=== PATIENT | male | born 1935 | race Caucasian/White ===

== ENCOUNTER 2020-01-23 12:32 | Outpatient (CLI) | payer MEDICARE, OTHER, SELFPAY ==
--- NOTE | 2020-01-23 12:45 | US_ITS ---
WS: [id number] RIGHT UPPER QUADRANT ULTRASOUND HISTORY: RUQ ABDOMINAL PAIN COMPARISON: None available. Liver: 16.8 cm in length. Slightly enlarged liver. No mass or bile duct dilatation. Gallbladder: Normally distended gallbladder with no stones or wall thickening. Level echoes within th e gallbladder to be related to body habitus and reverberation. CBD: 0.4 cm Pancreas: Not visualized. Right kidney: 9.8 cm in length. Normal echogenicity with no mass or hydronephrosis. Aorta and IVC: Unremarkable. No ascites. US/US abdomen limited 18311 IMPRESSION: 1. No cholelithiasis. 2. Mild hepatomegaly.
== END 2020-01-23 12:33 | disposition home or self-care (01) ==
LOC: RAD 12:37
PROVIDERS: Visit Provider Nurse Practitioner Family
DX: R10.11 Right upper quadrant pain (principal); R16.0 Hepatomegaly, not elsewhere classified
CPT/HCPCS: 76705

== ENCOUNTER → 2020-12-22 10:44 | Outpatient (BNVA) | payer MEDICARE, OTHER, SELFPAY | PROVIDERS: PCP Internal Medicine; Visit Provider Internal Medicine Pulmonary Disease | DX: J45.909 Unspecified asthma, uncomplicated (principal); Z20.822 Contact with and (suspected) exposure to COVID-19 | CPT/HCPCS: 87635 ==

== ENCOUNTER 2020-12-25 10:38 | Outpatient (CLI) | payer MEDICARE, OTHER, SELFPAY ==
--- NOTE | 2020-12-25 13:08 | PFTS_ITS ---
Date of Study:12/25/20 Date of Dictation: 01/01/2021 MECHANICS: Postbronchodilator forced vital capacity (FVC) is reduced. Postbronchodilator forced expiratory volume in one second (FEV1) is moderately reduced 78%. FEV1/FVC is reduced No significant response to bronchodilator . FLOW VOLUME LOOP: Sloping of expiratory limb suggestive of airway obstruction . LUNG VOLUMES: Not measured DIFFUSING CAPACITY FOR CARBON MONOXIDE: Moderately reduced 15% . INTERPRETATION: The spirometry consistent with moderate obstruction. There is moderate gas transfer defect. Lung volumes are not measured. Correlate clinically. MTDD
== END 2020-12-25 10:39 | disposition home or self-care (01) ==
LOC: RT 10:39
PROVIDERS: PCP Internal Medicine; Visit Provider Internal Medicine Pulmonary Disease
DX: J45.909 Unspecified asthma, uncomplicated (principal)
CPT/HCPCS: 94060; 94618; 94729

== ENCOUNTER → 2021-09-04 13:28 | Outpatient (BNVA) | payer MEDICARE, OTHER, SELFPAY | PROVIDERS: PCP Internal Medicine; Visit Provider Nurse Practitioner Family | DX: M17.12 Unilateral primary osteoarthritis, left knee (principal); M85.88 Other specified disorders of bone density and structure, other site; M25.562 Pain in left knee | CPT/HCPCS: 73562 ==

== ENCOUNTER → 2021-11-04 11:24 | Outpatient (BNVA) | payer MEDICARE, OTHER, SELFPAY | PROVIDERS: PCP Internal Medicine; Visit Provider Internal Medicine Pulmonary Disease | DX: J45.30 Mild persistent asthma, uncomplicated (principal); G47.33 Obstructive sleep apnea (adult) (pediatric); R06.00 Dyspnea, unspecified; R06.02 Shortness of breath | CPT/HCPCS: 82785; 86003 ==

== ENCOUNTER 2022-04-17 21:36 | Emergency (ER) | payer MEDICARE, OTHER, SELFPAY ==
[2022-04-17] VITALS (8 sets, daily range): BP systolic 61–171; BP diastolic 38–85; PULSE 52–81; RESP 16–25; TEMP 37.1; O2SAT 94–97
--- NOTE | 2022-04-17 22:05 | W.ED.EPISTAX ---
HPI - Epistaxis General: Chief complaint: Epistaxis Stated complaint: Nose bleed for 2 hrs Time Seen by Provider: 04/17/22 21:50 History of Present Illness: 87-year-old male patient comes in today with bleeding from the right nostril. Patient reports the bleeding started about 3 hours ago and he was unable to get it to stop at home. Patient is taking Xarelto. Patient appears nontoxic. Patient appears in no pain. Review of Systems General: Reports: 10 or more systems reviewed and unremarkable except in HPI and below ENMT: Reports: epistaxis; Denies: throat pain Card: Denies: chest pain Resp: Denies: dyspnea PFSH ED PFSH: Medical History Asthma HTN (hypertension) JENNIFER (obstructive sleep apnea) Family History Mother CHF (congestive heart failure) Father CHF (congestive heart failure) Social History Smoking and tobacco status: never smoked Second hand smoke exposure: No Smoking risk assessment/counseling performed?: No Alcohol intake: never Counseling given: No Counseling given: No Lives independently: Yes Household members: spouse Marital status: Current occupational status: retired Previous occupational history: [employer] History of recent travel: No Current gender identity: Male Physical Exam Const: COMMON NORMALS: alert HENMT: HEAD & SCALP: normal to inspection NOSE: Epistaxis present on the right anterior source MOUTH: Normal oral and palatal mucosa present THROAT: posterior oropharynx normal Neck/C-Spine: COMMON NORMALS: full ROM Resp: COMMON NORMALS: normal respiratory effort and clear to auscultation bilaterally AUSCULTATION: clear to auscultation bilaterally Cardio: COMMON NORMALS: regular rate and regular rhythm RATE: regular rate RHYTHM: regular rhythm GI: COMMON NORMALS: Soft to palpation PALPATION: Yes Soft to palpation Back/Pelvis: COMMON NORMALS: thoracic and lumbar spine normal to inspection Extremity: COMMON NORMALS: no pedal edema Neuro: SENSORIUM/ORIENTATION: Yes alert Skin: COMMON NORMALS: turgor normal GENERAL SKIN EXAM: turgor normal Procedures Epistaxis Control Nostril: right Direct Inspection: anterior source identified Clots Removed by: blowing nose Cautery Used: none Device Inserted: hemostatic balloon Patient Tolerated Procedure: well Complications: pain and syncope Course Vital Signs: Vital signs: Vital Signs Temperature 98.7 F 04/17/22 21:41 Pulse Rate 73 04/17/22 23:56 Respiratory Rate 24 H 04/17/22 23:09 Blood Pressure 141/85 04/17/22 23:56 Pulse Oximetry 96 04/17/22 23:09 Oxygen Delivery Me thod 04/17/22 23:09 MDM - Epistaxis Medical Decision Making 87-year-old male patient comes in today with bleeding from his right nostril. On exam patient had significant bleeding from the right nostril. Patient expelled clot by blowing his nose. Vital signs were normal except for some mild elevation of blood pressure of 170 systolic. Differential diagnosis includes anticoagulation, anemia, rhinosinusitis, epistaxis, uncontrolled hypertension. A large clot was removed and then a rapid Rhino anterior-posterior balloon was placed with 8 mL of air in the anterior balloon and 6 mL of air in the posterior balloon. Bleeding was controlled. Patient did have an episode of syncope due to pain. Patient recovered with minimal intervention after placement into Trendelenburg. Lab came back showing a hemoglobin of 12.8, sodium of 129, and chloride of 93, INR of 2.3. Patient was given a 500 mL bag of saline which recovered him after his syncope episode. Orthostatic blood pressures after episode were normal. And patient had resolution of symptoms without any signs of chest pain or other discomfort. Patient was able to ambulate without any difficulty. Reviewed exam with patient and family with recommendations for follow-up with ENT in 72 hours for removal balloon and further treatment. Patient reported understanding of care plan along with family members. Lab Data : 04/17/22 22:07 04/17/22 22:07 Laboratory Results WBC 12.5 10^3/uL (4.0-10.0) H 04/17/22 22:07 RBC 4.53 10^6/uL (4.1-5.3) 04/17/22 22:07 Hgb 12.8 g/dL (11.7-16.6) 04/17/22 22:07 Hct 39.8 % (42.0-52.0) L 04/17/22 22:07 MCV 87.9 fl (80-94) 04/17/22 22:07 MCH 28.3 pg (28.0-34.0) 04/17/22 22:07 MCHC 32.2 g/dL (30.0-36.0) 04/17/22 22:07 RDW 13.7 % (12.1-15.1) 04/17/22 22:07 Plt Count 344 10^3/cmm (130-400) 04/17/22 22:07 MPV 9.2 fL (7.4-10.4) 04/17/22 22:07 Neut % (Auto) 80.0 % 04/17/22 22:07 Lymph % (Auto) 7.1 % 04/17/22 22:07 [place] % (Auto) 9.4 % 04/17/22 22: Eos % (Auto) 1.9 % 04/17/22 22:07 Baso % (Auto) 0.8 % 04/17/22 22:07 Neut # (Auto) 10.01 10^3/uL (1.8-7.7) H 04/17/22 22:07 Lymph # (Auto) 0.9 10^3/uL (0.8-4.8) 04/17/22 22:07 [place] # (Auto) 1.2 10^3/uL (0.2-0.9) H 04/17/22 22:07 Eos # (Auto) 0.2 10^3/uL (0.0-0.8) 04/17/22 22:07 Baso # (Auto) 0.1 10^3/uL (0.0-0.1) 04/17/22 22: Nucleated RBC % (auto) 0 % 04/17/22 22: Nucleated RBCs # 0.0 /100WBC 04/17/22 22:07 PT 25.80 SECONDS (12.1-14.9) H 04/17/22 22:07 INR 2.32 (0.8-1.2) H 04/17/22 22:07 Sodium 129 mmol/L (136-145) L 04/17/22 22:07 Potassium 4.2 mmol/L (3.5-5.1) 04/17/22 22:07 Chloride 93 mmol/L (98-107) L 04/17/22 22:07 Carbon Dioxide 27 mmol/L (22-29) 04/17/22 22:07 Anion Gap 13.2 (5-19) 04/17/22 22:07 BUN 10 mg/dL (8-23) 04/17/22 22:07 Creatinine 0.8 mg/dL (0.7-1.2) 04/17/22 22:07 GFR Calculation Not Reportable 04/17/22 22:07 Glucose 210 mg/dL (65-115) H 04/17/22 22:07 Calculated Osmolality 273 mOsm/kg (285-295) L 04/17/22 22:07 Calcium 9.0 mg/dL (8.5-10.5) 04/17/22 22:07 Total Bilirubin 0.4 mg/dL (0.15-1.2) 04/17/22 22:07 AST 17 U/L (0-40) 04/17/22 22:07 ALT 15 U/L (0-41) 04/17/22 22:07 Alkaline Phosphatase 130 U/L (40-130) 04/17/22 22:07 Total Protein 6.7 g/dL (6.6-8.7) 04/17/22 22:07 Albumin 3.8 g/dL (3.5-5.2) 04/17/22 22:07 Globulin 2.9 g/dL (1.3-4.6) 04/17/22 22:07 Discharge Plan Discharge Patient Disposition: Home Clinical Impression: Acute anterior epistaxis Condition: Stable Prescriptions: New amoxicillin-pot clavulanate 875-125 mg tablet 1 tab PO BID Qty: 14 0RF No Action metformin 500 mg tablet 500 mg PO DAILY tamsulosin 0.4 mg capsule 0.4 mg PO DAILY diltiazem HCl 120 mg capsule,extended release 24 hr 120 mg PO DAILY Xarelto 20 mg tablet 20 mg PO DAILY Rx Instructions: must administer with evening meal atorvastatin 20 mg tablet 10 mg PO DAILY omeprazole 20 mg tablet,delayed release (DR/EC) 20 mg PO BID losartan 100 mg tablet 100 mg PO DAILY metoprolol succinate 100 mg tablet extended release 24 hr 100 mg PO DAILY latanoprost 0.005 % drops 1 drp ophthalmic (eye) DAILY fluticasone propionate [Flonase Allergy Relief] 50 mcg/actuation spray,suspension 2 spray intranasal DAILY Rx Instructions: administer into each nostril polyethylene glycol 3350 [Miralax] 17 gram/dose powder 17 g PO DAILY diphenhydramine HCl [NightTime Sleep Aid (diphen)] 25 mg capsule 25 mg PO .qhs chlorthalidone 25 mg tablet 25 mg PO DAILY ascorbic acid (vitamin C) 1,000 mg tablet 500 mg PO DAILY garlic 1,000 mg capsule 1,000 mg PO DAILY krill oil 500 mg capsule 500 mg PO DAILY multivitamin [One-A-Day Essential] Tablet 1 tab PO DAILY albuterol sulfate 90 mcg/actuation HFA aerosol inhaler 2 puff inhalation Q6H PRN (Reason: shortness of breath or wheezing) Qty: 8.5 3RF aloe vera 25 mg capsule PO montelukast [Singulair] 10 mg tablet 10 mg PO DAILY Qty: 30 5RF budesonide-formoterol [Symbicort] 80-4.5 mcg/actuation HFA aerosol inhaler 2 puff inhalation BID Qty: 10.2 3RF Discharge Orders: Discharge ED (Routine); Ordered 04/17/22 Ordered By: Hakeem Roberts Referrals: Melodie Gilmore MD [Primary Care Provider] - Discharge Diet: Usual diet Discharge Activity: Increase activity as tolerated Patient Instructions: Nosebleed (ED) Activity Restrictions/Additional Instructions: Use acetaminophen as needed for pain. The balloons he to stay intact for up to 72 hours. Follow-up with primary care or early childhood teacher assistant for removal of the balloon. Take oral antibiotic 1 tablet twice a day for the next 7 days. Return to ER for worsening bleeding, lightheadedness and dizziness, fever greater than 100.4, or new concerns. Coding Level of Care Code ED Digital Print Operator for Arlette Fwd Exam Comprehensive
[2022-04-17 22:12] LABS: Basophils # 0.1 10^3/uL (0.0-0.1); Basophils % 0.8 %; Eosinophils # 0.2 10^3/uL (0.0-0.8); Eosinophils % 1.9 %; Hematocrit 39.8 % (42.0-52.0); Hemoglobin 12.8 g/dL (11.7-16.6); Lymphocytes # 0.9 10^3/uL (0.8-4.8); Lymphocytes % 7.1 %; Mean Corpuscular HGB Conc 32.2 g/dL (30.0-36.0); Mean Corpuscular Hemoglobin 28.3 pg (28.0-34.0); Mean Corpuscular Volume 87.9 fl (80-94); Mean Platelet Volume 9.2 fL (7.4-10.4); Monocytes # 1.2 10^3/uL (0.2-0.9); Monocytes % 9.4 %; Neutrophils # 10.01 10^3/uL (1.8-7.7); Nucleated Red Blood Cells % 0 %; Platelet Count 344 10^3/cmm (130-400); Red Blood Count 4.53 10^6/uL (4.1-5.3); Red Cell Distribution Width 13.7 % (12.1-15.1); White Blood Count 12.5 10^3/uL (4.0-10.0)
[2022-04-17 22:23] LABS: INR 2.32 (0.8-1.2)
[2022-04-17 22:33] LABS: Alanine Aminotransferase 15 U/L (0-41); Albumin Level 3.8 g/dL (3.5-5.2); Alkaline Phosphatase 130 U/L (40-130); Anion Gap 13.2 (5-19); Aspartate Amino Transferase 17 U/L (0-40); Blood Urea Nitrogen 10 mg/dL (8-23); Carbon Dioxide 27 mmol/L (22-29); Chloride 93 mmol/L (98-107); Globulin 2.9 g/dL (1.3-4.6); Glucose 210 mg/dL (65-115); Osmolality Calculated 273 mOsm/kg (285-295); Potassium 4.2 mmol/L (3.5-5.1); Sodium 129 mmol/L (136-145); Total Bilirubin 0.4 mg/dL (0.15-1.2); Total Protein 6.7 g/dL (6.6-8.7)
[2022-04-17] MEDS: amoxicillin-clav 875-125 mg Tablet 1 TAB PO (23:16)
[2022-04-17] MEDS: sodium chloride 0.9% 500 ML 999 ML IV (23:16)
--- NOTE | 2022-04-18 00:20 | PC.NURSE ---
@ 2260- pt stated he was feeling a little dizzy and his chest hurt. Pt became pale and diaphoretic. BP dropped. Normal sinus on monitor, sats 95% bp 61/39. provider notified. pt placed in trendel and 500 ns bolus given. Provider released 1 cc of air from balloon. bp 109/75.
--- NOTE | 2022-04-19 08:12 | PC.SOCIAL ---
Addendum entered by Mary Sosa 05/26/22 14:09: Patient had a follow up appointment scheduled with ENT - patient did attend appointment Original Note: ENT Referral Consults received for ENT follow-up. Referral sent at this time. Clinic to contact patient with appt date/time.
== END 2022-04-18 00:16 | disposition home or self-care (01) ==
PROVIDERS: Emergency Provider Nurse Practitioner Family; PCP Internal Medicine
DX: R04.0 Epistaxis (principal)
CPT/HCPCS: 30901; 80053; 85025; 85610; 99284; J7040

== ENCOUNTER → 2022-04-21 12:33 | Outpatient (BNVA) | payer MEDICARE, OTHER, SELFPAY | PROVIDERS: PCP Internal Medicine; Visit Provider Otolaryngology | DX: R04.0 Epistaxis (principal) | CPT/HCPCS: 99203 ==

== ENCOUNTER → 2022-08-03 09:35 | Outpatient (BNVA) | payer MEDICARE, OTHER, SELFPAY | PROVIDERS: PCP Internal Medicine; Visit Provider Otolaryngology | DX: H91.93 Unspecified hearing loss, bilateral (principal) | CPT/HCPCS: 99213 ==

== ENCOUNTER → 2022-08-31 08:35 | Outpatient (BNVA) | payer MEDICARE, OTHER, SELFPAY | PROVIDERS: PCP Internal Medicine; Visit Provider Otolaryngology | DX: H90.3 Sensorineural hearing loss, bilateral (principal) | CPT/HCPCS: 99213; 99214 ==

== ENCOUNTER 2022-12-27 07:45 | Outpatient (CLI) | payer MEDICARE, OTHER, SELFPAY ==
--- NOTE | 2022-12-27 07:50 | CT_ITS ---
WS: [id number] CT HEAD NONCONTRAST HISTORY: DIZZINESS ON STANDING, CEREBROVASCULAR DISEASE TECHNIQUE: Contiguous axial imaging performed through the brain in 2.5 mm imaging. Bone and soft tiss ue windows. Sagittal and coronal reformats reviewed. All CT scans at [facility] use at least one of these dose optimization techniques: automated exposure control; mA and/or kV adjustment per pa tient size (includes targeted exams where dose is matched to clinical indication); or iterative recon struction. DLP: 1135.88 mGy.cm COMPARISON: 05/02/2019 No acute intracranial hemorrhage, midline shift or mass effect. Mild atrophy with mild to moderate small vessel ischemic changes. Mild progression since 2019. No lar ge infarct. Ventricles: Normal size with no hydrocephalus. No inferior displacement of cerebellar tonsils. Paranasal sinuses: As visualized are clear. Mastoid air cells: Well pneumatized. Calvarium and scalp: Skull is intact with no soft tissue edema or swelling. There is marked ductal ectasia of the distal vertebral and basilar arteries. There is also mild dilat ation of the middle cerebral arteries with moderate calcification. CT/CT head wo con* [id number] IMPRESSION: 1. Mild progression of atrophy and small vessel ischemic changes since 2019. 2. No acute hemorrhage. 3. Dolichoectasia vertebral and basilar arteries.
== END 2022-12-27 07:46 | disposition home or self-care (01) ==
PROVIDERS: PCP Internal Medicine; Visit Provider Nurse Practitioner Family
DX: I67.9 Cerebrovascular disease, unspecified (principal); R42 Dizziness and giddiness
CPT/HCPCS: 70450

== ENCOUNTER 2023-03-03 12:48 | Outpatient (CLI) | payer MEDICARE, OTHER, SELFPAY ==
--- NOTE | 2023-03-03 13:04 | XR_ITS ---
WS: [id number] Chest 2 views, 03/03/2023 Clinical Data: FEVER Comparison: Two-view chest, 02/13/2019 Findings: No nodules, masses or effusions are seen. The heart is normal. The pulmonary vascularity is not increased. No pneumonia or pneumothorax is seen. The aortic arch and descending thoracic aorta s how calcification and tortuosity. The diaphragms are flattened. There are surgical clips to the right of the T4 vertebral body unchanged. Impression: Atherosclerosis and hyperinflation.
== END 2023-03-03 12:49 | disposition home or self-care (01) ==
PROVIDERS: PCP Internal Medicine; Visit Provider Nurse Practitioner Family
DX: R50.9 Fever, unspecified (principal); I70.0 Atherosclerosis of aorta; R91.8 Other nonspecific abnormal finding of lung field
CPT/HCPCS: 71046

== ENCOUNTER 2023-05-11 09:12 | Outpatient (CLI) | payer MEDICARE, OTHER, SELFPAY ==
--- NOTE | 2023-05-11 09:16 | MR_ITS ---
WS: [id number] MRI LUMBAR SPINE NONCONTRAST TECHNIQUE: Sagittal T1, T2 and STIR imaging. Axial T1 and T2 imaging. CLINICAL INFORMATION: DEGENERATIVE DISC DX,LUMBOSACRAL SPINE W/RADICULOPATHY COMPARISON: None. FINDINGS: Mild lumbar curve. No acute compression. No high-grade central canal stenosis. Slight anterolisthesis L4 on L5. Disc space narrowing worse at L2-3. L1-L2: Minimal annular bulging. Mild facet arthropathy. Spinal canal and foramen are patent. L2-L3: Disc space narrowing with osteophytic ridging. RIGHT subarticular protrusion impinges the mirtha ersing RIGHT L3 nerve root in the subarticular recess. Mild RIGHT and no significant LEFT foraminal n arrowing. Mild facet arthropathy. L3-L4: Mild annular bulging. Slight effacement of the ventral thecal sac. Slight impingement traversi ng L4 nerve roots bilaterally. Mild facet arthropathy. RIGHT foraminal protrusion slightly impinges t he exiting RIGHT L3 nerve root with moderate RIGHT foraminal narrowing. Mild LEFT foraminal narrowing . L4-L5: Disc osteophyte complex with mild central canal stenosis. Impingement traversing L5 nerve root s bilaterally. Mild LEFT and no significant RIGHT foraminal narrowing. Advanced facet arthropathy. L5-S1: Mild disc bulging with slight effacement of the ventral thecal sac. Slight impingemeng lana ing S1 nerve roots bilaterally. Advanced facet arthropathy. Mild LEFT greater than RIGHT foraminal na rrowing. Visualized pelvic bony structures: Normal. Paravertebral soft tissues: Normal. IMPRESSION: 1. Mild lumbar curve. No acute compression. 2. Shallow central protrusion with impingement of traversing L5 nerve roots bilaterally LEFT greater than RIGHT with mild central canal stenosis. 3. Shallow RIGHT subarticular protrusion L2-3 impinges the RIGHT L3 nerve root in the subarticular r ecess. Mild RIGHT L2-3 foraminal narrowing. 4. Annular bulging L3-4 with narrowing of the subarticular recess bilaterally and mild to moderate R IGHT foraminal narrowing. 5. Annular bulging L5-S1 with slight impingement of traversing RIGHT greater than LEFT S1 nerve root s. Mild LEFT greater than RIGHT foraminal narrowing. 6. Advanced facet arthropathy L4-L5 and L5-S1.
== END 2023-05-11 09:13 | disposition home or self-care (01) ==
LOC: RAD 09:12
PROVIDERS: PCP Internal Medicine; Visit Provider Internal Medicine
DX: M51.17 Intervertebral disc disorders with radiculopathy, lumbosacral region (principal); M51.37 Other intervertebral disc degeneration, lumbosacral region; M48.07 Spinal stenosis, lumbosacral region; M47.27 Other spondylosis with radiculopathy, lumbosacral region
CPT/HCPCS: 72148

== ENCOUNTER 2023-09-24 01:46 | Inpatient (IN) | payer MEDICARE, OTHER, SELFPAY ==
[2023-09-24] VITALS (20 sets, daily range): BP systolic 106–176; BP diastolic 62–86; PULSE 86–122; RESP 16–30; TEMP 36.7–37; O2SAT 91–95; BMI 34.7
--- NOTE | 2023-09-24 02:12 | ED_ITS ---
HPI - Weakness 2 General: Chief complaint: Weakness Stated complaint: generalized weakness Time Seen by Provider: 09/24/23 01:59 History of Present Illness: 88-year-old male presents to the emergen cy department via EMS personnel from [facility]. Patient is a resident at [facility] and per EMS patient was given the wrong medication at his long-term care facility yesterday morning and slept throughout most of the day and was continually somnolent but awoke at approximately 1800 with abnormal weakness, increased shortness of breath and fatigue as well as a cough and feeling like he was having fatigue and malaise and fever. Per EMS the patient normally ambulates without difficulty but is unable to stand and bear his own weight today. EMS personnel state that the patient is requiring supplemental oxygen to maintain his oxygen saturation levels above 90%. He is currently on 3 L nasal cannula but normally does not wear any oxygen. EMS personnel state that upon their initial arrival patient's oxygen saturation was in the mid to low 80%. The patient does have increased work of breathing and audible expiratory wheezes. Review of Systems 2 General: Reports: 10 or more systems reviewed and unremarkable except in HPI and below Const: Reports: fatigue and malaise Resp: Reports: dyspnea, non-productive cough and wheezing PFSH ED 2 PFSH: Medical History (Updated 09/30/23 @ 11:58 by Dora Quezada MD) Asthma Stroke GERD (gastroesophageal reflux disease) Cataract Hyperlipemia Glaucoma Afib HTN (hypertension) JENNIFER (obstructive sleep apnea) Asthma Surgical History History of thyroid surgery H/O hernia repair Hx of cataract surgery H/O cardiac radiofrequency ablation History of carpal tunnel surgery Family History Mother CHF (congestive heart failure) Father CHF (congestive heart failure) Social History Smoking and tobacco/nicotine status: never used tobacco/nicotine Second hand smoke exposure: No Alcohol intake: never Substance/Drug Use: never Lives independently: Yes Household members: spouse Marital status: Current occupational status: retired Previous occupational history: [employer] Do you think of yourself as: Straight/Heterosexual Current gender identity: Male Physical Exam 2 Narrative: EXAM NARRATIVE: Constitutional: Ill-appearing, mild respiratory distress, Alert and oriented-to person, place, time and situation. Head, eyes, ears, nose, mouth, throat: Normocephalic, atraumatic. Pupils-equal, round, reactive to light. No scleral icterus. Normal-appearing external ears. Normal appearing nasal turbinates, no drainage. No obvious oral lesions, posterior oropharynx without erythema or exudates. Neck: Supple, trachea is midline, no lymphadenopathy, no jugular venous distension, thyromegaly, or carotid bruits. Carotid upstrokes are brisk bilaterally. Lungs: Coarse bilaterally, decreased bilaterally in the bases, expiratory wheezes present.. Symmetrical rise and fall of chest, obvious increased work of breathing noted. Cardiac: Sinus tachycardia., positive S1, S2. No murmurs, rubs or gallops that I can appreciate Abdomen: Soft, non-tender to palpation, normal active bowel sounds to all quadrants. No palpable masses, no organomegaly and abdominal bruits. Extremities: 2+ pulses in the upper extremities that are equal bilaterally, 2+ pulses in the lower extremities that are equal bilaterally. Non-edematous. Moves all extremities well, sensation to all extremities are noted. Skin: Warm, dry, intact. Course 2 Vital Signs: Vital signs: Vital Signs Temperature 98.4 F 09/27/23 12:30 Pulse Rate 69 09/27/23 07:46 Respiratory Rate 18 09/27/23 07:46 Blood Pressure 133/86 09/27/23 12:30 Pulse Oximetry 93 09/27/23 11:40 Oxygen Delivery Me thod Room Air 09/27/23 07:46 Oxygen Flow Rate 1 09/26/23 08:41 MDM - Weakness Medical Decision Making Physical exam completed and documented, I will obtain a CBC, CMP, blood cultures, procalcitonin and lactic acid, chest x-ray and a urinalysis. Differential diagnosis includes community-acquired pneumonia, sepsis, viral illness, acute exacerbation of chronic pulmonary disease. Given the patient's radiographic and laboratory findings as well as need for supplemental oxygen I have contacted the hospitalist requested admission for the patient for additional evaluation treatment and care. Patient did receive breathing treatments and antibiotics while here in the emergency department and was admitted to the hospital medicine service. Medical Records I reviewed the patient's medical records. Lab Data I reviewed the patient's lab results. 09/27/23 05:15 09/27/23 05:15 Radiology Impressions Chest X-Ray 09/24/23 02:59 IMPRESSION: No evidence of acute pulmonary process. Head CT 09/24/23 03:05 IMPRESSION: Advanced small vessel disease. No evidence of acute intracranial process. Chest CT 09/24/23 10:03 IMPRESSION: 1. Small consolidations in the lower lobes and right middle lobe which cause partial lobar atelectasis. 2. Extensive coronary artery calcifications. 3. Calcified lymph nodes suggestive of prior granulomatous disease. 4. Gallstones. Laboratory Results WBC 20.13 10^3/uL (3.29-11.43) H 09/24/23 02:00 RBC 4.72 10^6/uL (3.85-5.65) 09/24/23 02:00 Hgb 12.80 g/dL (11.27-16.99) 09/24/23 02:00 Hct 41.0 % (37-53) 09/24/23 02:00 MCV 86.9 fl (82-101) 09/24/23 02:00 MCH 27.1 pg (27-33) 09/24/23 02:00 MCHC 31.2 g/dL (30-55) 09/24/23 02:00 RDW 14.4 % (12.1-15.1) 09/24/23 02:00 Plt Count 289 10^3/cmm (157-399) 09/24/23 02:00 MPV 10.2 fL (7.4-10.4) 09/24/23 02:00 Neut % (Auto) 90.4 % 09/24/23 02:00 Lymph % (Auto) 1.4 % 09/24/23 02:00 [place] % (Auto) 7.5 % 09/24/23 02:00 Eos % (Auto) 0.0 % 09/24/23 02:00 Baso % (Auto) 0.3 % 09/24/23 02:00 Neut # (Auto) 18.18 10^3/uL (1.8-7.7) H 09/24/23 02:00 Lymph # (Auto) 0.3 10^3/uL (0.8-4.8) L 09/24/23 02:00 [place] # (Auto) 1.5 10^3/uL (0.2-0.9) H 09/24/23 02:00 Eos # (Auto) 0.0 10^3/uL (0.0-0.8) 09/24/23 02:00 Baso # (Auto) 0.1 10^3/uL (0.0-0.1) 09/24/23 02:00 Nucleated RBC % (auto) 0 % 09/24/23 02:00 Nucleated RBCs # 0.0 /100WBC 09/24/23 02:00 PT 21.20 SECONDS (12.1-14.9) H 09/24/23 02:00 INR 1.77 (0.8-1.2) H 09/24/23 02:00 D-Dimer 0.36 ug/mLFEU (0-0.59) 09/24/23 02:00 Specimen Type Arterial 09/24/23 03:10 Sample Site Radial, left 09/24/23 03:10 ABG pH 7.38 (7.35-7.45) 09/24/23 03:10 ABG pCO2 46.6 mmHg (35-45) H 09/24/23 03:10 ABG pO2 63.9 mmHg (80.0-100.0) L 09/24/23 03:10 ABG HCO3 27.7 mmol/L (22-26) H 09/24/23 03:10 ABG Base Excess 2.0 mmol/L (-2.0-2.0) 09/24/23 03:10 Lucio Test Pos 09/24/23 03:10 Hematocrit 39.2 % (42-52) L 09/24/23 03:10 O2 Delivery Device Nc 09/24/23 03:10 O2 Liters/Min 3.0 % 09/24/23 03:10 Restaurant Hourly Manager ID [email or web address] 09/24/23 03:10 Sodium 131 mmol/L (136-145) L 09/24/23 02:00 Potassium 4.4 mmol/L (3.5-5.1) 09/24/23 02:00 Chloride 94 mmol/L (98-107) L 09/24/23 02:00 Carbon Dioxide 24 mmol/L (22-29) 09/24/23 02:00 Anion Gap 17.4 (5-19) 09/24/23 02:00 BUN 14 mg/dL (8-23) 09/24/23 02:00 Creatinine 0.8 mg/dL (0.7-1.2) 09/24/23 02:00 GFR Calculation Not Reportable 09/24/23 02:00 Glucose 211 mg/dL (65-115) H 09/24/23 02:00 Calculated Osmolality 279 mOsm/kg (285-295) L 09/24/23 02:00 Lactic Acid 2.4 mmol/L (0.5-2.2) H 09/24/23 02:00 Lactic Acid (Sepsis) 1.5 mmol/L (0.5-2.2) 09/24/23 04:59 Calcium 9.1 mg/dL (8.5-10.5) 09/24/23 02:00 Total Bilirubin 0.6 mg/dL (0.15-1.2) 09/24/23 02:00 AST 15 U/L (0-40) 09/24/23 02:00 ALT 13 U/L (0-41) 09/24/23 02:00 Alkaline Phosphatase 92 U/L (40-130) 09/24/23 02:00 Troponin T Baseline 34 ng/L (0-15) H 09/24/23 02:00 Troponin T 120 Minute 40.21 ng/L (0-15) H 09/24/23 04:00 Delta Troponin T 6.21 ABS# (0-10) 09/24/23 04:00 NT-Pro-B Natriuret Pep 109 pg/mL (0-450) 09/24/23 02:00 Total Protein 6.4 g/dL (6.6-8.7) L 09/24/23 02:00 Albumin 3.8 g/dL (3.5-5.2) 09/24/23 02:00 Globulin 2.6 g/dL (1.3-4.6) 09/24/23 02:00 Procalcitonin 0.10 ng/mL (0-0.5) 09/24/23 02:00 Urine Color Dark yellow (Yellow) 09/24/23 04:12 Urine Appearance Sl hazy (CLEAR) A 09/24/23 04:12 Urine pH 5 (5-7) 09/24/23 04:12 Ur Specific [place] 1.020 (1.005-1.030) 09/24/23 04:12 Urine Protein Trace (Negative) 09/24/23 04:12 Urine Glucose (UA) Trace (Normal) H 09/24/23 04:12 Urine Ketones 1+ (Negative) H 09/24/23 04:12 Urine Blood Neg (Negative) 09/24/23 04:12 Urine Nitrate Negative (Negative) 09/24/23 04:12 Urine Bilirubin Neg (Negative) 09/24/23 04:12 Urine Urobilinogen 1 mg/dL (Negative) H 09/24/23 04:12 Ur Leukocyte Esterase Trace (Negative) H 09/24/23 04:12 Urine RBC 0-4 /hpf (0-2) H 09/24/23 04:12 Urine WBC 0-4 /hpf (0-5) H 09/24/23 04:12 Ur Squamous Epith Cells 0-4 /hpf (0-5) H 09/24/23 04:12 Amorphous Sediment Trace /hpf 09/24/23 04:12 Urine Bacteria 1+ /hpf (NONE) H 09/24/23 04:12 Hyaline Casts 5-10 /lpf H 09/24/23 04:12 Urine Mucus 1+ /hpf 09/24/23 04:12 SARS-CoV-2 Ag (Rapid) negative (Negative) 09/24/23 03:05 XR interpretation done by ED provider, pending radiology final review Discharge Plan Discharge Patient Disposition: Admitted As Inpatient Admit Provider: Emily Thomas Clinical Impression: Sepsis Pneumonia Qualifiers: Pneumonia type: due to unspecified organism Laterality: right Lung location: l ower lobe of lung Qualified Code(s): J18.9 - Pneumonia, unspecified organism Condition: Stable Discharge Diet: As Directed Discharge Activity: Increase activity as tolerated and As per PT/OT instructions Coding Level of Care Code ED Card Grader for Arlette Whipple
--- NOTE | 2023-09-24 02:59 | XRR_ITS ---
PROCEDURE INFORMATION: Exam: XR Chest Exam date and time: 09/24/2023 3:02 AM Age: 88 years old Clinical indication: Dyspnea and wheezing; Prior surgery; Surgery date: 6+ months; Surgery type: Cardiac node ablation; Patient HX: Dyspnea with audible wheezing TECHNIQUE: Imaging protocol: Radiologic exam of the chest. Views: 1 view. COMPARISON: CR XR chest 2V* [id number] 03/03/2023 1:06 PM FINDINGS: Lungs: There is mild bibasilar scarring. Otherwise the lungs are clear. Pleural spaces: There is trace effusion in minor fissure of the right lung. No pneumothorax. Heart/Mediastinum: The heart size is not well assessed. Bones/joints: Unremarkable. XR/XR chest 1V portable [id number] IMPRESSION: No evidence of acute pulmonary process.
--- NOTE | 2023-09-24 03:00 | ECG_ITS ---
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 Measurements Intervals [place] Rate: 110 P: 98 KS: 169 QRS: -3 QRSD: 90 T: 23 QT: 311 QTc: 421 Interpretive Statements SINUS TACHYCARDIA ABNORMAL RHYTHM ECG Compared to ECG 05/02/2019 17:36:03 Sinus bradycardia no longer present Electronically Signed On 09-24-2023 9:18:58 CDT by Jefferson Gusman M.D. [id number]
--- NOTE | 2023-09-24 03:05 | CTR_ITS ---
PROCEDURE INFORMATION: Exam: CT Head Without Contrast Exam date and time: 09/24/2023 3:29 AM Age: 88 years old Clinical indication: Patient HX: Severe general weakness. ; Additional info: Excessive weakness TECHNIQUE: Imaging protocol: Computed tomography of the head without contrast. Radiation optimization: All CT scans at this facility use at least one of these dose optimization techniques: automated exposure control; mA and/or kV adjustment per patient size (includes targeted exams where dose is matched to clinical indication); or iterative reconstruction. COMPARISON: CT head wo con* [id number] 12/27/2022 8:12 AM RADIATION DOSE METRICS: Total DLP (mGy-cm): 1092.21 FINDINGS: Brain: There is advanced small vessel disease. There is no evidence of acute parenchymal hemorrhage, extra-axial collection, or acute infarction. There is no mass effect, midline shift, or downward herniation. Cerebral ventricles: No ventriculomegaly. Paranasal sinuses: Visualized sinuses are unremarkable. No fluid levels. Mastoid air cells: Visualized mastoid air cells are well aerated. Bones/joints: Unremarkable. No acute fracture. Soft tissues: Unremarkable. CT/CT head wo con* [id number] IMPRESSION: Advanced small vessel disease. No evidence of acute intracranial process.
[2023-09-24 03:07] LABS: Basophils # 0.1 10^3/uL (0.0-0.1); Basophils % 0.3 %; Lymphocytes # 0.3 10^3/uL (0.8-4.8); Lymphocytes % 1.4 %; Mean Corpuscular HGB Conc 31.2 g/dL (30-55); Mean Corpuscular Hemoglobin 27.1 pg (27-33); Mean Corpuscular Volume 86.9 fl (82-101); Mean Platelet Volume 10.2 fL (7.4-10.4); Monocytes # 1.5 10^3/uL (0.2-0.9); Monocytes % 7.5 %; Neutrophils # 18.18 10^3/uL (1.8-7.7); Neutrophils % 90.4 %; Nucleated Red Blood Cells % 0 %; Platelet Count 289 10^3/cmm (157-399); Red Blood Count 4.72 10^6/uL (3.85-5.65); Red Cell Distribution Width 14.4 % (12.1-15.1); White Blood Count 20.13 10^3/uL (3.29-11.43)
[2023-09-24 03:11] LABS: INR 1.77 (0.8-1.2)
[2023-09-24 03:17] LABS: Lactic Sepsis W/Reflex 2.4 mmol/L (0.5-2.2)
[2023-09-24 03:20] LABS: Troponin(5th) Baseline 34 ng/L (0-15)
[2023-09-24 03:20] LABS: ABG PCO2 46.6 mmHg (35-45); ABG PH Result 7.38 (7.35-7.45); Arterial Blood Gas Hematocrit 39.2 % (42-52); Blood Gas Allen Test Pos; Blood Gas Sample Site Radial, left; Blood Gas Sample Type Arterial; HCO3 ABG 27.7 mmol/L (22-26); Oxygen Device NC; PO2 ABG 63.9 mmHg (80.0-100.0)
[2023-09-24 03:27] LABS: NT Pro B Type Natriuretic Pept 109 pg/mL (0-450)
[2023-09-24 03:35] LABS: SARS Covid-2 Antigen negative (Negative)
[2023-09-24] MEDS: methylPREDNISolone sod succ 125 mg/2 mL INJ 60 MG IVP (03:37)
[2023-09-24 03:38] LABS: Alanine Aminotransferase 13 U/L (0-41); Albumin Level 3.8 g/dL (3.5-5.2); Alkaline Phosphatase 92 U/L (40-130); Anion Gap 17.4 (5-19); Aspartate Amino Transferase 15 U/L (0-40); Blood Urea Nitrogen 14 mg/dL (8-23); Calcium 9.1 mg/dL (8.5-10.5); Carbon Dioxide 24 mmol/L (22-29); Chloride 94 mmol/L (98-107); Creatinine Clr Calc Pharmacy 80.7032; Globulin 2.6 g/dL (1.3-4.6); Glucose 211 mg/dL (65-115); Osmolality Calculated 279 mOsm/kg (285-295); Potassium 4.4 mmol/L (3.5-5.1); Sodium 131 mmol/L (136-145); Total Bilirubin 0.6 mg/dL (0.15-1.2); Total Protein 6.4 g/dL (6.6-8.7)
[2023-09-24] MEDS: ipratropium-albuterol 3 mL Neb 9 ML INHALATION (03:38)
[2023-09-24 04:36] LABS: Add Urine Microscopic? YES; Bacteria Urine 1+ /hpf; Bilirubin Urine Neg (Negative); Blood Urine Neg (Negative); Glucose Urine UA Trace (Normal); Ketones Urine 1+ (Negative); Leukocyte Esterase Urine Trace (Negative); Mucus Urine 1+ /hpf; Nitrate Urine Negative (Negative); Protein Urine Trace (Negative); RBC Urine 0-4 /hpf (0-2); Squamous Epithelial Cell Urine 0-4 /hpf (0-5); Urine Appearance SL Hazy (CLEAR); Urine Color Dark Yellow (Yellow); Urobilinogen Urine 1 mg/dL (Negative); WBC Urine 0-4 /hpf (0-5); pH Urine 5 (5-7)
[2023-09-24 04:37] LABS: Amorphous Sediment Urine TRACE /hpf
[2023-09-24 04:46] LABS: Troponin 5 2HR 40.21 ng/L (0-15); Troponin 5 2HR Delta 6.21 ABS# (0-10)
[2023-09-24 04:51] LABS: Reflex Lactate Order REFLEX LACTIC ORDERD
--- NOTE | 2023-09-24 05:00 | ECG_ITS ---
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 Measurements Intervals [place] Rate: 99 P: -83 NE: 123 QRS: 12 QRSD: 97 T: 54 QT: 338 QTc: 435 Interpretive Statements Sinus RHYTHM LOW QRS VOLTAGE IN PRECORDIAL LEADS [QRS DEFLECTION < 1.0 mV IN CHEST LEADS] ABNORMAL RHYTHM ECG Compared to ECG 09/24/2023 03:11:17 Low QRS voltage now present Sinus tachycardia no longer present Electronically Signed On 09-24-2023 9:20:55 CDT by Jefferson Gusman M.D. [id number]
[2023-09-24 05:23] LABS: Lactic Acid level (Lactate) 1.5 mmol/L (0.5-2.2)
[2023-09-24] MEDS: cefTRIAXone 2,000 MG in sodium chloride 0.9% (plus) 50 ML 100 MG IV (05:52)
[2023-09-24] MEDS: sodium chloride 0.9% 1,000 ML 999 ML IV (05:52)
[2023-09-24 05:57] LABS: D Dimer 0.36 ug/mLFEU (0-0.59)
--- NOTE | 2023-09-24 07:16 | PM.HP ---
Providers/Chief Complaint Admitting Physician: Emily Thomas MD Primary Care Provider: Melodie Gilmore MD Chief Complaint: generalized weakness History of Present Illness Haris Sol is a 88 year old male with past medical history of hypertension, obstructive sleep apnea, pulmonary embolism on Xarelto, [facility] resident, chronic falls who presents to the ER from [facility] today because of difficulty in breathing. As per the patient and the records from the [facility] he got 1 tablet of [place] by mistake day before yesterday after which he slept for 24 hours and remained drowsy. Overnight he had 1 episode of vomiting and had subjective feeling of chills. Today morning when he woke up he had difficulty in breathing and was requiring oxygen so he presented to the ER. After the patient he did have episode of choking while taking his meds around 2 weeks ago. Complains of occasional choking and cough with meals on and off. Complains of difficulty in breathing on exertion which has been getting worse over last 1 month. Currently is able to walk around by his walker but gets short of breath hence asked to decrease his ambulation. Does not need oxygen at baseline. Today seen with daughter at bedside. He is complaining of constipation which has been ongoing for last 2 to 3 weeks with last bowel movement around 3 days ago. Is any abdominal pain. Difficulty breathing gets worse with conversation and slightly on laying down. Review of Systems General: Reports: 10 or more systems reviewed and unremarkable except in HPI and below Const: Denies: fever(s), chills or body aches Eyes: Denies: change in vision, blurry vision or photophobia ENMT: Reports: hoarseness; Denies: throat pain, enlarged tonsils, odynophagia or nasal congestion Card: Denies: chest pain, palpitations, irregular heart rhythm, edema, swelling of feet/ankles, lightheadedness, pre-syncope, dyspnea on exertion or orthopnea Resp: Denies: dyspnea, productive cough, non-productive cough, wheezing, stridor, pain on inspiration, change in phlegm color, hemoptysis or chest congestion GI: Denies: abdominal pain, nausea, vomiting, hematemesis, coffee ground emesis, dysphagia, heartburn, diarrhea, constipation, GI cramping, change in stool character, hematochezia or melena : Denies: flank pain, dysuria, urinary frequency, urinary urgency, urinary hesitancy or hematuria Musc: Denies: neck pain, back pain, extremity pain, joint swelling, joint warmth or deformity Neuro: Denies: headache(s), numbness in extremities, weakness in extremities, sensory changes, difficulty walking, frequent falls, dizziness, vertigo, behavioral changes, Slurred speech present or seizure-like activity Psych: Denies: anxiety, depression, suicidal ideation or homicidal ideation Endo: Denies: polyuria, polydipsia, tired all the time, cold intolerance or hot flashes Ortiz/Lymph: Denies: easy bruising or easy bleeding Medications/Allergies Home Medications Medication Instructions Recorded Confirmed Last Taken Type albuterol sulfate 90 mcg/actuation 2 puff inhalation Q6H PRN 12/11/20 09/24/23 Unknown Rx aerosol inhaler shortness of breath or wheezing #8.5 grams ascorbic acid (vitamin C) 1,000 mg 500 mg PO DAILY 12/11/20 09/24/23 Unknown History tablet diltiazem HCl 120 mg capsule,24 120 mg PO DAILY 12/11/20 09/24/23 Unknown History hr,extended release fluticasone propionate 50 2 spray intranasal DAILY 12/11/20 09/24/23 Unknown History mcg/actuation nasal spray,suspension (Flonase Allergy Relief) garlic 1,000 mg capsule 1,000 mg PO DAILY 12/11/20 09/24/23 Unknown History latanoprost 0.005 % eye drops 1 drp ophthalmic (eye) DAILY 12/11/20 09/24/23 Unknown History losartan 100 mg tablet 100 mg PO DAILY 12/11/20 09/24/23 Unknown History metoprolol succinate 100 mg 100 mg PO DAILY 12/11/20 09/24/23 Unknown History tablet,extended release 24 hr multivitamin (One-A-Day Essential 1 tab PO DAILY 12/11/20 09/24/23 Unknown History tablet) omeprazole 20 mg tablet,delayed 20 mg PO BID 12/11/20 09/24/23 Unknown History release polyethylene glycol 3350 17 17 g PO DAILY 12/11/20 09/24/23 Unknown History gram/dose oral powder (Miralax) rivaroxaban 20 mg tablet (Xarelto) 20 mg PO DAILY 12/11/20 09/24/23 Unknown History tamsulosin 0.4 mg capsule 0.4 mg PO DAILY 12/11/20 09/24/23 Unknown History metformin 500 mg tablet 500 mg PO DAILY 01/08/21 09/24/23 Unknown History montelukast 10 mg tablet 10 mg PO DAILY #30 tabs 06/30/23 09/24/23 Unknown Rx (Singulair) budesonide-formoterol HFA 80 2 puff inhalation BID #10.2 grams 08/31/23 09/24/23 Unknown Rx mcg-4.5 mcg/actuation aerosol inhaler (Symbicort) acetaminophen 500 mg tablet 500 - 1,000 mg PO Q6H PRN Pain 09/24/23 09/24/23 Unknown History atorvastatin 10 mg tablet 10 mg PO DAILY 09/24/23 09/24/23 Unknown History benzonatate 100 mg capsule 100 mg PO Q8H PRN Cough 09/24/23 09/24/23 Unknown History brimonidine 0.2 % eye drops 1 drp ophthalmic (eye) BID 09/24/23 09/24/23 Unknown History calcium carb 333 mg-mag ox 133 3 tab PO DAILY 09/24/23 09/24/23 Unknown History mg-D3 1.67 mcg-zinc gluc 5 mg tablet cyanocobalamin (vitamin B-12) 1,000 mcg PO DAILY 09/24/23 09/24/23 Unknown History 1,000 mcg tablet (Vitamin B-12) doxylamine succinate 25 mg tablet 25 mg PO BEDTIME 09/24/23 09/24/23 Unknown History (Unisom (doxylamine)) furosemide 20 mg tablet 20 mg PO DAILY 09/24/23 09/24/23 Unknown History meclizine 25 mg tablet 25 mg PO BID 09/24/23 09/24/23 Unknown History psyllium husk 3 gram/5.4 gram oral 1 tbsp PO DAILY 09/24/23 09/24/23 Unknown History powder (Reguloid (psyllium husk)) sod chloride-sod See Rx Instructions .Route .COMPLEX 09/24/23 09/24/23 Unknown History bicarb-hyaluronate sod-aloe 0.9 % nasal gel (Nasogel) venlafaxine 75 mg capsule,extended 75 mg PO DAILY 09/24/23 09/24/23 Unknown History release 24 hr Allergies Allergy/AdvReac Type Severity Reaction Status Date / Time No Known Allergies Allergy Verified 08/31/22 08:43 PFSH Acute PFSH: Medical History (Updated 09/24/23 @ 14:17 by Emily Thomas MD) Asthma Stroke GERD (gastroesophageal reflux disease) Cataract Hyperlipemia Glaucoma Afib HTN (hypertension) JENNIFER (obstructive sleep apnea) Asthma Surgical History History of thyroid surgery H/O hernia repair Hx of cataract surgery H/O cardiac radiofrequency ablation History of carpal tunnel surgery Family History Mother CHF (congestive heart failure) Father CHF (congestive heart failure) Social History Smoking and tobacco/nicotine status: never used tobacco/nicotine Second hand smoke exposure: No Alcohol intake: never Substance/Drug Use: never Lives independently: Yes Household members: spouse Marital status: Current occupational status: retired Previous occupational history: [employer] Do you think of yourself as: Straight/Heterosexual Current gender identity: Male Vitals/I&O/Wt Last Vital Signs Temp 98.1 F 09/24/23 01:48 Pulse 97 09/24/23 06:09 Resp 20 H 09/24/23 06:09 BP 138/73 09/24/23 06:09 Pulse Ox 91 09/24/23 06:09 O2 Del Method Nasal Cannula 09/24/23 03:38 O2 Flow Rate 3 09/24/23 03:38 09/23/23 09/24/23 09/24/23 22:59 06:59 14:59 Intake Total 1050 / 1050 Balance 1050 / 1050 Weight last 48 hrs Weight 109.769 kg Physical Exam Narrative: General: No acute distress, AO x 3 HEENT: PERRLA, pupils bilaterally equal and reactive, pallors not present Chest: Bilateral bronchial breath sounds all over lung valera with diffuse rhonchi present more so in right lower zone CVS: S1-S2 regular, soft ejection systolic murmur present at aortic region, no tachycardia, no gallops, no rubs Abdomen: Soft, nontender, no organomegaly, bowel sounds present Neuro: No focal deficits, no facial deformity, AO x3, Urinary Catheter Management: Jiang: Cath Placed During This Visit: yes Reason for Continuing Indwelling Catheter: Other Urinary Catheter Date of Insertion: 09/24/23 Urinary Catheter Time of Insertion: 04:32 Data 09/24/23 02:00 09/24/23 02:00 Micro: Microbiology 09/24/23 03:50 Blood Culture - Preliminary Blood SPECIMEN COLLECTED 09/24/23 03:45 Blood Culture - Preliminary Blood SPECIMEN COLLECTED A&P Assessment and plan (1) Hypoxia: Most likely in setting of aspiration pneumonia. Patient does give history of aspiration last few months with episode of being drowsy day before yesterday because of narcotic given to him by mistake. Had episode of vomiting last night prior to difficulty in breathing. D-dimer negative. Check sputum culture, urine Legionella, bacterial antigen, respiratory viral panel, blood culture, MRSA swab. Continue with empiric Zosyn for now. Ox supplementation keeping saturation over 90%. DuoNeb every 6 hour, Pulmicort twice daily. Incentive spirometry. Out of bed to chair. (2) Pneumonia: Concerns for aspiration pneumonia. Speech therapy. Modified barium swallow when available. Qualifiers: Laterality: right Lung location: lower lobe of lung Pneumonia type: due to unspecified organism Qualified Code(s): J18.9 - Pneumonia, unspecified organism (3) CHF (congestive heart failure): Not a known history. Check echocardiogram. Cannot rule out diastolic heart failure. Fluid restriction for now. Strict input output charting, daily weights. Received Lasix today morning. Will redose Lasix as per fluid status every day. (4) HTN (hypertension): Goal blood pressure less than 140/90 mmHg. On multiple antihypertensives at home. Continue with home dose of chlorthalidone, metoprolol succinate. If needed will add amlodipine 10 mg oral daily. (5) Afib: Post ablation. Continue home dose of metoprolol and Xarelto. (6) JENNIFER (obstructive sleep apnea): Continue with home CPAP. Plan Constipation: Aggressive bowel regimen. Continue to monitor. If needed patient would prefer suppository. CODE STATUS: Discussed in detail with the patient. Daughter will be the DPOA. She is bedside. She is agreeable. Does not want any kind of chest compressions or heroic measures. DNR/DNI. Xarelto will be sufficient for DVT prophylaxis Protonix OPD prophylaxis. Cardiac diet. Changes per speech evaluation. Restart other home medications once medical reconciliation completed. Attestations Medical Necessity Statement*: Admission for more than 2 midnights for management of hypoxia in setting of aspiration pneumonia, congestive heart failure Diagnoses Hypoxia R09.02 Pneumonia J18.9 Laterality: right Lung location: lower lobe of lung Pneumonia type: due to unspecified organism CHF (congestive heart failure) I50.9 HTN (hypertension) I10 Afib I48.91 JENNIFER (obstructive sleep apnea) G47.33
--- NOTE | 2023-09-24 07:18 | PC.PHAR ---
PT IS FROM [facility]-HAND WRITTEN MED LIST IS FROM 09/23/23 MED ERROR AND RECEIVED OTHER RESIDENTS' MEDICATIONS. PTS' CORRECT MED LIST IS VERIFIED BY HIS NURSE. 09/24/23
[2023-09-24] MEDS: azithromycin 250 mg Tablet 500 MG PO (08:07)
[2023-09-24] MEDS: FUROsemide 10 mg/mL SDV 2mL 20 MG IVP (08:07)
[2023-09-24] MEDS: atorvastatin 40 mg Tablet 20 MG PO (08:07)
[2023-09-24] MEDS: pantoprazole DR 40 mg Tablet PO (08:07)
[2023-09-24] MEDS: piperacillin-tazobactam 3.375 GM in sodium chloride 0.9% (plus) 50 ML IV ×2 (08:08→17:55)
[2023-09-24] MEDS: chlorthalidone 25 mg Tablet PO (08:08)
[2023-09-24] MEDS: tamsulosin 0.4 mg Capsule 0.400000000000000022 MG PO (08:08)
[2023-09-24] MEDS: metoprolol succinate ER (24 HR) 100 mg Tablet PO (08:08)
[2023-09-24] MEDS: rivaroxaban 10 mg Tablet 20 MG PO (08:12)
[2023-09-24 08:40] LABS: Troponin 5 6HR 31.18 ng/L (0-15)
--- NOTE | 2023-09-24 09:00 | ECG_ITS ---
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 Measurements Intervals [place] Rate: 99 P: 256 ME: 126 QRS: -24 QRSD: 105 T: 56 QT: 346 QTc: 445 Interpretive Statements Sinus RHYTHM WITH OCCASIONAL SUPRAVENTRICULAR PREMATURE COMPLEXES BORDERLINE LEFT AXIS DEVIATION [QRS AXIS < -20] LOW QRS VOLTAGE IN PRECORDIAL LEADS [QRS DEFLECTION < 1.0 mV IN CHEST LEADS] PATTERN CONSISTENT WITH PULMONARY DISEASE Compared to ECG 09/24/2023 05:02:51 No significant changes Electronically Signed On 09-24-2023 9:21:14 CDT by Jefferson Gusman M.D. [id number]
[2023-09-24 09:12] LABS: Troponin 5 6HR Delta -2.82 ng/L (0-12)
--- NOTE | 2023-09-24 10:03 | USCV_ITS ---
Haris Sol Age: 88 Gender: M : 1935 Exam Date: 09/24/2023 11:37 Ordering Phys: Nikolai Jama MD Technologist: Mac Tate Exam Location: [facility] [place] Indication: chf BP: 154 / 73 HR: 94 Rhythm: Sinus Technical Quality: Poor MEASUREMENTS (Male / Female) Normal Values 2D ECHO LVOT Diameter 2.1 cm LV Ejection Fraction MOD 2C 61.9 % LV Ejection Fraction 2C AL 63.0 % LA Diameter 3.2 cm RA Systolic Volume 4C AL 75.0 ml RA Systolic Volume 4C MOD 71.5 ml LA Sys Volume AL 60.4 cm cubed LA Sys Volume Index AL 25.5 cm cubed/m squared Aorta at Sinotubular Diameter 2.5 cm IVC Diameter 1.8 cm M-MODE LA Ao Ratio MM 1.1 AV Cusp Separation MM 1.6 cm DOPPLER AV Peak Velocity 271.0 cm/s LVOT Peak Velocity 139.0 cm/s AV Area Cont Eq vti 1.8 cm squared AV Area Cont Eq pk 1.8 cm squared MV Peak Velocity 117.0 cm/s MV Area PHT 8.9 cm squared Mitral E to A Ratio 0.7 TR Peak Velocity 163.0 cm/s TR Peak Gradient 10.6 mmHg TR Mean Velocity 123.0 cm/s TR Mean Gradient 6.7 mmHg TR Velocity Time Integral 28.4 cm PV Peak Velocity 115.0 cm/s RV Ejection Time 0.2 s FINDINGS Left Ventricle Study is poor in quality. The views are limited. The apical view is the only reasonable view. The ventricle appears normal in size. The overall left ventricular function is probably normal. Ejection fraction is in normal range. Wall motion disturbances cannot specifically be determined due to the inability to see all segments. Grade 1 diastolic dysfunction. Right Ventricle Normal right ventricular size and systolic function. Right Atrium The right atrium is normal in size. Left Atrium The left atrium is normal in size. Mitral Valve Structurally normal mitral valve. Mitral valve not well visualized. There is no obvious mitral regurgitation. Aortic Valve Aortic valve not well visualized. Tricuspid Valve Tricuspid valve not well visualized. Pulmonic Valve Pulmonic valve not well visualized. Pericardium Normal pericardium without effusion. Aorta Normal ascending aorta dimension. IVC The inferior vena cava appears normal. CONCLUSIONS Study is poor in quality. The views are limited. The apical view is the only reasonable view. The ventricle appears normal in size. The overall left ventricular function is probably normal. Ejection fraction is in normal range. Wall motion disturbances cannot specifically be determined due to the inability to see all segments. Grade 1 diastolic dysfunction. Previous study was done in 2015. There is no appreciable change other than the diastolic dysfunction. Dr. Jeffreson Gusman MD (Electronically Signed) Final Date: 24 September 2023 15:13 S
--- NOTE | 2023-09-24 10:03 | CTR_ITS ---
PROCEDURE INFORMATION: Exam: CT Chest Without Contrast; Diagnostic Exam date and time: 09/24/2023 11:14 AM Age: 88 years old Clinical indication: Shortness of breath; Additional info: Copd/pna TECHNIQUE: Imaging protocol: Diagnostic computed tomography of the chest without contrast. Radiation optimization: All CT scans at this facility use at least one of these dose optimization techniques: automated exposure control; mA and/or kV adjustment per patient size (includes targeted exams where dose is matched to clinical indication); or iterative reconstruction. COMPARISON: CR (CHEST, ) 09/24/2023 3:02 AM RADIATION DOSE METRICS: Total DLP (mGy-cm): 634.05 FINDINGS: Lungs: Small consolidations are identified in the lower lobes and right middle lobe which cause partial lobar atelectasis. Pleural spaces: Unremarkable. No pneumothorax. No pleural effusion. Heart: Unremarkable. No cardiomegaly. No pericardial effusion. Coronary arteries: Extensive coronary artery calcifications are identified. Lymph nodes: Numerous calcified mediastinal and hilar lymph nodes are identified suggesting prior granulomatous disease. There is no mediastinal, hilar, or axillary lymphadenopathy. Vasculature: Unremarkable. No aortic aneurysm. Gallbladder and bile ducts: Gallstones are noted. Bones/joints: Unremarkable. No acute fracture. Soft tissues: Unremarkable. CT/CT chest wo con [id number] IMPRESSION: 1. Small consolidations in the lower lobes and right middle lobe which cause partial lobar atelectasis. 2. Extensive coronary artery calcifications. 3. Calcified lymph nodes suggestive of prior granulomatous disease. 4. Gallstones.
[2023-09-24 10:49] LABS: Procalcitonin 0.78 ng/mL (0-0.5); Thyroid Stimulating Hormone 0.47 uIU/mL (0.27-4.20); Vitamin B12 496 pg/mL (232-1245)
[2023-09-24 11:00] LABS: Iron 13 ug/dL (59-158); Percent Saturation 4.7 % (20-50); Total Iron Binding Capacity 273 mcg/dl; Unsaturated Iron Binding 260 ug/dL (112-347)
[2023-09-24] MEDS: sennosides-docusate Tablet 1 TAB PO ×2 (11:03→17:56)
[2023-09-24] MEDS: magnesium hydroxide 30 mL UDC PO (11:03)
[2023-09-24 11:48] LABS: Glucose Point of Care 363 mg/dL (70-110)
[2023-09-24] MEDS: ipratropium-albuterol 3 mL Neb INHALATION ×2 (13:12→19:57)
[2023-09-24 15:09] LABS: Adenovirus Not Detected (NOT DETECT); Chlamydia Pneumoniae Not Detected (NOT DETECT); Coronavirus 229E,HKU1,NL63,OC4 Not Detected (NOT DETECT); Human Metapneumovirus Not Detected (NOT DETECT); Human Rhinovirus/Enterovirus Not Detected (NOT DETECT); Influenza A Not Detected (NOT DETECT); Influenza A H1 Not Detected (NOT DETECT); Influenza A H1-2009 Not Detected (NOT DETECT); Influenza A H3 Not Detected (NOT DETECT); Influenza B Not Detected (NOT DETECT); Mycoplasma Pneumoniae Not Detected (NOT DETECT); Parainfluenza Virus Type 1 Not Detected (NOT DETECT); Parainfluenza Virus Type 2 Not Detected (NOT DETECT); Parainfluenza Virus Type 3 Not Detected (NOT DETECT); Parainfluenza Virus Type 4 Not Detected (NOT DETECT); Respiratory Syncytial Virus A Not Detected (NOT DETECT); Respiratory Syncytial Virus B Not Detected (NOT DETECT); SARS-COV-2 Not Detected (NOT DETECT)
[2023-09-24 16:45] LABS: Glucose Point of Care 252 mg/dL (70-110)
[2023-09-24] MEDS: budesonide 0.5 mg/2 mL Neb INHALATION (19:57)
[2023-09-25] VITALS (16 sets, daily range): BP systolic 124–170; BP diastolic 72–93; PULSE 78–99; RESP 16–25; TEMP 36.6–36.9; O2SAT 91–96
[2023-09-25] MEDS: ipratropium-albuterol 3 mL Neb INHALATION ×4 (02:13→20:34)
[2023-09-25] MEDS: piperacillin-tazobactam 3.375 GM in sodium chloride 0.9% (plus) 50 ML IV ×3 (02:49→23:56)
[2023-09-25 05:05] LABS: Basophils # 0.1 10^3/uL (0.0-0.1); Basophils % 0.4 %; Eosinophils % 0.2 %; Hematocrit 37.8 % (37-53); Lymphocytes % 5.7 %; Mean Corpuscular Hemoglobin 27.1 pg (27-33); Mean Corpuscular Volume 87.7 fl (82-101); Monocytes # 1.7 10^3/uL (0.2-0.9); Monocytes % 9.2 %; Neutrophils # 15.01 10^3/uL (1.8-7.7); Neutrophils % 83.9 %; Nucleated Red Blood Cells % 0 %; Platelet Count 267 10^3/cmm (157-399); Red Blood Count 4.31 10^6/uL (3.85-5.65); Red Cell Distribution Width 14.6 % (12.1-15.1); White Blood Count 17.89 10^3/uL (3.29-11.43)
[2023-09-25 05:19] LABS: Estmated Average Glucose 171; Hemoglobin A1C 7.6 % (4.0-6.0)
[2023-09-25 05:21] LABS: Chol HDL Ratio 2.17 mg/dL (1.0-5.00); Cholesterol 100 mg/dL (0-200); HDL Cholesterol 46 mg/dL (60-100); LDL Cholesterol Calculated 45 mg/dL (50-129); Triglycerides 43 mg/dL (0-150); VLDL Cholestrol Calculation 9 mg/dL (0-30)
[2023-09-25 05:22] LABS: Alanine Aminotransferase 11 U/L (0-41); Albumin Level 3.3 g/dL (3.5-5.2); Alkaline Phosphatase 72 U/L (40-130); Anion Gap 10.1 (5-19); Aspartate Amino Transferase 12 U/L (0-40); Blood Urea Nitrogen 15 mg/dL (8-23); Calcium 8.6 mg/dL (8.5-10.5); Carbon Dioxide 31 mmol/L (22-29); Chloride 100 mmol/L (98-107); Creatinine Clr Calc Pharmacy 80.7032; Globulin 2.8 g/dL (1.3-4.6); Glucose 195 mg/dL (65-115); Osmolality Calculated 290 mOsm/kg (285-295); Potassium 4.1 mmol/L (3.5-5.1); Sodium 137 mmol/L (136-145); Total Bilirubin 0.5 mg/dL (0.15-1.2); Total Protein 6.1 g/dL (6.6-8.7)
[2023-09-25 05:59] LABS: Folate Level 14.3 ng/mL (4.5-32.2)
[2023-09-25] MEDS: budesonide 0.5 mg/2 mL Neb INHALATION ×2 (07:32→20:34)
[2023-09-25] MEDS: azithromycin 250 mg Tablet 500 MG PO (09:00)
[2023-09-25] MEDS: atorvastatin 40 mg Tablet 20 MG PO (09:00)
[2023-09-25] MEDS: tamsulosin 0.4 mg Capsule 0.400000000000000022 MG PO (09:00)
[2023-09-25] MEDS: rivaroxaban 10 mg Tablet 20 MG PO (09:00)
[2023-09-25] MEDS: sennosides-docusate Tablet 1 TAB PO ×2 (09:00→18:43)
[2023-09-25] MEDS: pantoprazole DR 40 mg Tablet PO (09:01)
[2023-09-25] MEDS: metoprolol succinate ER (24 HR) 100 mg Tablet PO (09:01)
[2023-09-25] MEDS: chlorthalidone 25 mg Tablet PO (09:01)
[2023-09-25] MEDS: FUROsemide 10 mg/mL SDV 4mL 40 MG IVP (09:01)
[2023-09-25] MEDS: BRIMONIDINE 0.2% 1 EACH EYE-BOTH (10:36)
[2023-09-25] MEDS: amlodipine 5 mg Tablet PO (10:42)
--- NOTE | 2023-09-25 11:12 | P.PN_ITS ---
Subjective 2 Subjective: No document events overnight. Morning seen sitting up in chair with family at bedside. States he is feeling better. Breathing is slightly better. No further chest pain. Denies any nausea vomiting, headache. Down to 2 L ox supplementation. Blood pressure slightly better. Vitals/I&O/Wt Last Vital Signs Temp 98.4 F 09/25/23 08:00 Pulse 97 09/25/23 08:00 Resp 16 09/25/23 08:00 BP 170/91 09/25/23 08:00 Pulse Ox 93 09/25/23 08:00 O2 Del Method Nasal Cannula 09/25/23 08:00 O2 Flow Rate 2 09/25/23 07:33 09/24/23 09/25/23 09/25/23 22:59 06:59 14:59 Intake Total 590 / 880 400 / 1280 290 / 290 Output Total 1225 / 3025 Balance -635 / -2145 400 / -1745 290 / 290 Weight last 48 hrs Weight 110.994 kg Weight 109.769 kg Weight 109.769 kg Physical Exam 2 Narrative: General: No acute distress, AO x 3 HEENT: PERRLA, pupils bilaterally equal and reactive, pallors not present Chest: Bilateral bronchial breath sounds all over lung valera with diffuse rhonchi present more so in right lower zone CVS: S1-S2 regular, soft ejection systolic murmur present at aortic region, no tachycardia, no gallops, no rubs Abdomen: Soft, nontender, no organomegaly, bowel sounds present Neuro: No focal deficits, no facial deformity, AO x3, Urinary Catheter Management: Jiang: Cath Placed During This Visit: yes Reason for Continuing Indwelling Catheter: Accurate Measurement of Urinary Output in Critically Ill Patients Urinary Catheter Date of Insertion: 09/24/23 Urinary Catheter Time of Insertion: 04:32 Data 09/25/23 03:43 09/25/23 03:43 Micro: Microbiology 09/24/23 10:02 Bacterial Antigens - Final Urine Kidney 09/24/23 03:50 Blood Culture - Preliminary Blood NEGATIVE TO DATE 09/24/23 03:45 Blood Culture - Preliminary Blood NEGATIVE TO DATE A&P Assessment and plan (1) Hypoxia: Most likely in setting of aspiration pneumonia. Patient does give history of aspiration last few months with episode of being drowsy day before yesterday because of narcotic given to him by mistake. Had episode of vomiting last night prior to difficulty in breathing. D-dimer negative. Check sputum culture, urine Legionella, bacterial antigen, respiratory viral panel, blood culture, MRSA swab. Continue with empiric Zosyn for now. Ox supplementation keeping saturation over 90%. DuoNeb every 6 hour, Pulmicort twice daily. Incentive spirometry. Out of bed to chair. (2) Pneumonia: Concerns for aspiration pneumonia. Speech therapy. Modified barium swallow when available. Qualifiers: Laterality: right Lung location: lower lobe of lung Pneumonia type: d ue to unspecified organism Qualified Code(s): J18.9 - Pneumonia, unspecified organism (3) CHF (congestive heart failure): Not a known history. Check echocardiogram. Cannot rule out diastolic heart failure. Fluid restriction for now. Strict input output charting, daily weights. Received Lasix today morning. Will redose Lasix as per fluid status every day. (4) HTN (hypertension): Goal blood pressure less than 140/90 mmHg. On multiple antihypertensives at home. Continue with home dose of chlorthalidone, metoprolol succinate. If needed will add amlodipine 10 mg oral daily. (5) Afib: Post ablation. Continue home dose of metoprolol and Xarelto. (6) JENNIFER (obstructive sleep apnea): Continue with home CPAP. Plan Constipation: Aggressive bowel regimen. Continue to monitor. If needed patient would prefer suppository. CODE STATUS: Discussed in detail with the patient. Daughter will be the DPOA. She is bedside. She is agreeable. Does not want any kind of chest compressions or heroic measures. DNR/DNI. Xarelto will be sufficient for DVT prophylaxis Protonix OPD prophylaxis. Cardiac diet. Changes per speech evaluation. Plan for the day: 09/24: CT chest concerning for aspiration pneumonia. D-dimer negative. PE ruled out. White count trending down. Urine Legionella, bacteria antigen negative. Sputum culture pending. Continue with IV Zosyn. MRSA swab pending. Echocardiogram appreciated for a poor study but concerning for diastolic dysfunction. IV Lasix 40 mg one-time. Goal blood pressure less than 140/90 mmHg. Continue with home antihypertensives. Add amlodipine 5 mg oral daily. Aggressive pulmonary toilet with I-S. Oxygen supplementation keeping saturation over 90%. Concern for aspiration pneumonia. Change diet as per speech therapy. Modified barium swallow in a.m. when possible. Attestations 2 Medical Necessity Statement*: Requires further hospitalization for management of hypoxia in setting of aspiration pneumonia, diastolic heart failure while diet is advanced as per speech evaluation. Diagnoses Hypoxia R09.02 Pneumonia J18.9 Laterality: right Lung location: lower lobe of lung Pneumonia type: due to unspecified organism CHF (congestive heart failure) I50.9 HTN (hypertension) I10 Afib I48.91 JENNIFER (obstructive sleep apnea) G47.33
[2023-09-25 11:51] LABS: Glucose Point of Care 273 mg/dL (70-110)
[2023-09-25 17:26] LABS: Glucose Point of Care 289 mg/dL (70-110)
[2023-09-25] MEDS: LATANOPROST 1 EACH EYE-BOTH (18:44)
[2023-09-25 19:52] LABS: Glucose Point of Care 328 mg/dL (70-110)
[2023-09-26] VITALS (15 sets, daily range): BP systolic 138–172; BP diastolic 80–91; PULSE 68–79; RESP 16–25; TEMP 36.4–36.7; O2SAT 90–96
[2023-09-26] MEDS: ipratropium-albuterol 3 mL Neb INHALATION ×4 (01:47→21:11)
[2023-09-26 04:31] LABS: Basophils # 0.1 10^3/uL (0.0-0.1); Basophils % 0.6 %; Eosinophils # 0.3 10^3/uL (0.0-0.8); Eosinophils % 1.9 %; Hematocrit 39.7 % (37-53); Lymphocytes # 1.2 10^3/uL (0.8-4.8); Lymphocytes % 8.9 %; Mean Corpuscular HGB Conc 30.7 g/dL (30-55); Mean Corpuscular Hemoglobin 26.8 pg (27-33); Mean Corpuscular Volume 87.1 fl (82-101); Mean Platelet Volume 10.1 fL (7.4-10.4); Monocytes # 1.3 10^3/uL (0.2-0.9); Monocytes % 9.5 %; Neutrophils # 10.97 10^3/uL (1.8-7.7); Neutrophils % 78.6 %; Nucleated Red Blood Cells % 0 %; Platelet Count 285 10^3/cmm (157-399); Red Blood Count 4.56 10^6/uL (3.85-5.65); Red Cell Distribution Width 14.6 % (12.1-15.1); White Blood Count 13.96 10^3/uL (3.29-11.43)
[2023-09-26 04:49] LABS: Alanine Aminotransferase 10 U/L (0-41); Albumin Level 3.4 g/dL (3.5-5.2); Alkaline Phosphatase 82 U/L (40-130); Anion Gap 15.2 (5-19); Aspartate Amino Transferase 14 U/L (0-40); Blood Urea Nitrogen 16 mg/dL (8-23); Calcium 8.8 mg/dL (8.5-10.5); Carbon Dioxide 29 mmol/L (22-29); Chloride 92 mmol/L (98-107); Creatinine Clr Calc Pharmacy 72.1369; Globulin 2.5 g/dL (1.3-4.6); Glucose 234 mg/dL (65-115); Osmolality Calculated 283 mOsm/kg (285-295); Potassium 4.2 mmol/L (3.5-5.1); Sodium 132 mmol/L (136-145); Total Bilirubin 0.7 mg/dL (0.15-1.2); Total Protein 5.9 g/dL (6.6-8.7)
[2023-09-26 06:37] LABS: Glucose Point of Care 248 mg/dL (70-110)
[2023-09-26] MEDS: budesonide 0.5 mg/2 mL Neb INHALATION ×2 (07:53→21:11)
[2023-09-26] MEDS: sennosides-docusate Tablet 1 TAB PO ×2 (08:44→18:21)
[2023-09-26] MEDS: metoprolol succinate ER (24 HR) 100 mg Tablet PO (08:44)
[2023-09-26] MEDS: amlodipine 5 mg Tablet PO (08:44)
[2023-09-26] MEDS: rivaroxaban 10 mg Tablet 20 MG PO (08:44)
[2023-09-26] MEDS: tamsulosin 0.4 mg Capsule 0.400000000000000022 MG PO (08:44)
[2023-09-26] MEDS: piperacillin-tazobactam 3.375 GM in sodium chloride 0.9% (plus) 50 ML IV ×3 (08:45→23:27)
[2023-09-26] MEDS: azithromycin 250 mg Tablet 500 MG PO (08:45)
[2023-09-26] MEDS: atorvastatin 40 mg Tablet 20 MG PO (08:45)
[2023-09-26] MEDS: pantoprazole DR 40 mg Tablet PO (08:47)
[2023-09-26] MEDS: chlorthalidone 25 mg Tablet PO (08:47)
[2023-09-26] MEDS: BRIMONIDINE 0.2% 1 EACH EYE-BOTH ×2 (09:47→18:21)
--- NOTE | 2023-09-26 09:48 | PC.CHAP ---
Pastoral Care Encounter/Spiritual Assessment Type of Contact [] Declined wire machine cutter visit [] Patient/Family/Request visit [] Outpatient visit [] Follow-up visit [] Physician referral [] Code/Alert [x] Routine visit [] Staff referral [] Actively dying [] Patient sleeping [] Family support [] [] Out of room [] Palliative care [] [x] Receiving care in room [] Pre-surgical visit [] Trauma [] Long length of stay [] ICU visit [] Other: Relational/Emotional Strength [] Patient feels connected with others/family/visitors/staff [] Distress [] Loneliness/isolation [] Abandonment Spirituality of Patient [] Person of Trisha [] Attends Denominational of their Trisha [] Believes in Prayer [] Reads Bible or Hindu materials [] There are Spiritual issues to be addressed Junior Assistant Manager Interventions [x] Prayer [] Active listening [] Non-anxious presence [] Spiritual/emotional support [] Crisis/trauma care [] Spiritual counseling [] Bereavement support [] Provided bereavement packet [x] Provided Bible/devotional materials [] Provided toy/stuffed animal, coloring book to patient or family member [] Provided Communion [] Anointing/[place] [] Salvation [] Completed spiritual assessment [] Other: Impact on Illness or Injury [] Angry [] Fearful [] Anxious [] Often cries [] Exhaustion [] Unable to work [] Unable to attend sikhism [] Unable to walk/stand [] Unable to read [] Unable to drive [] Unable to eat/drink [] Unable to sleep [] Unable to be with family [] Patient intubated [] Other: Summary Time spent with patient
--- NOTE | 2023-09-26 14:30 | FL_ITS ---
WS: [id number] MODIFIED BARIUM SWALLOW TECHNIQUE: Modified barium swallow with speech therapy using multiple consistencies. FLUOROSCOPY TIME: 2min [id number] # of spot films: 0 CLINICAL INFORMATION: Oropharyngeal dysphagia COMPARISON: None. FINDINGS: Multiple consistencies utilized. Early spillage with some pooling in the vallecula. Delayed oropharyn geal phase and bolus formation. Penetration visualized with thin liquids. No brian aspiration. No dif ficulties with the barium tablet. IMPRESSION: 1. Early spillage with some pooling in the vallecula 2. Delayed oropharyngeal phase and bolus formation. 3. Penetration visualized with thin liquids. 4. No brian aspiration Please see the speech therapy consultation for additional details and recommendations
--- NOTE | 2023-09-26 15:12 | PC.SOCIAL ---
Pg 2 IMM Explained to pt Pg 2 IMM. No questions voiced. Provided pt a copy. Initialed, dated, & timed a copy & placed in chart.
[2023-09-26 17:59] LABS: Glucose Point of Care 235 mg/dL (70-110)
[2023-09-26] MEDS: insulin lispro 100 unit/1 mL SUBCUT (18:22)
[2023-09-26] MEDS: LATANOPROST 1 EACH EYE-BOTH (19:30)
[2023-09-26 20:55] LABS: Glucose Point of Care 278 mg/dL (70-110)
--- NOTE | 2023-09-26 22:50 | P.PN_ITS ---
Subjective 2 Subjective: Just completed modified barium swallow. States did not have any issues during the procedure. Denies chest pain or pressure. Breathing feels decent. Vitals/I&O/Wt Last Vital Signs Temp 98.0 F 09/26/23 20:00 Pulse 70 09/26/23 22:00 Resp 16 09/26/23 21:13 BP 138/91 09/26/23 20:00 Pulse Ox 92 09/26/23 21:13 O2 Del Method Room Air 09/26/23 21:13 O2 Flow Rate 1 09/26/23 08:41 09/26/23 09/26/23 09/26/23 06:59 14:59 22:59 Intake Total 50 / 630 646 / 646 410 / 1056 Output Total 1100 / 4325 500 / 500 Balance -1050 / -3695 646 / 646 -90 / 556 Weight last 48 hrs Weight 109.769 kg Weight 110.994 kg Physical Exam 2 Narrative: Accompanied by his daughter. Sitting up in chair. Const: COMMON NORMALS: patient oriented x3 and alert GENERAL APPEARANCE: c ooperative ORIENTATION/CONSCIOUSNESS: Yes awake HENMT: COMMON NORMALS: oropharynx normal Neck/C-Spine: COMMON NORMALS: no JVD Resp: COMMON NORMALS: normal respiratory effort and clear to auscultation bilaterally AUSCULTATION: clear to auscultation bilaterally Cardio: COMMON NORMALS: no JVD, regular rhythm, S1 normal heart sound present, S2 normal heart sound present and No murmurs present (Cardio) RHYTHM: regular rhythm HEART SOUNDS: S1 normal heart sound present and S2 normal heart sound present GI: COMMON NORMALS: Normal to inspection, nondistended, normoactive bowel sounds present, Soft to palpation and non-tender PALPATION: Yes Soft to palpation Extremity: COMMON NORMALS: no joint enlargement and no pedal edema Neuro: COMMON NORMALS: patient oriented x3 and moves all extremities S ENSORIUM/ORIENTATION: Yes alert Skin: COMMON NORMALS: no rashes or lesions noted GENERAL SKIN EXAM: no rashes or lesions noted Urinary Catheter Management: Jiang: Cath Placed During This Visit: yes Reason for Continuing Indwelling Catheter: Other Urinary Catheter Date of Insertion: 09/24/23 Urinary Catheter Time of Insertion: 04:32 Data 09/26/23 03:14 09/26/23 03:14 Micro: Microbiology 09/26/23 02:55 Gram Stain - Final Sputum - Expectorated Sputum A&P Assessment and plan (1) Hypoxia: Continues on treatment for aspiration pneumonia. Showing gradual improvement. Underwent modified barium swallow assessment this afternoon. Reviewed vitals, CBC, CMP, blood culture, urine bacterial antigen, sputum culture. So far without growth, negative antigens. Reviewed MBS results. Premature spillage, delayed oropharyngeal phase, no brian aspiration. Continue dysphagia diet level 7, easy to chew. Follow-up speech therapy recommendations. Discussed with bottle caser. If continues to improve consideration of possible discharge tomorrow. Most likely in setting of aspiration pneumonia. Patient does give history of aspiration last few months with episode of being drowsy day before yesterday because of narcotic given to him by mistake. Had episode of vomiting last night prior to difficulty in breathing. D-dimer negative. Continue with empiric Zosyn for now. Ox supplementation keeping saturation over 90%. DuoNeb every 6 hour, Pulmicort twice daily. Incentive spirometry. Out of bed to chair. (2) Pneumonia: Concerns for aspiration pneumonia. As above. Speech therapy. Modified barium swallow Completed. Qualifiers: Laterality: right Lung location: lower lobe of lung Pneumonia type: d ue to unspecified organism Qualified Code(s): J18.9 - Pneumonia, unspecified organism (3) CHF (congestive heart failure): Reviewed echocardiogram, study is poor quality, apical view is clearly reasonable reviewed, function probably normal, EF in normal range, wall motion disturbances cannot be determined. Grade 1 diastolic dysfunction. No appreciable change from prior study in 2014. On chlorthalidone, not on scheduled Lasix. So far doing okay in terms of volume status, reassess. Consider resumption of home Lasix dose. Not a known history. Check echocardiogram. Cannot rule out diastolic heart failure. Fluid restriction for now. Strict input output charting, daily weights. (4) HTN (hypertension): On multiple antihypertensives at home. Continue with home dose of chlorthalidone, metoprolol succinate. Amlodipine 5 mg. (5) Afib: Post ablation. Continue home dose of metoprolol and Xarelto. (6) JENNIFER (obstructive sleep apnea): Continue with home CPAP. Plan Constipation: Aggressive bowel regimen. Reviewed JUDAH, has had a bowel movement. Continue to monitor. If needed patient would prefer suppository. Hyperglycemia: Add insulin sliding scale. POC glucose checks. CODE STATUS: Daughter will be the DPOA. Does not want any kind of chest compressions or heroic measures. DNR/DNI. Xarelto will be sufficient for DVT prophylaxis Protonix OPD prophylaxis. Cardiac diet. Changes per speech evaluation. Attestations 2 Medical Necessity Statement*: Continue admission for assessment management of aspiration pneumonia, repression for possible discharge tomorrow. and High MDM includes amount and/or complexity of data reviewed/ordered [ resulted lab(s)/test(s), ordered lab(s)/test(s), independent historian and other healthcare professional discussion] as documented Diagnoses Hypoxia R09.02 Pneumonia J18.9 Laterality: right Lung location: lower lobe of lung Pneumonia type: due to unspecified organism CHF (congestive heart failure) I50.9 HTN (hypertension) I10 Afib I48.91 JENNIFER (obstructive sleep apnea) G47.33
[2023-09-27] VITALS (9 sets, daily range): BP systolic 133–167; BP diastolic 86–110; PULSE 69–84; RESP 13–18; TEMP 36.9–37.2; O2SAT 90–93
[2023-09-27] MEDS: ipratropium-albuterol 3 mL Neb INHALATION ×2 (02:55→07:35)
[2023-09-27 05:28] LABS: Basophils # 0.1 10^3/uL (0.0-0.1); Basophils % 0.7 %; Eosinophils # 0.3 10^3/uL (0.0-0.8); Eosinophils % 2.5 %; Hematocrit 40.5 % (37-53); Lymphocytes # 0.9 10^3/uL (0.8-4.8); Lymphocytes % 8.4 %; Mean Corpuscular HGB Conc 31.4 g/dL (30-55); Mean Platelet Volume 9.3 fL (7.4-10.4); Monocytes # 1.1 10^3/uL (0.2-0.9); Monocytes % 10.3 %; Neutrophils # 8.28 10^3/uL (1.8-7.7); Neutrophils % 77.4 %; Nucleated Red Blood Cells % 0 %; Platelet Count 304 10^3/cmm (157-399); Red Blood Count 4.71 10^6/uL (3.85-5.65); Red Cell Distribution Width 14.3 % (12.1-15.1); White Blood Count 10.71 10^3/uL (3.29-11.43)
[2023-09-27 05:50] LABS: Anion Gap 11.9 (5-19); Blood Urea Nitrogen 13 mg/dL (8-23); Carbon Dioxide 29 mmol/L (22-29); Chloride 95 mmol/L (98-107); Creatinine Clr Calc Pharmacy 80.7032; Glucose 228 mg/dL (65-115); Osmolality Calculated 281 mOsm/kg (285-295); Potassium 3.9 mmol/L (3.5-5.1); Sodium 132 mmol/L (136-145)
[2023-09-27 06:02] LABS: Magnesium 1.8 mg/dL (1.7-2.3)
[2023-09-27 06:38] LABS: Glucose Point of Care 238 mg/dL (70-110)
[2023-09-27] MEDS: acetaminophen 325 mg Tablet 650 MG PO (06:38)
[2023-09-27] MEDS: budesonide 0.5 mg/2 mL Neb INHALATION (07:35)
[2023-09-27] MEDS: rivaroxaban 10 mg Tablet 20 MG PO (09:10)
[2023-09-27] MEDS: pantoprazole DR 40 mg Tablet PO (09:11)
[2023-09-27] MEDS: chlorthalidone 25 mg Tablet PO (09:11)
[2023-09-27] MEDS: atorvastatin 40 mg Tablet 20 MG PO (09:11)
[2023-09-27] MEDS: metoprolol succinate ER (24 HR) 100 mg Tablet PO (09:11)
[2023-09-27] MEDS: sennosides-docusate Tablet 1 TAB PO (09:11)
[2023-09-27] MEDS: piperacillin-tazobactam 3.375 GM in sodium chloride 0.9% (plus) 50 ML IV (09:11)
[2023-09-27] MEDS: insulin lispro 100 unit/1 mL SUBCUT (09:11)
[2023-09-27] MEDS: tamsulosin 0.4 mg Capsule 0.400000000000000022 MG PO (09:11)
[2023-09-27] MEDS: amlodipine 5 mg Tablet PO (09:11)
[2023-09-27] MEDS: BRIMONIDINE 0.2% 1 EACH EYE-BOTH (09:24)
--- NOTE | 2023-09-27 09:57 | PC.CHAP ---
Pastoral Care Encounter/Spiritual Assessment Type of Contact [] Declined orthopedic nurse visit [] Patient/Family/Request visit [] Outpatient visit [] Follow-up visit [] Physician referral [] Code/Alert [X] Routine visit [] Staff referral [] Actively dying [] Patient sleeping [] Family support [] [] Out of room [] Palliative care [] [] Receiving care in room [] Pre-surgical visit [] Trauma [] Long length of stay [] ICU visit [] Other: Relational/Emotional Strength [X] Patient feels connected with others/family/visitors/staff [] Distress [] Loneliness/isolation [] Abandonment Spirituality of Patient [X] Person of Trisha [] Attends Judaism of their Trisha [X] Believes in Prayer [] Reads Bible or Spiritism materials [] There are Spiritual issues to be addressed Machine Strap Buckler Interventions [X] Prayer [X] Active listening [] Non-anxious presence [X] Spiritual/emotional support [] Crisis/trauma care [] Spiritual counseling [] Bereavement support [] Provided bereavement packet [] Provided Bible/devotional materials [] Provided toy/stuffed animal, coloring book to patient or family member [] Provided Communion [] Anointing/[place] [] Salvation [X] Completed spiritual assessment [] Other: Impact on Illness or Injury [] Angry [] Fearful [] Anxious [] Often cries [] Exhaustion [] Unable to work [] Unable to attend evangelical [] Unable to walk/stand [] Unable to read [] Unable to drive [] Unable to eat/drink [] Unable to sleep [] Unable to be with family [] Patient intubated [] Other: Summary Time spent with patient 5 MIN
[2023-09-27] MEDS: magnesium sulfate premix 1 GM/100 ML PIGGYBACK IV (10:54)
[2023-09-27 11:10] LABS: Glucose Point of Care 317 mg/dL (70-110)
--- NOTE | 2023-09-27 11:44 | PM.DCS ---
Discharge Providers Date of Admission: 09/24/23 06:27 Date of Discharge: September 27, 2023 Attending Provider at Admission: Emily Thomas MD Attending Provider at Discharge: Sukhwinder Vidal Primary Care Provider: Melodie Gilmore MD Diagnoses at Discharge Discharge Diagnosis (1) Hypoxia: Status: Acute (2) Pneumonia: Status: Acute Qualifiers: Laterality: right Lung location: lower lobe of lung Pneumonia type: due to unspecified organism Qualified Code(s): J18.9 - Pneumonia, unspecified organism (3) CHF (congestive heart failure): Status: Acute (4) HTN (hypertension): Status: Acute (5) Afib: Status: Acute (6) JENNIFER (obstructive sleep apnea): Status: Acute Reason for Visit Reason for Visit: generalized weakness Hospital Course Hospital Course Pleasant 88-year-old gentleman with history of COPD, lives in assisted living, had an episode of vomiting subsequently with shortness of breath, on presentation with new onset hypoxia, requiring oxygen supplementation, reporting some choking episodes over the preceding few months. Started on treatment for aspiration pneumonia. Echocardiogram done, with diastolic dysfunction, concern for possible component of diastolic heart failure. Ejection fraction normal, wall motion disturbances cannot be determined. Received treatment with Zosyn, initial dose of diuretic, additionally assessed by speech therapy as well as modified barium swallow study which showed some early spillage with some pooling in the vallecula, delayed oropharyngeal phase and bolus formation, penetration visualized with thin liquids. He was maintained on dysphagia diet, easy to chew with mildly thick liquids and is instructed to continue this as well as aspiration precautions. He will complete course of Augmentin. At discharge she is resumed on metformin for diabetes and is also started on dapagliflozin after discussion of potential risks and benefits, and he is in his family notes which are for any symptoms of UTI any perineal symptoms that may suggest fornier's. He is otherwise doing much better, weaned off oxygen and did not require oxygen on home oxygen evaluation. Was assessed by physical therapy and feels ready to return back to assisted living. Physical Exam Narrative: Accompanied by his daughter. He reports he is feeling well. He is sitting up at the edge of the seat, dressed and ready to go back to assisted living. Const: COMMON NORMALS: patient oriented x3 and alert GENERAL APPEARANCE: cooperative ORIENTATION/CONSCIOUSNESS: Yes awake HENMT: COMMON NORMALS: oropharynx normal Neck/C-Spine: COMMON NORMALS: no JVD Resp: COMMON NORMALS: normal respiratory effort and clear to auscultation bilaterally AUSCULTATION: clear to auscultation bilaterally Cardio: COMMON NORMALS: no JVD, regular rhythm, S1 normal heart sound present, S2 normal heart sound present and No murmurs present (Cardio) RHYTHM: regular rhythm HEART SOUNDS: S1 normal heart sound present and S2 normal heart sound present GI: COMMON NORMALS: Normal to inspection, nondistended, normoactive bowel sounds present, Soft to palpation and non-tender PALPATION: Yes Soft to palpation Extremity: COMMON NORMALS: no joint enlargement and no pedal edema Neuro: COMMON NORMALS: patient oriented x3 and moves all extremities SENSORIUM/ORIENTATION: Yes alert Skin: COMMON NORMALS: no rashes or lesions noted GENERAL SKIN EXAM: no rashes or lesions noted Urinary Catheter Management: Jiang: Cath Placed During This Visit: yes Reason for Continuing Indwelling Catheter: Accurate Measurement of Urinary Output in Critically Ill Patients Urinary Catheter Date of Insertion: 09/24/23 Urinary Catheter Time of Insertion: 04:32 Discharge Data Studies Completed and Pending Completed Studies During Hospitalization Category Date Time Status CT chest wo con [id number] Urgent Cat Scan 09/24/23 10:[address] head wo con* [id number] Stat Cat Scan 09/24/23 03:05 Completed [place] barium swallow modifd [id number] Routine Exams 09/26/23 14:30 Completed XR chest 1V portable [id number] Stat Exams 09/24/23 02:59 Completed CV. echo complete* [id number] Routine Ultrasound 09/24/23 10:03 Completed Pending at discharge Category Date Time Status Basic Metabolic Panel AM LABS Lab 09/28/23 04:00 Ordered Basic Metabolic Panel AM LABS Lab 09/29/23 04:00 Ordered Blood Culture Stat Lab 09/24/23 03:50 Results Complete Blood Count w/Auto AM LABS Lab 09/28/23 04:00 Ordered Complete Blood Count w/Auto AM LABS Lab 09/29/23 04:00 Ordered MRSA [Methicillin Resistant S.aureu] Routine Lab 09/24/23 10:03 Ordered Sputum Culture and Gram Stain Routine Lab 09/26/23 02:55 Results Radiology Impressions Chest X-Ray 09/24/23 02:59 IMPRESSION: No evidence of acute pulmonary process. Head CT 09/24/23 03:05 IMPRESSION: Advanced small vessel disease. No evidence of acute intracranial process. Chest CT 09/24/23 10:03 IMPRESSION: 1. Small consolidations in the lower lobes and right middle lobe which cause partial lobar atelectasis. 2. Extensive coronary artery calcifications. 3. Calcified lymph nodes suggestive of prior granulomatous disease. 4. Gallstones. Laboratory Results WBC 10.71 10^3/uL (3.29-11.43) 09/27/23 05:15 RBC 4.71 10^6/uL (3.85-5.65) 09/27/23 05:15 Hgb 12.70 g/dL (11.27-16.99) 09/27/23 05:15 Hct 40.5 % (37-53) 09/27/23 05:15 MCV 86.0 fl (82-101) 09/27/23 05:15 MCH 27.0 pg (27-33) 09/27/23 05:15 MCHC 31.4 g/dL (30-55) 09/27/23 05:15 RDW 14.3 % (12.1-15.1) 09/27/23 05:15 Plt Count 304 10^3/cmm (157-399) 09/27/23 05:15 MPV 9.3 fL (7.4-10.4) 09/27/23 05:15 Neut % (Auto) 77.4 % 09/27/23 05:15 Lymph % (Auto) 8.4 % 09/27/23 05:15 [place] % (Auto) 10.3 % 09/27/23 05:15 Eos % (Auto) 2.5 % 09/27/23 05:15 Baso % (Auto) 0.7 % 09/27/23 05:15 Neut # (Auto) 8.28 10^3/uL (1.8-7.7) H 09/27/23 05:15 Lymph # (Auto) 0.9 10^3/uL (0.8-4.8) 09/27/23 05:15 [place] # (Auto) 1.1 10^3/uL (0.2-0.9) H 09/27/23 05:15 Eos # (Auto) 0.3 10^3/uL (0.0-0.8) 09/27/23 05:15 Baso # (Auto) 0.1 10^3/uL (0.0-0.1) 09/27/23 05:15 Nucleated RBC % (auto) 0 % 09/27/23 05:15 Nucleated RBCs # 0.0 /100WBC 09/27/23 05:15 PT 21.20 SECONDS (12.1-14.9) H 09/24/23 02:00 INR 1.77 (0.8-1.2) H 09/24/23 02:00 D-Dimer 0.36 ug/mLFEU (0-0.59) 09/24/23 02:00 Specimen Type Arterial 09/24/23 03:10 Sample Site Radial, left 09/24/23 03:10 ABG pH 7.38 (7.35-7.45) 09/24/23 03:10 ABG pCO2 46.6 mmHg (35-45) H 09/24/23 03:10 ABG pO2 63.9 mmHg (80.0-100.0) L 09/24/23 03:10 ABG HCO3 27.7 mmol/L (22-26) H 09/24/23 03:10 ABG Base Excess 2.0 mmol/L (-2.0-2.0) 09/24/23 03:10 Lucio Test Pos 09/24/23 03:10 Hematocrit 39.2 % (42-52) L 09/24/23 03:10 O2 Delivery Device Nc 09/24/23 03:10 O2 Liters/Min 3.0 % 09/24/23 03:10 Watch Assembly Inspector ID [email or web address] 09/24/23 03:10 Sodium 132 mmol/L (136-145) L 09/27/23 05:15 Potassium 3.9 mmol/L (3.5-5.1) 09/27/23 05:15 Chloride 95 mmol/L (98-107) L 09/27/23 05:15 Carbon Dioxide 29 mmol/L (22-29) 09/27/23 05:15 Anion Gap 11.9 (5-19) 09/27/23 05:15 BUN 13 mg/dL (8-23) 09/27/23 05:15 Creatinine 0.8 mg/dL (0.7-1.2) 09/27/23 05:15 GFR Calculation Not Reportable 09/27/23 05:15 Glucose 228 mg/dL (65-115) H 09/27/23 05:15 POC Glucose 317 mg/dL (70-110) H 09/27/23 10:59 Estimat Average Glucose 171 09/25/23 03:43 Hemoglobin A1c 7.6 % (4.0-6.0) H 09/25/23 03:43 Calculated Osmolality 281 mOsm/kg (285-295) L 09/27/23 05:15 Lactic Acid 2.4 mmol/L (0.5-2.2) H 09/24/23 02:00 Lactic Acid (Sepsis) 1.5 mmol/L (0.5-2.2) 09/24/23 04:59 Calcium 9.0 mg/dL (8.5-10.5) 09/27/23 05:15 Magnesium 1.8 mg/dL (1.7-2.3) 09/27/23 05:15 Iron 13 ug/dL (59-158) L 09/24/23 08:13 TIBC 273 mcg/dl 09/24/23 08:13 % Saturation 4.7 % (20-50) L 09/24/23 08:13 Unsat Iron Binding 260 ug/dL (112-347) 09/24/23 08:13 Total Bilirubin 0.7 mg/dL (0.15-1.2) 09/26/23 03:14 AST 14 U/L (0-40) 09/26/23 03:14 ALT 10 U/L (0-41) 09/26/23 03:14 Alkaline Phosphatase 82 U/L (40-130) 09/26/23 03:14 Troponin T Baseline 34 ng/L (0-15) H 09/24/23 02:00 Troponin T 120 Minute 40.21 ng/L (0-15) H 09/24/23 04:00 Delta Troponin T 6.21 ABS# (0-10) 09/24/23 04:00 Troponin T Hi Sens 6Hr 31.18 ng/L (0-15) H 09/24/23 08:13 Troponin T Hi Sens 6Hr Delta -2.82 ng/L (0-12) L 09/24/23 08:13 NT-Pro-B Natriuret Pep 109 pg/mL (0-450) 09/24/23 02:00 Total Protein 5.9 g/dL (6.6-8.7) L 09/26/23 03:14 Albumin 3.4 g/dL (3.5-5.2) L 09/26/23 03:14 Globulin 2.5 g/dL (1.3-4.6) 09/26/23 03:14 Triglycerides 43 mg/dL (0-150) 09/25/23 03:43 Cholesterol 100 mg/dL (0-200) 09/25/23 03:43 LDL Cholesterol, Calc 45 mg/dL (50-129) L 09/25/23 03:43 Total VLDL Cholesterol 9 mg/dL (0-30) 09/25/23 03:43 HDL Cholesterol 46 mg/dL (60-100) L 09/25/23 03:43 Cholesterol/HDL Ratio 2.17 mg/dL (1.0-5.00) 09/25/23 03:43 Vitamin B12 496 pg/mL (232-1245) 09/24/23 08:13 Folate 14.3 ng/mL (4.5-32.2) 09/25/23 03:43 Procalcitonin 0.78 ng/mL (0-0.5) H 09/24/23 08:13 TSH 0.47 uIU/mL (0.27-4.20) 09/24/23 08:13 Urine Color Dark yellow (Yellow) 09/24/23 04:12 Urine Appearance Sl hazy (CLEAR) A 09/24/23 04:12 Urine pH 5 (5-7) 09/24/23 04:12 Ur Specific [place] 1.020 (1.005-1.030) 09/24/23 04:12 Urine Protein Trace (Negative) 09/24/23 04:12 Urine Glucose (UA) Trace (Normal) H 09/24/23 04:12 Urine Ketones 1+ (Negative) H 09/24/23 04:12 Urine Blood Neg (Negative) 09/24/23 04:12 Urine Nitrate Negative (Negative) 09/24/23 04:12 Urine Bilirubin Neg (Negative) 09/24/23 04:12 Urine Urobilinogen 1 mg/dL (Negative) H 09/24/23 04:12 Ur Leukocyte Esterase Trace (Negative) H 09/24/23 04:12 Urine RBC 0-4 /hpf (0-2) H 09/24/23 04:12 Urine WBC 0-4 /hpf (0-5) H 09/24/23 04:12 Ur Squamous Epith Cells 0-4 /hpf (0-5) H 09/24/23 04:12 Amorphous Sediment Trace /hpf 09/24/23 04:12 Urine Bacteria 1+ /hpf (NONE) H 09/24/23 04:12 Hyaline Casts 5-10 /lpf H 09/24/23 04:12 Urine Mucus 1+ /hpf 09/24/23 04:12 Adenovirus (PCR) Not detected (NOT DETECT) 09/24/23 12:37 C. pneumoniae DNA (PCR) Not detected (NOT DETECT) 09/24/23 12:37 Coronavirus 229E (PCR) Not detected (NOT DETECT) 09/24/23 12:37 Human Metapneumovir PCR Not detected (NOT DETECT) 09/24/23 12:37 Influenza A (H1) PCR Not detected (NOT DETECT) 09/24/23 12:37 Influ A (H1/09) PCR Not detected (NOT DETECT) 09/24/23 12:37 Influenza A (H3) PCR Not detected (NOT DETECT) 09/24/23 12:37 Influenza Type A (PCR) Not detected (NOT DETECT) 09/24/23 12:37 Influenza Type B (PCR) Not detected (NOT DETECT) 09/24/23 12:37 M. pneumoniae (PCR) Not detected (NOT DETECT) 09/24/23 12:37 Parainfluenza 1 (PCR) Not detected (NOT DETECT) 09/24/23 12:37 Parainfluenza 2 (PCR) Not detected (NOT DETECT) 09/24/23 12:37 Parainfluenza 3 (PCR) Not detected (NOT DETECT) 09/24/23 12:37 Parainfluenza 4 (PCR) Not detected (NOT DETECT) 09/24/23 12:37 RSV Type A (PCR) Not detected (NOT DETECT) 09/24/23 12:37 RSV Type B (PCR) Not detected (NOT DETECT) 09/24/23 12:37 Entero/Rhino (PCR) Not detected (NOT DETECT) 09/24/23 12:37 SARS-CoV-2 (PCR) Not detected (NOT DETECT) 09/24/23 12:37 SARS-CoV-2 Ag (Rapid) negative (Negative) 09/24/23 03:05 Vitals Last Vital Signs Temp 99.0 F 09/27/23 07:33 Pulse 69 09/27/23 07:46 Resp 18 09/27/23 07:46 BP 159/110 09/27/23 07:33 Pulse Ox 93 09/27/23 11:40 O2 Del Method Room Air 09/27/23 07:46 O2 Flow Rate 1 09/26/23 08:41 Discharge Plan Discharge Patient Disposition: Home Condition: Stable Prescriptions: New amoxicillin-pot clavulanate 875-125 mg tablet 1 tab PO BID Qty: 6 0RF dapagliflozin propanediol 10 mg tablet 10 mg PO DAILY Qty: 90 0RF Stool Softener-Laxative 8.6-50 mg Tablet 1 tab PO BID Qty: 60 0RF Rx Instructions: Hold if having more than 1 BM per day Continued metformin 500 mg tablet 500 mg PO DAILY tamsulosin 0.4 mg capsule 0.4 mg PO DAILY diltiazem HCl 120 mg capsule,extended release 24 hr 120 mg PO DAILY Xarelto 20 mg tablet 20 mg PO DAILY Rx Instructions: must administer with evening meal omeprazole 20 mg tablet,delayed release (DR/EC) 20 mg PO BID losartan 100 mg tablet 100 mg PO DAILY metoprolol succinate 100 mg tablet extended release 24 hr 100 mg PO DAILY latanoprost 0.005 % drops 1 drp ophthalmic (eye) DAILY fluticasone propionate [Flonase Allergy Relief] 50 mcg/actuation spray,suspension 2 spray intranasal DAILY Rx Instructions: administer into each nostril polyethylene glycol 3350 [Miralax] 17 gram/dose powder 17 g PO DAILY ascorbic acid (vitamin C) 1,000 mg tablet 500 mg PO DAILY garlic 1,000 mg capsule 1,000 mg PO DAILY multivitamin [One-A-Day Essential] Tablet 1 tab PO DAILY albuterol sulfate 90 mcg/actuation HFA aerosol inhaler 2 puff inhalation Q6H PRN (Reason: shortness of breath or wheezing) Qty: 8.5 3RF montelukast [Singulair] 10 mg tablet 10 mg PO DAILY Qty: 30 5RF budesonide-formoterol [Symbicort] 80-4.5 mcg/actuation HFA aerosol inhaler 2 puff inhalation BID Qty: 10.2 3RF venlafaxine 75 mg capsule,extended release 24hr 75 mg PO DAILY atorvastatin 10 mg tablet 10 mg PO DAILY Vitamin B-12 1,000 mcg Tablet 1,000 mcg PO DAILY acetaminophen 500 mg Tablet 500 - 1,000 mg PO Q6H PRN (Reason: Pain) brimonidine 0.2 % drops 1 drp ophthalmic (eye) BID furosemide 20 mg tablet 20 mg PO DAILY Unisom (doxylamine) 25 mg Tablet 25 mg PO BEDTIME Reguloid (psyllium husk) 3 gram/5.4 gram Powder 1 tbsp PO DAILY Rx Instructions: mix into at least 8 oz of water or juice before administering calc carb-mag ox-D3-zinc gluc 333 mg-133 mg- 1.67 mcg-5 mg Tablet 3 tab PO DAILY meclizine 25 mg tablet 25 mg PO BID benzonatate 100 mg capsule 100 mg PO Q8H PRN (Reason: Cough) Nasogel 0.9 % Gel See Rx Instructions .ROUTE .COMPLEX Rx Instructions: APPLY AROUND NOSTRILS TO HELP RELIEVE DISCOMFORT NEEDED. Discharge Orders: Discharge Order (Routine); Ordered 09/27/23 Ordered By: Sukhwinder Vidal Referrals: [facility] [Outside] Melodie Gilmore MD [Primary Care Provider] - 4-7 days Discharge Diet: As Directed Discharge Activity: Increase activity as tolerated and As per PT/OT instructions Patient Instructions: Amoxicillin/Clavulanate Potassium (By mouth), Dapagliflozin (By mouth), A-fib (Atrial Fibrillation) (DC), Aspiration Pneumonia (DC), Sepsis (DC), Hypoxia (GEN), Dysphagia (GEN), Aspiration Precautions (GEN), CHF Stoplight, Opioid Safety, Pneumonia Stoplight Activity Restrictions/Additional Instructions: Please continue level 7 dysphagia diet, easy to chew with mildly thickened liquids, maintain aspiration precautions. Complete antibiotic course for aspiration pneumonia. Follow-up with your primary doctor for reassessment of resolution of aspiration pneumonia. Seek medical attention in case of any worsening or new concerning symptoms. Continue to monitor blood pressure 3 times daily. Follow-up with your primary doctor for continued optimization of blood pressure control. Follow-up with your primary doctor for reassessment of congestive heart failure. To help with management of heart failure also started on recommended medication treatment with dapagliflozin which also treats diabetes. Please follow-up with your primary doctor for reassessment. Monitor for any symptoms of urinary infection with this medication or any symptoms of rare but serious inflammation or infection of the perineum, in case you are experiencing symptoms discontinue medication and seek medical attention immediately. Discharge Attestations Time Spent in Discharge Care*: greater than 30 min Quality Metrics Clinical Quality Measures [ No reported AMI, CVA or VTE this stay] Coding Level of Care Code 23720 Total time (in minutes) for Discharge: 45 Diagnoses Hypoxia R09.02 Pneumonia J18.9 Laterality: right Lung location: lower lobe of lung Pneumonia type: due to unspecified organism CHF (congestive heart failure) I50.9 HTN (hypertension) I10 Afib I48.91 JENNIFER (obstructive sleep apnea) G47.33
[2023-09-27 14:35] LABS: Methicillin-Resist S.aureu PCR NOT DETECTED (NOT DETECTED)
--- NOTE | 2023-09-27 14:38 | PC.NURSE ---
Discharge Note Patient discharged to [facility] via POV accompanied by daughter. 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 Mobile pharmacy medications and/or prescriptions provided. Belongings/home medications returned.
== END 2023-09-27 14:43 | disposition home or self-care (01) | DRG 178 ==
LOC: ER 06:18 → CSU 06:27
PROVIDERS: Student in an Organized Health Care Education/Training Program; Admitting Provider Student in an Organized Health Care Education/Training Program; Emergency Provider Internal Medicine; PCP Internal Medicine; Visit Provider Internal Medicine
DX: J69.0 Pneumonitis due to inhalation of food and vomit (principal); I48.20 Chronic atrial fibrillation, unspecified; I11.0 Hypertensive heart disease with heart failure; I50.9 Heart failure, unspecified; G47.33 Obstructive sleep apnea (adult) (pediatric); K59.00 Constipation, unspecified; E11.9 Type 2 diabetes mellitus without complications; Z79.84 Long term (current) use of oral hypoglycemic drugs; Z86.711 Personal history of pulmonary embolism; Z79.01 Long term (current) use of anticoagulants; Z66 Do not resuscitate
CPT/HCPCS: 36415; 36416; 36600; 51702; 70450; 71045; 71250; 74230; 80048; 80053; 80061; 81001; 82607; 82746; 82803; 82962; 83036; 83540; 83550; 83605; 83735; 83880; 84145; 84443; 84484; 85025; 85378; 85610; 86403; 87040; 87070; 87205; 87426; 87486; 87581; 87633; 87641; 92526; 92610; 92611; 93005; 93306; 94640; 94760; 96365; 96372; 96375; 96376; 97116; 97161; 99285; A9270; J0696; J1815; J1940; J2543; J2919; J3475; J7030; J7626; Q0144

== ENCOUNTER 2023-09-30 09:35 | Emergency (ER) | payer MEDICARE, OTHER, SELFPAY ==
[2023-09-30 09:46] VITALS: BP 135/84; PULSE 93; RESP 18; TEMP 36.6; O2SAT 94
--- NOTE | 2023-09-30 10:08 | W.ED.MALEGU ---
HPI - Male Genitourinary General: Chief complaint: Urogenital-Male Stated complaint: unable to urinate Time Seen by Provider: 09/30/23 09:47 History of Present Illness: 88-year-old man with a history of asthma, CVA, hyperlipidemia, A-fib on Xarelto, hypertension who presents to the emergency room with decreased urine output. He was in the cardiac unit a few days back and had a Jiang catheter while he was here and says he has been having some trouble urinating since. He does not have any pelvic pressure. Has not noticed any dysuria. He just feels like he has not been urinating as much as he was. No abdominal pain. No nausea or vomiting. No fevers. No chest pain. Review of Systems Narrative: Constitutional symptoms: Negative except as documented in HPI. Skin symptoms: Negative except as documented in HPI. Eye symptoms: Negative except as documented in HPI. ENMT symptoms: Negative except as documented in HPI. Respiratory symptoms: Negative except as documented in HPI. Cardiovascular symptoms: Negative except as documented in HPI. Gastrointestinal symptoms: Negative except as documented in HPI. Genitourinary symptoms: Negative except as documented in HPI. Musculoskeletal symptoms: Negative except as documented in HPI. Neurologic symptoms: Negative except as documented in HPI. Psychiatric symptoms: Negative except as documented in HPI. Endocrine symptoms: Negative except as documented in HPI. [facility] ED PFSH: Medical History (Updated 09/30/23 @ 11:58 by Dora Quezada MD) Asthma Stroke GERD (gastroesophageal reflux disease) Cataract Hyperlipemia Glaucoma Afib HTN (hypertension) JENNIFER (obstructive sleep apnea) Asthma Surgical History History of thyroid surgery H/O hernia repair Hx of cataract surgery H/O cardiac radiofrequency ablation History of carpal tunnel surgery Family History Mother CHF (congestive heart failure) Father CHF (congestive heart failure) Social History Smoking and tobacco/nicotine status: never used tobacco/nicotine Second hand smoke exposure: No Alcohol intake: never Substance/Drug Use: never Lives independently: Yes Household members: spouse Marital status: Current occupational status: retired Previous occupational history: [employer] Do you think of yourself as: Straight/Heterosexual Current gender identity: Male Physical Exam Narrative: EXAM NARRATIVE: General: Alert, no acute distress. Skin: Warm, dry. Head: Normocephalic, atraumatic. Neck: Supple, trachea midline. Eye: Extraocular movements are intact. Ears, nose, mouth and throat: mucosa moist. Cardiovascular: Regular, Normal peripheral perfusion. Respiratory: Lungs are clear to auscultation, respirations are non-labored, breath sounds are equal, Symmetrical chest wall expansion. Gastrointestinal: Soft, Nontender, Non distended, Normal bowel sounds. Musculoskeletal: Normal ROM, no deformity. Neurological: Alert and oriented, No focal neurological deficit observed. Psychiatric: Cooperative, appropriate mood & affect. Course Vital Signs: Vital signs: Vital Signs Temperature 97.8 F 09/30/23 09:46 Pulse Rate 93 09/30/23 09:46 Respiratory Rate 18 09/30/23 09:46 Blood Pressure 135/84 09/30/23 09:46 Pulse Oximetry 94 09/30/23 09:46 Oxygen Delivery Me thod Room Air 09/30/23 09:46 MDM - Male Medical Decision Making Medical decision making: Differential diagnosis including but not limited to and based on the above HPI, review of systems and physical exam: Patient with decreased urine output with recent Jiang catheter would have concern for urinary retention, urinary infection, renal failure Orders placed to evaluate differential diagnosis based on the above differential, HPI and physical exam Lab Review: Laboratory results were reviewed and interpreted by myself the emergency room physician. Patient has mild leukocytosis with a white count of 13. Sugar is a little bit high at 166. Urine was a bit concentrated at 1.015. He had 4+ glucose in his urine. I reviewed the patient's medical record. Reexamination: Patient remained stable. No altered mental status. No increased work of breathing. Lab Data 09/30/23 10:38 09/30/23 10:38 Laboratory Results WBC 13.17 10^3/uL (3.29-11.43) H 09/30/23 10:38 RBC 4.87 10^6/uL (3.85-5.65) 09/30/23 10:38 Hgb 13.20 g/dL (11.27-16.99) 09/30/23 10:38 Hct 41.5 % (37-53) 09/30/23 10:38 MCV 85.2 fl (82-101) 09/30/23 10:38 MCH 27.1 pg (27-33) 09/30/23 10:38 MCHC 31.8 g/dL (30-55) 09/30/23 10:38 RDW 14.3 % (12.1-15.1) 09/30/23 10:38 Plt Count 350 10^3/cmm (157-399) 09/30/23 10:38 MPV 9.7 fL (7.4-10.4) 09/30/23 10:38 Neut % (Auto) 80.6 % 09/30/23 10:38 Lymph % (Auto) 8.4 % 09/30/23 10:38 [place] % (Auto) 8.1 % 09/30/23 10:38 Eos % (Auto) 1.2 % 09/30/23 10:38 Baso % (Auto) 0.7 % 09/30/23 10:38 Neut # (Auto) 10.61 10^3/uL (1.8-7.7) H 09/30/23 10:38 Lymph # (Auto) 1.1 10^3/uL (0.8-4.8) 09/30/23 10:38 [place] # (Auto) 1.1 10^3/uL (0.2-0.9) H 09/30/23 10:38 Eos # (Auto) 0.2 10^3/uL (0.0-0.8) 09/30/23 10:38 Baso # (Auto) 0.1 10^3/uL (0.0-0.1) 09/30/23 10:38 Nucleated RBC % (auto) 0 % 09/30/23 10:38 Nucleated RBCs # 0.0 /100WBC 09/30/23 10:38 Sodium 134 mmol/L (136-145) L 09/30/23 10:38 Potassium 4.3 mmol/L (3.5-5.1) 09/30/23 10:38 Chloride 98 mmol/L (98-107) 09/30/23 10:38 Carbon Dioxide 26 mmol/L (22-29) 09/30/23 10:38 Anion Gap 14.3 (5-19) 09/30/23 10:38 BUN 16 mg/dL (8-23) 09/30/23 10:38 Creatinine 1.0 mg/dL (0.7-1.2) 09/30/23 10:38 GFR Calculation Not Reportable 09/30/23 10:38 Glucose 166 mg/dL (65-115) H 09/30/23 10:38 Calculated Osmolality 283 mOsm/kg (285-295) L 09/30/23 10:38 Calcium 9.2 mg/dL (8.5-10.5) 09/30/23 10:38 Urine Color Yellow (Yellow) 09/30/23 11:01 Urine Appearance Clear (CLEAR) 09/30/23 11:01 Urine pH 5 (5-7) 09/30/23 11:01 Ur Specific [place] 1.015 (1.005-1.030) 09/30/23 11:01 Urine Protein Neg (Negative) 09/30/23 11:01 Urine Glucose (UA) 4+ (Normal) H 09/30/23 11:01 Urine Ketones 1+ (Negative) H 09/30/23 11:01 Urine Blood Neg (Negative) 09/30/23 11:01 Urine Nitrate Negative (Negative) 09/30/23 11:01 Urine Bilirubin Neg (Negative) 09/30/23 11:01 Urine Urobilinogen Norm mg/dL (Negative) 09/30/23 11:01 Ur Leukocyte Esterase Negative (Negative) 09/30/23 11:01 Urine RBC Rare /hpf (0-2) 09/30/23 11:01 Urine WBC None /hpf (0-5) 09/30/23 11:01 Ur Squamous Epith Cells None /hpf (0-5) 09/30/23 11:01 Amorphous Sediment Not Reportable 09/30/23 11:01 Urine Bacteria None /hpf (NONE) 09/30/23 11:01 All radiology interpretation(s) finalized by discharge Other Data Assessment and plan: Dehydration Hyperglycemia -Patient is passing urine, no retention. No renal failure but he does seem a bit dehydrated and hyperglycemic -1 L normal saline bolus in the emergency room - Discharged home - Discussed findings and plan with patient. Answered any questions. - All laboratory values were reviewed and interpreted personally by myself, the ER physician - Evaluation and treatment of this problem were appropriate in the emergency setting Discharge Plan Discharge Patient Disposition: Home Clinical Impression: Dehydration, Hyperglycemia Condition: Stable Prescriptions: No Action metformin 500 mg tablet 500 mg PO DAILY tamsulosin 0.4 mg capsule 0.4 mg PO DAILY diltiazem HCl 120 mg capsule,extended release 24 hr 120 mg PO DAILY Xarelto 20 mg tablet 20 mg PO DAILY Rx Instructions: must administer with evening meal omeprazole 20 mg tablet,delayed release (DR/EC) 20 mg PO BID losartan 100 mg tablet 100 mg PO DAILY metoprolol succinate 100 mg tablet extended release 24 hr 100 mg PO DAILY latanoprost 0.005 % drops 1 drp ophthalmic (eye) DAILY fluticasone propionate [Flonase Allergy Relief] 50 mcg/actuation spray,suspension 2 spray intranasal DAILY Rx Instructions: administer into each nostril polyethylene glycol 3350 [Miralax] 17 gram/dose powder 17 g PO DAILY ascorbic acid (vitamin C) 1,000 mg tablet 500 mg PO DAILY garlic 1,000 mg capsule 1,000 mg PO DAILY multivitamin [One-A-Day Essential] Tablet 1 tab PO DAILY albuterol sulfate 90 mcg/actuation HFA aerosol inhaler 2 puff inhalation Q6H PRN (Reason: shortness of breath or wheezing) Qty: 8.5 3RF montelukast [Singulair] 10 mg tablet 10 mg PO DAILY Qty: 30 5RF budesonide-formoterol [Symbicort] 80-4.5 mcg/actuation HFA aerosol inhaler 2 puff inhalation BID Qty: 10.2 3RF venlafaxine 75 mg capsule,extended release 24hr 75 mg PO DAILY atorvastatin 10 mg tablet 10 mg PO DAILY Vitamin B-12 1,000 mcg Tablet 1,000 mcg PO DAILY acetaminophen 500 mg Tablet 500 - 1,000 mg PO Q6H PRN (Reason: Pain) brimonidine 0.2 % drops 1 drp ophthalmic (eye) BID furosemide 20 mg tablet 20 mg PO DAILY Unisom (doxylamine) 25 mg Tablet 25 mg PO BEDTIME Reguloid (psyllium husk) 3 gram/5.4 gram Powder 1 tbsp PO DAILY Rx Instructions: mix into at least 8 oz of water or juice before administering calc carb-mag ox-D3-zinc gluc 333 mg-133 mg- 1.67 mcg-5 mg Tablet 3 tab PO DAILY meclizine 25 mg tablet 25 mg PO BID benzonatate 100 mg capsule 100 mg PO Q8H PRN (Reason: Cough) Nasogel 0.9 % Gel See Rx Instructions .ROUTE .COMPLEX Rx Instructions: APPLY AROUND NOSTRILS TO HELP RELIEVE DISCOMFORT NEEDED. amoxicillin-pot clavulanate 875-125 mg tablet 1 tab PO BID Qty: 6 0RF dapagliflozin propanediol 10 mg tablet 10 mg PO DAILY Qty: 90 0RF Stool Softener-Laxative 8.6-50 mg Tablet 1 tab PO BID Qty: 60 0RF Rx Instructions: Hold if having more than 1 BM per day Discharge Orders: Discharge ED (Routine); Ordered 09/30/23 Ordered By: Dora Quezada Referrals: Melodie Gilmore MD [Primary Care Provider] - (You have been screened and evaluated and felt safe for discharge. Health conditions do change or evolve sometimes and as such it is important that you follow up with your Primary Doctor to be re checked, 3-5 days is a general good time frame for follow up. You are always welcome to return to the ED for re assessment if your symptoms are worsening or you have new concerns) Discharge Diet: Usual diet Discharge Activity: Resume usual activity Patient Instructions: Dehydration (ED) Coding Level of Care Code ED Stamping Bench Die Maker for Arlette Whipple
[2023-09-30 10:46] LABS: Basophils # 0.1 10^3/uL (0.0-0.1); Basophils % 0.7 %; Eosinophils # 0.2 10^3/uL (0.0-0.8); Eosinophils % 1.2 %; Hematocrit 41.5 % (37-53); Lymphocytes # 1.1 10^3/uL (0.8-4.8); Lymphocytes % 8.4 %; Mean Corpuscular HGB Conc 31.8 g/dL (30-55); Mean Corpuscular Hemoglobin 27.1 pg (27-33); Mean Corpuscular Volume 85.2 fl (82-101); Mean Platelet Volume 9.7 fL (7.4-10.4); Monocytes # 1.1 10^3/uL (0.2-0.9); Monocytes % 8.1 %; Neutrophils # 10.61 10^3/uL (1.8-7.7); Neutrophils % 80.6 %; Nucleated Red Blood Cells % 0 %; Platelet Count 350 10^3/cmm (157-399); Red Blood Count 4.87 10^6/uL (3.85-5.65); Red Cell Distribution Width 14.3 % (12.1-15.1); White Blood Count 13.17 10^3/uL (3.29-11.43)
[2023-09-30 11:04] LABS: Anion Gap 14.3 (5-19); Blood Urea Nitrogen 16 mg/dL (8-23); Calcium 9.2 mg/dL (8.5-10.5); Carbon Dioxide 26 mmol/L (22-29); Chloride 98 mmol/L (98-107); Creatinine Clr Calc Pharmacy 63.6277; Glucose 166 mg/dL (65-115); Osmolality Calculated 283 mOsm/kg (285-295); Potassium 4.3 mmol/L (3.5-5.1); Sodium 134 mmol/L (136-145)
[2023-09-30 11:44] LABS: Bilirubin Urine Neg (Negative); Blood Urine Neg (Negative); Glucose Urine UA 4+ (Normal); Ketones Urine 1+ (Negative); Leukocyte Esterase Urine Negative (Negative); Nitrate Urine Negative (Negative); Protein Urine Neg (Negative); Specific Gravity, Urine 1.015 (1.005-1.030); Urine Appearance Clear (CLEAR); Urine Color Yellow (Yellow); Urobilinogen Urine Norm (Negative); pH Urine 5 (5-7)
[2023-09-30 11:45] LABS: RBC Urine RARE /hpf (0-2)
[2023-09-30 11:46] LABS: Add Urine Culture? No
[2023-09-30] MEDS: sodium chloride 0.9% 1,000 ML 999 ML IV (12:23)
[2023-09-30 12:37] VITALS: BP 115/76; PULSE 89; O2SAT 92
== END 2023-09-30 13:42 | disposition home or self-care (01) ==
PROVIDERS: Emergency Provider Emergency Medicine; PCP Internal Medicine
DX: E86.0 Dehydration (principal); R73.9 Hyperglycemia, unspecified; Z86.73 Personal history of transient ischemic attack (TIA), and cerebral infarction without residual deficits; E78.5 Hyperlipidemia, unspecified; I10 Essential (primary) hypertension; Z79.84 Long term (current) use of oral hypoglycemic drugs
CPT/HCPCS: 36415; 51798; 80048; 81001; 85025; 99283; J7030

== ENCOUNTER 2024-03-14 05:49 | Emergency (ER) | payer MEDICARE, OTHER, SELFPAY ==
[2024-03-14 05:52] VITALS: BP 148/128; PULSE 112; RESP 26; TEMP 36.8; O2SAT 93; BMI 33.8
--- NOTE | 2024-03-14 06:07 | ECG_ITS ---
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1935 Requested By: Pradeep Cole Order Number: [id number] Yolanda MD: STEPHEN PEPE Measurements Intervals [place] Rate: 112 P: 0 MS: 0 QRS: -6 QRSD: 86 T: 31 QT: 301 QTc: 412 Interpretive Statements ATRIAL FIBRILLATION WITH RAPID VENTRICULAR RESPONSE WITH ABERRANT CONDUCTION OR VENTRICULAR PREMATURE COMPLEXES SEPTAL MYOCARDIAL INFARCTION , PROBABLY OLD [40+ ms Q WAVE IN V1/V2] Compared to ECG 09/24/2023 08:52:11 Ventricular premature complex(es) now present Aberrant conduction of supraventricular beat(s) now present Myocardial infarct finding now present Sinus rhythm no longer present Electronically Signed On 03-14-2024 20:06:10 CDT by STEPHEN PEPE [email or web address]
--- NOTE | 2024-03-14 06:08 | XRR_ITS ---
PROCEDURE INFORMATION: Exam: XR Chest Exam date and time: 03/14/2024 6:13 AM Age: 88 years old Clinical indication: Shortness of breath; Additional info: SOB TECHNIQUE: Imaging protocol: Radiologic exam of the chest. Views: 1 view. COMPARISON: CT chest con [id number] 09/24/2023 11:14 AM FINDINGS: Lungs: Stable atelectasis or infiltrate in the left lower lobe. Pleural spaces: Stable thickening/minimal fluid in the right horizontal fissure. Heart/Mediastinum: See Vasculature finding. Vasculature: Unchanged cardiomegaly and uncoiling of the thoracic aorta each accentuated by the AP positioning. Bones/joints: Unremarkable. XR/XR chest 1V portable [id number] IMPRESSION: No significant change.
--- NOTE | 2024-03-14 06:15 | ED_ITS ---
HPI - SOB/Dyspnea 2 General: Chief Complaint: Shortness of Breath/Dyspnea Stated Complaint: SOB Time Seen by Provider: 03/14/24 05:58 History of Present Illness: HPI Narrative: 88-year-old male presents with dyspnea. Is been going on for quite some time but reports that maybe is a little bit worse this morning. Patient reports she uses inhalers couple times a day. He denies any chest pain or other systemic complaints. Denies any fever, chills. Associated symptoms: Deny abdominal pain, chest pain, fever(s), nausea, palpitations or vomiting Related Data Home Medications Medication Instructions Recorded Confirmed ascorbic acid (vitamin C) 1,000 mg 500 mg PO DAILY 12/11/20 03/14/24 tablet diltiazem HCl 120 mg capsule,24 120 mg PO DAILY 12/11/20 03/14/24 hr,extended release fluticasone propionate 50 2 spray intranasal DAILY 12/11/20 03/14/24 mcg/actuation nasal spray,suspension (Flonase Allergy Relief) garlic 1,000 mg capsule 1,000 mg PO DAILY 12/11/20 03/14/24 latanoprost 0.005 % eye drops 1 drp ophthalmic (eye) DAILY 12/11/20 03/14/24 losartan 100 mg tablet 100 mg PO DAILY 12/11/20 03/14/24 metoprolol succinate 100 mg 100 mg PO DAILY 12/11/20 03/14/24 tablet,extended release 24 hr multivitamin (One-A-Day Essential 1 tab PO DAILY 12/11/20 03/14/24 tablet) omeprazole 20 mg tablet,delayed 20 mg PO BID 12/11/20 03/14/24 release polyethylene glycol 3350 17 17 g PO DAILY 12/11/20 03/14/24 gram/dose oral powder (Miralax) rivaroxaban 20 mg tablet (Xarelto) 20 mg PO DAILY 12/11/20 03/14/24 tamsulosin 0.4 mg capsule 0.4 mg PO DAILY 12/11/20 03/14/24 metformin 500 mg tablet 500 mg PO DAILY 01/08/21 03/14/24 acetaminophen 500 mg tablet 500 - 1,000 mg PO Q6H PRN Pain 09/24/23 03/14/24 atorvastatin 10 mg tablet 10 mg PO DAILY 09/24/23 03/14/24 brimonidine 0.2 % eye drops 1 drp ophthalmic (eye) BID 09/24/23 03/14/24 calcium carb 333 mg-mag ox 133 3 tab PO DAILY 09/24/23 03/14/24 mg-D3 1.67 mcg-zinc gluc 5 mg tablet cyanocobalamin (vitamin B-12) 1,000 mcg PO DAILY 09/24/23 03/14/24 1,000 mcg tablet (Vitamin B-12) doxylamine succinate 25 mg tablet 25 mg PO BEDTIME 09/24/23 03/14/24 (Unisom (doxylamine)) furosemide 20 mg tablet 20 mg PO DAILY 09/24/23 03/14/24 meclizine 25 mg tablet 25 mg PO BID 09/24/23 03/14/24 psyllium husk 3 gram/5.4 gram oral 1 tbsp PO DAILY 09/24/23 03/14/24 powder (Reguloid (psyllium husk)) sod chloride-sod See Rx Instructions .Route .COMPLEX 09/24/23 03/14/24 bicarb-hyaluronate sod-aloe 0.9 % nasal gel (Nasogel) venlafaxine 75 mg capsule,extended 75 mg PO DAILY 09/24/23 03/14/24 release 24 hr dapagliflozin propanediol 10 mg 10 mg PO DAILY 09/30/23 03/14/24 tablet (Farxiga) Previous Rx's Medication Instructions Recorded albuterol sulfate 90 mcg/actuation 2 puff inhalation Q6H PRN 12/11/20 aerosol inhaler shortness of breath or wheezing #8.5 grams montelukast 10 mg tablet 10 mg PO DAILY #30 tabs 06/30/23 (Singulair) budesonide-formoterol HFA 80 2 puff inhalation BID #10.2 grams 08/31/23 mcg-4.5 mcg/actuation aerosol inhaler (Symbicort) sennosides 8.6 mg-docusate sodium 1 tab PO BID #60 tabs 09/27/23 50 mg tablet (Stool Softener-Laxative) Allergies Allergy/AdvReac Type Severity Reaction Status Date / Time No Known Allergies Allergy Verified 03/14/24 06:01 Review of Systems 2 Const: Denies: fever(s) or chills Card: Reports: irregular heart rhythm; Denies: chest pain or palpitations Resp: Reports: dyspnea GI: Denies: abdominal pain, nausea or vomiting : Denies: flank pain or difficulty urinating Musc: Denies: neck pain or back pain Neuro: Denies: headache(s) or numbness in extremities PFSH ED 2 PFSH: Medical History Asthma Stroke GERD (gastroesophageal reflux disease) Cataract Hyperlipemia Glaucoma Afib HTN (hypertension) JENNIFER (obstructive sleep apnea) Asthma Surgical History History of thyroid surgery H/O hernia repair Hx of cataract surgery H/O cardiac radiofrequency ablation History of carpal tunnel surgery Family History Mother Congestive heart failure (CHF) Father Congestive heart failure (CHF) Social History Smoking and tobacco/nicotine status: never used tobacco/nicotine Second hand smoke exposure: No Alcohol intake: never Substance/Drug Use: never Lives independently: Yes Household members: spouse Marital status: Current occupational status: retired Previous occupational history: [employer] Do you think of yourself as: Straight/Heterosexual Current gender identity: Male Physical Exam 2 Const: COMMON NORMALS: no acute distress, patient oriented x3 and no limitations Cardio: RATE: tachycardic RHYTHM: abnormal rhythm GI: COMMON NORMALS: Soft to palpation and non-tender PALPATION: Yes Soft to palpation Neuro: COMMON NORMALS: patient oriented x3, moves all extremities and no focal motor deficits Psych: COMMON NORMALS: mental status grossly normal, Normal thought process present and cooperative THOUGHT PROCESS: Normal thought process present Skin: COMMON NORMALS: no rashes or lesions noted GENERAL SKIN EXAM: no rashes or lesions noted Course 2 Vital Signs: Vital signs: Vital Signs Temperature 98.3 F 03/14/24 05:52 Pulse Rate 98 03/14/24 09:00 Respiratory Rate 29 H 03/14/24 07:34 Blood Pressure 132/91 03/14/24 09:00 Pulse Oximetry 91 03/14/24 09:00 Oxygen Delivery Me thod Room Air 03/14/24 07:34 MDM - SOB/Dyspnea Medical Decision Making Patient's diagnostic studies ordered reviewed interpreted by me. Patient's labs show no significant acute findings. Patient has a known history of atrial fibs and his heart rate is running little higher than normal with known atrial fibs. He did respond appropriately to medications. Patient's symptoms have been ongoing for quite some time. Patient has an appointment with his primary care provider tomorrow. I will give him an additional 60 mg Cardizem p.o. Discussed findings with patient and he does not want to be admitted. He does have an appointment with his primary care provider tomorrow which I discussed the need for them to evaluate his outpatient medications for his atrial fibs. Patient is EKG showed heart rate 112 with atrial fibs with RVR. QTc [address] changes or elevation noted. He is stable and discharged home. Lab Data 03/14/24 06:29 10 06:29 Labs/Radiology: Radiology Impressions Chest X-Ray 03/14/24 06:08 IMPRESSION: No significant change. Laboratory Results WBC 10.39 10^3/uL (3.29-11.43) 03/14/24 06:29 RBC 5.35 10^6/uL (3.85-5.65) 03/14/24 06:29 Hgb 12.90 g/dL (11.27-16.99) 03/14/24 06:29 Hct 44.2 % (37-53) 03/14/24 06:29 MCV 82.6 fl (82-101) 03/14/24 06: MCH 24.1 pg (27-33) L 03/14/24 06: MCHC 29.2 g/dL (30-55) L 03/14/24 06:29 RDW 18.1 % (12.1-15.1) H 03/14/24 06:29 Plt Count 291 10^3/cmm (157-399) 03/14/24 06:29 MPV 9.6 fL (7.4-10.4) 03/14/24 06: Neut % (Auto) 81.4 % 03/14/24 06: Lymph % (Auto) 7.7 % 03/14/24 06: [place] % (Auto) 9.2 % 03/14/24 06:29 Eos % (Auto) 0.5 % 03/14/24 06:29 Baso % (Auto) 0.6 % 03/14/24 06:29 Neut # (Auto) 8.46 10^3/uL (1.8-7.7) H 03/14/24 06:29 Lymph # (Auto) 0.8 10^3/uL (0.8-4.8) 03/14/24 06:29 [place] # (Auto) 1.0 10^3/uL (0.2-0.9) H 03/14/24 06:29 Eos # (Auto) 0.1 10^3/uL (0.0-0.8) 03/14/24 06:29 Baso # (Auto) 0.1 10^3/uL (0.0-0.1) 03/14/24 06:29 Nucleated RBC % (auto) 0 % 03/14/24 06: Nucleated RBCs # 0.0 /100WBC 03/14/24 06:29 Sodium 140 mmol/L (136-145) 03/14/24 06:29 Potassium 4.9 mmol/L (3.5-5.1) 03/14/24 06:29 Chloride 103 mmol/L (98-107) 03/14/24 06:29 Carbon Dioxide 29 mmol/L (22-29) 03/14/24 06:29 Anion Gap 12.9 (5-19) 03/14/24 06:29 BUN 13 mg/dL (8-23) 03/14/24 06:29 Creatinine 0.8 mg/dL (0.7-1.2) 03/14/24 06:29 GFR Calculation Not Reportable 03/14/24 06:29 Glucose 181 mg/dL (65-115) H 03/14/24 06:29 Calculated Osmolality 295 mOsm/kg (285-295) 03/14/24 06:29 Calcium 8.3 mg/dL (8.5-10.5) L 03/14/24 06:29 Magnesium 2.6 mg/dL (1.7-2.3) H 03/14/24 06:29 NT-Pro-B Natriuret Pep 1408 pg/mL (0-450) H 03/14/24 06:29 All radiology interpretation(s) finalized by discharge Discharge Plan Discharge Patient Disposition: Home Clinical Impression: Atrial fibrillation, persistent Condition: Stable Prescriptions: No Action metformin 500 mg tablet 500 mg PO DAILY tamsulosin 0.4 mg capsule 0.4 mg PO DAILY diltiazem HCl 120 mg capsule,extended release 24 hr 120 mg PO DAILY Xarelto 20 mg tablet 20 mg PO DAILY Rx Instructions: must administer with evening meal omeprazole 20 mg tablet,delayed release (DR/EC) 20 mg PO BID losartan 100 mg tablet 100 mg PO DAILY metoprolol succinate 100 mg tablet extended release 24 hr 100 mg PO DAILY latanoprost 0.005 % drops 1 drp ophthalmic (eye) DAILY fluticasone propionate [Flonase Allergy Relief] 50 mcg/actuation spray,suspension 2 spray intranasal DAILY Rx Instructions: administer into each nostril polyethylene glycol 3350 [Miralax] 17 gram/dose powder 17 g PO DAILY ascorbic acid (vitamin C) 1,000 mg tablet 500 mg PO DAILY garlic 1,000 mg capsule 1,000 mg PO DAILY multivitamin [One-A-Day Essential] Tablet 1 tab PO DAILY albuterol sulfate 90 mcg/actuation HFA aerosol inhaler 2 puff inhalation Q6H PRN (Reason: shortness of breath or wheezing) Qty: 8.5 3RF montelukast [Singulair] 10 mg tablet 10 mg PO DAILY Qty: 30 5RF budesonide-formoterol [Symbicort] 80-4.5 mcg/actuation HFA aerosol inhaler 2 puff inhalation BID Qty: 10.2 3RF dapagliflozin propanediol [Farxiga] 10 mg tablet 10 mg PO DAILY venlafaxine 75 mg capsule,extended release 24hr 75 mg PO DAILY atorvastatin 10 mg tablet 10 mg PO DAILY cyanocobalamin (vitamin B-12) [Vitamin B-12] 1,000 mcg Tablet 1,000 mcg PO DAILY acetaminophen 500 mg Tablet 500 - 1,000 mg PO Q6H PRN (Reason: Pain) brimonidine 0.2 % drops 1 drp ophthalmic (eye) BID furosemide 20 mg tablet 20 mg PO DAILY Unisom (doxylamine) 25 mg Tablet 25 mg PO BEDTIME Reguloid (psyllium husk) 3 gram/5.4 gram Powder 1 tbsp PO DAILY Rx Instructions: mix into at least 8 oz of water or juice before administering calc carb-mag ox-D3-zinc gluc 333 mg-133 mg- 1.67 mcg-5 mg Tablet 3 tab PO DAILY meclizine 25 mg tablet 25 mg PO BID Nasogel 0.9 % Gel See Rx Instructions .ROUTE .COMPLEX Rx Instructions: APPLY AROUND NOSTRILS TO HELP RELIEVE DISCOMFORT NEEDED. sennosides-docusate sodium [Stool Softener-Laxative] 8.6-50 mg Tablet 1 tab PO BID Qty: 60 0RF Rx Instructions: Hold if having more than 1 BM per day Discharge Orders: Discharge ED (Routine); Ordered 03/14/24 Ordered By: Pradeep Cole Referrals: Melodie Gilmore MD [Primary Care Provider] - Discharge Diet: Usual diet Discharge Activity: Increase activity as tolerated Patient Instructions: A-fib (Atrial Fibrillation) (ED), Opioid Safety, Pain Management Activity Restrictions/Additional Instructions: Please continue your home medications as prescribed. Please discuss your increased atrial fibs heart rate with your primary care provider tomorrow. Coding Level of Care Code ED Stoker Erector And Servicer for Arlette hWipple
[2024-03-14 06:16] VITALS: BP 148/128; PULSE 144; RESP 16; O2SAT 94
[2024-03-14] MEDS: dilTIAZem 5 mg/mL SDV 5 mL 10 MG IVP (06:30)
[2024-03-14 06:36] LABS: Basophils # 0.1 10^3/uL (0.0-0.1); Basophils % 0.6 %; Eosinophils # 0.1 10^3/uL (0.0-0.8); Eosinophils % 0.5 %; Hematocrit 44.2 % (37-53); Lymphocytes # 0.8 10^3/uL (0.8-4.8); Lymphocytes % 7.7 %; Mean Corpuscular HGB Conc 29.2 g/dL (30-55); Mean Corpuscular Hemoglobin 24.1 pg (27-33); Mean Corpuscular Volume 82.6 fl (82-101); Mean Platelet Volume 9.6 fL (7.4-10.4); Monocytes % 9.2 %; Neutrophils # 8.46 10^3/uL (1.8-7.7); Neutrophils % 81.4 %; Nucleated Red Blood Cells % 0 %; Platelet Count 291 10^3/cmm (157-399); Red Blood Count 5.35 10^6/uL (3.85-5.65); Red Cell Distribution Width 18.1 % (12.1-15.1); White Blood Count 10.39 10^3/uL (3.29-11.43)
[2024-03-14 07:20] LABS: Anion Gap 12.9 (5-19); Blood Urea Nitrogen 13 mg/dL (8-23); Calcium 8.3 mg/dL (8.5-10.5); Carbon Dioxide 29 mmol/L (22-29); Chloride 103 mmol/L (98-107); Creatinine Clr Calc Pharmacy 79.7017; Glucose 181 mg/dL (65-115); Magnesium 2.6 mg/dL (1.7-2.3); NT Pro B Type Natriuretic Pept 1408 pg/mL (0-450); Osmolality Calculated 295 mOsm/kg (285-295); Potassium 4.9 mmol/L (3.5-5.1); Sodium 140 mmol/L (136-145)
[2024-03-14] MEDS: dilTIAZem 5 mg/mL SDV 5 mL 20 MG IVP (07:32)
[2024-03-14 07:34] VITALS: BP 144/109; PULSE 159; RESP 29; O2SAT 93
[2024-03-14] MEDS: metoprolol tartrate 1 mg/1 mL SDV 5 mL 5 MG IVP (08:05)
--- NOTE | 2024-03-14 08:23 | PC.PHAR ---
patient is from [facility], med list was at nurse station
[2024-03-14] MEDS: dilTIAZem 60 mg Tablet PO (08:58)
[2024-03-14 09:00] VITALS: BP 132/91; PULSE 98; O2SAT 91
== END 2024-03-14 09:11 | disposition home or self-care (01) ==
PROVIDERS: Emergency Provider Student in an Organized Health Care Education/Training Program; PCP Internal Medicine
DX: I48.19 Other persistent atrial fibrillation (principal); Z79.84 Long term (current) use of oral hypoglycemic drugs; Z86.73 Personal history of transient ischemic attack (TIA), and cerebral infarction without residual deficits; E78.5 Hyperlipidemia, unspecified; I10 Essential (primary) hypertension
CPT/HCPCS: 36415; 71045; 80048; 83735; 83880; 85025; 93005; 96374; 96375; 96376; 99285; J3490

== ENCOUNTER 2024-03-15 12:21 | Inpatient (IN) | payer MEDICARE, OTHER, SELFPAY ==
[2024-03-15] VITALS (58 sets, daily range): BP systolic 103–150; BP diastolic 84–116; PULSE 89–116; RESP 19–37; O2SAT 89–98
--- NOTE | 2024-03-15 12:14 | PC.NURSE ---
Preadmit from Dr Olivo office. Family is bringing patient to hospital from Dr. Olivo office.
--- NOTE | 2024-03-15 12:42 | XR_ITS ---
WS: [id number] XR chest 1V portable [id number] REASON FOR EXAM: dyspnea FINDINGS: There is moderate tortuosity and ectasia of the thoracic aorta and moderate cardiomegaly. There is fluid in the minor fissure and atelectasis in the adjacent right upper lobe. The right lower lobe appears hyperlucent/hyperexpanded. There is cephalization of the pulmonary blood flow. There is peribronchial cuffing and faint linear opacities perpendicular to the pleural surface there are oblique curvilinear opacities in both lower lung valera. There is blunting of both costophrenic a ngles. Definition of the left hemidiaphragm is absent. There appear to be additional interstitial opacities centrally and in the mid lung valera compared to the previous day. XR/XR chest 1V portable [id number] IMPRESSION: Findings suggest chronic mild congestive failure with pleural effusions. Uncertain if the increase in interstitial lung opacities is due to a pneumoniti s or progression of heart failure.
--- NOTE | 2024-03-15 12:54 | PM.HP ---
Documented by User: Eli AlonsoRAFA hebert STDMARGARET 03/15/24 14:02 Providers/Chief Complaint Admitting Physician: Bronson Alvarado MD Primary Care Provider: Melodie Gilmore MD Chief Complaint: Afib-RVR History of Present Illness Haris Sol is a 88 year old male with PMH of asthma, diabetes, HTN, hyperlipidemia, GERD, JENNIFER, and history of stroke, presents with Afib with RVR. Patient reports having SOB, leg weakness, and the sensation of heart fluttering for about 2-3 weeks. Patient was seen in ER yesterday with similar symptoms and was confirmed to have Afib with RVR. Patient declined to be admitted yesterday and [facility] with appointment scheduled this morning to see Dr. Gilmore, who requested he be admitted. Patient endorses having a dry cough, constipation, headache that improved with Tylenol, and edema of unknown length of time. Patient denies chest pain, recent fever, sick contacts, abdominal pain, recent falls, dysuria, or numbness/tingling in legs. Patient has JENNIFER and uses CPAP at night. Patient states he did take his prescribed medication this morning Review of Systems General: Reports: 10 or more systems reviewed and unremarkable except in HPI and below Medications/Allergies Home Medications Medication Instructions Recorded Confirmed Last Taken Type albuterol sulfate 90 mcg/actuation 2 puff inhalation Q6H PRN 12/11/20 03/15/24 Unknown Rx aerosol inhaler shortness of breath or wheezing #8.5 grams ascorbic acid (vitamin C) 1,000 mg 500 mg PO DAILY 12/11/20 03/15/24 09/29/23 History tablet diltiazem HCl 120 mg capsule,24 120 mg PO DAILY 12/11/20 03/15/24 03/15/24 History hr,extended release fluticasone propionate 50 2 spray intranasal DAILY 12/11/20 03/15/24 03/15/24 History mcg/actuation nasal spray,suspension (Flonase Allergy Relief) garlic 1,000 mg capsule 1,000 mg PO DAILY 12/11/20 03/15/24 03/15/24 History latanoprost 0.005 % eye drops 1 drp ophthalmic (eye) DAILY 12/11/20 03/15/24 03/15/24 History losartan 100 mg tablet 100 mg PO DAILY 12/11/20 03/15/24 03/15/24 History metoprolol succinate 100 mg 100 mg PO DAILY 12/11/20 03/15/24 03/15/24 History tablet,extended release 24 hr multivitamin (One-A-Day Essential 1 tab PO DAILY 12/11/20 03/15/24 03/15/24 History tablet) omeprazole 20 mg tablet,delayed 20 mg PO BID 12/11/20 03/15/24 03/15/24 History release polyethylene glycol 3350 17 17 g PO DAILY 12/11/20 03/15/24 03/15/24 History gram/dose oral powder (Miralax) rivaroxaban 20 mg tablet (Xarelto) 20 mg PO DAILY 12/11/20 03/15/24 03/14/24 History tamsulosin 0.4 mg capsule 0.4 mg PO DAILY 12/11/20 03/15/24 03/15/24 History metformin 500 mg tablet 500 mg PO DAILY 01/08/21 03/15/24 03/15/24 History montelukast 10 mg tablet 10 mg PO DAILY #30 tabs 06/30/23 03/15/24 03/15/24 Rx (Singulair) budesonide-formoterol HFA 80 2 puff inhalation BID #10.2 grams 08/31/23 03/15/24 03/15/24 Rx mcg-4.5 mcg/actuation aerosol inhaler (Symbicort) acetaminophen 500 mg tablet 500 - 1,000 mg PO Q6H PRN Pain 09/24/23 03/15/24 Unknown History atorvastatin 10 mg tablet 10 mg PO DAILY 09/24/23 03/15/24 03/15/24 History brimonidine 0.2 % eye drops 1 drp ophthalmic (eye) BID 09/24/23 03/15/24 03/15/24 History calcium carb 333 mg-mag ox 133 3 tab PO DAILY 09/24/23 03/15/24 09/29/23 History mg-D3 1.67 mcg-zinc gluc 5 mg tablet cyanocobalamin (vitamin B-12) 1,000 mcg PO DAILY 09/24/23 03/15/24 03/15/24 History 1,000 mcg tablet (Vitamin B-12) doxylamine succinate 25 mg tablet 25 mg PO BEDTIME 09/24/23 03/15/24 03/14/24 History (Unisom (doxylamine)) furosemide 20 mg tablet 20 mg PO DAILY 09/24/23 03/15/24 03/15/24 History meclizine 25 mg tablet 25 mg PO BID 09/24/23 03/15/24 03/15/24 History psyllium husk 3 gram/5.4 gram oral 1 tbsp PO DAILY 09/24/23 03/15/24 03/15/24 History powder (Reguloid (psyllium husk)) sod chloride-sod See Rx Instructions .Route .COMPLEX 09/24/23 03/15/24 03/15/24 History bicarb-hyaluronate sod-aloe 0.9 % nasal gel (Nasogel) venlafaxine 75 mg capsule,extended 75 mg PO DAILY 09/24/23 03/15/24 03/15/24 History release 24 hr sennosides 8.6 mg-docusate sodium 1 tab PO BID #60 tabs 09/27/23 03/15/24 03/15/24 Rx 50 mg tablet (Stool Softener-Laxative) dapagliflozin propanediol 10 mg 10 mg PO DAILY 09/30/23 03/15/24 03/15/24 History tablet (Farxiga) Allergies Allergy/AdvReac Type Severity Reaction Status Date / Time Sulfa (Sulfonamide Allergy Severe ALGY-Hives Verified 03/15/24 12:51 Antibiotics) bee venom protein (honey bee) Allergy swelling Verified 03/15/24 13:36 and hives PFSH Acute PFSH: Medical History Asthma Stroke GERD (gastroesophageal reflux disease) Cataract Hyperlipemia Glaucoma Afib HTN (hypertension) JENNIFER (obstructive sleep apnea) Asthma Surgical History History of thyroid surgery H/O hernia repair Hx of cataract surgery H/O cardiac radiofrequency ablation History of carpal tunnel surgery Family History Mother Congestive heart failure (CHF) Father Congestive heart failure (CHF) Social History Smoking and tobacco/nicotine status: never used tobacco/nicotine Second hand smoke exposure: No Alcohol intake: never Substance/Drug Use: never Lives independently: Yes Household members: spouse Marital status: Current occupational status: retired Previous occupational history: [employer] Do you think of yourself as: Straight/Heterosexual Current gender identity: Male Vitals/I&O/Wt Last Vital Signs Pulse 100 03/15/24 12:30 Resp 30 H 03/15/24 12:30 BP 150/113 03/15/24 12:30 Pulse Ox 92 03/15/24 12:30 O2 Del Method Room Air 03/15/24 12:31 Weight last 48 hrs Weight 242 lb 11.663 oz Physical Exam Narrative: Patient is an elderly while male, hard of hearing and increased effort of breathing HENMT: normocephalic, atraumatic Eye: PERRL, EOMs intact, anicteric sclera Neck: supple without thyromegaly or lymphadenopathy Resp: Bilateral breath sounds, clear to auscultation, increased effort in breathing, tachypneic Cardio: Tachycardic, Abnormal rhythm without murmurs, gallops, or rubs GI: Soft, nondistended, nontender with bowel sounds. Nonreducible hernia a little smaller than half a tennis ball noted on superior side of umbilicus. : deffered Extremity: noted 1+ bilateral edema, no cyanosis Skin: Erythema along base on neck with skin breakdown, numerous serborrheic keratoses and nevi noted near neck base and along chest. Data 03/15/24 13:02 03/15/24 13:02 A&P Assessment and plan (1) Atrial fibrillation, persistent: Patient with A fib with RVR with dyspnea, patient was seen on 03/14/24 in ED for dyspnea, EKG confirmed Afib with RVR, patient refused to be admitted and was discharge on Cardizem. CXR from 03/14/24 showed atelectasis or infiltrate in left lower lobe, possible fluid or thickening in right horizontal fissure, cardiomegaly, which have no significant changes from CXR done in 09/2023. EKG from 03/14/24 shows Afib with RVR with possible PVCs, evidence of possible old septal infarct noted Repeat EKG and CXR Gave amiodarone 150mg IV bolus, start 360mg [id number] IV per protocol Start metoprolol 25mg BID PO Ordered CBC, CMP with Mg for baseline Ordered BNP Ordered TSH (2) HTN (hypertension): Patient with history of Hypertension Continue losartan 100mg PO Daily Given metoprolol tartrate 25mg BID PO (3) Dyspnea: Patient presents with dypnea/SOB for several weeks. could be impacted by his Afib with RVR but cannot r/o component of history of asthma. Ordered CXR Patient has 1+ edema in LE, start lasix 40mg Give DuoNebs PRN Budesonide 0.5mg Give Singulair 10mg PO daily Plan Patient uses CPAP at home, will order CPAP for use in hospital Continue Sennoside-docusate secondary to constipation bowel regimen Protonix for GI PPX, history of GERD Diabetes: Place on sliding scale Zofran for nausea PRN Xarelto for DVT Give lipitor secondary to history of hyperlipidemia DNR/DNI Coding Level of Care Code 82722 Diagnoses Atrial fibrillation, persistent I48.19 HTN (hypertension) I10 Dyspnea R06.00 Time Spent (min) 56 Documented by User: Bronson Alvarado MD 03/15/24 14:02 Providers/Chief Complaint Chief Complaint: Afib-RVR History of Present Illness Haris Sol is a 88 year old male with PMH of asthma, diabetes, HTN, hyperlipidemia, GERD, JENNIFER, and history of stroke, presents with Afib with RVR. Patient reports having SOB, leg weakness, and the sensation of heart fluttering for about 2-3 weeks. Patient was seen in ER yesterday with similar symptoms and was confirmed to have Afib with RVR. Patient declined to be admitted yesterday and was discharged with cardizem with appointment scheduled this morning to see Dr. Gilmore, who requested he be admitted. Patient endorses having a dry cough, constipation, headache that improved with Tylenol, and edema of unknown length of time. Patient denies chest pain, recent fever, sick contacts, abdominal pain, recent falls, dysuria, or numbness/tingling in legs. Patient has JENNIFER and uses CPAP at night. Patient states he did take his prescribed medication this morning. He reports he has been taking his medications, which include diltiazem and metoprolol. Medications/Allergies Home Medications Medication Instructions Recorded Confirmed Last Taken Type albuterol sulfate 90 mcg/actuation 2 puff inhalation Q6H PRN 12/11/20 03/15/24 Unknown Rx aerosol inhaler shortness of breath or wheezing #8.5 grams ascorbic acid (vitamin C) 1,000 mg 500 mg PO DAILY 12/11/20 03/15/24 09/29/23 History tablet diltiazem HCl 120 mg capsule,24 120 mg PO DAILY 12/11/20 03/15/24 03/15/24 History hr,extended release fluticasone propionate 50 2 spray intranasal DAILY 12/11/20 03/15/24 03/15/24 History mcg/actuation nasal spray,suspension (Flonase Allergy Relief) garlic 1,000 mg capsule 1,000 mg PO DAILY 12/11/20 03/15/24 03/15/24 History latanoprost 0.005 % eye drops 1 drp ophthalmic (eye) DAILY 12/11/20 03/15/24 03/15/24 History losartan 100 mg tablet 100 mg PO DAILY 12/11/20 03/15/24 03/15/24 History metoprolol succinate 100 mg 100 mg PO DAILY 12/11/20 03/15/24 03/15/24 History tablet,extended release 24 hr multivitamin (One-A-Day Essential 1 tab PO DAILY 12/11/20 03/15/24 03/15/24 History tablet) omeprazole 20 mg tablet,delayed 20 mg PO BID 12/11/20 03/15/24 03/15/24 History release polyethylene glycol 3350 17 17 g PO DAILY 12/11/20 03/15/24 03/15/24 History gram/dose oral powder (Miralax) rivaroxaban 20 mg tablet (Xarelto) 20 mg PO DAILY 12/11/20 03/15/24 03/14/24 History tamsulosin 0.4 mg capsule 0.4 mg PO DAILY 12/11/20 03/15/24 03/15/24 History metformin 500 mg tablet 500 mg PO DAILY 01/08/21 03/15/24 03/15/24 History montelukast 10 mg tablet 10 mg PO DAILY #30 tabs 06/30/23 03/15/24 03/15/24 Rx (Singulair) budesonide-formoterol HFA 80 2 puff inhalation BID #10.2 grams 08/31/23 03/15/24 03/15/24 Rx mcg-4.5 mcg/actuation aerosol inhaler (Symbicort) acetaminophen 500 mg tablet 500 - 1,000 mg PO Q6H PRN Pain 09/24/23 03/15/24 Unknown History atorvastatin 10 mg tablet 10 mg PO DAILY 09/24/23 03/15/24 03/15/24 History brimonidine 0.2 % eye drops 1 drp ophthalmic (eye) BID 09/24/23 03/15/24 03/15/24 History calcium carb 333 mg-mag ox 133 3 tab PO DAILY 09/24/23 03/15/24 09/29/23 History mg-D3 1.67 mcg-zinc gluc 5 mg tablet cyanocobalamin (vitamin B-12) 1,000 mcg PO DAILY 09/24/23 03/15/24 03/15/24 History 1,000 mcg tablet (Vitamin B-12) doxylamine succinate 25 mg tablet 25 mg PO BEDTIME 09/24/23 03/15/24 03/14/24 History (Unisom (doxylamine)) furosemide 20 mg tablet 20 mg PO DAILY 09/24/23 03/15/24 03/15/24 History meclizine 25 mg tablet 25 mg PO BID 09/24/23 03/15/24 03/15/24 History psyllium husk 3 gram/5.4 gram oral 1 tbsp PO DAILY 09/24/23 03/15/24 03/15/24 History powder (Reguloid (psyllium husk)) sod chloride-sod See Rx Instructions .Route .COMPLEX 09/24/23 03/15/24 03/15/24 History bicarb-hyaluronate sod-aloe 0.9 % nasal gel (Nasogel) venlafaxine 75 mg capsule,extended 75 mg PO DAILY 09/24/23 03/15/24 03/15/24 History release 24 hr sennosides 8.6 mg-docusate sodium 1 tab PO BID #60 tabs 09/27/23 03/15/24 03/15/24 Rx 50 mg tablet (Stool Softener-Laxative) dapagliflozin propanediol 10 mg 10 mg PO DAILY 09/30/23 03/15/24 03/15/24 History tablet (Farxiga) Allergies Allergy/AdvReac Type Severity Reaction Status Date / Time Sulfa (Sulfonamide Allergy Severe ALGY-Hives Verified 03/15/24 12:51 Antibiotics) bee venom protein (honey bee) Allergy swelling Verified 03/15/24 13:36 and hives PFSH Acute PFSH: Medical History Asthma Stroke GERD (gastroesophageal reflux disease) Cataract Hyperlipemia Glaucoma Afib HTN (hypertension) JENNIFER (obstructive sleep apnea) Asthma Surgical History History of thyroid surgery H/O hernia repair Hx of cataract surgery H/O cardiac radiofrequency ablation History of carpal tunnel surgery Family History Mother Congestive heart failure (CHF) Father Congestive heart failure (CHF) Social History Smoking and tobacco/nicotine status: never used tobacco/nicotine Second hand smoke exposure: No Alcohol intake: never Substance/Drug Use: never Lives independently: Yes Household members: spouse Marital status: Current occupational status: retired Previous occupational history: [employer] Do you think of yourself as: Straight/Heterosexual Current gender identity: Male Data 03/15/24 13:02 03/15/24 13:02 A&P Assessment and plan (1) Atrial fibrillation, persistent: Patient with A fib with RVR with dyspnea, patient was seen on 03/14/24 in ED for dyspnea, EKG confirmed Afib with RVR, patient refused to be admitted and was discharge on Cardizem. CXR from 03/14/24 showed atelectasis or infiltrate in left lower lobe, possible fluid or thickening in right horizontal fissure, cardiomegaly, which have no significant changes from CXR done in 09/2023. EKG from 03/14/24 shows Afib with RVR with possible PVCs, evidence of possible old septal infarct noted Repeat EKG and CXR Gave amiodarone 150mg IV bolus, start 360mg [id number] IV per protocol Start metoprolol 25mg BID PO Ordered CBC, CMP with Mg for baseline Ordered BNP Ordered TSH Cardiology consultation Last echo was April 2024 demonstrating preserved EF. This was a very poor quality echo. No reason to repeat at this time. (2) HTN (hypertension): (3) Dyspnea: Patient presents with dypnea/SOB for several weeks. could be impacted by his Afib with RVR but cannot r/o component of history of asthma. Ordered CXR Patient has 1+ edema in LE, start lasix 40mg IV every 12 hours BMP daily Give DuoNebs PRN Budesonide 0.5mg Give Singulair 10mg PO daily Plan Patient uses CPAP at home, will order CPAP for use in hospital Continue Sennoside-docusate secondary to constipation bowel regimen Protonix for GI PPX, history of GERD Diabetes: Place on sliding scale Zofran for nausea PRN Xarelto for DVT Give lipitor secondary to history of hyperlipidemia DNR/DNI. Discussed with patient Attestations Medical Necessity Statement*: Will need greater than 2 midnight stay for evaluation and treatment of A-fib with RVR, acute diastolic congestive heart failure. Diagnoses Atrial fibrillation, persistent I48.19 HTN (hypertension) I10 Dyspnea R06.00 Time Spent (min) 56
[2024-03-15 12:55] LABS: Glucose Point of Care 132 mg/dL (70-110)
[2024-03-15] MEDS: amiodarone 50 mg/mL SDV 3 mL 150 MG IVP (13:05)
[2024-03-15] MEDS: FUROsemide 10 mg/mL SDV 4mL 40 MG IVP (13:05)
[2024-03-15 13:11] LABS: Basophils # 0.1 10^3/uL (0.0-0.1); Basophils % 0.4 %; Eosinophils # 0.1 10^3/uL (0.0-0.8); Eosinophils % 0.4 %; Hematocrit 43.4 % (37-53); Lymphocytes % 8.6 %; Mean Corpuscular HGB Conc 29.5 g/dL (30-55); Mean Corpuscular Volume 81.3 fl (82-101); Mean Platelet Volume 9.8 fL (7.4-10.4); Monocytes % 8.3 %; Neutrophils # 9.59 10^3/uL (1.8-7.7); Nucleated Red Blood Cells % 0 %; Platelet Count 326 10^3/cmm (157-399); Red Blood Count 5.34 10^6/uL (3.85-5.65); Red Cell Distribution Width 17.9 % (12.1-15.1); White Blood Count 11.69 10^3/uL (3.29-11.43)
[2024-03-15 13:26] LABS: Alkaline Phosphatase 87 U/L (40-130); Chloride 101 mmol/L (98-107); Potassium 4.6 mmol/L (3.5-5.1); Sodium 139 mmol/L (136-145)
[2024-03-15 13:56] LABS: Bilirubin Urine Negative (Negative); Blood Urine Negative (Negative); Glucose Urine UA 3+ (Normal); Ketones Urine Negative (Negative); Leukocyte Esterase Urine 1+ (Negative); Nitrate Urine Negative (Negative); Protein Urine Negative (Negative); Urine Appearance Clear (CLEAR); Urine Color Yellow (Yellow); Urobilinogen Urine 0.2 mg/dL (Negative); pH Urine 6.5 (5-7)
--- NOTE | 2024-03-15 13:57 | ECG_ITS ---
[facility] Test Date: 2024-03-15 Pat Name: Haris Sol Department: Room: 104 Gender: Male Internal Communications Manager: : 1935 Requested By: Bronson Tapia Order Number: [id number] Yolanda MD: Jr Ivy M.D. Measurements Intervals [place] Rate: 109 P: 0 NE: 0 QRS: 38 QRSD: 101 T: 29 QT: 330 QTc: 445 Interpretive Statements ATRIAL FIBRILLATION WITH RAPID VENTRICULAR RESPONSE WITH ABERRANT CONDUCTION OR VENTRICULAR PREMATURE COMPLEXES SEPTAL MYOCARDIAL INFARCTION , PROBABLY OLD [40+ ms Q WAVE IN V1/V2] Compared to ECG 03/14/2024 06:07:56 No significant changes Electronically Signed On 03-16-2024 22:38:25 CDT by Jr Ivy M.D. [email or web address]
[2024-03-15 13:58] LABS: Add Urine Microscopic? YES; Bacteria Urine None Seen /hpf; Hyaline Casts Urine 0-4 /lpf; RBC Urine 0-2 /hpf (0-2); Squamous Epithelial Cell Urine 0-5 /hpf (0-5)
[2024-03-15 14:23] LABS: Add Urine Culture? Yes
[2024-03-15] MEDS: ipratropium-albuterol 3 mL Neb INHALATION ×2 (14:37→20:29)
[2024-03-15 15:26] LABS: Alanine Aminotransferase 14 U/L (0-41); Anion Gap 13.6 (5-19); Aspartate Amino Transferase 15 U/L (0-40); Blood Urea Nitrogen 15 mg/dL (8-23); Calcium 8.6 mg/dL (8.5-10.5); Carbon Dioxide 29 mmol/L (22-29); Globulin 3.1 g/dL (1.3-4.6); Glucose 132 mg/dL (65-115); Magnesium 2.4 mg/dL (1.7-2.3); NT Pro B Type Natriuretic Pept 1053 pg/mL (0-450); Osmolality Calculated 291 mOsm/kg (285-295); Thyroid Stimulating Hormone 1.41 uIU/mL (0.27-4.20); Total Bilirubin 0.5 mg/dL (0.15-1.2); Total Protein 7.1 g/dL (6.6-8.7)
--- NOTE | 2024-03-15 17:22 | P.CONIM_ITS ---
Providers/Reason For Consult 2 Consulting Physician/Specialty*: LARRY Ivy MD/cardiology Reason for Consult*: Patient with atrial fibrillation rapid ventricular rate Requesting Physician: Dr. Alvarado/Dr. Del Rio Attending Physician: Bronson Alvarado MD Primary Care Provider: Melodie Gilmore MD History of Present Illness History of Present Illness Haris Sol is a 88 year old male, [facility] resident, with a history of atrial fibrillation, congestive heart failure, CVA high blood pressure, obstructive sleep apnea, started having shortness of breath and heart palpitations, few weeks ago. His symptoms are gradually getting worse. He was seen in the emergency room yesterday with these complaints. He was found to be in atrial fibrillation rapid ventricular rate. He was given a starter dose of Cardizem 60 mg p.o. Since the patient was not wanting to be admitted to the hospital and also since he is seeing his primary care provider today, he was discharged from the emergency room. Patient was seen by Dr. Del Rio today. He continued to have the shortness of breath with a heart rate in the 130s and 140s. Even with minimal activities, he was getting extremely short of breath. For these complaints, he is admitted to the hospital for further evaluation and management. He has no chest pain. However he has palpitations. No dizziness or syncopal episode. He also has been noticing some swelling of the lower extremities. No fever or chills. No severe cough. He has been taking all the medications as prescribed. He is on long-term oral anticoagulation. Has not had any bleeding complications. Review of Systems 2 Narrative: CONSTITUTIONAL: No fever or chills. EYES: No blurring of vision or other visual disturbances lately. ENT: No hoarseness of voice, auditory disturbances or sore throat. CARDIOVASCULAR: As mentioned above. RESPIRATORY: No significant cough. Shortness of breath as mentioned above GASTROINTESTINAL: No hematemesis or melena. GENITOURINARY: No dysuria or hematuria. INTEGUMENTARY: No skin rashes or history of skin cancer. NEURO: Previous history of CVA with no residual motor deficits. PSYCHIATRIC: No history of psychosis or major depression. HEMATOLOGIC: No bleeding disorders or significant anemia. ENDOCRINE: No history of polyuria or polydipsia. MUSCULOSKELETAL: No recent joint pain or swelling. ALLERGY/IMMUNOLOGY: As mentioned above. Medications/Allergies Home Medications Medication Instructions Recorded Confirmed Last Taken Type albuterol sulfate 90 mcg/actuation 2 puff inhalation Q6H PRN 12/11/20 03/15/24 Unknown Rx aerosol inhaler shortness of breath or wheezing #8.5 grams ascorbic acid (vitamin C) 1,000 mg 500 mg PO DAILY 12/11/20 03/15/24 09/29/23 History tablet diltiazem HCl 120 mg capsule,24 120 mg PO DAILY 12/11/20 03/15/24 03/15/24 History hr,extended release fluticasone propionate 50 2 spray intranasal DAILY 12/11/20 03/15/24 03/15/24 History mcg/actuation nasal spray,suspension (Flonase Allergy Relief) garlic 1,000 mg capsule 1,000 mg PO DAILY 12/11/20 03/15/24 03/15/24 History latanoprost 0.005 % eye drops 1 drp ophthalmic (eye) DAILY 12/11/20 03/15/24 03/15/24 History losartan 100 mg tablet 100 mg PO DAILY 12/11/20 03/15/24 03/15/24 History metoprolol succinate 100 mg 100 mg PO DAILY 12/11/20 03/15/24 03/15/24 History tablet,extended release 24 hr multivitamin (One-A-Day Essential 1 tab PO DAILY 12/11/20 03/15/24 03/15/24 History tablet) omeprazole 20 mg tablet,delayed 20 mg PO BID 12/11/20 03/15/24 03/15/24 History release polyethylene glycol 3350 17 17 g PO DAILY 12/11/20 03/15/24 03/15/24 History gram/dose oral powder (Miralax) rivaroxaban 20 mg tablet (Xarelto) 20 mg PO DAILY 12/11/20 03/15/24 03/14/24 History tamsulosin 0.4 mg capsule 0.4 mg PO DAILY 12/11/20 03/15/24 03/15/24 History metformin 500 mg tablet 500 mg PO DAILY 01/08/21 03/15/24 03/15/24 History montelukast 10 mg tablet 10 mg PO DAILY #30 tabs 06/30/23 03/15/24 03/15/24 Rx (Singulair) budesonide-formoterol HFA 80 2 puff inhalation BID #10.2 grams 08/31/23 03/15/24 03/15/24 Rx mcg-4.5 mcg/actuation aerosol inhaler (Symbicort) acetaminophen 500 mg tablet 500 - 1,000 mg PO Q6H PRN Pain 09/24/23 03/15/24 Unknown History atorvastatin 10 mg tablet 10 mg PO DAILY 09/24/23 03/15/24 03/15/24 History brimonidine 0.2 % eye drops 1 drp ophthalmic (eye) BID 09/24/23 03/15/24 03/15/24 History calcium 333 mg-magnesium 133 mg-D3 3 tab PO DAILY 09/24/23 03/15/24 09/29/23 History 1.67 mcg-zinc 5 mg tablet cyanocobalamin (vitamin B-12) 1,000 mcg PO DAILY 09/24/23 03/15/24 03/15/24 History 1,000 mcg tablet (Vitamin B-12) doxylamine succinate 25 mg tablet 25 mg PO BEDTIME 09/24/23 03/15/24 03/14/24 History (Unisom (doxylamine)) furosemide 20 mg tablet 20 mg PO DAILY 09/24/23 03/15/24 03/15/24 History meclizine 25 mg tablet 25 mg PO BID 09/24/23 03/15/24 03/15/24 History psyllium husk 3 gram/5.4 gram oral 1 tbsp PO DAILY 09/24/23 03/15/24 03/15/24 History powder (Reguloid (psyllium husk)) sod chloride-sod See Rx Instructions .Route .COMPLEX 09/24/23 03/15/24 03/15/24 History bicarb-hyaluronate sod-aloe 0.9 % nasal gel (Nasogel) venlafaxine 75 mg capsule,extended 75 mg PO DAILY 09/24/23 03/15/24 03/15/24 History release 24 hr sennosides 8.6 mg-docusate sodium 1 tab PO BID #60 tabs 09/27/23 03/15/24 03/15/24 Rx 50 mg tablet (Stool Softener-Laxative) dapagliflozin propanediol 10 mg 10 mg PO DAILY 09/30/23 03/15/24 03/15/24 History tablet (Farxiga) Allergies Allergy/AdvReac Type Severity Reaction Status Date / Time Sulfa (Sulfonamide Allergy Severe ALGY-Hives Verified 03/15/24 12:51 Antibiotics) bee venom protein (honey bee) Allergy swelling Verified 03/15/24 13:36 and hives Current Medications Generic Name Dose Route Start Last Admin Trade Name Freq PRN Reason Stop Dose Admin Albuterol/Ipratropium 3 ml 03/15/24 12:45 03/15/24 14:37 Ipratropium-Albuterol 3 Ml Neb INHALATION 3 ml Q6H PRN Administration SHORTNESS OF BREATH Furosemide 40 mg 03/15/24 13:00 03/15/24 13:05 Furosemide 10 Mg/Ml Sdv 4ml IVP 40 mg Q12H PACO Administration Amiodarone HCl/Dextrose 360 mg in 200 mls @ 0 mls/hr 03/15/24 12:42 03/15/24 13:18 Nexterone IV 1 mg/min .Q0M PACO 33.33 mls/hr Administration Protocol Per Protocol PFSH Acute 2 PFSH: Medical History Asthma Stroke GERD (gastroesophageal reflux disease) Cataract Hyperlipemia Glaucoma Afib HTN (hypertension) JENNIFER (obstructive sleep apnea) Asthma Surgical History History of thyroid surgery H/O hernia repair Hx of cataract surgery H/O cardiac radiofrequency ablation History of carpal tunnel surgery Family History Mother Congestive heart failure (CHF) Father Congestive heart failure (CHF) Social History Smoking and tobacco/nicotine status: never used tobacco/nicotine Second hand smoke exposure: No Alcohol intake: never Substance/Drug Use: never Lives independently: Yes Household members: spouse Marital status: Current occupational status: retired Previous occupational history: [employer] Do you think of yourself as: Straight/Heterosexual Current gender identity: Male Vitals/I&O/Wt Last Vital Signs Pulse 96 03/15/24 16:00 Resp 29 H 03/15/24 16:00 BP 129/94 03/15/24 16:00 Pulse Ox 93 03/15/24 16:00 O2 Del Method Room Air 03/15/24 16:00 O2 Flow Rate 1 03/15/24 16:00 03/15/24 03/15/24 03/15/24 06:59 14:59 22:59 Output Total 500 / 500 325 / 825 Balance -500 / -500 -325 / -825 Weight last 48 hrs Weight 242 lb 11.663 oz Physical Exam 2 Narrative: GENERAL: The patient is alert and oriented times three. Not in any acute distress. HEENT: No significant pallor, icterus or lymphadenopathy.Oral cavity: There are no mucous membrane lesions. NECK: Trachea appears to be central. No masses noted. No JVD or thyromegaly appreciated. RESPIRATORY: Chest is symmetrical. No intercostals muscle retraction or any accessory muscle activation. There is no chest wall tenderness. Breath sounds are heard bilaterally. No rales or rhonchi heard. No evidence of any consolidation. BREASTS: Deferred. HEART: The heart heart sound is variable. Second heart sound is normal. No S3. Systolic murmur grade 3 or 6 in the left sternal border. No diastolic murmurs.. No pericardial rub ABDOMEN: No vessel pulsations or distention. No tenderness. No organomegaly appreciated. Bowel sounds are normally heard. : Deferred. RECTAL: Deferred. LYMPHATIC: No lymphadenopathy noted in the neck. EXTREMITIES: Trace to 1+ edema bilaterally. MUSCULOSKELETAL: No acute joint deformities or swelling SKIN: There are no significant rashes or ecchymosis NEUROPSYCHIATRIC: The patient is alert and oriented x3. Appears to be in a good mood. No tremors or rigidity noted. Data 03/15/24 13:02 03/15/24 13:02 Other Labs: Laboratory Last Values WBC 11.69 10^3/uL (3.29-11.43) H 03/15/24 13:02 RBC 5.34 10^6/uL (3.85-5.65) 03/15/24 13:02 Hgb 12.80 g/dL (11.27-16.99) 03/15/24 13:02 Hct 43.4 % (37-53) 03/15/24 13:02 MCV 81.3 fl (82-101) L 03/15/24 13:02 MCH 24.0 pg (27-33) L 03/15/24 13:02 MCHC 29.5 g/dL (30-55) L 03/15/24 13:02 RDW 17.9 % (12.1-15.1) H 03/15/24 13:02 Plt Count 326 10^3/cmm (157-399) 03/15/24 13:02 MPV 9.8 fL (7.4-10.4) 03/15/24 13:02 Neut % (Auto) 82.0 % 03/15/24 13:02 Lymph % (Auto) 8.6 % 03/15/24 13:02 [place] % (Auto) 8.3 % 03/15/24 13:02 Eos % (Auto) 0.4 % 03/15/24 13:02 Baso % (Auto) 0.4 % 03/15/24 13:02 Neut # (Auto) 9.59 10^3/uL (1.8-7.7) H 03/15/24 13:02 Lymph # (Auto) 1.0 10^3/uL (0.8-4.8) 03/15/24 13:02 [place] # (Auto) 1.0 10^3/uL (0.2-0.9) H 03/15/24 13:02 Eos # (Auto) 0.1 10^3/uL (0.0-0.8) 03/15/24 13:02 Baso # (Auto) 0.1 10^3/uL (0.0-0.1) 03/15/24 13:02 Nucleated RBC % (auto) 0 % 03/15/24 13:02 Nucleated RBCs # 0.0 /100WBC 03/15/24 13:02 Sodium 139 mmol/L (136-145) 03/15/24 13:02 Potassium 4.6 mmol/L (3.5-5.1) 03/15/24 13:02 Chloride 101 mmol/L (98-107) 03/15/24 13:02 Carbon Dioxide 29 mmol/L (22-29) 03/15/24 13:02 Anion Gap 13.6 (5-19) 03/15/24 13:02 BUN 15 mg/dL (8-23) 03/15/24 13:02 Creatinine 1.0 mg/dL (0.7-1.2) 03/15/24 13:02 GFR Calculation Not Reportable 03/15/24 13:02 Glucose 132 mg/dL (65-115) H 03/15/24 13:02 POC Glucose 132 mg/dL (70-110) H 03/15/24 12:51 Calculated Osmolality 291 mOsm/kg (285-295) 03/15/24 13:02 Calcium 8.6 mg/dL (8.5-10.5) 03/15/24 13:02 Magnesium 2.4 mg/dL (1.7-2.3) H 03/15/24 13:02 Total Bilirubin 0.5 mg/dL (0.15-1.2) 03/15/24 13:02 AST 15 U/L (0-40) 03/15/24 13:02 ALT 14 U/L (0-41) 03/15/24 13:02 Alkaline Phosphatase 87 U/L (40-130) 03/15/24 13:02 NT-Pro-B Natriuret Pep 1053 pg/mL (0-450) H 03/15/24 13:02 Total Protein 7.1 g/dL (6.6-8.7) 03/15/24 13:02 Albumin 4.0 g/dL (3.5-5.2) 03/15/24 13:02 Globulin 3.1 g/dL (1.3-4.6) 03/15/24 13:02 TSH 1.41 uIU/mL (0.27-4.20) 03/15/24 13:02 Urine Color Yellow (Yellow) 03/15/24 13:47 Urine Appearance Clear (CLEAR) 03/15/24 13:47 Urine pH 6.5 (5-7) 03/15/24 13:47 Ur Specific [place] 1.020 (1.005-1.030) 03/15/24 13:47 Urine Protein Negative (Negative) 03/15/24 13:47 Urine Glucose (UA) 3+ (Normal) H 03/15/24 13:47 Urine Ketones Negative (Negative) 03/15/24 13:47 Urine Blood Negative (Negative) 03/15/24 13:47 Urine Nitrate Negative (Negative) 03/15/24 13:47 Urine Bilirubin Negative (Negative) 03/15/24 13:47 Urine Urobilinogen 0.2 mg/dL (Negative) 03/15/24 13:47 Ur Leukocyte Esterase 1+ (Negative) A 03/15/24 13:47 Urine RBC 0-2 /hpf (0-2) 03/15/24 13:47 Urine WBC 6-10 /hpf (0-5) 03/15/24 13:47 Ur Squamous Epith Cells 0-5 /hpf (0-5) 03/15/24 13:47 Amorphous Sediment Not Reportable 03/15/24 13:47 Urine Bacteria None seen /hpf (NONE) 03/15/24 13:47 Hyaline Casts 0-4 /lpf H 03/15/24 13:47 Urine Yeast 1+ /hpf H 03/15/24 13:47 A&P Assessment and plan (1) Atrial fibrillation with rapid ventricular response: The patient's heart rate seems to be getting under control by increasing the doses of the AV cathie blocking agents. At this point, a rate control strategy would be appropriate. Patient is on long-term oral anticoagulation which may be continued. (2) Acute on chronic diastolic (congestive) heart failure: Most likely the tachyarrhythmia might be causing the heart failure. Possibility of underlying coronary ischemia causing this cannot be excluded. For further evaluation, an echocardiogram would be helpful. Also may consider doing a Myocardial perfusion imaging to evaluate for any underlying coronary ischemia causing the heart failure. In the meanwhile, patient may be carefully treated with the diuretics. (3) HTN (hypertension): Blood pressure seems to be under control. Patient may continue on the current medications. 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 Patient may continue the oral anticoagulation and the other medications as it is. Plan Concerning the possibility of coronary ischemia causing heart failure, I may go ahead and schedule this patient for a Lexiscan/sestamibi/sestamibi stress test. Based on the results of the above tests and the patient's clinical progress, further recommendations will be made. Thank you for the opportunity about this patient and make these recommendations. 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
[2024-03-15 17:34] LABS: Glucose Point of Care 229 mg/dL (70-110)
--- NOTE | 2024-03-15 17:38 | USCV_ITS ---
Haris Sol Age: 88 Gender: M : 1935 Exam Date: 03/15/2024 18:13 Ordering Phys: Jr Ivy MD ([email or web address]) Technologist: SANTA [place]am [place] [facility] [place]ication: atrial fibrillation, increasing SOB, hx CHF, HTN, JENNIFER, BP: 150 / 113 HR: 102 Rhythm: Atrial fibrillation with irregular rhythm Technical Quality: Adequate MEASUREMENTS (Male / Female) Normal Values 2D ECHO LV Diastolic Diameter PLAX 4.9 cm 4.2 - 5.9 / 3.9 - 5.3 cm IVS Diastolic Thickness 1.6 cm 0.6 - 1.0 / 0.6 - 0.9 cm IVS Systolic Thickness 1.8 cm LVPW Diastolic Thickness 2.0 cm 0.6 - 1.0 / 0.6 - 0.9 cm LVPW Systolic Thickness 2.4 cm LVOT Diameter 2.6 cm LV Ejection Fraction 2D Teich 25.6 % LV Ejection Fraction MOD 4C 31.6 % LV Ejection Fraction MOD 2C 39.2 % LV Ejection Fraction 2C AL 43.4 % LA Diameter 5.1 cm LA Sys Volume AL 90.4 cm cubed LA Sys Volume Index AL 38.2 cm cubed/m squared Aorta at Sinotubular Diameter 3.5 cm IVC Diameter 2.3 cm M-MODE LA Ao Ratio MM 1.6 AV Cusp Separation MM 0.6 cm DOPPLER AV Peak Velocity 258.0 cm/s LVOT Peak Velocity 68.0 cm/s AV Area Cont Eq vti 1.6 cm squared AV Area Cont Eq pk 1.4 cm squared MV Peak Velocity 131.0 cm/s MV Area PHT 2.7 cm squared Mitral E to A Ratio 799.0 TV Peak Velocity 254.5 cm/s TR Peak Velocity 261.0 cm/s TR Peak Gradient 27.2 mmHg TV Peak E Velocity 38.0 cm/s Right Atrial Pressure 10.0 mmHg Pulmonary Artery Systolic Pressu 37.2 mmHg PV Peak Velocity 72.0 cm/s FINDINGS Left Ventricle Diffuse hypokinesia left ventricular ejection fraction of 43%. Mild coronary left-ventricular hypertrophy. Right Ventricle The right ventricle is normal in size and function. Right Atrium Mildly increased right atrial size. Left Atrium Mildly increased left atrial size. Mitral Valve Thickened mitral valve. Moderately severe mitral regurgitation Aortic Valve Thickened aortic valve. Trace to mild aortic regurgitation.mild aortic valve stenosis, mean gradient 12.8 mmHg, D[place] 1.6 cm squared. Tricuspid Valve Mild tricuspid valve regurgitation. Pulmonic Valve Structurally normal pulmonic valve without significant stenosis. There is no pulmonic regurgitation. Pericardium Normal pericardium without effusion. Aorta Normal ascending aorta dimension. IVC Normal IVC dimension with <50% respiratory change of the inferior vena cava. CONCLUSIONS Diffuse hypokinesia left ventricular ejection fraction of 43%. Mild coronary left-ventricular hypertrophy. Mild biatrial enlargementThickened mitral valve. Moderately severe mitral regurgitation. Mild aortic valve stenosis, mean gradient 12.8 mmHg, [place] 1.6 cm squared. Trace to mild aortic regurgitation. Mild tricuspid valve regurgitation. Estimated pulmonary artery peak systolic pressure 37 mmHg There is no pericardial effusion. There are no intracardiac masses. Dr Jr Ivy MD FACC (Electronically Signed) Final Date: 16 March 2024 13:27 S
--- NOTE | 2024-03-15 17:39 | PC.NURSE ---
Dr Ivy ordered echo. Order placed.
[2024-03-15] MEDS: sennosides-docusate Tablet 1 TAB PO (17:43)
[2024-03-15] MEDS: pantoprazole DR 40 mg Tablet PO (17:43)
[2024-03-15] MEDS: insulin lispro 100 unit/1 mL SUBCUT (17:43)
--- NOTE | 2024-03-15 18:08 | ECG_ITS ---
[facility] Test Date: 2024-03-16 Pat Name: Haris Sol Department: Room: 104 Gender: Male Ur Coordinator: : 1935 Requested By: Jr Ivy Order Number: [id number] Yolanda MD: Jr Ivy M.D. Interpretive Statements PROCEDURE: At the baseline, the EKG revealed atrial fibrillation with a controlled ventricular response rate of 96 bpm. Poor R wave progression. QS pattern in lead V2, suggesting old septal CO. The baseline heart was 98 bpm with a blood pressue of 138/94 mm of Hg Lexiscan was infused over a period of 20 seconds. A total of 0.4 milligrams of Lexiscan was infused. The stress phase was continued for a total of 5 minutes. Heart rate at the end of the stress phase was 130 bpm with a blood pressure 114/69 mm of Hg. The EKG at the peak infusion revealed no significant changes. Sestamibi was injected 20 seconds after the Lexiscan infusion. Heart rate at the end of the recovery phase was 112 bpm with a blood pressure of 109/80 mm of Hg. CONCLUSION: 1. No significant EKG changes with the LexiScan infusion 2. No LexiScan induced chest pain or cardiac arrhythmia 3. Normal blood pressure and heart rate response 4. Sestamibi/sestamibi perfusion scan pending; see separate report. Lung unchanged pre/post procedure; Intraprocedure shortess of breath; Symptoms resoled by discharge Electronically Signed On 03-18-2024 19:51:12 CDT by Jr Ivy M.D. [email or web address]
[2024-03-15] MEDS: budesonide 0.5 mg/2 mL Neb INHALATION (20:29)
[2024-03-15 21:13] LABS: Glucose Point of Care 132 mg/dL (70-110)
[2024-03-15] MEDS: metoprolol tartrate 25 mg Tablet PO (21:26)
[2024-03-16] VITALS (58 sets, daily range): BP systolic 126–161; BP diastolic 74–116; PULSE 84–136; RESP 17–35; TEMP 36.3–37.3; O2SAT 88–97; BMI 34.8
[2024-03-16] MEDS: FUROsemide 10 mg/mL SDV 4mL 40 MG IVP ×2 (02:33→13:02)
[2024-03-16 04:39] LABS: Anion Gap 13.2 (5-19); Blood Urea Nitrogen 18 mg/dL (8-23); Calcium 8.9 mg/dL (8.5-10.5); Carbon Dioxide 31 mmol/L (22-29); Chloride 99 mmol/L (98-107); Creatinine Clr Calc Pharmacy 53.8833; Glucose 178 mg/dL (65-115); Magnesium 2.3 mg/dL (1.7-2.3); Osmolality Calculated 294 mOsm/kg (285-295); Potassium 4.2 mmol/L (3.5-5.1); Sodium 139 mmol/L (136-145)
[2024-03-16] MEDS: regadenoson 0.4 Mg/5 ml Syringe IVP (07:15)
--- NOTE | 2024-03-16 08:11 | PC.NURSE ---
Patient is off the unit at shift change at stress test.
--- NOTE | 2024-03-16 08:25 | P.PN_ITS ---
Documented by User: RAFA Oseguera STDMARGARET 03/16/24 09:02 Subjective 2 Subjective: Patient is doing well. He has had almost 3L of output on Lasix. Patient has been having urgency when needing to pee and has accidentally removed his IV three times, and family member was worried about him falling. Will put in a Cramer. Patient denies chest pain, SOB, headache, abdominal pain. Patient has been using the CPAP at night which has improved respiratory stats. Patient was taken this morning for a stress test requested by Cardiology. Vitals/I&O/Wt Last Vital Signs Temp 97.8 F 03/16/24 08:00 Pulse 136 H 03/16/24 08:00 Resp 29 H 03/16/24 08:00 BP 159/116 03/16/24 08:00 Pulse Ox 90 03/16/24 08:00 O2 Del Method Room Air 03/16/24 08:00 O2 Flow Rate 2 03/15/24 21:32 03/15/24 03/16/24 03/16/24 22:59 06:59 14:59 Intake Total 200 / 200 Output Total 325 / 825 325 / 1150 1750 / 1750 Balance -125 / -625 -325 / -950 -1750 / -1750 Weight last 48 hrs Weight 242 lb 11.663 oz Weight 242 lb 11.663 oz Physical Exam 2 Const: OTHER: Patient is an elderly white male, hard of hearing, increased effort of breathing Neck/C-Spine: OTHER: Supple without thyromegaly or lymphadenopathy Resp: OTHER: Bilateral breath sounds, slight wheeze bilaterally, increased effort in breathing, tachypneic Cardio: OTHER: Tachycardic, Abnormal rhythm without murmurs, gallops, or rubs GI: OTHER: Soft, nondistended, nontender with bowel sounds. Nonreducible hernia a little smaller than half a tennis ball noted on superior side of umbilicus. Extremity: NARRATIVE EXTREMITY EXAM: Noted 1+ bilateral edema, no cyanosis Skin: OTHER: Erythema along base on neck with skin breakdown, numerous serborrheic keratoses and nevi noted near neck base and along chest. Data 03/15/24 13:02 03/16/24 03:33 A&P Assessment and plan (1) Atrial fibrillation with rapid ventricular response: Patient with A fib with RVR with dyspnea, patient was seen on 03/14/24 in ED for dyspnea, EKG confirmed Afib with RVR, patient refused to be admitted and was discharge on Cardizem. Repeated EKG continues to show A fib with RVR and possible PVCs CXR reviewed and shows shows increase interstitial lung opacities. moderate cardiomegaly, fluid in minor fissure, atelectasis of right upper lobe, cephalization, blunting of costophrenic angles. Findings suggest chronic mild congestive heart failure with pleural effusion and interstitial lung opacities secondary either to a pneumonitis or progression of heart failure. BNP 1053 TSH normal at 1.41 Mg 2.3 Continue amiodarone 360mg in 200ml IV per protocol Continue metoprolol 37.5 mg BID PO, monitor for bradycardia if cardioverts CBC, CMP with Mg Last echo was April 2024 demonstrating preserved EF. This was a very poor quality echo. No reason to repeat at this time. (2) Dyspnea: Patient presented with dypnea/SOB for several weeks. Could be impacted by his Afib with RVR but cannot r/o component of history of asthma. Likely acute on chronic congestive heart failure. CXR reviewed and shows shows increase interstitial lung opacities. moderate cardiomegaly, fluid in minor fissure, atelectasis of right upper lobe, cephalization, blunting of costophrenic angles. Findings suggest chronic mild congestive heart failure with pleural effusion and interstitial lung opacities secondary either to a pneumonitis or progression of heart failure. Patient continues to have 1+ edema in LE, Continue lasix 40mg IV every 12 hours Due to the large amount of output from diuresis and the family's concern for fall, place cramer Give DuoNebs PRN Budesonide 0.5mg Give Singulair 10mg PO daily BMP daily (3) HTN (hypertension): Patient with history of Hypertension Continue losartan 100mg PO Daily Continue metoprolol tartrate 37.5 mg BID PO, monitor for bradycardia if cardioverts Qualifiers: Hypertension type: primary hypertension Qualified Code(s): I10 - Essential (primary) hypertension Plan Patient uses CPAP at home, will order CPAP for use in hospital Continue Sennoside-docusate secondary to constipation bowel regimen Protonix for GI PPX, history of GERD Diabetes: Place on sliding scale Zofran for nausea PRN Xarelto for DVT Give lipitor secondary to history of hyperlipidemia DNR/DNI. Discussed with patient Coding Level of Care Code 28304 Diagnoses Atrial fibrillation with rapid ventricular response I48.91 Dyspnea R06.00 Primary hypertension I10 Hypertension type: primary hypertension Time Spent (min) 25 Documented by User: Bronson Alvarado MD 03/16/24 09:03 Subjective 2 Medications: Reviewed: Yes Data 03/15/24 13:02 03/16/24 03:33 A&P Assessment and plan (1) Atrial fibrillation with rapid ventricular response: Patient with A fib with RVR with dyspnea, patient was seen on 03/14/24 in ED for dyspnea, EKG confirmed Afib with RVR, patient refused to be admitted and was discharge on Cardizem. Repeated EKG continues to show A fib with RVR and possible PVCs CXR reviewed and shows shows increase interstitial lung opacities. moderate cardiomegaly, fluid in minor fissure, atelectasis of right upper lobe, cephalization, blunting of costophrenic angles. Findings suggest chronic mild congestive heart failure with pleural effusion and interstitial lung opacities secondary either to a pneumonitis or progression of heart failure. BNP 1053 TSH normal at 1.41 Mg 2.3 Continue amiodarone 360mg in 200ml IV per protocol If rhythm under better control consider changing to amiodarone p.o. tonight for him milligrams twice daily Continue metoprolol, increase to 37.5 mg BID PO, monitor for bradycardia if cardioverts CBC, CMP with Mg Last echo was April 2024 demonstrating preserved EF. This was a very poor quality echo. No reason to repeat at this time. (2) Dyspnea: Patient presented with dypnea/SOB for several weeks. Could be impacted by his Afib with RVR but cannot r/o component of history of asthma. Likely acute on chronic congestive heart failure. CXR reviewed and shows shows increase interstitial lung opacities. moderate cardiomegaly, fluid in minor fissure, atelectasis of right upper lobe, cephalization, blunting of costophrenic angles. Findings suggest chronic mild congestive heart failure with pleural effusion and interstitial lung opacities secondary either to a pneumonitis or progression of heart failure. Patient continues to have 1+ edema in LE, Continue lasix 40mg IV every 12 hours Due to the large amount of output from diuresis and the family's concern for fall, place cramer Give DuoNebs PRN Budesonide 0.5mg Give Singulair 10mg PO daily BMP daily Cardiology is evaluating with nuclear stress test, done today. Await results. (3) HTN (hypertension): Qualifiers: Hypertension type: primary hypertension Qualified Code(s): I10 - Essential (primary) hypertension Attestations 2 Medical Necessity Statement*: Needs continued hospitalization for further diuresis with IV Lasix secondary to acute diastolic heart failure, and adjustment of medication for A-fib in this patient still on amiodarone drip. Diagnoses Atrial fibrillation with rapid ventricular response I48.91 Dyspnea R06.00 Primary hypertension I10 Hypertension type: primary hypertension Time Spent (min) 25
--- NOTE | 2024-03-16 08:25 | PC.NURSE ---
Patient is back from stress test at 0820.
[2024-03-16] MEDS: ipratropium-albuterol 3 mL Neb INHALATION ×2 (08:52→20:54)
[2024-03-16] MEDS: budesonide 0.5 mg/2 mL Neb INHALATION ×2 (08:52→20:53)
[2024-03-16] MEDS: sennosides-docusate Tablet 1 TAB PO ×2 (09:46→17:11)
[2024-03-16] MEDS: venlafaxine ER (24HR) 75 mg Capsule PO (09:46)
[2024-03-16] MEDS: losartan 50 mg Tablet 100 MG PO (09:47)
[2024-03-16] MEDS: pantoprazole DR 40 mg Tablet PO ×2 (09:47→17:11)
[2024-03-16] MEDS: atorvastatin 40 mg Tablet 20 MG PO (09:47)
[2024-03-16] MEDS: montelukast sodium 10 mg Tablet PO (09:47)
[2024-03-16] MEDS: rivaroxaban 10 mg Tablet 20 MG PO (09:47)
[2024-03-16] MEDS: polyethylene glycol 3350 Pkt 17 gm PO (09:48)
[2024-03-16] MEDS: tamsulosin 0.4 mg Capsule PO (09:48)
[2024-03-16] MEDS: metoprolol tartrate 25 mg Tablet 37.5 MG PO ×2 (09:48→20:34)
--- NOTE | 2024-03-16 10:40 | PC.CHAP ---
Pastoral Care Encounter/Spiritual Assessment Type of Contact [] Declined juvenile justice officer visit [] Patient/Family/Request visit [] Outpatient visit [] Follow-up visit [] Physician referral [] Code/Alert [x] Routine visit [] Staff referral [] Actively dying [x] Patient sleeping [] Family support [] [] Out of room [] Palliative care [] [] Receiving care in room [] Pre-surgical visit [] Trauma [] Long length of stay [] ICU visit [] Other: Relational/Emotional Strength [] Patient feels connected with others/family/visitors/staff [] Distress [] Loneliness/isolation [] Abandonment Spirituality of Patient [] Person of Trisha [] Attends Baptism of their Trisha [] Believes in Prayer [] Reads Bible or Gnosticist materials [] There are Spiritual issues to be addressed Instructional Assistant Interventions [] Prayer [] Active listening [] Non-anxious presence [] Spiritual/emotional support [] Crisis/trauma care [] Spiritual counseling [] Bereavement support [] Provided bereavement packet [] Provided Bible/devotional materials [] Provided toy/stuffed animal, coloring book to patient or family member [] Provided Communion [] Anointing/[place] [] Salvation [] Completed spiritual assessment [] Other: Impact on Illness or Injury [] Angry [] Fearful [] Anxious [] Often cries [] Exhaustion [] Unable to work [] Unable to attend yazidism [] Unable to walk/stand [] Unable to read [] Unable to drive [] Unable to eat/drink [] Unable to sleep [] Unable to be with family [] Patient intubated [] Other: Summary Time spent with patient
--- NOTE | 2024-03-16 12:03 | PC.NURSE ---
Nursing staff attemped to place a urinary catheter but was unable to place due to excessive phimosis.
[2024-03-16 12:04] LABS: Glucose Point of Care 219 mg/dL (70-110)
[2024-03-16] MEDS: insulin lispro 100 unit/1 mL SUBCUT ×3 (12:20→20:34)
--- NOTE | 2024-03-16 16:40 | PM.PN ---
Subjective Subjective: Patient is feeling okay. He had a Myocardial perfusion imaging today. He was found to have fairly uniform myocardial tracer uptake. The transient ischemic dilatation ratio was slightly elevated suggesting endocardial ischemia. However because the atrial fibrillation, this could be misleading. Patient has not had any chest pain. His overall status is improving. The heart rate seems to be slowly getting under control. The blood pressure was found to be elevated this morning. But the pressure came back to the normal range around noon. Medications: Medication Review Details: Current Medications Acetaminophen (Acetaminophen 325 Mg Tablet) 650 mg PO Q6H PRN PRN Reason: Mild/Mod Pain Or Temp >/= 101 Albuterol/Ipratropium (Ipratropium-Albuterol 3 Ml Neb) 3 ml INHALATION Q6H PRN PRN Reason: SHORTNESS OF BREATH Last Admin: 03/16/24 08:52 Dose: 3 ml Aminophylline (Aminophylline 25 Mg/Ml Sdv 10 Ml) 25 mg IVP Q2M PRN PRN Reason: see dose instructions Stop: 03/17/24 06:16 Amiodarone HCl (Amiodarone 200 Mg Tablet) 400 mg PO BID PACO Atorvastatin Calcium (Atorvastatin 40 Mg Tablet) 20 mg PO DAILY PACO Last Admin: 03/16/24 09:47 Dose: 20 mg Budesonide (Budesonide 0.5 Mg/2 Ml Neb) 0.5 mg INHALATION BID.RESPIRATORY PACO Last Admin: 03/16/24 08:52 Dose: 0.5 mg Furosemide (Furosemide 10 Mg/Ml Sdv 4ml) 40 mg IVP Q12H PACO Last Admin: 03/16/24 13:02 Dose: 40 mg Glucagon (Glucagon 1 Mg/Ml Kit 1 Ml) 1 mg IM ONCE PRN; Protocol PRN Reason: Adult Acute Hypoglycemia Nursing Prot. Amiodarone HCl/Dextrose (Nexterone) 360 mg in 200 mls @ 0 mls/hr IV .Q0M PACO; Protocol Last Admin: 03/16/24 13:25 Dose: 0.5 mg/min, 16.67 mls/hr Dextrose (D5w) 500 mls @ 0 mls/hr IV ONCE PRN; Protocol PRN Reason: Adult Acute Hypoglycemia Prot Dextrose (D10w) 125 mls @ 750 mls/hr IV PRN PRN; Protocol PRN Reason: Adult Acute Hypoglycemia Nursing Protocol Dextrose (D10w) 250 mls @ 1,000 mls/hr IV PRN PRN; Protocol PRN Reason: Adult Acute Hypoglycemia Nursing Protocol Insulin Human Lispro (Insulin Lispro 100 Unit/1 Ml) 0 unit SUBCUT WM&BEDTIME [facility]; Protocol Last Admin: 03/16/24 12:20 Dose: 4 unit Losartan Potassium (Losartan 50 Mg Tablet) 100 mg PO DAILY [facility] Last Admin: 03/16/24 09:47 Dose: 100 mg Metoprolol Tartrate (Metoprolol Tartrate 25 Mg Tablet) 37.5 mg PO BID@0900,2100 [facility] Last Admin: 03/16/24 09:48 Dose: 37.5 mg Montelukast Sodium (Montelukast Sodium 10 Mg Tablet) 10 mg PO DAILY [facility] Last Admin: 03/16/24 09:47 Dose: 10 mg Nitroglycerin (Nitroglycerin 0.4 Mg Sublingual Tablet) 0.4 mg SUBLINGUAL Q5M PRN PRN Reason: CHEST PAIN Stop: 03/17/24 06:16 Ondansetron HCl (Ondansetron 2 Mg/Ml Sdv 2 Ml) 4 mg IVP Q6H PRN PRN Reason: vomiting, or N/V if npo Ondansetron HCl (Ondansetron 2 Mg/Ml Sdv 2 Ml) 4 mg IVP Q2M PRN PRN Reason: NAUSEA Pantoprazole Sodium (Pantoprazole Dr 40 Mg Tablet) 40 mg PO BID [facility] Last Admin: 03/16/24 09:47 Dose: 40 mg Polyethylene Glycol (Polyethylene Glycol 3350 Pkt 17 Gm) 17 gm PO DAILY [facility] Last Admin: 03/16/24 09:48 Dose: 17 gm Rivaroxaban (Rivaroxaban 10 Mg Tablet) 20 mg PO DAILY [facility] Last Admin: 03/16/24 09:47 Dose: 20 mg Senna/Docusate Sodium (Sennosides-Docusate Tablet) 1 tab PO BID [facility] Last Admin: 03/16/24 09:46 Dose: 1 tab Tamsulosin HCl (Tamsulosin 0.4 Mg Capsule) 0.4 mg PO DAILY [facility] Last Admin: 03/16/24 09:48 Dose: 0.4 mg Venlafaxine HCl (Venlafaxine Er (24hr) 75 Mg Capsule) 75 mg PO DAILY [facility] Last Admin: 03/16/24 09:46 Dose: 75 mg Vitals/I&O/Wt Last Vital Signs Temp 97.8 F 03/16/24 16:00 Pulse 94 03/16/24 16:00 Resp 34 H 03/16/24 16:00 BP 138/96 03/16/24 16:00 Pulse Ox 95 03/16/24 16:00 O2 Del Method Nasal Cannula 03/16/24 16:00 O2 Flow Rate 2 03/16/24 08:53 03/16/24 03/16/24 03/16/24 06:59 14:59 22:59 Intake Total 200 / 200 Output Total 325 / 1150 2250 / 2250 Balance -325 / -950 -2050 / -2050 Weight last 48 hrs Weight 242 lb 11.663 oz Weight 242 lb 11.663 oz Physical Exam Narrative: GENERAL: The patient is alert and oriented times three. Not in any acute distress. HEENT: No significant pallor, icterus or lymphadenopathy.Oral cavity: There are no mucous membrane lesions. NECK: Trachea appears to be central. No masses noted. No JVD or thyromegaly appreciated. RESPIRATORY: Chest is symmetrical. No intercostals muscle retraction or any accessory muscle activation. There is no chest wall tenderness. Breath sounds are heard bilaterally. No rales or rhonchi heard. No evidence of any consolidation. BREASTS: Deferred. HEART: The heart heart sound is variable. Second heart sound is normal. No S3. Systolic murmur grade 3 or 6 in the left sternal border. No diastolic murmurs.. No pericardial rub ABDOMEN: No vessel pulsations or distention. No tenderness. No organomegaly appreciated. Bowel sounds are normally heard. : Deferred. RECTAL: Deferred. LYMPHATIC: No lymphadenopathy noted in the neck. EXTREMITIES: Trace to 1+ edema bilaterally. MUSCULOSKELETAL: No acute joint deformities or swelling SKIN: There are no significant rashes or ecchymosis NEUROPSYCHIATRIC: The patient is alert and oriented x3. Appears to be in a good mood. No tremors or rigidity noted. Data 03/15/24 13:02 03/16/24 03:33 Other Labs: Laboratory Last Values WBC 11.69 10^3/uL (3.29-11.43) H 03/15/24 13:02 RBC 5.34 10^6/uL (3.85-5.65) 03/15/24 13:02 Hgb 12.80 g/dL (11.27-16.99) 03/15/24 13:02 Hct 43.4 % (37-53) 03/15/24 13:02 MCV 81.3 fl (82-101) L 03/15/24 13:02 MCH 24.0 pg (27-33) L 03/15/24 13:02 MCHC 29.5 g/dL (30-55) L 03/15/24 13:02 RDW 17.9 % (12.1-15.1) H 03/15/24 13:02 Plt Count 326 10^3/cmm (157-399) 03/15/24 13:02 MPV 9.8 fL (7.4-10.4) 03/15/24 13:02 Neut % (Auto) 82.0 % 03/15/24 13:02 Lymph % (Auto) 8.6 % 03/15/24 13:02 [place] % (Auto) 8.3 % 03/15/24 13:02 Eos % (Auto) 0.4 % 03/15/24 13:02 Baso % (Auto) 0.4 % 03/15/24 13:02 Neut # (Auto) 9.59 10^3/uL (1.8-7.7) H 03/15/24 13:02 Lymph # (Auto) 1.0 10^3/uL (0.8-4.8) 03/15/24 13:02 [place] # (Auto) 1.0 10^3/uL (0.2-0.9) H 03/15/24 13:02 Eos # (Auto) 0.1 10^3/uL (0.0-0.8) 03/15/24 13:02 Baso # (Auto) 0.1 10^3/uL (0.0-0.1) 03/15/24 13:02 Nucleated RBC % (auto) 0 % 03/15/24 13:02 Nucleated RBCs # 0.0 /100WBC 03/15/24 13:02 Sodium 139 mmol/L (136-145) 03/16/24 03:33 Potassium 4.2 mmol/L (3.5-5.1) 03/16/24 03:33 Chloride 99 mmol/L (98-107) 03/16/24 03:33 Carbon Dioxide 31 mmol/L (22-29) H 03/16/24 03:33 Anion Gap 13.2 (5-19) 03/16/24 03:33 BUN 18 mg/dL (8-23) 03/16/24 03:33 Creatinine 1.2 mg/dL (0.7-1.2) 03/16/24 03:33 GFR Calculation Not Reportable 03/16/24 03:33 Glucose 178 mg/dL (65-115) H 03/16/24 03:33 POC Glucose 219 mg/dL (70-110) H 03/16/24 11:17 Calculated Osmolality 294 mOsm/kg (285-295) 03/16/24 03:33 Calcium 8.9 mg/dL (8.5-10.5) 03/16/24 03:33 Magnesium 2.3 mg/dL (1.7-2.3) 03/16/24 03:33 Total Bilirubin 0.5 mg/dL (0.15-1.2) 03/15/24 13:02 AST 15 U/L (0-40) 03/15/24 13:02 ALT 14 U/L (0-41) 03/15/24 13:02 Alkaline Phosphatase 87 U/L (40-130) 03/15/24 13:02 NT-Pro-B Natriuret Pep 1053 pg/mL (0-450) H 03/15/24 13:02 Total Protein 7.1 g/dL (6.6-8.7) 03/15/24 13:02 Albumin 4.0 g/dL (3.5-5.2) 03/15/24 13:02 Globulin 3.1 g/dL (1.3-4.6) 03/15/24 13:02 TSH 1.41 uIU/mL (0.27-4.20) 03/15/24 13:02 Urine Color Yellow (Yellow) 03/15/24 13:47 Urine Appearance Clear (CLEAR) 03/15/24 13:47 Urine pH 6.5 (5-7) 03/15/24 13:47 Ur Specific [place] 1.020 (1.005-1.030) 03/15/24 13:47 Urine Protein Negative (Negative) 03/15/24 13:47 Urine Glucose (UA) 3+ (Normal) H 03/15/24 13:47 Urine Ketones Negative (Negative) 03/15/24 13:47 Urine Blood Negative (Negative) 03/15/24 13:47 Urine Nitrate Negative (Negative) 03/15/24 13:47 Urine Bilirubin Negative (Negative) 03/15/24 13:47 Urine Urobilinogen 0.2 mg/dL (Negative) 03/15/24 13:47 Ur Leukocyte Esterase 1+ (Negative) A 03/15/24 13:47 Urine RBC 0-2 /hpf (0-2) 03/15/24 13:47 Urine WBC 6-10 /hpf (0-5) 03/15/24 13:47 Ur Squamous Epith Cells 0-5 /hpf (0-5) 03/15/24 13:47 Amorphous Sediment Not Reportable 03/15/24 13:47 Urine Bacteria None seen /hpf (NONE) 03/15/24 13:47 Hyaline Casts 0-4 /lpf H 03/15/24 13:47 Urine Yeast 1+ /hpf H 03/15/24 13:47 Micro: Microbiology 03/15/24 13:47 Urine Culture - Preliminary Urine,Clean Catch Other data: The Myocardial perfusion imaging from today 1. Myocardial perfusion imaging revealing uniform myocardial tracer uptake with no significant perfusion abnormalities. 2. Diminished LV ejection fraction of 35%. 3. Segmental wall motion analysis revealed diffuse hypokinesia of the left ventricle, more so of the septum. 4. Dilated LV cavity with an end-systolic volume of 92 mL Elevated transient ischemic dilatation ratio may suggest endocardial ischemia. However because of the arrhythmia, this could be misleading The features may suggest nonischemic cardiomyopathy. Possibly no significant ischemia. The echocardiogram from yesterday Diffuse hypokinesia left ventricular ejection fraction of 43%. Mild coronary left-ventricular hypertrophy. Mild biatrial enlargementThickened mitral valve. Moderately severe mitral regurgitation. Mild aortic valve stenosis, mean gradient 12.8 mmHg, [place] 1.6 cm squared. Trace to mild aortic regurgitation. Mild tricuspid valve regurgitation. Estimated pulmonary artery peak systolic pressure 37 mmHg There is no pericardial effusion. There are no intracardiac masses. A&P Assessment and plan (1) Atrial fibrillation with rapid ventricular response: Patient was started on IV amiodarone. It may be switched to p.o. Amio, once the IV infusion is completed. May continue on the metoprolol and diltiazem. The heart rate need to be closely monitored. (2) Acute on chronic diastolic (congestive) heart failure: The Myocardial perfusion imaging results were discussed with the patient and family in detail. At this point, the patient may not require any further intervention. Optimizing the diuretic treatment would be appropriate. (3) HTN (hypertension): Blood pressure seems to be under control. Patient may continue on the current medications. 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 Patient may continue the oral anticoagulation and the other medications as it is. (6) Nonischemic congestive cardiomyopathy: In view of the cardiomyopathy and congestive heart failure, it may be appropriate to start the patient on Entresto 49/51 1 tablet p.o. twice daily, starting tomorrow. I may discontinue the losartan, tomorrow onwards May be continued on the other current medications. Plan The implications of the Myocardial perfusion imaging results were discussed in detail. Since the patient has no chest pain or any specific cardiac symptoms, it may be appropriate to continue on the current treatment. Attestations Medical Necessity Statement*: Patient requires continued hospital stay for close monitoring and further management Coding Level of Care Code Acute Code for Chg Fwd Diagnoses Atrial fibrillation with rapid ventricular response I48.91 Acute on chronic diastolic (congestive) heart failure I50.33 Primary hypertension I10 Hypertension type: primary hypertension JENNIFER (obstructive sleep apnea) G47.33 Old embolic stroke without late effect Z86.73 Nonischemic congestive cardiomyopathy I42.0
[2024-03-16 16:55] LABS: Glucose Point of Care 145 mg/dL (70-110)
[2024-03-16] MEDS: amiodarone 200 mg Tablet 400 MG PO (17:11)
--- NOTE | 2024-03-16 18:08 | NMCV_ITS ---
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 Supine position only as patient was unable to lay prone. SPECT RESULTS Technical Quality: Excellent Raw Data Analysis: Normal Image Corrections: No attenuation or motion correction applied Summed Stress Score: 0 Summed Rest Score: 0 Summed Difference Score: 0 PERFUSION FINDINGS Uniform myocardial tracer uptake with no significant Perfusion abnormalities FUNCTIONAL RESULTS (calculated via Gated SPECT) Stress Image LV EF (%): 35 Stress EDV (mL):141 TID: 1.21 Stress ESV (mL):92 FUNCTIONAL FINDINGS: Diffuse hypokinesia of the left ventricle, more so of the septum. The transient ischemic dilatation ratio was 1.21 IMPRESSIONS 1. Myocardial perfusion imaging revealing uniform myocardial tracer uptake with no significant perfusion abnormalities. 2. Diminished LV ejection fraction of 35%. 3. Segmental wall motion analysis revealed diffuse hypokinesia of the left ventricle, more so of the septum. 4. Dilated LV cavity with an end-systolic volume of 92 mL Elevated transient ischemic dilatation ratio may suggest endocardial ischemia. However because of the arrhythmia, this could be misleading The features may suggest nonischemic cardiomyopathy. Possibly no significant ischemia. Dr Jr Ivy MD [facility] (Electronically Signed) Final Date: 16 March 2024 09:59 S
[2024-03-16 20:22] LABS: Glucose Point of Care 239 mg/dL (70-110)
[2024-03-17] VITALS (8 sets, daily range): BP systolic 117–160; BP diastolic 82–110; PULSE 76–120; RESP 14–26; TEMP 36.4–37.1; O2SAT 90–97; BMI 34.8
[2024-03-17] MEDS: FUROsemide 10 mg/mL SDV 4mL 40 MG IVP ×2 (01:40→13:43)
[2024-03-17 02:40] LABS: Basophils # 0.1 10^3/uL (0.0-0.1); Basophils % 0.7 %; Eosinophils # 0.1 10^3/uL (0.0-0.8); Eosinophils % 1.2 %; Hematocrit 42.8 % (37-53); Mean Corpuscular HGB Conc 29.2 g/dL (30-55); Mean Corpuscular Hemoglobin 23.8 pg (27-33); Mean Corpuscular Volume 81.4 fl (82-101); Mean Platelet Volume 10.3 fL (7.4-10.4); Monocytes # 1.3 10^3/uL (0.2-0.9); Monocytes % 10.3 %; Neutrophils # 9.64 10^3/uL (1.8-7.7); Neutrophils % 79.5 %; Nucleated Red Blood Cells % 0 %; Platelet Count 315 10^3/cmm (157-399); Red Blood Count 5.26 10^6/uL (3.85-5.65); Red Cell Distribution Width 17.6 % (12.1-15.1); White Blood Count 12.12 10^3/uL (3.29-11.43)
[2024-03-17 03:15] LABS: Alanine Aminotransferase 13 U/L (0-41); Albumin Level 3.8 g/dL (3.5-5.2); Alkaline Phosphatase 75 U/L (40-130); Anion Gap 12.8 (5-19); Aspartate Amino Transferase 14 U/L (0-40); Blood Urea Nitrogen 21 mg/dL (8-23); Calcium 8.3 mg/dL (8.5-10.5); Carbon Dioxide 33 mmol/L (22-29); Chloride 100 mmol/L (98-107); Creatinine Clr Calc Pharmacy 71.8444; Globulin 2.7 g/dL (1.3-4.6); Glucose 129 mg/dL (65-115); Magnesium 2.1 mg/dL (1.7-2.3); Osmolality Calculated 299 mOsm/kg (285-295); Potassium 3.8 mmol/L (3.5-5.1); Sodium 142 mmol/L (136-145); Total Bilirubin 0.4 mg/dL (0.15-1.2); Total Protein 6.5 g/dL (6.6-8.7)
[2024-03-17 06:35] LABS: Glucose Point of Care 125 mg/dL (70-110)
[2024-03-17] MEDS: pantoprazole DR 40 mg Tablet PO ×2 (08:11→17:26)
[2024-03-17] MEDS: metoprolol tartrate 25 mg Tablet 37.5 MG PO (08:12)
[2024-03-17] MEDS: rivaroxaban 10 mg Tablet 20 MG PO (08:12)
[2024-03-17] MEDS: atorvastatin 40 mg Tablet 20 MG PO (08:12)
[2024-03-17] MEDS: montelukast sodium 10 mg Tablet PO (08:13)
[2024-03-17] MEDS: sacubitril/valsartan 24-26 mg Tablet 2 EACH PO ×3 (08:13→17:26)
[2024-03-17] MEDS: amiodarone 200 mg Tablet 400 MG PO ×2 (08:13→17:26)
[2024-03-17] MEDS: venlafaxine ER (24HR) 75 mg Capsule PO (08:13)
[2024-03-17] MEDS: tamsulosin 0.4 mg Capsule PO (08:13)
[2024-03-17] MEDS: sennosides-docusate Tablet 1 TAB PO ×2 (08:14→17:26)
[2024-03-17] MEDS: polyethylene glycol 3350 Pkt 17 gm PO (08:14)
[2024-03-17] MEDS: budesonide 0.5 mg/2 mL Neb INHALATION ×2 (08:39→19:33)
[2024-03-17] MEDS: ipratropium-albuterol 3 mL Neb INHALATION ×2 (08:39→19:33)
[2024-03-17] MEDS: insulin lispro 100 unit/1 mL SUBCUT ×3 (12:21→21:23)
[2024-03-17 12:51] LABS: Glucose Point of Care 221 mg/dL (70-110)
--- NOTE | 2024-03-17 13:32 | P.PN_ITS ---
Subjective 2 Subjective: Seen this morning. Patient resting comfortably in the chair. Stress test performed yesterday. Results reviewed. Patient on 2 L of nasal cannula. Patient's daughter is present at bedside. Patient did receive Lasix yesterday. Vitals/I&O/Wt Last Vital Signs Temp 98.3 F 03/17/24 11:31 Pulse 106 H 03/17/24 11:31 Resp 24 H 03/17/24 11:31 BP 119/86 03/17/24 11:31 Pulse Ox 96 03/17/24 11:31 O2 Del Method Nasal Cannula 03/17/24 11:31 O2 Flow Rate 3 03/17/24 11:31 03/16/24 03/17/24 03/17/24 22:59 06:59 14:59 Intake Total 220 / 420 200 / 620 860 / 860 Output Total 350 / 2600 500 / 500 Balance -130 / -2180 200 / -1980 360 / 360 Weight last 48 hrs Weight 110.1 kg Weight 110.1 kg Physical Exam 2 Narrative: General: Alert oriented x3, patient seen sitting up in recliner at this time with daughter at bedside. On 2 L nasal cannula. States he is doing better. HEENT: Normocephalic, atraumatic, EOMI, 2 L nasal cannula. Cardio: Regular rate rhythm, normal S1-S2, Respiratory: Good bilateral air entry, no wheezes no rhonchi appreciated, no real crackles appreciated at this time. GI: Abdomen soft, nontender, nondistended, bowel sounds + Behavior: Appropriate and cooperative Extremities: Trace edema bilateral lower extremities. Data 03/17/24 01:38 03/17/24 01:38 Micro: Microbiology 03/15/24 13:47 Urine Culture - Final Urine,Clean Catch A&P Assessment and plan (1) Atrial fibrillation, persistent: Patient with A fib with RVR with dyspnea, patient was seen on 03/14/24 in ED for dyspnea, EKG confirmed Afib with RVR, patient refused to be admitted and was discharge on Cardizem. CXR from 03/14/24 showed atelectasis or infiltrate in left lower lobe, possible fluid or thickening in right horizontal fissure, cardiomegaly, which have no significant changes from CXR done in 09/2023. EKG from 10/9/24 shows Afib with RVR with possible PVCs, evidence of possible old septal infarct noted Repeat EKG and CXR Gave amiodarone 150mg IV bolus, start 360mg [id number] IV per protocol Start metoprolol 25mg BID PO Ordered CBC, CMP with Mg for baseline Ordered BNP Ordered TSH Cardiology consultation Last echo was April 2024 demonstrating preserved EF. This was a very poor quality echo. No reason to repeat at this time. (2) HTN (hypertension): Patient with history of Hypertension Continue losartan 100mg PO Daily Given metoprolol tartrate 25mg BID PO Qualifiers: Hypertension type: primary hypertension Qualified Code(s): I10 - Essential (primary) hypertension (3) Dyspnea: Patient presents with dypnea/SOB for several weeks. could be impacted by his Afib with RVR but cannot r/o component of history of asthma. Ordered CXR Patient has 1+ edema in LE, start lasix 40mg IV every 12 hours BMP daily Give DuoNebs PRN Budesonide 0.5mg Give Singulair 10mg PO daily Plan Patient uses CPAP at home, will order CPAP for use in hospital Continue Sennoside-docusate secondary to constipation bowel regimen Protonix for GI PPX, history of GERD Diabetes: Place on sliding scale Zofran for nausea PRN Xarelto for DVT Give lipitor secondary to history of hyperlipidemia DNR/DNI. Discussed with patient 03/17 ? Patient's heart rate is 106-1 10. Rhythm is still atrial fibrillation. Currently on an amiodarone orally. Drip was stopped yesterday. ? Continue patient on Lasix 40 IV twice daily ? Repeat chest x-ray ? Trace edema bilateral lower extremities. Patient currently has leg elevation. Encouraged to continue to do so. ? Home oxygen evaluation in AM. ? [id number] score: At least 2. Patient will benefit from anticoagulation. He is on Xarelto. Will continue. ? Continue sliding scale insulin ? Continue metoprolol tartrate 37.5 twice daily ? Cardiology following. ? Continue budesonide ? Plan for discharge in next 24 to 48 hours pending clinical improvement. Attestations 2 Medical Necessity Statement*: continue to hospitalize for afib, heart failure Diagnoses Atrial fibrillation, persistent I48.19 Primary hypertension I10 Hypertension type: primary hypertension Dyspnea R06.00
--- NOTE | 2024-03-17 13:37 | P.PN_ITS ---
Subjective 2 Subjective: Patient still has uncontrolled heart rate. Vitals/I&O/Wt Last Vital Signs Temp 98.3 F 03/17/24 11:31 Pulse 106 H 03/17/24 11:31 Resp 24 H 03/17/24 11:31 BP 119/86 03/17/24 11:31 Pulse Ox 96 03/17/24 11:31 O2 Del Method Nasal Cannula 03/17/24 11:31 O2 Flow Rate 3 03/17/24 11:31 03/16/24 03/17/24 03/17/24 22:59 06:59 14:59 Intake Total 220 / 420 200 / 620 860 / 860 Output Total 350 / 2600 500 / 500 Balance -130 / -2180 200 / -1980 360 / 360 Weight last 48 hrs Weight 242 lb 11.663 oz Weight 242 lb 11.663 oz Physical Exam 2 Narrative: GENERAL: Patient is alert NECK: No jugular vein distension. [] HEENT: No cyanosis. No icterus. No pallor. [] HEART:Tachycardic, irregularly irregular LUNGS: Clear to auscultate bilaterally. [] CENTRAL NERVOUS SYSTEM: Grossly nonfocal. [] EXTREMITIES: Lower extremities with 1+ edema bilaterally. 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 Will uptitrate metoprolol to 50 twice daily. Continue amiodarone p.o. Further uptitrate metoprolol and if heart rates are not controlled by tomorrow plan on digoxin. Continue anticoagulation Thank you for involving us with care of patient. We will continue to follow. Please call with questions. Attestations 2 Medical Necessity Statement*: Care expected to cross 2 midnights. 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
[2024-03-17] MEDS: metoprolol tartrate 25 mg Tablet PO (15:30)
[2024-03-17 20:36] LABS: Glucose Point of Care 194 mg/dL (70-110)
[2024-03-17] MEDS: metoprolol tartrate 50 mg Tablet PO (21:23)
[2024-03-18] VITALS (11 sets, daily range): BP systolic 107–122; BP diastolic 71–89; PULSE 71–119; RESP 14–25; TEMP 36.4–37; O2SAT 92–98
[2024-03-18] MEDS: FUROsemide 10 mg/mL SDV 4mL 40 MG IVP ×2 (01:34→14:14)
[2024-03-18 03:57] LABS: Basophils # 0.1 10^3/uL (0.0-0.1); Basophils % 0.5 %; Eosinophils # 0.2 10^3/uL (0.0-0.8); Eosinophils % 1.5 %; Hematocrit 44.6 % (37-53); Lymphocytes # 1.1 10^3/uL (0.8-4.8); Lymphocytes % 8.5 %; Mean Corpuscular HGB Conc 29.4 g/dL (30-55); Mean Corpuscular Hemoglobin 24.2 pg (27-33); Mean Corpuscular Volume 82.3 fl (82-101); Mean Platelet Volume 10.5 fL (7.4-10.4); Monocytes # 1.3 10^3/uL (0.2-0.9); Monocytes % 10.2 %; Neutrophils % 78.8 %; Nucleated Red Blood Cells % 0 %; Platelet Count 339 10^3/cmm (157-399); Red Blood Count 5.42 10^6/uL (3.85-5.65); Red Cell Distribution Width 17.2 % (12.1-15.1); White Blood Count 13.07 10^3/uL (3.29-11.43)
[2024-03-18 04:18] LABS: Blood Urea Nitrogen 19 mg/dL (8-23); Calcium 8.2 mg/dL (8.5-10.5); Carbon Dioxide 31 mmol/L (22-29); Chloride 97 mmol/L (98-107); Creatinine Clr Calc Pharmacy 71.8444; Glucose 152 mg/dL (65-115); Magnesium 2.1 mg/dL (1.7-2.3); Osmolality Calculated 291 mOsm/kg (285-295); Sodium 138 mmol/L (136-145)
[2024-03-18 06:48] LABS: Glucose Point of Care 146 mg/dL (70-110)
[2024-03-18] MEDS: budesonide 0.5 mg/2 mL Neb INHALATION ×2 (08:23→23:21)
[2024-03-18] MEDS: ipratropium-albuterol 3 mL Neb INHALATION ×2 (08:23→23:21)
[2024-03-18] MEDS: sennosides-docusate Tablet 1 TAB PO ×2 (08:40→17:37)
[2024-03-18] MEDS: tamsulosin 0.4 mg Capsule PO (08:40)
[2024-03-18] MEDS: rivaroxaban 10 mg Tablet 20 MG PO (08:40)
[2024-03-18] MEDS: sacubitril/valsartan 24-26 mg Tablet 2 EACH PO ×2 (08:40→17:37)
[2024-03-18] MEDS: atorvastatin 40 mg Tablet 20 MG PO (08:40)
[2024-03-18] MEDS: pantoprazole DR 40 mg Tablet PO ×2 (08:41→17:37)
[2024-03-18] MEDS: metoprolol tartrate 50 mg Tablet PO (08:41)
[2024-03-18] MEDS: montelukast sodium 10 mg Tablet PO (08:41)
[2024-03-18] MEDS: insulin lispro 100 unit/1 mL SUBCUT ×4 (08:41→21:35)
[2024-03-18] MEDS: amiodarone 200 mg Tablet 400 MG PO ×2 (08:41→17:37)
[2024-03-18] MEDS: venlafaxine ER (24HR) 75 mg Capsule PO (08:41)
[2024-03-18] MEDS: polyethylene glycol 3350 Pkt 17 gm PO (08:42)
--- NOTE | 2024-03-18 09:02 | P.PN_ITS ---
Subjective 2 Subjective: Heart rates are elevated. Vitals/I&O/Wt Last Vital Signs Temp 97.8 F 03/18/24 07:17 Pulse 115 H 03/18/24 08:24 Resp 20 H 03/18/24 08:24 BP 119/74 03/18/24 07:17 Pulse Ox 97 03/18/24 08:24 O2 Del Method CPAP 03/18/24 08:24 O2 Flow Rate 2 03/18/24 08:24 03/17/24 03/18/24 03/18/24 22:59 06:59 14:59 Intake Total 640 / 1740 Output Total 300 / 800 Balance 340 / 940 Weight last 48 hrs Weight 235 lb 14.314 oz Weight 242 lb 11.663 oz Physical Exam 2 Narrative: GENERAL: Patient is alert NECK: No jugular vein distension. [] HEENT: No cyanosis. No icterus. No pallor. [] HEART:Tachycardic, irregularly irregular LUNGS: Clear to auscultate bilaterally. [] CENTRAL NERVOUS SYSTEM: Grossly nonfocal. [] EXTREMITIES: Lower extremities with 1+ edema bilaterally. 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 Will uptitrate metoprolol to 75 mg twice daily. Continue amiodarone. Will also start digoxin. Monitor heart rates Continue lasix IV. Monitor I and Os. Thank you for involving us with care of patient. We will continue to follow. Please call with questions. Attestations 2 Medical Necessity Statement*: Care expected to cross 2 midnights. 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
[2024-03-18] MEDS: metoprolol tartrate 25 mg Tablet PO (10:23)
[2024-03-18] MEDS: digoxin 250 mcg/ml INJ 2 mL 500 MCG IVP (10:23)
[2024-03-18 12:15] LABS: Glucose Point of Care 184 mg/dL (70-110)
--- NOTE | 2024-03-18 12:31 | P.PN_ITS ---
Subjective 2 Subjective: Seen this morning. Resting comfortably in recliner. Digoxin was started by cardiology this morning. Vitals/I&O/Wt Last Vital Signs Temp 98.2 F 03/18/24 11:31 Pulse 83 03/18/24 11:31 Resp 20 H 03/18/24 11:31 BP 119/89 03/18/24 11:31 Pulse Ox 98 03/18/24 11:31 O2 Del Method Nasal Cannula 03/18/24 11:31 O2 Flow Rate 2 03/18/24 11:31 03/17/24 03/18/24 03/18/24 22:59 06:59 14:59 Intake Total 640 / 1740 240 / 240 Output Total 300 / 800 Balance 340 / 940 240 / 240 Weight last 48 hrs Weight 107 kg Weight 110.1 kg Physical Exam 2 Narrative: General: Alert oriented x3, patient seen sitting up in recliner at this time with daughter at bedside. On 2 L nasal cannula saturating 99%. HEENT: Normocephalic, atraumatic, EOMI, 2 L nasal cannula. Cardio: Regular rate rhythm, normal S1-S2, Respiratory: Good bilateral air entry, no wheezes no rhonchi appreciated, no real crackles appreciated at this time. GI: Abdomen soft, nontender, nondistended, bowel sounds + Behavior: Appropriate and cooperative Extremities: No edema appreciated bilateral lower extremities Data 03/18/24 02:50 03/18/24 02:50 Micro: Microbiology 03/15/24 13:47 Urine Culture - Final Urine,Clean Catch A&P Assessment and plan (1) Atrial fibrillation, persistent: Patient with A fib with RVR with dyspnea, patient was seen on 03/14/24 in ED for dyspnea, EKG confirmed Afib with RVR, patient refused to be admitted and was discharge on Cardizem. CXR from 03/14/24 showed atelectasis or infiltrate in left lower lobe, possible fluid or thickening in right horizontal fissure, cardiomegaly, which have no significant changes from CXR done in 09/2023. EKG from 03/14/24 shows Afib with RVR with possible PVCs, evidence of possible old septal infarct noted Repeat EKG and CXR Gave amiodarone 150mg IV bolus, start 360mg [id number] IV per protocol Start metoprolol 25mg BID PO Ordered CBC, CMP with Mg for baseline Ordered BNP Ordered TSH Cardiology consultation Last echo was April 2024 demonstrating preserved EF. This was a very poor quality echo. No reason to repeat at this time. (2) HTN (hypertension): Patient with history of Hypertension Continue losartan 100mg PO Daily Given metoprolol tartrate 25mg BID PO Qualifiers: Hypertension type: primary hypertension Qualified Code(s): I10 - Essential (primary) hypertension (3) Dyspnea: Patient presents with dypnea/SOB for several weeks. could be impacted by his Afib with RVR but cannot r/o component of history of asthma. Ordered CXR Patient has 1+ edema in LE, start lasix 40mg IV every 12 hours BMP daily Give DuoNebs PRN Budesonide 0.5mg Give Singulair 10mg PO daily Plan Patient uses CPAP at home, will order CPAP for use in hospital Continue Sennoside-docusate secondary to constipation bowel regimen Protonix for GI PPX, history of GERD Diabetes: Place on sliding scale Zofran for nausea PRN Xarelto for DVT Give lipitor secondary to history of hyperlipidemia DNR/DNI. Discussed with patient 03/18 ? Patient's heart rate is better controlled today. Continue amiodarone, digoxin started by cardiology. ? Switch to Lasix 40 IV daily. ? Home oxygen evaluation in AM. ? Continue Xarelto ? Continue sliding scale insulin ? Continue metoprolol tartrate 50 twice daily ? Cardiology following. ? Continue budesonide ? Plan for discharge in next 24 to 48 hours pending clinical improvement. WBC count 13,000. Patient afebrile. Most likely reactive. Will continue to monitor. No need of antibiotics at this time. ? Check BMP and mag in AM. Patient on IV Lasix. Attestations 2 Medical Necessity Statement*: continue to hospitalize for afib, heart failure Diagnoses Atrial fibrillation, persistent I48.19 Primary hypertension I10 Hypertension type: primary hypertension Dyspnea R06.00
[2024-03-18] MEDS: digoxin 250 mcg/ml INJ 2 mL IVP ×2 (16:35→21:36)
[2024-03-18 16:51] LABS: Glucose Point of Care 174 mg/dL (70-110)
[2024-03-18 20:45] LABS: Glucose Point of Care 179 mg/dL (70-110)
[2024-03-18] MEDS: metoprolol tartrate 50 mg Tablet 75 MG PO (21:36)
[2024-03-19] VITALS (9 sets, daily range): BP systolic 103–142; BP diastolic 67–90; PULSE 61–90; RESP 20–28; TEMP 36.4–36.9; O2SAT 87–97
[2024-03-19 04:57] LABS: Anion Gap 10.9 (5-19); Blood Urea Nitrogen 20 mg/dL (8-23); Calcium 8.1 mg/dL (8.5-10.5); Carbon Dioxide 30 mmol/L (22-29); Chloride 97 mmol/L (98-107); Glucose 150 mg/dL (65-115); Osmolality Calculated 283 mOsm/kg (285-295); Potassium 3.9 mmol/L (3.5-5.1); Sodium 134 mmol/L (136-145)
[2024-03-19 06:49] LABS: Glucose Point of Care 159 mg/dL (70-110)
[2024-03-19] MEDS: metoprolol tartrate 50 mg Tablet 75 MG PO (08:43)
[2024-03-19] MEDS: amiodarone 200 mg Tablet 400 MG PO (08:43)
[2024-03-19] MEDS: rivaroxaban 10 mg Tablet 20 MG PO (08:43)
[2024-03-19] MEDS: digoxin 125 mcg Tablet 250 MCG PO (08:43)
[2024-03-19] MEDS: sacubitril/valsartan 24-26 mg Tablet 2 EACH PO (08:43)
[2024-03-19] MEDS: pantoprazole DR 40 mg Tablet PO (08:43)
[2024-03-19] MEDS: atorvastatin 40 mg Tablet 20 MG PO (08:43)
[2024-03-19] MEDS: venlafaxine ER (24HR) 75 mg Capsule PO (08:43)
[2024-03-19] MEDS: tamsulosin 0.4 mg Capsule PO (08:43)
[2024-03-19] MEDS: montelukast sodium 10 mg Tablet PO (08:44)
[2024-03-19] MEDS: sennosides-docusate Tablet 1 TAB PO (08:44)
[2024-03-19] MEDS: insulin lispro 100 unit/1 mL SUBCUT ×2 (08:44→12:45)
[2024-03-19] MEDS: polyethylene glycol 3350 Pkt 17 gm PO (08:45)
--- NOTE | 2024-03-19 08:54 | P.PN_ITS ---
Subjective 2 Subjective: The events over the weekend are noted. Patient has no chest pain or chest tightness. No unusual shortness of breath. Telemetry shows atrial fibrillation with a controlled ventricular response rate. Patient remains afebrile. Vitals are stable. Medications: Medication Review Details: Current Medications Acetaminophen (Acetaminophen 325 Mg Tablet) 650 mg PO Q6H PRN PRN Reason: Mild/Mod Pain Or Temp >/= 101 Albuterol/Ipratropium (Ipratropium-Albuterol 3 Ml Neb) 3 ml INHALATION Q6H PRN PRN Reason: SHORTNESS OF BREATH Last Admin: 03/18/24 23:21 Dose: 3 ml Amiodarone HCl (Amiodarone 200 Mg Tablet) 400 mg PO BID PACO Last Admin: 03/19/24 08:43 Dose: 400 mg Atorvastatin Calcium (Atorvastatin 40 Mg Tablet) 20 mg PO DAILY PACO Last Admin: 03/19/24 08:43 Dose: 20 mg Budesonide (Budesonide 0.5 Mg/2 Ml Neb) 0.5 mg INHALATION BID.RESPIRATORY PACO Last Admin: 03/18/24 23:21 Dose: 0.5 mg Digoxin (Digoxin 125 Mcg Tablet) 250 mcg PO ONCE ONE Stop: 03/19/24 09:01 Last Admin: 03/19/24 08:43 Dose: 250 mcg Furosemide (Furosemide 10 Mg/Ml Sdv 4ml) 40 mg IVP Q24H PACO Last Admin: 03/18/24 14:14 Dose: 40 mg Glucagon (Glucagon 1 Mg/Ml Kit 1 Ml) 1 mg IM ONCE PRN; Protocol PRN Reason: Adult Acute Hypoglycemia Nursing Prot. Amiodarone HCl/Dextrose (Nexterone) 360 mg in 200 mls @ 0 mls/hr IV .Q0M PACO; Protocol Last Titration: 03/17/24 02:09 Dose: Infused Dextrose (D5w) 500 mls @ 0 mls/hr IV ONCE PRN; Protocol PRN Reason: Adult Acute Hypoglycemia Prot Dextrose (D10w) 125 mls @ 750 mls/hr IV PRN PRN; Protocol PRN Reason: Adult Acute Hypoglycemia Nursing Protocol Dextrose (D10w) 250 mls @ 1,000 mls/hr IV PRN PRN; Protocol PRN Reason: Adult Acute Hypoglycemia Nursing Protocol Insulin Human Lispro (Insulin Lispro 100 Unit/1 Ml) 0 unit SUBCUT WM&BEDTIME PACO; Protocol Last Admin: 03/19/24 08:44 Dose: 2 unit Metoprolol Tartrate (Metoprolol Tartrate 50 Mg Tablet) 75 mg PO BID@0900,2100 [facility] Last Admin: 03/19/24 08:43 Dose: 75 mg Montelukast Sodium (Montelukast Sodium 10 Mg Tablet) 10 mg PO DAILY [facility] Last Admin: 03/19/24 08:44 Dose: 10 mg Ondansetron HCl (Ondansetron 2 Mg/Ml Sdv 2 Ml) 4 mg IVP Q6H PRN PRN Reason: vomiting, or N/V if npo Ondansetron HCl (Ondansetron 2 Mg/Ml Sdv 2 Ml) 4 mg IVP Q2M PRN PRN Reason: NAUSEA Pantoprazole Sodium (Pantoprazole Dr 40 Mg Tablet) 40 mg PO BID [facility] Last Admin: 03/19/24 08:43 Dose: 40 mg Polyethylene Glycol (Polyethylene Glycol 3350 Pkt 17 Gm) 17 gm PO DAILY [facility] Last Admin: 03/19/24 08:45 Dose: 17 gm Rivaroxaban (Rivaroxaban 10 Mg Tablet) 20 mg PO DAILY [facility] Last Admin: 03/19/24 08:43 Dose: 20 mg Sacubitril/Valsartan (Sacubitril/Valsartan 24-26 Mg Tablet) 2 each PO BID [facility] Last Admin: 03/19/24 08:43 Dose: 2 each Senna/Docusate Sodium (Sennosides-Docusate Tablet) 1 tab PO BID [facility] Last Admin: 03/19/24 08:44 Dose: 1 tab Tamsulosin HCl (Tamsulosin 0.4 Mg Capsule) 0.4 mg PO DAILY [facility] Last Admin: 03/19/24 08:43 Dose: 0.4 mg Venlafaxine HCl (Venlafaxine Er (24hr) 75 Mg Capsule) 75 mg PO DAILY [facility] Last Admin: 03/19/24 08:43 Dose: 75 mg Vitals/I&O/Wt Last Vital Signs Temp 98.4 F 03/19/24 07:21 Pulse 90 03/19/24 08:43 Resp 20 H 03/19/24 07:21 BP 142/84 03/19/24 07:21 Pulse Ox 95 03/19/24 07:21 O2 Del Method Room Air 03/19/24 07:21 O2 Flow Rate 2 03/19/24 01:56 03/18/24 03/19/24 03/19/24 22:59 06:59 14:59 Intake Total 240 / 1049 Output Total 400 / 400 250 / 650 Balance -160 / 649 -250 / 399 Weight last 48 hrs Weight 240 lb 1.334 oz Weight 235 lb 14.314 oz Physical Exam 2 Narrative: GENERAL: The patient is alert and oriented times three. Not in any acute distress. HEENT: No significant pallor, icterus or lymphadenopathy.Oral cavity: There are no mucous membrane lesions. NECK: Trachea appears to be central. No masses noted. No JVD or thyromegaly appreciated. RESPIRATORY: Chest is symmetrical. No intercostals muscle retraction or any accessory muscle activation. There is no chest wall tenderness. Breath sounds are heard bilaterally. No rales or rhonchi heard. No evidence of any consolidation. BREASTS: Deferred. HEART: The heart heart sound is variable. Second heart sound is normal. No S3. Systolic murmur grade 3 or 6 in the left sternal border. No diastolic murmurs.. No pericardial rub ABDOMEN: No vessel pulsations or distention. No tenderness. No organomegaly appreciated. Bowel sounds are normally heard. : Deferred. RECTAL: Deferred. LYMPHATIC: No lymphadenopathy noted in the neck. EXTREMITIES: Trace to 1+ edema bilaterally. MUSCULOSKELETAL: No acute joint deformities or swelling SKIN: There are no significant rashes or ecchymosis NEUROPSYCHIATRIC: The patient is alert and oriented x3. Appears to be in a good mood. No tremors or rigidity noted. Data 03/18/24 02:50 03/19/24 03:53 Other Labs: Laboratory Last Values WBC 13.07 10^3/uL (3.29-11.43) H 03/18/24 02:50 RBC 5.42 10^6/uL (3.85-5.65) 03/18/24 02:50 Hgb 13.10 g/dL (11.27-16.99) 03/18/24 02:50 Hct 44.6 % (37-53) 03/18/24 02:50 MCV 82.3 fl (82-101) 03/18/24 02:50 MCH 24.2 pg (27-33) L 03/18/24 02:50 MCHC 29.4 g/dL (30-55) L 03/18/24 02:50 RDW 17.2 % (12.1-15.1) H 03/18/24 02:50 Plt Count 339 10^3/cmm (157-399) 03/18/24 02:50 MPV 10.5 fL (7.4-10.4) H 03/18/24 02:50 Neut % (Auto) 78.8 % 03/18/24 02:50 Lymph % (Auto) 8.5 % 03/18/24 02:50 [place] % (Auto) 10.2 % 03/18/24 02:50 Eos % (Auto) 1.5 % 03/18/24 02:50 Baso % (Auto) 0.5 % 03/18/24 02:50 Neut # (Auto) 10.30 10^3/uL (1.8-7.7) H 03/18/24 02:50 Lymph # (Auto) 1.1 10^3/uL (0.8-4.8) 03/18/24 02:50 [place] # (Auto) 1.3 10^3/uL (0.2-0.9) H 03/18/24 02:50 Eos # (Auto) 0.2 10^3/uL (0.0-0.8) 03/18/24 02:50 Baso # (Auto) 0.1 10^3/uL (0.0-0.1) 03/18/24 02:50 Nucleated RBC % (auto) 0 % 03/18/24 02:50 Nucleated RBCs # 0.0 /100WBC 03/18/24 02:50 Sodium 134 mmol/L (136-145) L 03/19/24 03:53 Potassium 3.9 mmol/L (3.5-5.1) 03/19/24 03:53 Chloride 97 mmol/L (98-107) L 03/19/24 03:53 Carbon Dioxide 30 mmol/L (22-29) H 03/19/24 03:53 Anion Gap 10.9 (5-19) 03/19/24 03:53 BUN 20 mg/dL (8-23) 03/19/24 03:53 Creatinine 1.1 mg/dL (0.7-1.2) 03/19/24 03:53 GFR Calculation Not Reportable 03/19/24 03:53 Glucose 150 mg/dL (65-115) H 03/19/24 03:53 POC Glucose 159 mg/dL (70-110) H 03/19/24 06:40 Calculated Osmolality 283 mOsm/kg (285-295) L 03/19/24 03:53 Calcium 8.1 mg/dL (8.5-10.5) L 03/19/24 03:53 Magnesium 2.0 mg/dL (1.7-2.3) 03/19/24 03:53 Total Bilirubin 0.4 mg/dL (0.15-1.2) 03/17/24 01:38 AST 14 U/L (0-40) 03/17/24 01:38 ALT 13 U/L (0-41) 03/17/24 01:38 Alkaline Phosphatase 75 U/L (40-130) 03/17/24 01:38 NT-Pro-B Natriuret Pep 1053 pg/mL (0-450) H 03/15/24 13:02 Total Protein 6.5 g/dL (6.6-8.7) L 03/17/24 01:38 Albumin 3.8 g/dL (3.5-5.2) 03/17/24 01:38 Globulin 2.7 g/dL (1.3-4.6) 03/17/24 01:38 TSH 1.41 uIU/mL (0.27-4.20) 03/15/24 13:02 Urine Color Yellow (Yellow) 03/15/24 13:47 Urine Appearance Clear (CLEAR) 03/15/24 13:47 Urine pH 6.5 (5-7) 03/15/24 13:47 Ur Specific [place] 1.020 (1.005-1.030) 03/15/24 13:47 Urine Protein Negative (Negative) 03/15/24 13:47 Urine Glucose (UA) 3+ (Normal) H 03/15/24 13:47 Urine Ketones Negative (Negative) 03/15/24 13:47 Urine Blood Negative (Negative) 03/15/24 13:47 Urine Nitrate Negative (Negative) 03/15/24 13:47 Urine Bilirubin Negative (Negative) 03/15/24 13:47 Urine Urobilinogen 0.2 mg/dL (Negative) 03/15/24 13:47 Ur Leukocyte Esterase 1+ (Negative) A 03/15/24 13:47 Urine RBC 0-2 /hpf (0-2) 03/15/24 13:47 Urine WBC 6-10 /hpf (0-5) 03/15/24 13:47 Ur Squamous Epith Cells 0-5 /hpf (0-5) 03/15/24 13:47 Amorphous Sediment Not Reportable 03/15/24 13:47 Urine Bacteria None seen /hpf (NONE) 03/15/24 13:47 Hyaline Casts 0-4 /lpf H 03/15/24 13:47 Urine Yeast 1+ /hpf H 03/15/24 13:47 A&P Assessment and plan (1) Atrial fibrillation with rapid ventricular response: Continue on the tapering dose of amiodarone. I may discontinue the digoxin at this time. (2) Acute on chronic diastolic (congestive) heart failure: The Myocardial perfusion imaging results were discussed with the patient and family in detail. At this point, the patient may not require any further intervention. Optimizing the diuretic treatment would be appropriate. (3) HTN (hypertension): Blood pressure seems to be under control. Patient may continue on the current medications. 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 Patient may continue the oral anticoagulation and the other medications as it is. (6) Nonischemic congestive cardiomyopathy: The patient seems to be tolerating the Entresto so far well. Because of the relatively low blood pressure, I may continue on the current dose. Plan If the patient continues to remain stable with the heart rate in the normal range,, it may be appropriate to discharge him home today. Please make an appointment to be seen in the [facility] in 1 week Appointment with me in the office in 1 month May go home with the following medications Amiodarone 400 mg p.o. daily Metoprolol 50 mg p.o. twice daily Entresto 1 tablet p.o. twice daily Lasix 40 mg p.o. daily Potassium 8 mEq p.o. daily Other medications as per Dr Moncada Attestations 2 Medical Necessity Statement*: Deferred to the primary Coding Level of Care Code 60908 Diagnoses Atrial fibrillation with rapid ventricular response I48.91 Acute on chronic diastolic (congestive) heart failure I50.33 Primary hypertension I10 Hypertension type: primary hypertension JENNIFER (obstructive sleep apnea) G47.33 Old embolic stroke without late effect Z86.73 Nonischemic congestive cardiomyopathy I42.0
[2024-03-19] MEDS: ipratropium-albuterol 3 mL Neb INHALATION (09:37)
[2024-03-19] MEDS: budesonide 0.5 mg/2 mL Neb INHALATION (09:37)
[2024-03-19] MEDS: FUROsemide 10 mg/mL SDV 4mL 40 MG IVP (12:45)
[2024-03-19 12:50] LABS: Glucose Point of Care 218 mg/dL (70-110)
--- NOTE | 2024-03-19 14:08 | P.DS_ITS ---
Discharge Providers Date of Admission: 03/15/24 12:21 Date of Discharge: March 19, 2024 Attending Provider at Admission: Bronson Alvarado MD Attending Provider at Discharge: Betsey Moncada MD Primary Care Provider: Melodie Gilmore MD Diagnoses at Discharge Discharge Diagnosis (1) Atrial fibrillation with rapid ventricular response: Status: Resolved (2) Acute on chronic diastolic (congestive) heart failure: Status: Resolved (3) HTN (hypertension): Status: Acute Qualifiers: Hypertension type: primary hypertension Qualified Code(s): I10 - Essential (primary) hypertension (4) JENNIFER (obstructive sleep apnea): Status: Acute (5) Old embolic stroke without late effect: Status: Acute (6) Nonischemic congestive cardiomyopathy: Status: Acute Reason for Visit Reason for Visit: Afib-RVR Hospital Course Hospital Course Patient was admitted for atrial fibrillation with RVR. He was given amiodarone bolus and subsequently placed on amiodarone drip. Ultimately he had to be given 2 doses of digoxin to control heart rate. At time of discharge she was discharged home on amiodarone, metoprolol. Please see doses ordered discharge summary orders. Patient was diuresed with IV Lasix during hospitalization as well. He did have mild elevation in white count which was thought to be reactive. Antibiotics were not given. Patient discharged home in stable condition. Cardiology was following. Of note patient did qualify for home oxygen upon home O2 evaluation at discharge. He was sent home on 2 L. Physical Exam Narrative: General: Alert oriented x3, patient seen sitting up in recliner at this time with daughter at bedside. On 2 L nasal cannula saturating 99%. HEENT: Normocephalic, atraumatic, EOMI, 2 L nasal cannula. Cardio: Regular rate rhythm, normal S1-S2, Respiratory: Good bilateral air entry, no wheezes no rhonchi appreciated, no real crackles appreciated at this time. GI: Abdomen soft, nontender, nondistended, bowel sounds + Behavior: Appropriate and cooperative Extremities: No edema appreciated bilateral lower extremities Discharge Data Studies Completed and Pending Completed Studies During Hospitalization Category Date Time Status Cardiac Stress Test MIBI [Sestamibi Stress Test Request Exams 03/15/24 18:08 Completed ] Routine XR chest 1V portable [id number] Routine Exams 03/15/24 12:42 Completed NM cheo perf SPECT r/s* [id number] Routine Nuc Med 03/16/24 18:08 Completed US echo complete [CV. echo complete* [id number]] Routine Ultrasound 03/15/24 17:38 Completed Radiology Impressions Chest X-Ray 03/15/24 12:42 IMPRESSION: Findings suggest chronic mild congestive failure with pleural effusions. Uncertain if the increase in interstitial lung opacities is due to a pneumonitis or progression of heart failure. Laboratory Results WBC 13.07 10^3/uL (3.29-11.43) H 03/18/24 02:50 RBC 5.42 10^6/uL (3.85-5.65) 03/18/24 02:50 Hgb 13.10 g/dL (11.27-16.99) 03/18/24 02:50 Hct 44.6 % (37-53) 03/18/24 02:50 MCV 82.3 fl (82-101) 03/18/24 02:50 MCH 24.2 pg (27-33) L 03/18/24 02:50 MCHC 29.4 g/dL (30-55) L 03/18/24 02:50 RDW 17.2 % (12.1-15.1) H 03/18/24 02:50 Plt Count 339 10^3/cmm (157-399) 03/18/24 02:50 MPV 10.5 fL (7.4-10.4) H 03/18/24 02:50 Neut % (Auto) 78.8 % 03/18/24 02:50 Lymph % (Auto) 8.5 % 03/18/24 02:50 [place] % (Auto) 10.2 % 03/18/24 02:50 Eos % (Auto) 1.5 % 03/18/24 02:50 Baso % (Auto) 0.5 % 03/18/24 02:50 Neut # (Auto) 10.30 10^3/uL (1.8-7.7) H 03/18/24 02:50 Lymph # (Auto) 1.1 10^3/uL (0.8-4.8) 03/18/24 02:50 [place] # (Auto) 1.3 10^3/uL (0.2-0.9) H 03/18/24 02:50 Eos # (Auto) 0.2 10^3/uL (0.0-0.8) 03/18/24 02:50 Baso # (Auto) 0.1 10^3/uL (0.0-0.1) 03/18/24 02:50 Nucleated RBC % (auto) 0 % 03/18/24 02:50 Nucleated RBCs # 0.0 /100WBC 03/18/24 02:50 Sodium 134 mmol/L (136-145) L 03/19/24 03:53 Potassium 3.9 mmol/L (3.5-5.1) 03/19/24 03:53 Chloride 97 mmol/L (98-107) L 03/19/24 03:53 Carbon Dioxide 30 mmol/L (22-29) H 03/19/24 03:53 Anion Gap 10.9 (5-19) 03/19/24 03:53 BUN 20 mg/dL (8-23) 03/19/24 03:53 Creatinine 1.1 mg/dL (0.7-1.2) 03/19/24 03:53 GFR Calculation Not Reportable 03/19/24 03:53 Glucose 150 mg/dL (65-115) H 03/19/24 03:53 POC Glucose 218 mg/dL (70-110) H 03/19/24 11:49 Calculated Osmolality 283 mOsm/kg (285-295) L 03/19/24 03:53 Calcium 8.1 mg/dL (8.5-10.5) L 03/19/24 03:53 Magnesium 2.0 mg/dL (1.7-2.3) 03/19/24 03:53 Total Bilirubin 0.4 mg/dL (0.15-1.2) 03/17/24 01:38 AST 14 U/L (0-40) 03/17/24 01:38 ALT 13 U/L (0-41) 03/17/24 01:38 Alkaline Phosphatase 75 U/L (40-130) 03/17/24 01:38 NT-Pro-B Natriuret Pep 1053 pg/mL (0-450) H 03/15/24 13:02 Total Protein 6.5 g/dL (6.6-8.7) L 03/17/24 01:38 Albumin 3.8 g/dL (3.5-5.2) 03/17/24 01:38 Globulin 2.7 g/dL (1.3-4.6) 03/17/24 01:38 TSH 1.41 uIU/mL (0.27-4.20) 03/15/24 13:02 Urine Color Yellow (Yellow) 03/15/24 13:47 Urine Appearance Clear (CLEAR) 03/15/24 13:47 Urine pH 6.5 (5-7) 03/15/24 13:47 Ur Specific [place] 1.020 (1.005-1.030) 03/15/24 13:47 Urine Protein Negative (Negative) 03/15/24 13:47 Urine Glucose (UA) 3+ (Normal) H 03/15/24 13:47 Urine Ketones Negative (Negative) 03/15/24 13:47 Urine Blood Negative (Negative) 03/15/24 13:47 Urine Nitrate Negative (Negative) 03/15/24 13:47 Urine Bilirubin Negative (Negative) 03/15/24 13:47 Urine Urobilinogen 0.2 mg/dL (Negative) 03/15/24 13:47 Ur Leukocyte Esterase 1+ (Negative) A 03/15/24 13:47 Urine RBC 0-2 /hpf (0-2) 03/15/24 13:47 Urine WBC 6-10 /hpf (0-5) 03/15/24 13:47 Ur Squamous Epith Cells 0-5 /hpf (0-5) 03/15/24 13:47 Amorphous Sediment Not Reportable 03/15/24 13:47 Urine Bacteria None seen /hpf (NONE) 03/15/24 13:47 Hyaline Casts 0-4 /lpf H 03/15/24 13:47 Urine Yeast 1+ /hpf H 03/15/24 13:47 Vitals Last Vital Signs Temp 97.7 F 03/19/24 11:51 Pulse 61 03/19/24 11:51 Resp 24 H 03/19/24 11:51 BP 103/67 03/19/24 11:51 Pulse Ox 94 03/19/24 11:51 O2 Del Method Nasal Cannula 03/19/24 11:51 O2 Flow Rate 2 03/19/24 11:51 Discharge Plan Discharge Patient Disposition: Home Condition: Stable Prescriptions: New atorvastatin 40 mg Tablet 20 mg PO DAILY Qty: 30 0RF Entresto 24-26 mg Tablet 1 tab PO BID Qty: 30 0RF amiodarone [Pacerone] 200 mg Tablet 400 mg PO DAILY Qty: 60 0RF metoprolol tartrate 50 mg Tablet 50 mg PO BID@0900,2100 Qty: 60 0RF potassium chloride 8 mEq capsule, extended release 8 meq PO DAILY Qty: 30 0RF Continued metformin 500 mg tablet 500 mg PO DAILY tamsulosin 0.4 mg capsule 0.4 mg PO DAILY Xarelto 20 mg tablet 20 mg PO DAILY Rx Instructions: must administer with evening meal omeprazole 20 mg tablet,delayed release (DR/EC) 20 mg PO BID latanoprost 0.005 % drops 1 drp ophthalmic (eye) DAILY fluticasone propionate [Flonase Allergy Relief] 50 mcg/actuation spray,suspension 2 spray intranasal DAILY Rx Instructions: administer into each nostril polyethylene glycol 3350 [Miralax] 17 gram/dose powder 17 g PO DAILY ascorbic acid (vitamin C) 1,000 mg tablet 500 mg PO DAILY garlic 1,000 mg capsule 1,000 mg PO DAILY multivitamin [One-A-Day Essential] Tablet 1 tab PO DAILY albuterol sulfate 90 mcg/actuation HFA aerosol inhaler 2 puff inhalation Q6H PRN (Reason: shortness of breath or wheezing) Qty: 8.5 3RF montelukast [Singulair] 10 mg tablet 10 mg PO DAILY Qty: 30 5RF budesonide-formoterol [Symbicort] 80-4.5 mcg/actuation HFA aerosol inhaler 2 puff inhalation BID Qty: 10.2 3RF dapagliflozin propanediol [Farxiga] 10 mg tablet 10 mg PO DAILY venlafaxine 75 mg capsule,extended release 24hr 75 mg PO DAILY cyanocobalamin (vitamin B-12) [Vitamin B-12] 1,000 mcg Tablet 1,000 mcg PO DAILY acetaminophen 500 mg Tablet 500 - 1,000 mg PO Q6H PRN (Reason: Pain) brimonidine 0.2 % drops 1 drp ophthalmic (eye) BID Unisom (doxylamine) 25 mg Tablet 25 mg PO BEDTIME Reguloid (psyllium husk) 3 gram/5.4 gram Powder 1 tbsp PO DAILY Rx Instructions: mix into at least 8 oz of water or juice before administering calc carb-mag ox-D3-zinc gluc 333 mg-133 mg- 1.67 mcg-5 mg Tablet 3 tab PO DAILY Nasogel 0.9 % Gel See Rx Instructions .ROUTE .COMPLEX Rx Instructions: APPLY AROUND NOSTRILS TO HELP RELIEVE DISCOMFORT NEEDED. sennosides-docusate sodium [Stool Softener-Laxative] 8.6-50 mg Tablet 1 tab PO BID Qty: 60 0RF Rx Instructions: Hold if having more than 1 BM per day Changed furosemide 20 mg tablet 40 mg PO DAILY Qty: 30 0RF Discontinued diltiazem HCl 120 mg capsule,extended release 24 hr 120 mg PO DAILY losartan 100 mg tablet 100 mg PO DAILY metoprolol succinate 100 mg tablet extended release 24 hr 100 mg PO DAILY atorvastatin 10 mg tablet 10 mg PO DAILY meclizine 25 mg tablet 25 mg PO BID Discharge Orders: Discharge Order (Routine); Ordered 03/19/24 Ordered By: Betsey Moncada Other Ambulatory Orders: DME: Oxygen (Order) Location: None Selected Ordered By: Betsey Moncada Referrals: Melodie Gilmore MD [Primary Care Provider] - 03/23/24 10:30 am Jr Ivy MD [Physician] - 1 month (After, your appointment with Elizabet Linton you will be scheduled for an appointment with Dr. Ivy. Thank you! ) Elizabet Linton FNP [Nurse Practitioner] - 04/02/24 1:30 pm Discharge Diet: Cardiac and Diabetic Discharge Activity: Resume usual activity Patient Instructions: Potassium Chloride (By mouth), Amiodarone (By mouth) (Cordarone, Pacerone), Atorvastatin (By mouth) (Lipitor, Atorvaliq), Sacubitril/Valsartan (By mouth) (Entresto, Entresto Sprinkle), A-fib (Atrial Fibrillation) (DC), Opioid Safety Discharge Attestations Time Spent in Discharge Care*: greater than 30 min Quality Metrics Clinical Quality Measures [ No reported AMI, CVA or VTE this stay] Coding Level of Care Code Acute Code for Chg Fwd Diagnoses Atrial fibrillation with rapid ventricular response I48.91 Acute on chronic diastolic (congestive) heart failure I50.33 Primary hypertension I10 Hypertension type: primary hypertension JENNIFER (obstructive sleep apnea) G47.33 Old embolic stroke without late effect Z86.73 Nonischemic congestive cardiomyopathy I42.0
--- NOTE | 2024-03-19 16:38 | PC.NURSE ---
Discharge Note Patient discharged to assisted living via POV accompanied by daughter. Discharge instructions reviewed with patient and/or bilingual inside sales representative. Mobile pharmacy medications and/or prescriptions provided. Belongings/home medications returned.
== END 2024-03-19 16:39 | disposition intermediate care facility (04) | DRG 291 ==
PROVIDERS: Admitting Provider Internal Medicine; PCP Internal Medicine; Visit Provider Internal Medicine
DX: I11.0 Hypertensive heart disease with heart failure (principal); I50.33 Acute on chronic diastolic (congestive) heart failure; I48.91 Unspecified atrial fibrillation; G47.33 Obstructive sleep apnea (adult) (pediatric); I42.0 Dilated cardiomyopathy; J45.909 Unspecified asthma, uncomplicated; E11.9 Type 2 diabetes mellitus without complications; E78.5 Hyperlipidemia, unspecified; K21.9 Gastro-esophageal reflux disease without esophagitis; Z86.73 Personal history of transient ischemic attack (TIA), and cerebral infarction without residual deficits; Z79.02 Long term (current) use of antithrombotics/antiplatelets; Z79.84 Long term (current) use of oral hypoglycemic drugs
CPT/HCPCS: 36415; 36416; 71045; 78452; 80048; 80053; 81001; 82962; 83735; 83880; 84443; 85025; 87086; 93005; 93017; 93306; 94640; 94660; 94760; 96372; 96374; 96375; 96376; 99285; A4222; A9270; A9500; J0282; J0283; J1160; J1815; J1940; J2785; J3490; J7626

== ENCOUNTER → 2024-04-02 13:15 | Outpatient (BNVA) | payer MEDICARE, OTHER, SELFPAY | PROVIDERS: PCP Internal Medicine; Visit Provider Nurse Practitioner Family | DX: I48.19 Other persistent atrial fibrillation (principal) | CPT/HCPCS: 93005; 99214 ==

== ENCOUNTER 2024-05-28 08:37 | Inpatient (IN) | payer MEDICARE, OTHER, SELFPAY ==
[2024-05-28] VITALS (10 sets, daily range): BP systolic 138–175; BP diastolic 84–107; PULSE 81–105; RESP 16–25; TEMP 36.5–36.6; O2SAT 94–100; BMI 33.7
--- NOTE | 2024-05-28 08:41 | XRR_ITS ---
PROCEDURE INFORMATION: Exam: XR Chest Exam date and time: 05/28/2024 8:55 AM Age: 89 years old Clinical indication: Dyspnea and shortness of breath; Prior surgery; Surgery date: 6+ months; Surgery type: Cardiac ablation; Additional info: Dyspnea/cough TECHNIQUE: Imaging protocol: Radiologic exam of the chest. Views: 1 view. COMPARISON: CR XR chest 1V portable [id number] 03/15/2024 1:36 PM FINDINGS: Lungs: Bilateral lower lung field infiltrates indicative of scarring/atelectasis. Pleural spaces: Unremarkable. No pleural effusion. No pneumothorax. Heart/Mediastinum: Unremarkable. No cardiomegaly. Vasculature: Atherosclerotic disease of the aortic arch. Diaphragm: Right diaphragm eventration. Bones/joints: Diffuse degenerative change of the visualized osseous structures. XR/XR chest 1V portable [id number] IMPRESSION: Bilateral lower lobe infiltrates likely paper sales representative of scarring/atelectasis (similar to prior comparison with perhaps mild improvement in aeration), however difficult to exclude superimposed infection/evolving pulmonary edema. Correlate clinically.
[2024-05-28 09:16] LABS: Basophils # 0.1 10^3/uL (0.0-0.1); Basophils % 0.4 %; Eosinophils % 0.1 %; Hematocrit 46.4 % (37-53); Lymphocytes # 0.4 10^3/uL (0.8-4.8); Mean Corpuscular HGB Conc 29.3 g/dL (30-55); Mean Corpuscular Hemoglobin 24.2 pg (27-33); Mean Corpuscular Volume 82.6 fl (82-101); Mean Platelet Volume 9.8 fL (7.4-10.4); Monocytes # 1.3 10^3/uL (0.2-0.9); Monocytes % 10.7 %; Neutrophils # 9.94 10^3/uL (1.8-7.7); Neutrophils % 85.4 %; Nucleated Red Blood Cells % 0 %; Platelet Count 230 10^3/cmm (157-399); Red Blood Count 5.62 10^6/uL (3.85-5.65); Red Cell Distribution Width 17.3 % (12.1-15.1); White Blood Count 11.65 10^3/uL (3.29-11.43)
--- NOTE | 2024-05-28 09:20 | ECG_ITS ---
[facility] Date: 2024-05[facility]28 Pat Name: Haris Sol Department: Room: Gender: Male Inserting Press Operator: : 1935 Requested By: Kenneth Mc Order Number: [id number] Yolanda MD: Shailesh Cabrera M.D. Measurements Intervals [place] Rate: 101 P: 0 SC: 0 QRS: 66 QRSD: 104 T: 38 QT: 312 QTc: 405 Interpretive Statements ATRIAL FIBRILLATION WITH RAPID VENTRICULAR RESPONSE WITH ABERRANT CONDUCTION OR VENTRICULAR PREMATURE COMPLEXES SEPTAL MYOCARDIAL INFARCTION , PROBABLY OLD [40+ ms Q WAVE IN V1/V2] Compared to ECG 04/02/2024 13:21:40 Ventricular premature complex(es) now present Aberrant conduction of supraventricular beat(s) now present Myocardial infarct finding still present Electronically Signed On 05-28-2024 20:05:16 COMPONENT ASSEMBLER SUPERVISOR by Shailesh Cabrera M.D. [email or web address]
[2024-05-28 09:24] LABS: Bilirubin Urine Negative (Negative); Blood Urine Negative (Negative); Glucose Urine UA 3+ (Normal); Ketones Urine Trace (Negative); Leukocyte Esterase Urine Negative (Negative); Nitrate Urine Negative (Negative); Protein Urine 1+ (Negative); Specific Gravity, Urine 1.019 (1.005-1.030); Urine Appearance Clear (CLEAR); Urine Color Yellow (Yellow); Urobilinogen Urine 0.2 mg/dL (Negative)
[2024-05-28 09:29] LABS: Add Urine Microscopic? YES; Bacteria Urine None Seen /hpf; Hyaline Casts Urine 0-4 /lpf; RBC Urine 0-2 /hpf (0-2); Squamous Epithelial Cell Urine 0-5 /hpf (0-5); WBC Urine 0-5 /hpf (0-5)
[2024-05-28 09:46] LABS: Troponin(5th) Baseline 51 ng/L (0-15)
[2024-05-28] MEDS: dexamethasone 10 mg/mL INJ IM (09:46)
[2024-05-28 09:54] LABS: Alanine Aminotransferase 30 U/L (0-41); Albumin Level 4.1 g/dL (3.5-5.2); Alkaline Phosphatase 87 U/L (40-130); Aspartate Amino Transferase 28 U/L (0-40); Blood Urea Nitrogen 14 mg/dL (8-23); Calcium 8.6 mg/dL (8.5-10.5); Carbon Dioxide 28 mmol/L (22-29); Chloride 99 mmol/L (98-107); Creatinine Clr Calc Pharmacy 58.4919; Globulin 2.7 g/dL (1.3-4.6); Glucose 204 mg/dL (65-115); NT Pro B Type Natriuretic Pept 985 pg/mL (0-450); Osmolality Calculated 294 mOsm/kg (285-295); Sodium 139 mmol/L (136-145); Total Bilirubin 0.5 mg/dL (0.15-1.2); Total Protein 6.8 g/dL (6.6-8.7)
--- NOTE | 2024-05-28 10:42 | ECG_ITS ---
[facility] Date: 2024-05-28 Pat Name: Haris Sol Department: Room: Gender: Male Winch Operator: : 1935 Requested By: Kenneth Mc Order Number: [id number] Yolanda MD: Shailesh Cabrera M.D. Measurements Intervals [place] Rate: 90 P: 0 PA: 0 QRS: 45 QRSD: 97 T: 37 QT: 381 QTc: 467 Interpretive Statements ATRIAL FIBRILLATION SEPTAL MYOCARDIAL INFARCTION , PROBABLY OLD [40+ ms Q WAVE IN V1/V2] Compared to ECG 05/28/2024 09:20:40 Ventricular premature complex(es) no longer present Aberrant conduction of supraventricular beat(s) no longer present Myocardial infarct finding still present Electronically Signed On 05-28-2024 20:27:40 HYPERION ESSBASE DEVELOPER by Shailesh Cabrera M.D. [id number]
--- NOTE | 2024-05-28 10:58 | ED_ITS ---
HPI - SOB/Dyspnea 2 General: Chief Complaint: Shortness of Breath/Dyspnea Stated Complaint: SOB Time Seen by Provider: 05/28/24 08:38 History of Present Illness: HPI Narrative: 81-year-old male presents emergency room from local [place] [facility] with increasing shortness of breath. Patient reportedly tested positive for COVID 3 days ago was given albuterol and Lasix and route. Typically is on 2 L by nasal cannula was 80 percentile with that it was increased to 4 L and is now satting 99%. Patient reports productive cough is progressively worsening as well as myalgias. Has a history of atrial fibrillation is on amiodarone is not on any anticoagulants. Associated symptoms: Deny abdominal pain, chest pain or fever(s) Related Data Home Medications Medication Instructions Recorded Confirmed ascorbic acid (vitamin C) 1,000 mg 500 mg PO QAM 12/11/20 05/28/24 tablet fluticasone propionate 50 2 spray intranasal QAM 12/11/20 05/28/24 mcg/actuation nasal spray,suspension (Flonase Allergy Relief) garlic 1,000 mg capsule 1,000 mg PO QAM 12/11/20 05/28/24 latanoprost 0.005 % eye drops 1 drp ophthalmic (eye) DAILY 12/11/20 05/28/24 multivitamin (One-A-Day Essential 1 tab PO QAM 12/11/20 05/28/24 tablet) omeprazole 20 mg tablet,delayed 20 mg PO BID 12/11/20 05/28/24 release polyethylene glycol 3350 17 17 g PO DAILY 12/11/20 05/28/24 gram/dose oral powder (Miralax) rivaroxaban 20 mg tablet (Xarelto) 20 mg PO QPM 12/11/20 05/28/24 tamsulosin 0.4 mg capsule 0.4 mg PO QAM 12/11/20 05/28/24 metformin 500 mg tablet 500 mg PO QAM 01/08/21 05/28/24 acetaminophen 500 mg tablet 500 - 1,000 mg PO Q6H PRN Pain 09/24/23 05/28/24 brimonidine 0.2 % eye drops 1 drp ophthalmic (eye) BID 09/24/23 05/28/24 calcium 333 mg-magnesium 133 mg-D3 3 tab PO QAM 09/24/23 05/28/24 1.67 mcg-zinc 5 mg tablet cyanocobalamin (vitamin B-12) 1,000 mcg PO QAM 09/24/23 05/28/24 1,000 mcg tablet (Vitamin B-12) doxylamine succinate 25 mg tablet 25 mg PO BEDTIME 09/24/23 05/28/24 (Unisom (doxylamine)) psyllium husk 3 gram/5.4 gram oral 1 tbsp PO QAM 09/24/23 05/28/24 powder (Reguloid (psyllium husk)) sod chloride-sod See Rx Instructions .Route 09/24/23 05/28/24 bicarb-hyaluronate sod-aloe 0.9 % .COMPLEX PRN discomfort nasal gel (Nasogel) venlafaxine 75 mg capsule,extended 75 mg PO QAM 09/24/23 05/28/24 release 24 hr dapagliflozin propanediol 10 mg 10 mg PO QAM 09/30/23 05/28/24 tablet (Farxiga) atorvastatin 10 mg tablet 10 mg PO DAILY 05/28/24 05/28/24 cetirizine 10 mg tablet 10 mg PO QAM 05/28/24 05/28/24 furosemide 20 mg tablet 40 mg PO QAM 05/28/24 05/28/24 metoprolol succinate 100 mg 100 mg PO QAM 05/28/24 05/28/24 tablet,extended release 24 hr montelukast 10 mg tablet 10 mg PO QAM 05/28/24 05/28/24 (Singulair) potassium chloride 8 mEq 8 meq PO QAM 05/28/24 05/28/24 capsule,extended release Previous Rx's Medication Instructions Recorded albuterol sulfate 90 mcg/actuation 2 puff inhalation Q6H PRN 12/11/20 aerosol inhaler shortness of breath or wheezing #8.5 grams budesonide-formoterol HFA 80 2 puff inhalation BID #10.2 grams 08/31/23 mcg-4.5 mcg/actuation aerosol inhaler (Symbicort) sennosides 8.6 mg-docusate sodium 1 tab PO BID #60 tabs 09/27/23 50 mg tablet (Stool Softener-Laxative) amiodarone 200 mg tablet (Pacerone) 400 mg (2 x 200 mg) PO DAILY #60 03/19/24 tabs sacubitril 24 mg-valsartan 26 mg 1 tab PO BID #30 tabs 03/19/24 tablet (Entresto) Allergies Allergy/AdvReac Type Severity Reaction Status Date / Time Sulfa (Sulfonamide Allergy Severe ALGY-Hives Verified 04/02/24 13:24 Antibiotics) bee venom protein (honey bee) Allergy swelling Verified 04/02/24 13:24 and hives Review of Systems 2 Const: Denies: fever(s) or chills Card: Denies: chest pain Resp: Reports: dyspnea and productive cough GI: Denies: abdominal pain : Denies: dysuria, urinary frequency or urinary urgency Musc: Denies: neck pain or back pain Skin/Breast: Denies: rash PFSH ED 2 PFSH: Medical History CHF (congestive heart failure) Asthma Stroke GERD (gastroesophageal reflux disease) Cataract Hyperlipemia Glaucoma Afib HTN (hypertension) JENNIFER (obstructive sleep apnea) Asthma Surgical History History of thyroid surgery H/O hernia repair Hx of cataract surgery H/O cardiac radiofrequency ablation History of carpal tunnel surgery Family History Mother Congestive heart failure (CHF) Father Congestive heart failure (CHF) Social History Smoking and tobacco/nicotine status: never used tobacco/nicotine Second hand smoke exposure: No Alcohol intake: never Substance/Drug Use: never Lives independently: Yes Household members: spouse Marital status: Current occupational status: retired Previous occupational history: [employer] Do you think of yourself as: Straight/Heterosexual Current gender identity: Male Physical Exam 2 Const: GENERAL APPEARANCE: cooperative ORIENTATION/CONSCIOUSNESS: Yes awake, Yes oriented to person, Yes oriented to place and Yes oriented to time HENMT: COMMON NORMALS: normocephalic, atraumatic and hearing grossly normal bilaterally HEAD & SCALP: normocephalic and atraumatic Resp: EFFORT & INSPECTION: Yes tachypneic AUSCULTATION: rhonchi and wheezes Cardio: COMMON NORMALS: regular rate, regular rhythm and No murmurs present (Cardio) RATE: regular rate RHYTHM: regular rhythm GI: COMMON NORMALS: Soft to palpation and No hepatosplenomegaly present A USCULTATION: Yes normoactive bowel sounds PALPATION: Yes Soft to palpation, No Tenderness to palpation present (GI), No Guarding due to palpation present (GI) and Yes No hepatosplenomegaly present Extremity: COMMON NORMALS: normal to inspection, capillary refill normal, no clubbing, cyanosis or edema, no calf tenderness and no pedal edema Neuro: SENSORIUM/ORIENTATION: Yes oriented to person, Yes oriented to place and Yes oriented to time Skin: COMMON NORMALS: no rashes or lesions noted GENERAL SKIN EXAM: no rashes or lesions noted Course 2 Vital Signs: Vital signs: Vital Signs Temperature 97.7 F 05/28/24 08:39 Pulse Rate 89 05/28/24 10:28 Respiratory Rate 25 H 05/28/24 08:39 Blood Pressure 138/91 05/28/24 10:28 Pulse Oximetry 98 05/28/24 10:28 Oxygen Delivery Me thod Nasal Cannula 05/28/24 10:28 Oxygen Flow Rate 4 05/28/24 10:28 MDM - SOB/Dyspnea Medical Decision Making Increased oxygen requirement now at 4 L will admit steroids consider secondary pneumonia treatment. Also consider remdesivir. Discussed with hospitalist orders written for admission Medical Records I reviewed the patient's medical records. Lab Data I reviewed the patient's lab results. 05/28/24 09:08 05/28/24 09:08 Labs/Radiology: Radiology Impressions Chest X-Ray 05/28/24 08:41 IMPRESSION: Bilateral lower lobe infiltrates likely medical device sales representative of scarring/atelectasis (similar to prior comparison with perhaps mild improvement in aeration), however difficult to exclude superimposed infection/evolving pulmonary edema. Correlate clinically. Laboratory Results WBC 11.65 10^3/uL (3.29-11.43) H 05/28/24 09:08 RBC 5.62 10^6/uL (3.85-5.65) 05/28/24 09:08 Hgb 13.60 g/dL (11.27-16.99) 05/28/24 09:08 Hct 46.4 % (37-53) 05/28/24 09:08 MCV 82.6 fl (82-101) 05/28/24 09:08 MCH 24.2 pg (27-33) L 05/28/24 09:08 MCHC 29.3 g/dL (30-55) L 05/28/24 09:08 RDW 17.3 % (12.1-15.1) H 05/28/24 09:08 Plt Count 230 10^3/cmm (157-399) 05/28/24 09:08 MPV 9.8 fL (7.4-10.4) 05/28/24 09:08 Neut % (Auto) 85.4 % 05/28/24 09:08 Lymph % (Auto) 3.0 % 05/28/24 09:08 [place] % (Auto) 10.7 % 05/28/24 09:08 Eos % (Auto) 0.1 % 05/28/24 09:08 Baso % (Auto) 0.4 % 05/28/24 09:08 Neut # (Auto) 9.94 10^3/uL (1.8-7.7) H 05/28/24 09:08 Lymph # (Auto) 0.4 10^3/uL (0.8-4.8) L 05/28/24 09:08 [place] # (Auto) 1.3 10^3/uL (0.2-0.9) H 05/28/24 09:08 Eos # (Auto) 0.0 10^3/uL (0.0-0.8) 05/28/24 09:08 Baso # (Auto) 0.1 10^3/uL (0.0-0.1) 05/28/24 09:08 Nucleated RBC % (auto) 0 % 05/28/24 09:08 Nucleated RBCs # 0.0 /100WBC 05/28/24 09:08 Sodium 139 mmol/L (136-145) 05/28/24 09:08 Potassium 4.0 mmol/L (3.5-5.1) 05/28/24 09:08 Chloride 99 mmol/L (98-107) 05/28/24 09:08 Carbon Dioxide 28 mmol/L (22-29) 05/28/24 09:08 Anion Gap 16.0 (5-19) 05/28/24 09:08 BUN 14 mg/dL (8-23) 05/28/24 09:08 Creatinine 1.1 mg/dL (0.7-1.2) 05/28/24 09:08 GFR Calculation Not Reportable 05/28/24 09:08 Glucose 204 mg/dL (65-115) H 05/28/24 09:08 Calculated Osmolality 294 mOsm/kg (285-295) 05/28/24 09:08 Calcium 8.6 mg/dL (8.5-10.5) 05/28/24 09:08 Total Bilirubin 0.5 mg/dL (0.15-1.2) 05/28/24 09:08 AST 28 U/L (0-40) 05/28/24 09:08 ALT 30 U/L (0-41) 05/28/24 09:08 Alkaline Phosphatase 87 U/L (40-130) 05/28/24 09:08 Troponin T Baseline 51 ng/L (0-15) H 05/28/24 09:08 Troponin T 120 Minute 54.64 ng/L (0-15) H 05/28/24 11:31 Delta Troponin T 3.64 ABS# (0-10) 05/28/24 11:31 C-Reactive Protein 22.8 mg/L (0.0-4.9) H 05/28/24 09:08 NT-Pro-B Natriuret Pep 985 pg/mL (0-450) H 05/28/24 09:08 Total Protein 6.8 g/dL (6.6-8.7) 05/28/24 09:08 Albumin 4.1 g/dL (3.5-5.2) 05/28/24 09:08 Globulin 2.7 g/dL (1.3-4.6) 05/28/24 09:08 Procalcitonin 0.14 ng/mL (0-0.5) 05/28/24 09:08 Urine Color Yellow (Yellow) 05/28/24 09:02 Urine Appearance Clear (CLEAR) 05/28/24 09:02 Urine pH 7.0 (5-7) 05/28/24 09:02 Ur Specific [place] 1.019 (1.005-1.030) 05/28/24 09:02 Urine Protein 1+ (Negative) A 05/28/24 09:02 Urine Glucose (UA) 3+ (Normal) H 05/28/24 09:02 Urine Ketones Trace (Negative) 05/28/24 09:02 Urine Blood Negative (Negative) 05/28/24 09:02 Urine Nitrate Negative (Negative) 05/28/24 09:02 Urine Bilirubin Negative (Negative) 05/28/24 09:02 Urine Urobilinogen 0.2 mg/dL (Negative) 05/28/24 09:02 Ur Leukocyte Esterase Negative (Negative) 05/28/24 09:02 Urine RBC 0-2 /hpf (0-2) 05/28/24 09:02 Urine WBC 0-5 /hpf (0-5) 05/28/24 09:02 Ur Squamous Epith Cells 0-5 /hpf (0-5) 05/28/24 09:02 Amorphous Sediment Not Reportable 05/28/24 09:02 Urine Bacteria None seen /hpf (NONE) 05/28/24 09:02 Hyaline Casts 0-4 /lpf H 05/28/24 09:02 Coronavirus (PCR) Positive (Negative) A 05/28/24 09:03 Influenza A (PCR) Negative (Negative) 05/28/24 09:03 Influenza Type B (PCR) Negative (Negative) 05/28/24 09:03 RSV (PCR) Negative (Negative) 05/28/24 09:03 All radiology interpretation(s) finalized by discharge Discharge Plan Discharge Patient Disposition: Admitted As Inpatient Clinical Impression: COVID, Pneumonia Condition: Stable Coding Level of Care Code ED Land Acquisition Manager for Arlette Whipple
[2024-05-28 11:12] LABS: Influenza A NEGATIVE (Negative); Influenza B NEGATIVE (Negative); Respiratory Syncytial Virus Ce NEGATIVE (Negative)
[2024-05-28 11:23] LABS: Covid PCR Positive (Negative)
--- NOTE | 2024-05-28 11:45 | P.HP_ITS ---
Providers/Chief Complaint 2 Admitting Physician: Bronson Alvarado MD, hospitalist Primary Care Provider: Melodie Gilmore MD Chief Complaint: SOB History of Present Illness Haris Sol is a 89 year old male presenting to the emergency department with shortness of breath, cough, wheezing for the last 3 to 4 days. Some subjective fever. Resides at [facility]. He reports quite a few residents there have COVID. He has been on oxygen the last 3 weeks, approximately 3 L. He cannot really delineate why that is. He reports he has some lower extremity swelling, that is rather chronic. No vomiting, diarrhea, chest discomfort. Past history consists of CHF, A-fib, hyperlipidemia, diabetes, GERD, depression, BPH. He received 80 mg of Lasix in the ambulance. Review of Systems 2 General: Reports: 10 or more systems reviewed and unremarkable except in HPI and below Card: Denies: chest pain Resp: Denies: dyspnea or productive cough Medications/Allergies Home Medications Medication Instructions Recorded Confirmed Last Taken Type albuterol sulfate 90 mcg/actuation 2 puff inhalation Q6H PRN 12/11/20 05/28/24 Unknown Rx aerosol inhaler shortness of breath or wheezing #8.5 grams ascorbic acid (vitamin C) 1,000 mg 500 mg PO QAM 12/11/20 05/28/24 05/27/24 History tablet fluticasone propionate 50 2 spray intranasal QAM 12/11/20 05/28/24 05/27/24 History mcg/actuation nasal spray,suspension (Flonase Allergy Relief) garlic 1,000 mg capsule 1,000 mg PO QAM 12/11/20 05/28/24 05/27/24 History latanoprost 0.005 % eye drops 1 drp ophthalmic (eye) DAILY 12/11/20 05/28/24 05/27/24 History multivitamin (One-A-Day Essential 1 tab PO QAM 12/11/20 05/28/24 05/27/24 History tablet) omeprazole 20 mg tablet,delayed 20 mg PO BID 12/11/20 05/28/24 05/27/24 History release polyethylene glycol 3350 17 17 g PO DAILY 12/11/20 05/28/24 05/27/24 History gram/dose oral powder (Miralax) rivaroxaban 20 mg tablet (Xarelto) 20 mg PO QPM 12/11/20 05/28/24 05/27/24 History tamsulosin 0.4 mg capsule 0.4 mg PO QAM 12/11/20 05/28/24 05/27/24 History metformin 500 mg tablet 500 mg PO QAM 01/08/21 05/28/24 05/27/24 History budesonide-formoterol HFA 80 2 puff inhalation BID #10.2 grams 08/31/23 05/28/24 05/27/24 Rx mcg-4.5 mcg/actuation aerosol inhaler (Symbicort) acetaminophen 500 mg tablet 500 - 1,000 mg PO Q6H PRN Pain 09/24/23 05/28/24 Unknown History brimonidine 0.2 % eye drops 1 drp ophthalmic (eye) BID 09/24/23 05/28/24 05/27/24 History calcium 333 mg-magnesium 133 mg-D3 3 tab PO QAM 09/24/23 05/28/24 05/27/24 History 1.67 mcg-zinc 5 mg tablet cyanocobalamin (vitamin B-12) 1,000 mcg PO QAM 09/24/23 05/28/24 05/27/24 History 1,000 mcg tablet (Vitamin B-12) doxylamine succinate 25 mg tablet 25 mg PO BEDTIME 09/24/23 05/28/24 05/27/24 History (Unisom (doxylamine)) psyllium husk 3 gram/5.4 gram oral 1 tbsp PO QAM 09/24/23 05/28/24 05/27/24 History powder (Reguloid (psyllium husk)) sod chloride-sod See Rx Instructions .Route 09/24/23 05/28/24 03/15/24 History bicarb-hyaluronate sod-aloe 0.9 % .COMPLEX PRN discomfort nasal gel (Nasogel) venlafaxine 75 mg capsule,extended 75 mg PO QAM 09/24/23 05/28/24 05/27/24 History release 24 hr sennosides 8.6 mg-docusate sodium 1 tab PO BID #60 tabs 09/27/23 05/28/24 05/27/24 Rx 50 mg tablet (Stool Softener-Laxative) dapagliflozin propanediol 10 mg 10 mg PO QAM 09/30/23 05/28/24 05/27/24 History tablet (Farxiga) amiodarone 200 mg tablet (Pacerone) 400 mg (2 x 200 mg) PO DAILY #60 03/19/24 05/28/24 05/27/24 Rx tabs sacubitril 24 mg-valsartan 26 mg 1 tab PO BID #30 tabs 03/19/24 05/28/24 05/27/24 Rx tablet (Entresto) atorvastatin 10 mg tablet 10 mg PO DAILY 05/28/24 05/28/24 05/27/24 History cetirizine 10 mg tablet 10 mg PO QAM 05/28/24 05/28/24 05/27/24 History furosemide 20 mg tablet 40 mg PO QAM 05/28/24 05/28/24 05/27/24 History metoprolol succinate 100 mg 100 mg PO QAM 05/28/24 05/28/24 05/27/24 History tablet,extended release 24 hr montelukast 10 mg tablet 10 mg PO QAM 05/28/24 05/28/24 05/27/24 History (Singulair) potassium chloride 8 mEq 8 meq PO QAM 05/28/24 05/28/24 05/27/24 History capsule,extended release Allergies Allergy/AdvReac Type Severity Reaction Status Date / Time Sulfa (Sulfonamide Allergy Severe ALGY-Hives Verified 04/02/24 13:24 Antibiotics) bee venom protein (honey bee) Allergy swelling Verified 04/02/24 13:24 and hives PFSH Acute 2 PFSH: Medical History CHF (congestive heart failure) Asthma Stroke GERD (gastroesophageal reflux disease) Cataract Hyperlipemia Glaucoma Afib HTN (hypertension) JENNIFER (obstructive sleep apnea) Asthma Surgical History History of thyroid surgery H/O hernia repair Hx of cataract surgery H/O cardiac radiofrequency ablation History of carpal tunnel surgery Family History Mother Congestive heart failure (CHF) Father Congestive heart failure (CHF) Social History Smoking and tobacco/nicotine status: never used tobacco/nicotine Second hand smoke exposure: No Alcohol intake: never Substance/Drug Use: never Lives independently: Yes Household members: spouse Marital status: Current occupational status: retired Previous occupational history: [employer] Do you think of yourself as: Straight/Heterosexual Current gender identity: Male Vitals/I&O/Wt Last Vital Signs Temp 97.7 F 05/28/24 08:39 Pulse 89 05/28/24 10:28 Resp 25 H 05/28/24 08:39 BP 138/91 05/28/24 10:28 Pulse Ox 98 05/28/24 10:28 O2 Del Method Nasal Cannula 05/28/24 10:28 O2 Flow Rate 4 05/28/24 10:28 Weight last 48 hrs Weight 109.769 kg Physical Exam 2 Narrative: General Exam is an elderly white male, who is obviously tachypneic and audibly wheezing. He is on 4 L of oxygen and her respiratory rate is in the upper 20s, and moderate retractions are noted HEENT: Atraumatic normocephalic. Oropharynx is clear Neck is supple no lymphadenopathy thyromegaly Cardiovascular regular rate and rhythm with a 2/6 systolic murmur Lungs bilateral expiratory wheezes. Coarse breath sounds bilaterally Abdomen is soft nontender obese. exam is deferred Extremities 2+ edema bilaterally. No cyanosis or clubbing Skin no rash Neuro no focal deficits. Data 05/28/24 09:08 05/28/24 09:08 Other Labs: Calcium is normal, troponin 51, repeat pending BNP 985 Albumin normal LFTs normal Urinalysis 0-2 reds 0-5 whites Positive PCR for coronavirus, negative for influenza AB and RSV Chest x-ray by my read demonstrates bilateral lower lobe infiltrate, elevated right hemidiaphragm, atherosclerotic disease, cardiomegaly Recent echo demonstrated an EF around 40%, moderate to severe mitral regurgitation. Blood cultures were drawn EKG per my read demonstrates atrial fibrillation, rate of 100, normal axis, few PVCs, poor R wave progression. Micro: Microbiology 05/28/24 11:31 Blood Culture - Preliminary Blood SPECIMEN COLLECTED 05/28/24 11:31 Blood Culture - Preliminary Blood SPECIMEN COLLECTED A&P Assessment and plan (1) Pneumonia due to COVID-19 virus: Patient presents with pneumonia secondary to COVID-19 pneumonia Check procalcitonin. Doubt superimposed bacterial infection at this point Check CRP, to follow Dexamethasone 6 mg IV every 24 hours Remdesivir Breathing treatments, budesonide, Mucinex, flutter valve, incentive spirometry Wean oxygen as tolerated (2) Acute hypoxemic respiratory failure: See above (3) CHF (congestive heart failure): Patient appears to have acute systolic heart failure. He has known valvular dysfunction as well. He received 80 mg of Lasix IV in the ambulance Continue 40 mg IV every 12 hours, close follow-up of electrolytes tomorrow. No need for repeat echocardiogram at this time. (4) Atrial fibrillation, persistent: Has atrial fibrillation, with controlled rate Continue Xarelto, beta-rosetta (5) Asthma: History of asthma or COPD. See notations above. Will be on steroids, breathing treatments, steroid inhalation Qualifiers: Asthma severity: mild Asthma persistence: persistent Asthma complication type: uncomplicated Qualified Code(s): J45.30 - Mild persistent asthma, uncomplicated Plan Multiple other medical problems as outlined in his past medical history. Full code Xarelto will suffice for DVT prophylaxis Attestations 2 Medical Necessity Statement*: Will need greater than 2 midnight stay for evaluation and treatment of acute hypoxic respiratory failure secondary to COVID-19 pneumonia along with acute systolic heart failure. Diagnoses Pneumonia due to COVID-19 virus U07.1; J12.82 Acute hypoxemic respiratory failure J96.01 CHF (congestive heart failure) I50.9 Atrial fibrillation, persistent I48.19 Mild persistent asthma without complication J45.30 Asthma severity: mild Asthma persistence: persistent Asthma complication type: uncomplicated Time Spent (min) 57
[2024-05-28 12:01] LABS: Troponin 5 2HR 54.64 ng/L (0-15); Troponin 5 2HR Delta 3.64 ABS# (0-10)
[2024-05-28 12:14] LABS: C Reactive Protein 22.8 mg/L (0.0-4.9)
[2024-05-28 12:22] LABS: Procalcitonin 0.14 ng/mL (0-0.5)
[2024-05-28] MEDS: remdesivir 200 MG in sodium chloride 0.9% (100 ml) 60 ML 100 MG IV (12:55)
[2024-05-28] MEDS: hyDRALAzine 20 mg/mL INJ 1 mL 10 MG IVP (15:36)
--- NOTE | 2024-05-28 15:37 | ECG_ITS ---
[facility]: 2024-[facility]28 Pat Name: Haris Sol Department: Room: 264 Gender: Male Corporate Intern: : 1935 Requested By: Kenneth Mc Order Number: [id number] Yolanda MD: Shailesh Cabrera M.D. Measurements Intervals [place] Rate: 92 P: 0 MT: 0 QRS: 18 QRSD: 99 T: 40 QT: 315 QTc: 391 Interpretive Statements ATRIAL FLUTTER SEPTAL MYOCARDIAL INFARCTION , PROBABLY OLD [40+ ms Q WAVE IN V1/V2] Compared to ECG 05/28/2024 10:52:18 Atrial fibrillation no longer present Myocardial infarct finding still present Electronically Signed On 05-28-2024 20:26:02 MULTIPLE TUBE WINDING MACHINE OPERATOR by Shailesh Cabrera M.D. [email or web address]
[2024-05-28] MEDS: rivaroxaban 10 mg Tablet 20 MG PO (16:52)
[2024-05-28] MEDS: guaiFENesin 600 mg Tablet 1200 MG PO (16:52)
[2024-05-28] MEDS: sacubitril/valsartan 24-26 mg Tablet 1 EACH PO (16:52)
[2024-05-28] MEDS: pantoprazole DR 40 mg Tablet PO (16:52)
[2024-05-28] MEDS: sennosides-docusate Tablet 1 TAB PO (16:52)
[2024-05-28 17:58] LABS: Troponin 5 6HR 38.04 ng/L (0-15)
[2024-05-28 18:04] LABS: Troponin 5 6HR Delta -12.96 ng/L (0-12)
[2024-05-28] MEDS: FUROsemide 10 mg/mL SDV 4mL 40 MG IVP (20:04)
[2024-05-28] MEDS: atorvastatin 40 mg Tablet PO (20:04)
[2024-05-28] MEDS: budesonide 0.5 mg/2 mL Neb INHALATION (21:11)
[2024-05-28] MEDS: ipratropium-albuterol 3 mL Neb INHALATION (21:11)
[2024-05-29] VITALS (14 sets, daily range): BP systolic 128–154; BP diastolic 80–96; PULSE 73–97; RESP 14–18; TEMP 36.4–37.2; O2SAT 94–97
[2024-05-29] MEDS: ipratropium-albuterol 3 mL Neb INHALATION ×4 (02:30→21:46)
[2024-05-29] MEDS: cetirizine 10 mg Tablet PO (05:07)
[2024-05-29] MEDS: venlafaxine ER (24HR) 75 mg Capsule PO (05:07)
[2024-05-29] MEDS: montelukast sodium 10 mg Tablet PO (05:07)
[2024-05-29] MEDS: tamsulosin 0.4 mg Capsule PO (05:07)
[2024-05-29] MEDS: metoprolol succinate ER (24 HR) 100 mg Tablet PO (05:07)
--- NOTE | 2024-05-29 05:14 | PC.NURSE ---
Dr. Vicente notified that patient uses CPAP at home, but does not have order for CPAP here. CPAP order given. Dr. Vicente notified that patient is asking for his eyedrops. His home medication list shows that he takes Brimonidine and Latanoprost. Ordered to continue these home medications.
[2024-05-29 06:52] LABS: Basophils % 0.2 %; Hematocrit 47.3 % (37-53); Lymphocytes # 0.4 10^3/uL (0.8-4.8); Lymphocytes % 3.2 %; Mean Corpuscular HGB Conc 29.6 g/dL (30-55); Mean Corpuscular Hemoglobin 24.9 pg (27-33); Monocytes # 1.1 10^3/uL (0.2-0.9); Monocytes % 9.2 %; Neutrophils # 10.35 10^3/uL (1.8-7.7); Neutrophils % 86.8 %; Nucleated Red Blood Cells % 0 %; Platelet Count 240 10^3/cmm (157-399); Red Blood Count 5.63 10^6/uL (3.85-5.65); Red Cell Distribution Width 17.9 % (12.1-15.1); White Blood Count 11.92 10^3/uL (3.29-11.43)
[2024-05-29 07:08] LABS: Glucose Point of Care 127 mg/dL (70-110)
[2024-05-29] MEDS: budesonide 0.5 mg/2 mL Neb INHALATION ×2 (07:40→21:45)
--- NOTE | 2024-05-29 08:39 | P.PN_ITS ---
Subjective 2 Subjective: Patient reports he feels little bit better, is breathing a little easier. He still requiring 3 L of oxygen. States he now feels hungry which is a good sign. Medications: Reviewed: Yes Vitals/I&O/Wt Last Vital Signs Temp 98.5 F 05/29/24 07:23 Pulse 81 05/29/24 07:41 Resp 16 05/29/24 07:41 BP 149/96 05/29/24 07:23 Pulse Ox 97 05/29/24 07:41 O2 Del Method Nasal Cannula 05/29/24 07:41 O2 Flow Rate 3 05/29/24 07:41 05/28/24 05/29/24 05/29/24 22:59 06:59 14:59 Intake Total 1320 / 1420 0 / 1420 Output Total 1950 / 1950 450 / 2400 Balance -630 / -530 -450 / -980 Weight last 48 hrs Weight 106.821 kg Weight 109.769 kg Weight 109.769 kg Physical Exam 2 Narrative: General Exam no distress currently Neck is supple no lymphadenopathy thyromegaly Cardiovascular regular rate and rhythm with a 2/6 systolic murmur Lungs improved breath sounds, still with some faint wheezes but certainly improved from yesterday. Abdomen is soft nontender obese. Extremities trace edema, improving Urinary Catheter Management: Jiang: Cath Placed During This Visit: yes Reason for Continuing Indwelling Catheter: Accurate Measurement of Urinary Output in Critically Ill Patients Urinary Catheter Date of Insertion: 05/28/24 Urinary Catheter Time of Insertion: 16:20 Data 05/29/24 05:58 05/28/24 09:08 Micro: Microbiology 05/28/24 11:31 Blood Culture - Preliminary Blood SPECIMEN COLLECTED 05/28/24 11:31 Blood Culture - Preliminary Blood SPECIMEN COLLECTED A&P Assessment and plan (1) Pneumonia due to COVID-19 virus: Patient presents with pneumonia secondary to COVID-19 pneumonia Procalcitonin was negative. Doubt superimposed bacterial infection at this point Follow CRP, pending for today Dexamethasone 6 mg IV every 24 hours Continue remdesivir Breathing treatments, budesonide, Mucinex, flutter valve, incentive spirometry Wean oxygen as tolerated (2) Acute hypoxemic respiratory failure: See above (3) CHF (congestive heart failure): Patient appears to have acute systolic heart failure. He has known valvular dysfunction as well. He received 80 mg of Lasix IV in the ambulance Continue 40 mg IV every 12 hours, close follow-up of electrolytes tomorrow. No need for repeat echocardiogram at this time. Awaiting laboratory at this time. Will likely reduce his Lasix to 40 mg IV every 24 hours following this morning's dose. Awaiting CMP from this morning. (4) Atrial fibrillation, persistent: Has atrial fibrillation, with controlled rate Continue Xarelto, beta-rosetta (5) Asthma: History of asthma or COPD. See notations above. Will be on steroids, breathing treatments, steroid inhalation Qualifiers: Asthma severity: mild Asthma persistence: persistent Asthma complication type: uncomplicated Qualified Code(s): J45.30 - Mild persistent asthma, uncomplicated Plan Multiple other medical problems as outlined in his past medical history. Full code Xarelto will suffice for DVT prophylaxis Attestations 2 Medical Necessity Statement*: Needs continued hospital stay, for Covid 19 pneumonia with hypoxia. Currently receiving remdesivir and dexamethasone. Diagnoses Pneumonia due to COVID-19 virus U07.1; J12.82 Acute hypoxemic respiratory failure J96.01 CHF (congestive heart failure) I50.9 Atrial fibrillation, persistent I48.19 Mild persistent asthma without complication J45.30 Asthma severity: mild Asthma persistence: persistent Asthma complication type: uncomplicated Time Spent (min) 20
[2024-05-29 08:43] LABS: Alanine Aminotransferase 34 U/L (0-41); Albumin Level 3.4 g/dL (3.5-5.2); Alkaline Phosphatase 72 U/L (40-130); Anion Gap 19.7 (5-19); Aspartate Amino Transferase 33 U/L (0-40); Blood Urea Nitrogen 22 mg/dL (8-23); C Reactive Protein 96.3 mg/L (0.0-4.9); Calcium 8.6 mg/dL (8.5-10.5); Carbon Dioxide 27 mmol/L (22-29); Chloride 94 mmol/L (98-107); Creatinine Clr Calc Pharmacy 70.5438; Globulin 3.3 g/dL (1.3-4.6); Glucose 127 mg/dL (65-115); Magnesium 2.2 mg/dL (1.7-2.3); Osmolality Calculated 289 mOsm/kg (285-295); Potassium 3.7 mmol/L (3.5-5.1); Sodium 137 mmol/L (136-145); Total Bilirubin 0.4 mg/dL (0.15-1.2); Total Protein 6.7 g/dL (6.6-8.7)
[2024-05-29] MEDS: amiodarone 200 mg Tablet 400 MG PO (08:49)
[2024-05-29] MEDS: FUROsemide 10 mg/mL SDV 4mL 40 MG IVP (08:49)
[2024-05-29] MEDS: guaiFENesin 600 mg Tablet 1200 MG PO ×2 (08:51→17:57)
[2024-05-29] MEDS: sacubitril/valsartan 24-26 mg Tablet 1 EACH PO ×2 (08:51→17:56)
[2024-05-29] MEDS: latanoprost 0.005% Op Soln 2.5 mL Btl 1 DROP OPHTHALMIC (08:51)
[2024-05-29] MEDS: polyethylene glycol 3350 Pkt 17 gm PO (08:51)
[2024-05-29] MEDS: sennosides-docusate Tablet 1 TAB PO ×2 (08:51→17:57)
[2024-05-29] MEDS: pantoprazole DR 40 mg Tablet PO ×2 (08:51→17:56)
[2024-05-29] MEDS: brimonidine 0.2% Op Soln 5 mL Btl 1 DROP EYE-BOTH ×2 (08:52→17:56)
--- NOTE | 2024-05-29 10:22 | PC.CHAP ---
Pastoral Care Encounter/Spiritual Assessment Type of Contact [] Declined bulk sugar handler visit [] Patient/Family/Request visit [] Outpatient visit [] Follow-up visit [] Physician referral [] Code/Alert [] Routine visit [] Staff referral [] Actively dying [] Patient sleeping [] Family support [] [] Out of room [] Palliative care [] [] Receiving care in room [] Pre-surgical visit [] Trauma [] Long length of stay [] ICU visit [x] Other:Contact precautions. No visit. Relational/Emotional Strength [] Patient feels connected with others/family/visitors/staff [] Distress [] Loneliness/isolation [] Abandonment Spirituality of Patient [] Person of Trisha [] Attends Rastafari of their Trisha [] Believes in Prayer [] Reads Bible or Jehovah'S Witness materials [] There are Spiritual issues to be addressed Airport Location Manager Interventions [] Prayer [] Active listening [] Non-anxious presence [] Spiritual/emotional support [] Crisis/trauma care [] Spiritual counseling [] Bereavement support [] Provided bereavement packet [] Provided Bible/devotional materials [] Provided toy/stuffed animal, coloring book to patient or family member [] Provided Communion [] Anointing/Fisher [] Salvation [] Completed spiritual assessment [] Other: Impact on Illness or Injury [] Angry [] Fearful [] Anxious [] Often cries [] Exhaustion [] Unable to work [] Unable to attend rastafarian [] Unable to walk/stand [] Unable to read [] Unable to drive [] Unable to eat/drink [] Unable to sleep [] Unable to be with family [] Patient intubated [] Other: Summary Time spent with patient
[2024-05-29] MEDS: dexamethasone 10 mg/mL INJ 6 MG IVP (11:15)
[2024-05-29 11:19] LABS: Glucose Point of Care 203 mg/dL (70-110)
[2024-05-29 17:14] LABS: Glucose Point of Care 294 mg/dL (70-110)
[2024-05-29] MEDS: rivaroxaban 10 mg Tablet 20 MG PO (17:56)
[2024-05-29] MEDS: remdesivir 100 MG in sodium chloride 0.9% (100 ml) 80 ML IV (17:56)
[2024-05-29] MEDS: atorvastatin 40 mg Tablet PO (20:09)
[2024-05-29 20:49] LABS: Glucose Point of Care 269 mg/dL (70-110)
--- NOTE | 2024-05-29 20:54 | PC.NURSE ---
Dr. Mack notified that patient had a blood sugar of 203 at 11:16 AM, a blood sugar of 294 at 5:10 PM, and a blood sugar of 269 at 8:46 PM today. He does not have any sliding scale ordered and has not received any insulin today.
[2024-05-29 22:27] LABS: Bacillus cereus group Not Detected (NOT DETECT); Bacillus subtillis group Not Detected (NOT DETECT); Corynebacterium Not Detected (NOT DETECT); Cutibacterium acnes (P.acnes) Not Detected (NOT DETECT); Enterococcus Not Detected (NOT DETECT); Enterococcus faecalis Not Detected (NOT DETECT); Enterococcus faecium Not Detected (NOT DETECT); Lactobacillus species Not Detected (NOT DETECT); Listeria Not Detected (NOT DETECT); Listeria monocytogenes Not Detected (NOT DETECT); Micrococcus Detected (NOT DETECT); Pan Candida Not Detected (NOT DETECT); Pan Gram-Negative Not Detected (NOT DETECT); Staphylococcus epidermidis Not Detected (NOT DETECT); Staphylococcus lugdunensis Not Detected (NOT DETECT); Staphylococcus species Not Detected (NOT DETECT); Streptococcus agalactiae Not Detected (NOT DETECT); Streptococcus anginosus group Not Detected (NOT DETECT); Streptococcus pneumoniae Not Detected (NOT DETECT); Streptococcus pyogenes Not Detected (NOT DETECT); Streptococcus species Not Detected (NOT DETECT)
--- NOTE | 2024-05-29 22:43 | PC.NURSE ---
Dr. Vicente notified of blood culture 2/4 bottles gram positive cocci in clusters.
[2024-05-30] VITALS (10 sets, daily range): BP systolic 112–139; BP diastolic 72–96; PULSE 76–98; RESP 16–22; TEMP 36.4–36.9; O2SAT 93–98
[2024-05-30 04:56] LABS: Basophils % 0.2 %; Lymphocytes # 0.4 10^3/uL (0.8-4.8); Lymphocytes % 3.4 %; Mean Corpuscular Hemoglobin 24.4 pg (27-33); Mean Corpuscular Volume 81.4 fl (82-101); Mean Platelet Volume 10.1 fL (7.4-10.4); Neutrophils % 88.1 %; Nucleated Red Blood Cells % 0 %; Platelet Count 269 10^3/cmm (157-399); Red Blood Count 5.53 10^6/uL (3.85-5.65); Red Cell Distribution Width 17.2 % (12.1-15.1); White Blood Count 12.93 10^3/uL (3.29-11.43)
[2024-05-30] MEDS: cetirizine 10 mg Tablet PO (05:13)
[2024-05-30] MEDS: metoprolol succinate ER (24 HR) 100 mg Tablet PO (05:13)
[2024-05-30] MEDS: tamsulosin 0.4 mg Capsule PO (05:13)
[2024-05-30] MEDS: venlafaxine ER (24HR) 75 mg Capsule PO (05:13)
[2024-05-30] MEDS: montelukast sodium 10 mg Tablet PO (05:13)
[2024-05-30 05:17] LABS: Alanine Aminotransferase 44 U/L (0-41); Albumin Level 3.4 g/dL (3.5-5.2); Alkaline Phosphatase 70 U/L (40-130); Anion Gap 14.1 (5-19); Aspartate Amino Transferase 39 U/L (0-40); Blood Urea Nitrogen 28 mg/dL (8-23); Carbon Dioxide 30 mmol/L (22-29); Chloride 97 mmol/L (98-107); Creatinine Clr Calc Pharmacy 79.2144; Globulin 2.9 g/dL (1.3-4.6); Glucose 169 mg/dL (65-115); Osmolality Calculated 293 mOsm/kg (285-295); Potassium 4.1 mmol/L (3.5-5.1); Sodium 137 mmol/L (136-145); Total Bilirubin 0.4 mg/dL (0.15-1.2); Total Protein 6.3 g/dL (6.6-8.7)
[2024-05-30 05:24] LABS: C Reactive Protein 55.5 mg/L (0.0-4.9)
[2024-05-30 06:23] LABS: Glucose Point of Care 161 mg/dL (70-110)
[2024-05-30] MEDS: ipratropium-albuterol 3 mL Neb INHALATION ×2 (08:32→14:15)
[2024-05-30] MEDS: budesonide 0.5 mg/2 mL Neb INHALATION (08:32)
[2024-05-30] MEDS: polyethylene glycol 3350 Pkt 17 gm PO (09:03)
[2024-05-30] MEDS: guaiFENesin 600 mg Tablet 1200 MG PO ×2 (09:03→17:30)
[2024-05-30] MEDS: sacubitril/valsartan 24-26 mg Tablet 1 EACH PO ×2 (09:04→17:30)
[2024-05-30] MEDS: amiodarone 200 mg Tablet 400 MG PO (09:04)
[2024-05-30] MEDS: FUROsemide 10 mg/mL SDV 4mL 40 MG IVP (09:04)
[2024-05-30] MEDS: pantoprazole DR 40 mg Tablet PO ×2 (09:04→17:30)
[2024-05-30] MEDS: sennosides-docusate Tablet 1 TAB PO ×2 (09:04→17:30)
[2024-05-30] MEDS: latanoprost 0.005% Op Soln 2.5 mL Btl 1 DROP OPHTHALMIC (09:05)
[2024-05-30] MEDS: dexamethasone 10 mg/mL INJ 6 MG IVP (09:05)
[2024-05-30] MEDS: brimonidine 0.2% Op Soln 5 mL Btl 1 DROP EYE-BOTH ×2 (09:05→17:31)
[2024-05-30 11:41] LABS: Glucose Point of Care 212 mg/dL (70-110)
--- NOTE | 2024-05-30 12:12 | PC.SOCIAL ---
IMM updated IMM dated and initialed, copy given to patient and copy placed in chart.
--- NOTE | 2024-05-30 15:35 | P.PN_ITS ---
Subjective 2 Subjective: Patient was seen this morning, he is alert oriented x 3, following all commands, reports persistent wheezing and shortness of breath productive cough, no fevers, chills does report shortness of breath with exertion Vitals/I&O/Wt Last Vital Signs Temp 97.5 F L 05/30/24 15:32 Pulse 85 05/30/24 15:32 Resp 18 05/30/24 15:32 BP 121/77 05/30/24 15:32 Pulse Ox 95 05/30/24 15:32 O2 Del Method Nasal Cannula 05/30/24 15:32 O2 Flow Rate 1 05/30/24 14:16 05/30/24 05/30/24 05/30/24 06:59 14:59 22:59 Intake Total 300 / 2180 1200 / 1200 Output Total 500 / 2100 900 / 900 Balance -200 / 80 300 / 300 Weight last 48 hrs Weight 106.413 kg Weight 106.821 kg Physical Exam 2 Const: COMMON NORMALS: no acute distress and patient oriented x3 Resp: COMMON NORMALS: normal respiratory effort, No retractions and No use of accessory muscles AUSCULTATION: crackles and wheezes Cardio: COMMON NORMALS: regular rate, regular rhythm, S1 normal heart sound present and S2 normal heart sound present RATE: regular rate RHYTHM: r egular rhythm HEART SOUNDS: S1 normal heart sound present and S2 normal heart sound present GI: COMMON NORMALS: Normal to inspection, nondistended, normoactive bowel sounds present and non-tender Extremity: COMMON NORMALS: no pedal edema Neuro: COMMON NORMALS: patient oriented x3 Psych: COMMON NORMALS: mental status grossly normal Urinary Catheter Management: Jiang: Cath Placed During This Visit: yes Reason for Continuing Indwelling Catheter: Acute Urinary Retention or Obstruction Urinary Catheter Date of Insertion: 05/28/24 Urinary Catheter Time of Insertion: 16:20 Data 05/30/24 04:44 05/30/24 04:44 Micro: Microbiology 05/28/24 18:20 Gram Stain - Final Sputum - Expectorated Sputum Sputum Culture - Preliminary 05/28/24 11:31 Blood Culture - Preliminary Blood 05/28/24 11:31 Blood Culture - Preliminary Blood NEGATIVE TO DATE A&P Assessment and plan (1) Pneumonia due to COVID-19 virus: Patient presents with pneumonia secondary to COVID-19 pneumonia CRP 55 Dexamethasone 6 mg IV every 24 hours Continue remdesivir Will add on doxycycline due to persistent cough Breathing treatments, budesonide, Mucinex, flutter valve, incentive spirometry Wean oxygen as tolerated (2) Acute hypoxemic respiratory failure: See above (3) CHF (congestive heart failure): Continue Lasix 40 IV once daily (4) Atrial fibrillation, persistent: Continue Xarelto, beta-rosetta (5) Asthma: - Continue DuoNeb -Continue steroids Qualifiers: Asthma severity: mild Asthma persistence: persistent Asthma complication type: uncomplicated Qualified Code(s): J45.30 - Mild persistent asthma, uncomplicated Plan Multiple other medical problems as outlined in his past medical history. Full code Xarelto will suffice for DVT prophylaxis Attestations 2 Medical Necessity Statement*: Patient requires hospitalization for acute respiratory failure secondary COVID- 19 Diagnoses Pneumonia due to COVID-19 virus U07.1; J12.82 Acute hypoxemic respiratory failure J96.01 CHF (congestive heart failure) I50.9 Atrial fibrillation, persistent I48.19 Mild persistent asthma without complication J45.30 Asthma severity: mild Asthma persistence: persistent Asthma complication type: uncomplicated
[2024-05-30 16:34] LABS: Glucose Point of Care 259 mg/dL (70-110)
[2024-05-30] MEDS: rivaroxaban 10 mg Tablet 20 MG PO (17:30)
[2024-05-30] MEDS: doxycycline 100 mg Tablet PO (17:30)
[2024-05-30] MEDS: remdesivir 100 MG in sodium chloride 0.9% (100 ml) 80 ML IV (17:30)
[2024-05-30] MEDS: atorvastatin 40 mg Tablet PO (19:45)
[2024-05-30] MEDS: acetaminophen 325 mg Tablet 650 MG PO (19:45)
[2024-05-30 20:49] LABS: Glucose Point of Care 224 mg/dL (70-110)
--- NOTE | 2024-05-30 20:59 | PC.NURSE ---
Addendum entered by Tejal Cohen RN 05/30/24 22:52: Dr. Vicente states, His blood glucose levels tend to decrease to less than 180 in the mornings. I will not give him any insulin at this time. Original Note: Dr. Vicente notified that patient has a blood sugar of 224 and does not have any insulin ordered.
[2024-05-31] VITALS (11 sets, daily range): BP systolic 101–146; BP diastolic 68–95; PULSE 58–95; RESP 17–20; TEMP 36.5–37.3; O2SAT 92–96
[2024-05-31] MEDS: ipratropium-albuterol 3 mL Neb INHALATION ×4 (02:09→20:56)
[2024-05-31] MEDS: montelukast sodium 10 mg Tablet PO (05:07)
[2024-05-31] MEDS: venlafaxine ER (24HR) 75 mg Capsule PO (05:07)
[2024-05-31] MEDS: tamsulosin 0.4 mg Capsule PO (05:07)
[2024-05-31] MEDS: metoprolol succinate ER (24 HR) 100 mg Tablet PO (05:07)
[2024-05-31] MEDS: cetirizine 10 mg Tablet PO (05:07)
[2024-05-31 05:20] LABS: Basophils % 0.1 %; Hematocrit 44.9 % (37-53); Lymphocytes # 0.6 10^3/uL (0.8-4.8); Lymphocytes % 5.7 %; Mean Corpuscular HGB Conc 30.3 g/dL (30-55); Mean Corpuscular Volume 82.5 fl (82-101); Mean Platelet Volume 9.8 fL (7.4-10.4); Monocytes # 1.1 10^3/uL (0.2-0.9); Monocytes % 9.5 %; Neutrophils # 9.34 10^3/uL (1.8-7.7); Neutrophils % 84.2 %; Nucleated Red Blood Cells % 0 %; Platelet Count 285 10^3/cmm (157-399); Red Blood Count 5.44 10^6/uL (3.85-5.65); Red Cell Distribution Width 17.2 % (12.1-15.1); White Blood Count 11.08 10^3/uL (3.29-11.43)
[2024-05-31 05:48] LABS: Alanine Aminotransferase 41 U/L (0-41); Albumin Level 3.2 g/dL (3.5-5.2); Alkaline Phosphatase 64 U/L (40-130); Anion Gap 11.6 (5-19); Aspartate Amino Transferase 30 U/L (0-40); Blood Urea Nitrogen 32 mg/dL (8-23); C Reactive Protein 26.9 mg/L (0.0-4.9); Calcium 8.5 mg/dL (8.5-10.5); Carbon Dioxide 32 mmol/L (22-29); Chloride 98 mmol/L (98-107); Creatinine Clr Calc Pharmacy 70.7184; Glucose 195 mg/dL (65-115); Magnesium 2.1 mg/dL (1.7-2.3); Osmolality Calculated 296 mOsm/kg (285-295); Phosphorus 3.5 mg/dL (2.5-4.5); Potassium 4.6 mmol/L (3.5-5.1); Sodium 137 mmol/L (136-145); Total Bilirubin 0.3 mg/dL (0.15-1.2); Total Protein 6.2 g/dL (6.6-8.7)
[2024-05-31 05:57] LABS: NT Pro B Type Natriuretic Pept 481 pg/mL (0-450); Procalcitonin 0.22 ng/mL (0-0.5)
[2024-05-31 06:16] LABS: Glucose Point of Care 184 mg/dL (70-110)
[2024-05-31] MEDS: budesonide 0.5 mg/2 mL Neb INHALATION ×2 (09:12→20:57)
[2024-05-31] MEDS: FUROsemide 10 mg/mL SDV 4mL 40 MG IVP (10:27)
[2024-05-31] MEDS: doxycycline 100 mg Tablet PO ×2 (10:28→17:05)
[2024-05-31] MEDS: sennosides-docusate Tablet 1 TAB PO ×2 (10:28→17:06)
[2024-05-31] MEDS: polyethylene glycol 3350 Pkt 17 gm PO (10:28)
[2024-05-31] MEDS: pantoprazole DR 40 mg Tablet PO ×2 (10:28→17:05)
[2024-05-31] MEDS: amiodarone 200 mg Tablet 400 MG PO (10:28)
[2024-05-31] MEDS: sacubitril/valsartan 24-26 mg Tablet 1 EACH PO ×2 (10:28→17:05)
[2024-05-31] MEDS: dexamethasone 10 mg/mL INJ 6 MG IVP (10:29)
[2024-05-31] MEDS: latanoprost 0.005% Op Soln 2.5 mL Btl 1 DROP OPHTHALMIC (10:29)
[2024-05-31] MEDS: brimonidine 0.2% Op Soln 5 mL Btl 1 DROP EYE-BOTH ×2 (10:29→17:07)
[2024-05-31 10:41] LABS: Glucose Point of Care 208 mg/dL (70-110)
[2024-05-31] MEDS: guaiFENesin 600 mg Tablet 1200 MG PO ×2 (12:08→17:05)
[2024-05-31 16:32] LABS: Glucose Point of Care 274 mg/dL (70-110)
[2024-05-31] MEDS: rivaroxaban 10 mg Tablet 20 MG PO (17:05)
--- NOTE | 2024-05-31 17:33 | P.PN_ITS ---
Subjective 2 Subjective: Patient was seen this morning, he continues to complain of shortness of breath, wheezing, cough Vitals/I&O/Wt Last Vital Signs Temp 97.7 F 05/31/24 15:36 Pulse 92 05/31/24 15:36 Resp 18 05/31/24 15:36 BP 101/68 05/31/24 15:36 Pulse Ox 94 05/31/24 15:36 O2 Del Method Nasal Cannula 05/31/24 15:36 O2 Flow Rate 2 05/31/24 13:23 05/31/24 05/31/24 05/31/24 06:59 14:59 22:59 Intake Total 250 / 2930 480 / 480 Output Total 400 / 2600 1350 / 1350 Balance -150 / 330 480 / 480 -1350 / -870 Weight last 48 hrs Weight 107.365 kg Weight 106.413 kg Physical Exam 2 Const: COMMON NORMALS: no acute distress and patient oriented x3 Resp: COMMON NORMALS: normal respiratory effort, No retractions and No use of accessory muscles AUSCULTATION: crackles and wheezes Cardio: COMMON NORMALS: regular rate, regular rhythm, S1 normal heart sound present and S2 normal heart sound present RATE: regular rate RHYTHM: r egular rhythm HEART SOUNDS: S1 normal heart sound present and S2 normal heart sound present GI: COMMON NORMALS: Normal to inspection, nondistended, normoactive bowel sounds present and non-tender Extremity: COMMON NORMALS: no pedal edema Neuro: COMMON NORMALS: patient oriented x3 Psych: COMMON NORMALS: mental status grossly normal Urinary Catheter Management: Jiang: Cath Placed During This Visit: yes Reason for Continuing Indwelling Catheter: Accurate Measurement of Urinary Output in Critically Ill Patients Urinary Catheter Date of Insertion: 05/28/24 Urinary Catheter Time of Insertion: 16:20 Data 05/31/24 05:08 05/31/24 05:08 Micro: Microbiology 05/28/24 18:20 Gram Stain - Final Sputum - Expectorated Sputum Sputum Culture - Final A&P Assessment and plan (1) Pneumonia due to COVID-19 virus: Patient presents with pneumonia secondary to COVID-19 pneumonia CRP 55 Dexamethasone 6 mg IV every 24 hours Continue remdesivir on doxycycline due to persistent cough Breathing treatments, budesonide, Mucinex, flutter valve, incentive spirometry Wean oxygen as tolerated (2) Acute hypoxemic respiratory failure: See above (3) CHF (congestive heart failure): Continue Lasix 40 IV once daily (4) Atrial fibrillation, persistent: Continue Xarelto, beta-rosetta (5) Asthma: - Continue DuoNeb -Continue steroids Qualifiers: Asthma severity: mild Asthma persistence: persistent Asthma complication type: uncomplicated Qualified Code(s): J45.30 - Mild persistent asthma, uncomplicated Plan Multiple other medical problems as outlined in his past medical history. Full code Xarelto will suffice for DVT prophylaxis Attestations 2 Medical Necessity Statement*: Patient requires hospitalization for acute respiratory failure secondary COVID- 19, CHF Diagnoses Pneumonia due to COVID-19 virus U07.1; J12.82 Acute hypoxemic respiratory failure J96.01 CHF (congestive heart failure) I50.9 Atrial fibrillation, persistent I48.19 Mild persistent asthma without complication J45.30 Asthma severity: mild Asthma persistence: persistent Asthma complication type: uncomplicated
[2024-05-31] MEDS: remdesivir 100 MG in sodium chloride 0.9% (100 ml) 80 ML IV (17:59)
[2024-05-31 20:30] LABS: Glucose Point of Care 252 mg/dL (70-110)
[2024-05-31] MEDS: acetaminophen 325 mg Tablet 650 MG PO (20:40)
[2024-05-31] MEDS: atorvastatin 40 mg Tablet PO (20:40)
[2024-06-01] VITALS (15 sets, daily range): BP systolic 114–170; BP diastolic 76–118; PULSE 79–105; RESP 16–20; TEMP 36.3–36.8; O2SAT 90–96
[2024-06-01 06:08] LABS: Glucose Point of Care 145 mg/dL (70-110)
[2024-06-01] MEDS: cetirizine 10 mg Tablet PO (06:16)
[2024-06-01] MEDS: tamsulosin 0.4 mg Capsule PO (06:16)
[2024-06-01] MEDS: venlafaxine ER (24HR) 75 mg Capsule PO (06:16)
[2024-06-01] MEDS: metoprolol succinate ER (24 HR) 100 mg Tablet PO (06:17)
[2024-06-01] MEDS: montelukast sodium 10 mg Tablet PO (06:17)
[2024-06-01 06:38] LABS: Basophils % 0.1 %; Eosinophils % 0.1 %; Hematocrit 46.8 % (37-53); Lymphocytes # 0.8 10^3/uL (0.8-4.8); Lymphocytes % 8.4 %; Mean Corpuscular HGB Conc 29.1 g/dL (30-55); Mean Corpuscular Hemoglobin 24.5 pg (27-33); Mean Corpuscular Volume 84.3 fl (82-101); Mean Platelet Volume 10.2 fL (7.4-10.4); Monocytes # 0.9 10^3/uL (0.2-0.9); Monocytes % 9.6 %; Neutrophils # 7.74 10^3/uL (1.8-7.7); Neutrophils % 81.3 %; Nucleated Red Blood Cells % 0 %; Platelet Count 280 10^3/cmm (157-399); Red Blood Count 5.55 10^6/uL (3.85-5.65); White Blood Count 9.52 10^3/uL (3.29-11.43)
[2024-06-01 07:01] LABS: Alanine Aminotransferase 38 U/L (0-41); Albumin Level 3.3 g/dL (3.5-5.2); Alkaline Phosphatase 62 U/L (40-130); Anion Gap 13.3 (5-19); Aspartate Amino Transferase 24 U/L (0-40); Blood Urea Nitrogen 27 mg/dL (8-23); Calcium 8.6 mg/dL (8.5-10.5); Carbon Dioxide 29 mmol/L (22-29); Chloride 99 mmol/L (98-107); Creatinine Clr Calc Pharmacy 70.7476; Globulin 2.9 g/dL (1.3-4.6); Glucose 150 mg/dL (65-115); Magnesium 1.8 mg/dL (1.7-2.3); Osmolality Calculated 292 mOsm/kg (285-295); Potassium 4.3 mmol/L (3.5-5.1); Sodium 137 mmol/L (136-145); Total Bilirubin 0.5 mg/dL (0.15-1.2); Total Protein 6.2 g/dL (6.6-8.7)
[2024-06-01 07:03] LABS: NT Pro B Type Natriuretic Pept 674 pg/mL (0-450); Procalcitonin 0.14 ng/mL (0-0.5)
[2024-06-01] MEDS: ipratropium-albuterol 3 mL Neb INHALATION ×3 (08:07→20:07)
[2024-06-01] MEDS: budesonide 0.5 mg/2 mL Neb INHALATION ×2 (08:07→20:07)
[2024-06-01] MEDS: pantoprazole DR 40 mg Tablet PO ×2 (08:37→17:41)
[2024-06-01] MEDS: sacubitril/valsartan 24-26 mg Tablet 1 EACH PO ×2 (08:37→17:41)
[2024-06-01] MEDS: doxycycline 100 mg Tablet PO ×2 (08:37→17:41)
[2024-06-01] MEDS: amiodarone 200 mg Tablet 400 MG PO (08:37)
[2024-06-01] MEDS: guaiFENesin 600 mg Tablet 1200 MG PO ×2 (08:37→17:41)
[2024-06-01] MEDS: sennosides-docusate Tablet 1 TAB PO (08:37)
[2024-06-01] MEDS: FUROsemide 10 mg/mL SDV 4mL 40 MG IVP (08:38)
[2024-06-01] MEDS: polyethylene glycol 3350 Pkt 17 gm PO (08:38)
[2024-06-01] MEDS: brimonidine 0.2% Op Soln 5 mL Btl 1 DROP EYE-BOTH ×2 (08:39→17:43)
[2024-06-01] MEDS: latanoprost 0.005% Op Soln 2.5 mL Btl 1 DROP OPHTHALMIC (08:39)
--- NOTE | 2024-06-01 09:12 | PC.SOCIAL ---
IMM Update Pg. 2 of IMM updated and reviewed with patient, who verbalized understanding. Copy provided.
[2024-06-01 10:51] LABS: Glucose Point of Care 191 mg/dL (70-110)
[2024-06-01] MEDS: dexamethasone 10 mg/mL INJ 6 MG IVP (11:00)
--- NOTE | 2024-06-01 14:37 | P.PN_ITS ---
Subjective 2 Subjective: Patient was seen this morning, his shortness of breath is improving but continues to complain of shortness of breath, with exertion, has a cough Vitals/I&O/Wt Last Vital Signs Temp 98.2 F 06/01/24 11:26 Pulse 79 06/01/24 13:49 Resp 20 H 06/01/24 13:49 BP 114/76 06/01/24 11:26 Pulse Ox 94 06/01/24 13:49 O2 Del Method Nasal Cannula 06/01/24 13:49 O2 Flow Rate 2 06/01/24 13:49 05/31/24 06/01/24 06/01/24 22:59 06:59 14:59 Intake Total 340 / 820 240 / 1060 236 / 236 Output Total 2250 / 2250 400 / 2650 Balance -1910 / -1430 -160 / -1590 236 / 236 Weight last 48 hrs Weight 107.456 kg Weight 107.365 kg Physical Exam 2 Const: COMMON NORMALS: no acute distress and patient oriented x3 Resp: COMMON NORMALS: normal respiratory effort, No retractions and No use of accessory muscles AUSCULTATION: crackles and wheezes Cardio: COMMON NORMALS: regular rate, regular rhythm, S1 normal heart sound present and S2 normal heart sound present RATE: regular rate RHYTHM: r egular rhythm HEART SOUNDS: S1 normal heart sound present and S2 normal heart sound present GI: COMMON NORMALS: Normal to inspection, nondistended, normoactive bowel sounds present and non-tender Extremity: COMMON NORMALS: no pedal edema Neuro: COMMON NORMALS: patient oriented x3 Psych: COMMON NORMALS: mental status grossly normal Urinary Catheter Management: Jiang: Cath Placed During This Visit: yes Reason for Continuing Indwelling Catheter: Other Urinary Catheter Date of Insertion: 05/28/24 Urinary Catheter Time of Insertion: 16:20 Data 06/01/24 06:17 06/01/24 06:17 Micro: Microbiology 05/28/24 11:31 Blood Culture - Preliminary Blood Micrococcus Species 05/28/24 18:20 Gram Stain - Final Sputum - Expectorated Sputum Sputum Culture - Final A&P Assessment and plan (1) Pneumonia due to COVID-19 virus: Patient presents with pneumonia secondary to COVID-19 pneumonia CRP 55 Dexamethasone 6 mg IV every 24 hours Continue remdesivir on doxycycline due to persistent cough Breathing treatments, budesonide, Mucinex, flutter valve, incentive spirometry Wean oxygen as tolerated (2) Acute hypoxemic respiratory failure: See above (3) CHF (congestive heart failure): Continue Lasix 40 IV once daily (4) Atrial fibrillation, persistent: Continue Xarelto, beta-rosetta (5) Asthma: - Continue DuoNeb -Continue steroids Qualifiers: Asthma severity: mild Asthma persistence: persistent Asthma complication type: uncomplicated Qualified Code(s): J45.30 - Mild persistent asthma, uncomplicated Plan Multiple other medical problems as outlined in his past medical history. Full code Xarelto will suffice for DVT prophylaxis Attestations 2 Medical Necessity Statement*: Patient requires hospitalization for COVID-19 pneumonia, fluid overload Diagnoses Pneumonia due to COVID-19 virus U07.1; J12.82 Acute hypoxemic respiratory failure J96.01 CHF (congestive heart failure) I50.9 Atrial fibrillation, persistent I48.19 Mild persistent asthma without complication J45.30 Asthma severity: mild Asthma persistence: persistent Asthma complication type: uncomplicated
[2024-06-01 17:10] LABS: Glucose Point of Care 264 mg/dL (70-110)
[2024-06-01] MEDS: remdesivir 100 MG in sodium chloride 0.9% (100 ml) 80 ML IV (17:40)
[2024-06-01] MEDS: rivaroxaban 10 mg Tablet 20 MG PO (17:41)
[2024-06-01] MEDS: atorvastatin 40 mg Tablet PO (20:02)
[2024-06-01 21:10] LABS: Glucose Point of Care 404 mg/dL (70-110)
[2024-06-02] VITALS (10 sets, daily range): BP systolic 112–152; BP diastolic 68–98; PULSE 81–93; RESP 15–20; TEMP 36.6–36.9; O2SAT 93–96
[2024-06-02] MEDS: ipratropium-albuterol 3 mL Neb INHALATION ×2 (02:36→08:50)
[2024-06-02 05:19] LABS: Basophils % 0.1 %; Eosinophils % 0.1 %; Hematocrit 46.2 % (37-53); Lymphocytes # 0.8 10^3/uL (0.8-4.8); Lymphocytes % 7.2 %; Mean Corpuscular HGB Conc 29.9 g/dL (30-55); Mean Corpuscular Hemoglobin 24.7 pg (27-33); Mean Corpuscular Volume 82.6 fl (82-101); Monocytes # 0.9 10^3/uL (0.2-0.9); Monocytes % 8.8 %; Neutrophils # 8.85 10^3/uL (1.8-7.7); Neutrophils % 83.2 %; Nucleated Red Blood Cells % 0 %; Platelet Count 300 10^3/cmm (157-399); Red Blood Count 5.59 10^6/uL (3.85-5.65); Red Cell Distribution Width 16.7 % (12.1-15.1); White Blood Count 10.64 10^3/uL (3.29-11.43)
[2024-06-02] MEDS: metoprolol succinate ER (24 HR) 100 mg Tablet PO (05:29)
[2024-06-02] MEDS: tamsulosin 0.4 mg Capsule PO (05:29)
[2024-06-02] MEDS: cetirizine 10 mg Tablet PO (05:29)
[2024-06-02] MEDS: venlafaxine ER (24HR) 75 mg Capsule PO (05:29)
[2024-06-02] MEDS: montelukast sodium 10 mg Tablet PO (05:29)
[2024-06-02 05:36] LABS: Alanine Aminotransferase 36 U/L (0-41); Albumin Level 3.3 g/dL (3.5-5.2); Alkaline Phosphatase 61 U/L (40-130); Anion Gap 10.6 (5-19); Aspartate Amino Transferase 24 U/L (0-40); Blood Urea Nitrogen 28 mg/dL (8-23); C Reactive Protein 9.5 mg/L (0.0-4.9); Calcium 8.9 mg/dL (8.5-10.5); Carbon Dioxide 31 mmol/L (22-29); Chloride 99 mmol/L (98-107); Creatinine Clr Calc Pharmacy 79.0238; Globulin 2.9 g/dL (1.3-4.6); Glucose 230 mg/dL (65-115); Osmolality Calculated 295 mOsm/kg (285-295); Phosphorus 3.3 mg/dL (2.5-4.5); Potassium 4.6 mmol/L (3.5-5.1); Sodium 136 mmol/L (136-145); Total Bilirubin 0.4 mg/dL (0.15-1.2); Total Protein 6.2 g/dL (6.6-8.7)
[2024-06-02 05:48] LABS: NT Pro B Type Natriuretic Pept 679 pg/mL (0-450); Procalcitonin 0.11 ng/mL (0-0.5)
[2024-06-02 06:27] LABS: Glucose Point of Care 251 mg/dL (70-110)
[2024-06-02] MEDS: guaiFENesin 600 mg Tablet 1200 MG PO (08:09)
[2024-06-02] MEDS: amiodarone 200 mg Tablet 400 MG PO (08:09)
[2024-06-02] MEDS: sennosides-docusate Tablet 1 TAB PO (08:09)
[2024-06-02] MEDS: sacubitril/valsartan 24-26 mg Tablet 1 EACH PO (08:10)
[2024-06-02] MEDS: FUROsemide 10 mg/mL SDV 4mL 40 MG IVP (08:10)
[2024-06-02] MEDS: pantoprazole DR 40 mg Tablet PO (08:10)
[2024-06-02] MEDS: polyethylene glycol 3350 Pkt 17 gm PO (08:10)
[2024-06-02] MEDS: doxycycline 100 mg Tablet PO (08:10)
[2024-06-02] MEDS: latanoprost 0.005% Op Soln 2.5 mL Btl 1 DROP OPHTHALMIC (08:13)
[2024-06-02] MEDS: brimonidine 0.2% Op Soln 5 mL Btl 1 DROP EYE-BOTH (08:13)
[2024-06-02] MEDS: budesonide 0.5 mg/2 mL Neb INHALATION (08:50)
[2024-06-02 11:18] LABS: Glucose Point of Care 198 mg/dL (70-110)
[2024-06-02] MEDS: insulin lispro 100 unit/1 mL SUBCUT (11:28)
--- NOTE | 2024-06-02 11:29 | P.DS_ITS ---
Discharge Providers Date of Admission: 05/28/24 13:39 Date of Discharge: June 02, 2024 Attending Provider at Admission: Bronson Alvarado MD Attending Provider at Discharge: Emmanuel Lieberman MD Primary Care Provider: Melodie Gilmore MD Diagnoses at Discharge Discharge Diagnosis (1) Pneumonia due to COVID-19 virus: Status: Acute (2) Acute hypoxemic respiratory failure: Status: Acute (3) CHF (congestive heart failure): Status: Acute (4) Atrial fibrillation, persistent: Status: Acute (5) Asthma: Status: Acute Qualifiers: Asthma severity: mild Asthma persistence: persistent Asthma complication type: uncomplicated Qualified Code(s): J45.30 - Mild persistent asthma, uncomplicated Reason for Visit Reason for Visit: SOB Hospital Course Hospital Course This is a 89-year-old male with a past medical history of CHF, atrial fibrillation, diabetes who presents to [facility] for shortness of breath Patient presented to [facility] for acute hypoxic respiratory failure secondary to pneumonia, COVID-19, received broad-spectrum antibiotic therapy, remdesivir, Decadron, for his CHF exacerbation required IV diuresis. Overall patient clinically improved, completed 5 days of remdesivir, will be discharged to [place]. CHF exacerbation overall clinically proved, euvolemic on discharge Continue Xarelto on discharge for history of atrial fibrillation Physical Exam Const: COMMON NORMALS: no acute distress and patient oriented x3 Resp: COMMON NORMALS: normal respiratory effort, No retractions, No use of accessory muscles and clear to auscultation bilaterally AUSCULTATION: clear to auscultation bilaterally Cardio: COMMON NORMALS: regular rate, regular rhythm, S1 normal heart sound present and S2 normal heart sound present RATE: regular rate RHYTHM: regular rhythm HEART SOUNDS: S1 normal heart sound present and S2 normal heart sound present GI: COMMON NORMALS: Normal to inspection, nondistended, normoactive bowel sounds present and non-tender Extremity: COMMON NORMALS: no pedal edema Neuro: COMMON NORMALS: patient oriented x3 Psych: COMMON NORMALS: mental status grossly normal Urinary Catheter Management: Jiang: Cath Placed During This Visit: yes Reason for Continuing Indwelling Catheter: Acute Urinary Retention or Obstruction Urinary Catheter Date of Insertion: 05/28/24 Urinary Catheter Time of Insertion: 16:20 Discharge Data Studies Completed and Pending Completed Studies During Hospitalization Category Date Time Status XR chest 1V portable [id number] Stat Exams 05/28/24 08:41 Completed Pending at discharge Category Date Time Status Blood Culture Stat Lab 05/28/24 11:31 Results Radiology Impressions Chest X-Ray 05/28/24 08:41 IMPRESSION: Bilateral lower lobe infiltrates likely product support representative of scarring/atelectasis (similar to prior comparison with perhaps mild improvement in aeration), however difficult to exclude superimposed infection/evolving pulmonary edema. Correlate clinically. Laboratory Results WBC 10.64 10^3/uL (3.29-11.43) 06/02/24 05:11 RBC 5.59 10^6/uL (3.85-5.65) 06/02/24 05:11 Hgb 13.80 g/dL (11.27-16.99) 06/02/24 05:11 Hct 46.2 % (37-53) 06/02/24 05:11 MCV 82.6 fl (82-101) 06/02/24 05:11 MCH 24.7 pg (27-33) L 06/02/24 05:11 MCHC 29.9 g/dL (30-55) L 06/02/24 05:11 RDW 16.7 % (12.1-15.1) H 06/02/24 05:11 Plt Count 300 10^3/cmm (157-399) 06/02/24 05:11 MPV 10.0 fL (7.4-10.4) 06/02/24 05:11 Neut % (Auto) 83.2 % 06/02/24 05:11 Lymph % (Auto) 7.2 % 06/02/24 05:11 [place] % (Auto) 8.8 % 06/02/24 05:11 Eos % (Auto) 0.1 % 06/02/24 05:11 Baso % (Auto) 0.1 % 06/02/24 05:11 Neut # (Auto) 8.85 10^3/uL (1.8-7.7) H 06/02/24 05:11 Lymph # (Auto) 0.8 10^3/uL (0.8-4.8) 06/02/24 05:11 [place] # (Auto) 0.9 10^3/uL (0.2-0.9) 06/02/24 05:11 Eos # (Auto) 0.0 10^3/uL (0.0-0.8) 06/02/24 05:11 Baso # (Auto) 0.0 10^3/uL (0.0-0.1) 06/02/24 05:11 Nucleated RBC % (auto) 0 % 06/02/24 05:11 Nucleated RBCs # 0.0 /100WBC 06/02/24 05:11 Sodium 136 mmol/L (136-145) 06/02/24 05:11 Potassium 4.6 mmol/L (3.5-5.1) 06/02/24 05:11 Chloride 99 mmol/L (98-107) 06/02/24 05:11 Carbon Dioxide 31 mmol/L (22-29) H 06/02/24 05:11 Anion Gap 10.6 (5-19) 06/02/24 05:11 BUN 28 mg/dL (8-23) H 06/02/24 05:11 Creatinine 0.8 mg/dL (0.7-1.2) 06/02/24 05:11 GFR Calculation Not Reportable 06/02/24 05:11 Glucose 230 mg/dL (65-115) H 06/02/24 05:11 POC Glucose 198 mg/dL (70-110) H 06/02/24 11:13 Calculated Osmolality 295 mOsm/kg (285-295) 06/02/24 05:11 Calcium 8.9 mg/dL (8.5-10.5) 06/02/24 05:11 Phosphorus 3.3 mg/dL (2.5-4.5) 06/02/24 05:11 Magnesium 2.0 mg/dL (1.7-2.3) 06/02/24 05:11 Total Bilirubin 0.4 mg/dL (0.15-1.2) 06/02/24 05:11 AST 24 U/L (0-40) 06/02/24 05:11 ALT 36 U/L (0-41) 06/02/24 05:11 Alkaline Phosphatase 61 U/L (40-130) 06/02/24 05:11 Troponin T Baseline 51 ng/L (0-15) H 05/28/24 09:08 Troponin T 120 Minute 54.64 ng/L (0-15) H 05/28/24 11:31 Delta Troponin T 3.64 ABS# (0-10) 05/28/24 11:31 Troponin T Hi Sens 6Hr 38.04 ng/L (0-15) H 05/28/24 16:56 Troponin T Hi Sens 6Hr Delta -12.96 ng/L (0-12) L 05/28/24 16:56 C-Reactive Protein 9.5 mg/L (0.0-4.9) H 06/02/24 05:11 NT-Pro-B Natriuret Pep 679 pg/mL (0-450) H 06/02/24 05:11 Total Protein 6.2 g/dL (6.6-8.7) L 06/02/24 05:11 Albumin 3.3 g/dL (3.5-5.2) L 06/02/24 05:11 Globulin 2.9 g/dL (1.3-4.6) 06/02/24 05:11 Procalcitonin 0.11 ng/mL (0-0.5) 06/02/24 05:11 Urine Color Yellow (Yellow) 05/28/24 09:02 Urine Appearance Clear (CLEAR) 05/28/24 09:02 Urine pH 7.0 (5-7) 05/28/24 09:02 Ur Specific [place] 1.019 (1.005-1.030) 05/28/24 09:02 Urine Protein 1+ (Negative) A 05/28/24 09:02 Urine Glucose (UA) 3+ (Normal) H 05/28/24 09:02 Urine Ketones Trace (Negative) 05/28/24 09:02 Urine Blood Negative (Negative) 05/28/24 09:02 Urine Nitrate Negative (Negative) 05/28/24 09:02 Urine Bilirubin Negative (Negative) 05/28/24 09:02 Urine Urobilinogen 0.2 mg/dL (Negative) 05/28/24 09:02 Ur Leukocyte Esterase Negative (Negative) 05/28/24 09:02 Urine RBC 0-2 /hpf (0-2) 05/28/24 09:02 Urine WBC 0-5 /hpf (0-5) 05/28/24 09:02 Ur Squamous Epith Cells 0-5 /hpf (0-5) 05/28/24 09:02 Amorphous Sediment Not Reportable 05/28/24 09:02 Urine Bacteria None seen /hpf (NONE) 05/28/24 09:02 Hyaline Casts 0-4 /lpf H 05/28/24 09:02 Coronavirus (PCR) Positive (Negative) A 05/28/24 09:03 Influenza A (PCR) Negative (Negative) 05/28/24 09:03 Influenza Type B (PCR) Negative (Negative) 05/28/24 09:03 RSV (PCR) Negative (Negative) 05/28/24 09:03 Vitals Last Vital Signs Temp 97.9 F 06/02/24 08:00 Pulse 85 06/02/24 09:01 Resp 18 06/02/24 09:01 BP 152/98 06/02/24 08:00 Pulse Ox 93 06/02/24 09:01 O2 Del Method Room Air 06/02/24 09:01 O2 Flow Rate 1 06/02/24 08:50 Discharge Plan Discharge Patient Disposition: Home Condition: Stable Prescriptions: New (DME) glucometer testing kit See Rx Instructions .Route .MEDSUPPLY Qty: 1 0RF Rx Instructions: lancets#100 strips#100 doxycycline monohydrate 100 mg Tablet 100 mg PO BID 5 Days Qty: 10 0RF insulin lispro [Humalog KwikPen Insulin] 100 unit/mL insulin pen See Rx Instructions .ROUTE .COMPLEX Qty: 15 0RF Rx Instructions: Inject, subcut, 3 times daily, after meals, based on sliding scale provided Continued metformin 500 mg tablet 500 mg PO QAM tamsulosin 0.4 mg capsule 0.4 mg PO QAM Xarelto 20 mg tablet 20 mg PO QPM Rx Instructions: must administer with evening meal omeprazole 20 mg tablet,delayed release (DR/EC) 20 mg PO BID latanoprost 0.005 % drops 1 drp ophthalmic (eye) DAILY fluticasone propionate [Flonase Allergy Relief] 50 mcg/actuation spray,suspension 2 spray intranasal QAM polyethylene glycol 3350 [Miralax] 17 gram/dose powder 17 g PO DAILY ascorbic acid (vitamin C) 1,000 mg tablet 500 mg PO QAM garlic 1,000 mg capsule 1,000 mg PO QAM multivitamin [One-A-Day Essential] Tablet 1 tab PO QAM albuterol sulfate 90 mcg/actuation HFA aerosol inhaler 2 puff inhalation Q6H PRN (Reason: shortness of breath or wheezing) Qty: 8.5 3RF budesonide-formoterol [Symbicort] 80-4.5 mcg/actuation HFA aerosol inhaler 2 puff inhalation BID Qty: 10.2 3RF dapagliflozin propanediol [Farxiga] 10 mg tablet 10 mg PO QAM cetirizine 10 mg Tablet 10 mg PO QAM atorvastatin 10 mg tablet 10 mg PO DAILY potassium chloride 8 mEq capsule, extended release 8 meq PO QAM montelukast [Singulair] 10 mg tablet 10 mg PO QAM furosemide 20 mg tablet 40 mg PO QAM metoprolol succinate 100 mg tablet extended release 24 hr 100 mg PO QAM venlafaxine 75 mg capsule,extended release 24hr 75 mg PO QAM cyanocobalamin (vitamin B-12) [Vitamin B-12] 1,000 mcg Tablet 1,000 mcg PO QAM acetaminophen 500 mg Tablet 500 - 1,000 mg PO Q6H PRN (Reason: Pain) brimonidine 0.2 % drops 1 drp ophthalmic (eye) BID Unisom (doxylamine) 25 mg Tablet 25 mg PO BEDTIME Reguloid (psyllium husk) 3 gram/5.4 gram Powder 1 tbsp PO QAM Rx Instructions: mix into at least 8 oz of water or juice before administering calc carb-mag ox-D3-zinc gluc 333 mg-133 mg- 1.67 mcg-5 mg Tablet 3 tab PO QAM Nasogel 0.9 % Gel See Rx Instructions .ROUTE .COMPLEX PRN (Reason: discomfort) Rx Instructions: APPLY AROUND NOSTRILS TO HELP RELIEVE DISCOMFORT NEEDED. sennosides-docusate sodium [Stool Softener-Laxative] 8.6-50 mg Tablet 1 tab PO BID Qty: 60 0RF Rx Instructions: Hold if having more than 1 BM per day sacubitril-valsartan [Entresto] 24-26 mg Tablet 1 tab PO BID Qty: 30 0RF amiodarone [Pacerone] 200 mg Tablet 400 mg PO DAILY Qty: 60 0RF Discharge Orders: Discharge Order (Routine); Ordered 06/02/24 Ordered By: Emmanuel Lieberman Referrals: Melodie Gilmore MD [Primary Care Provider] - Discharge Diet: Cardiac Discharge Activity: Resume usual activity Patient Instructions: Opioid Safety Activity Restrictions/Additional Instructions: -Please monitor your blood sugars closely -Monitor your blood sugars 3 times daily as after meals -Please record your blood sugars, and a blood sugar log -For your humaLog -Please inject blood sugar after meals based on sliding scale provided -Do not inject insulin if you do not eat as hypoglycemia kills -This is a humaLog sliding scale -Insulin sliding ?fingerstick? Insulin ?141-180?0 units/sq 181-220?2 units/sq ?221-260?4 units/sq ?261-300 6 units/sq ?301-350?8 units/sq ?351-400 10 units/sq ?401-450?12 units/sq >450? 14units/sq -If your blood sugar is greater than 500 go to the emergency room -If your blood sugar is less than 60 or at anytime you feel lightheaded or dizzy or diaphoretic or have chest palpitations check your blood sugar, and eat a hard candy or drink orange juice and go immediately to the emergency room -Remember hypoglycemia kills, so if his blood sugar is less than 60 we have to increase it by taking in a sugary meal such as a hard candy or orange juice and go to the emergency room -If you have any questions please call us where here to help Discharge Attestations Time Spent in Discharge Care*: greater than 30 min Quality Metrics Clinical Quality Measures [ No reported AMI, CVA or VTE this stay] Coding Level of Care Code 79530 Total time (in minutes) for Discharge: 45 Diagnoses Pneumonia due to COVID-19 virus U07.1; J12.82 Acute hypoxemic respiratory failure J96.01 CHF (congestive heart failure) I50.9 Atrial fibrillation, persistent I48.19 Mild persistent asthma without complication J45.30 Asthma severity: mild Asthma persistence: persistent Asthma complication type: uncomplicated
--- NOTE | 2024-06-02 12:39 | PC.NURSE ---
This nurse called and spoke with Elroy at [facility] and gave a brief report. This nurse informed Elroy that patient will be brought back by ambulance soon.
--- NOTE | 2024-06-02 12:40 | PC.NURSE ---
Jiang catheter and IV was removed. Discharge paperwork was discussed with patient and informed him that paperwork will be sent back over to the Assisted Living with him. All questions were answered.
--- NOTE | 2024-06-02 12:55 | PC.NURSE ---
Patient transferred to EMS stretcher with standby assist. Patient exited facility at 1250 via stretcher, escorted by EMS.
== END 2024-06-02 12:50 | disposition intermediate care facility (04) | DRG 177 ==
LOC: ER 11:37 → MEDSURG 13:39
PROVIDERS: Admitting Provider Internal Medicine; Emergency Provider Family Medicine; PCP Internal Medicine; Visit Provider Family Medicine
DX: U07.1 COVID-19 (principal); I50.23 Acute on chronic systolic (congestive) heart failure; J12.82 Pneumonia due to coronavirus disease 2019; J96.01 Acute respiratory failure with hypoxia; I48.19 Other persistent atrial fibrillation; I11.0 Hypertensive heart disease with heart failure; J45.30 Mild persistent asthma, uncomplicated; E11.9 Type 2 diabetes mellitus without complications; G47.33 Obstructive sleep apnea (adult) (pediatric); E78.5 Hyperlipidemia, unspecified; K21.9 Gastro-esophageal reflux disease without esophagitis; Z86.73 Personal history of transient ischemic attack (TIA), and cerebral infarction without residual deficits; Z79.84 Long term (current) use of oral hypoglycemic drugs
CPT/HCPCS: 36415; 36416; 51702; 71045; 80053; 81001; 82962; 83735; 83880; 84100; 84145; 84484; 85025; 86140; 87040; 87070; 87150; 87205; 87637; 93005; 94640; 96365; 96372; 99285; J0248; J0360; J1100; J1815; J1940; J7626

== ENCOUNTER 2024-06-03 05:43 | Inpatient (IN) | payer MEDICARE, OTHER, SELFPAY ==
[2024-06-03] VITALS (13 sets, daily range): BP systolic 112–153; BP diastolic 66–97; PULSE 80–101; RESP 16–24; TEMP 36.4–37.3; O2SAT 90–98; BMI 33.5
--- NOTE | 2024-06-03 05:46 | XRR_ITS ---
PROCEDURE INFORMATION: Exam: XR Chest Exam date and time: 06/03/2024 5:56 AM Age: 89 years old Clinical indication: Shortness of breath; Prior surgery; Surgery date: 6+ months; Surgery type: Node ablation; Patient HX: C/O SOB. Covid positive; Additional info: Covid, dyspnea TECHNIQUE: Imaging protocol: Radiologic exam of the chest. Views: 1 view. COMPARISON: CR XR chest 1V portable [id number] 05/28/2024 8:55 AM FINDINGS: Lungs: Bibasilar atelectasis or infiltrates persist, right greater than left, slightly changing appearance but probably relatively stable. Mild interstitial prominence. Pleural spaces: Unremarkable. No pleural effusion. No pneumothorax. Heart/Mediastinum: See Vasculature finding. Vasculature: Borderline cardiomegaly and uncoiling of the thoracic aorta. Bones/joints: Unremarkable. XR/XR chest 1V portable [id number] IMPRESSION: Relatively stable bibasilar opacities.
[2024-06-03 06:52] LABS: Basophils % 0.2 %; Eosinophils % 0.2 %; Hematocrit 47.2 % (37-53); Lymphocytes # 0.6 10^3/uL (0.8-4.8); Lymphocytes % 3.2 %; Mean Corpuscular HGB Conc 30.3 g/dL (30-55); Mean Corpuscular Hemoglobin 24.3 pg (27-33); Mean Corpuscular Volume 80.3 fl (82-101); Monocytes # 1.7 10^3/uL (0.2-0.9); Monocytes % 9.9 %; Neutrophils # 14.99 10^3/uL (1.8-7.7); Neutrophils % 85.6 %; Nucleated Red Blood Cells % 0 %; Platelet Count 287 10^3/cmm (157-399); Red Blood Count 5.88 10^6/uL (3.85-5.65); Red Cell Distribution Width 16.4 % (12.1-15.1); White Blood Count 17.49 10^3/uL (3.29-11.43)
--- NOTE | 2024-06-03 07:02 | ED_ITS ---
HPI - COVID 2 General: Chief Complaint: COVID symptoms Stated Complaint: SOB Time Seen by Provider: 06/03/24 06:12 History of Present Illness: 89-year-old male who resides at a [facility] presents emergency department along with his daughter and son-in-law. The patient has been extremely weak. He felt warm to the touch and they thought he had a fever overnight. Patient does have chronic hypoxic respiratory failure using 2 to 3 L of oxygen at all times. Patient was just discharged from the hospital yesterday. He tested positive for COVID on May 25. He was admitted to the hospital on the . He underwent antiviral and antibiotic therapy. At patient's baseline, he uses a wheelchair. He walks very little. Patient reports he is so weak he cannot even sit up without assistance today. Daughter states that he needed a little bit more oxygen than usual. They originally had him on 4 L of oxygen on arrival. He is currently on 3 L by nasal cannula during my history. Daughter also states that he has been a little bit delirious. Family states they got report from the assisted living that he has been urinating about every 5 minutes and they are worried he may have a UTI. He did have catheterization for part of the time while he was in the hospital. COVID 19 common symptoms: negative headache(s), throat pain or nausea COVID 19 other sytmptoms: negative chest pain COVID Results: 2 SARS-CoV-2 Antigen (Rapid) negative (Negative) 09/24/23 03:05 Nasal/Oral Coronavirus 2019 PCR Not detected 12/22/20 10:44 SARS-CoV-2 (PCR) Not detected (NOT DETECT) 09/24/23 12:37 Coronavirus Type 229E (PCR) Not detected (NOT DETECT) 09/24/23 12:37 Coronavirus (PCR) Positive (Negative) A 05/28/24 09:03 Related Data Home Medications Medication Instructions Recorded Confirmed ascorbic acid (vitamin C) 1,000 mg 500 mg PO QAM 12/11/20 05/28/24 tablet fluticasone propionate 50 2 spray intranasal QAM 12/11/20 05/28/24 mcg/actuation nasal spray,suspension (Flonase Allergy Relief) garlic 1,000 mg capsule 1,000 mg PO QAM 12/11/20 05/28/24 latanoprost 0.005 % eye drops 1 drp ophthalmic (eye) DAILY 12/11/20 05/28/24 multivitamin (One-A-Day Essential 1 tab PO QAM 12/11/20 05/28/24 tablet) omeprazole 20 mg tablet,delayed 20 mg PO BID 12/11/20 05/28/24 release polyethylene glycol 3350 17 17 g PO DAILY 12/11/20 05/28/24 gram/dose oral powder (Miralax) rivaroxaban 20 mg tablet (Xarelto) 20 mg PO QPM 12/11/20 05/28/24 tamsulosin 0.4 mg capsule 0.4 mg PO QAM 12/11/20 05/28/24 metformin 500 mg tablet 500 mg PO QAM 01/08/21 05/28/24 acetaminophen 500 mg tablet 500 - 1,000 mg PO Q6H PRN Pain 09/24/23 05/28/24 brimonidine 0.2 % eye drops 1 drp ophthalmic (eye) BID 09/24/23 05/28/24 calcium 333 mg-magnesium 133 mg-D3 3 tab PO QAM 09/24/23 05/28/24 1.67 mcg-zinc 5 mg tablet cyanocobalamin (vitamin B-12) 1,000 mcg PO QAM 09/24/23 05/28/24 1,000 mcg tablet (Vitamin B-12) doxylamine succinate 25 mg tablet 25 mg PO BEDTIME 09/24/23 05/28/24 (Unisom (doxylamine)) psyllium husk 3 gram/5.4 gram oral 1 tbsp PO QAM 09/24/23 05/28/24 powder (Reguloid (psyllium husk)) sod chloride-sod See Rx Instructions .Route 09/24/23 05/28/24 bicarb-hyaluronate sod-aloe 0.9 % .COMPLEX PRN discomfort nasal gel (Nasogel) venlafaxine 75 mg capsule,extended 75 mg PO QAM 09/24/23 05/28/24 release 24 hr dapagliflozin propanediol 10 mg 10 mg PO QAM 09/30/23 05/28/24 tablet (Farxiga) atorvastatin 10 mg tablet 10 mg PO DAILY 05/28/24 05/28/24 cetirizine 10 mg tablet 10 mg PO QAM 05/28/24 05/28/24 furosemide 20 mg tablet 40 mg PO QAM 05/28/24 05/28/24 metoprolol succinate 100 mg 100 mg PO QAM 05/28/24 05/28/24 tablet,extended release 24 hr montelukast 10 mg tablet 10 mg PO QAM 05/28/24 05/28/24 (Singulair) potassium chloride 8 mEq 8 meq PO QAM 05/28/24 05/28/24 capsule,extended release Previous Rx's Medication Instructions Recorded albuterol sulfate 90 mcg/actuation 2 puff inhalation Q6H PRN 12/11/20 aerosol inhaler shortness of breath or wheezing #8.5 grams budesonide-formoterol HFA 80 2 puff inhalation BID #10.2 grams 08/31/23 mcg-4.5 mcg/actuation aerosol inhaler (Symbicort) sennosides 8.6 mg-docusate sodium 1 tab PO BID #60 tabs 09/27/23 50 mg tablet (Stool Softener-Laxative) amiodarone 200 mg tablet (Pacerone) 400 mg (2 x 200 mg) PO DAILY #60 03/19/24 tabs sacubitril 24 mg-valsartan 26 mg 1 tab PO BID #30 tabs 03/19/24 tablet (Entresto) doxycycline monohydrate 100 mg 100 mg PO BID 5 days #10 tabs 06/02/24 tablet glucometer testing kit #1 ea 06/02/24 insulin lispro 100 unit/mL See Rx Instructions .Route 06/02/24 subcutaneous pen (Humalog KwikPen .COMPLEX #15 mL (U-100) Insulin) Allergies Allergy/AdvReac Type Severity Reaction Status Date / Time Sulfa (Sulfonamide Allergy Severe ALGY-Hives Verified 04/02/24 13:24 Antibiotics) bee venom protein (honey bee) Allergy swelling Verified 04/02/24 13:24 and hives Review of Systems 2 General: Reports: 10 or more systems reviewed and unremarkable except in HPI and below Eyes: Denies: change in vision ENMT: Denies: throat pain Card: Denies: chest pain or syncope GI: Denies: abdominal pain or nausea : Denies: flank pain or dysuria Musc: Denies: neck pain or back pain Skin/Breast: Denies: rash or erythema Neuro: Denies: headache(s), numbness in extremities, lack of coordination or difficulty walking PFSH ED 2 PFSH: Medical History CHF (congestive heart failure) Asthma Stroke GERD (gastroesophageal reflux disease) Cataract Hyperlipemia Glaucoma Afib HTN (hypertension) JENNIFER (obstructive sleep apnea) Asthma Surgical History History of thyroid surgery H/O hernia repair Hx of cataract surgery H/O cardiac radiofrequency ablation History of carpal tunnel surgery Family History Mother Congestive heart failure (CHF) Father Congestive heart failure (CHF) Social History Smoking and tobacco/nicotine status: never used tobacco/nicotine Second hand smoke exposure: No Alcohol intake: never Substance/Drug Use: never Lives independently: Yes Household members: spouse Marital status: Current occupational status: retired Previous occupational history: [employer] Do you think of yourself as: Straight/Heterosexual Current gender identity: Male Physical Exam 2 Narrative: EXAM NARRATIVE: This is an elderly appearing 89-year-old male. He is awake and alert. He answers all my questions normally and accurately. Patient does appear ill. His heart rate is elevated in the 90s. His radial pulses palpable. Abdomen is soft and nontender. He has mild JVD and mild ankle edema bilaterally. He has a coarse sounding cough and a few rales. Const: COMMON NORMALS: no limitations, alert and well nourished HENMT: COMMON NORMALS: normocephalic, atraumatic and external ears normal H EAD & SCALP: normocephalic and atraumatic EXTERNAL EAR: Yes external ears normal MOUTH: no muffled voice Eye: COMMON NORMALS: EOMs intact bilaterally, conjunctivae normal and no scleral icterus CONJUNCTIVA: Yes conjunctivae normal Neck/C-Spine: GENERAL: Yes normal visual inspection and Yes trachea midline GI: COMMON NORMALS: Soft to palpation and non-tender PALPATION: Yes Soft to palpation and No Guarding due to palpation present (GI) Neuro: COMMON NORMALS: moves all extremities, no focal motor deficits and no sensory deficits noted SENSORIUM/ORIENTATION: Yes alert SPEECH: speech normal Psych: COMMON NORMALS: Normal thought process present, cooperative, normal affect and speech normal SPEECH: Yes normal speech THOUGHT PROCESS: Normal thought process present Skin: COMMON NORMALS: turgor normal and no jaundice GENERAL SKIN EXAM: t urgor normal Course 2 Vital Signs: Vital signs: Vital Signs Temperature 99.1 F 06/03/24 05:44 Pulse Rate 99 06/03/24 07:30 Respiratory Rate 22 H 06/03/24 07:30 Blood Pressure 117/66 06/03/24 07:30 Pulse Oximetry 97 06/03/24 07:30 Oxygen Delivery Me thod Nasal Cannula 06/03/24 07:30 Oxygen Flow Rate 3 06/03/24 07:30 MDM - COVID Medical Decision Making Differential diagnosis would include progression of pneumonia, worsening hypoxic respiratory failure, urinary tract infection, sepsis, deconditioning, electrolyte abnormality, acid-base disturbance, renal failure, other. Chest x-ray EP interpretation: Bibasilar opacities are similar to previous; I would not say they are improved. White blood cell count came back elevated at 17.5 with 85.6% neutrophils. CRP is trending up to 42. Procalcitonin was within normal range. UA has been received but not processed. BUN is elevated to 32 and the creatinine is 0.9. BUN to creatinine ratio greater than 20. This may reflect intravascular dehydration. Lactic acid is 1.1. Blood glucose elevated without signs of DKA. I am going to put the patient on Rocephin and doxycycline which should cover his lungs and any potential UTI (UA still pending). EKG obtained at 7:25 AM shows a atrial fibrillation, normal axis, ventricular rate of 97, PVCs, no obvious ischemic changes. There is a right bundle branch block morphology with QRS duration 119 ms. Patient will need to be admitted to the hospital as he is not appropriate for assisted living at this time and requires further inpatient treatment. Lab Data 06/03/24 06:46 06/03/24 06:46 Radiology Impressions Chest X-Ray 06/03/24 05:46 IMPRESSION: Relatively stable bibasilar opacities. Laboratory Results WBC 17.49 10^3/uL (3.29-11.43) H 06/03/24 06:46 RBC 5.88 10^6/uL (3.85-5.65) H 06/03/24 06:46 Hgb 14.30 g/dL (11.27-16.99) 06/03/24 06:46 Hct 47.2 % (37-53) 06/03/24 06:46 MCV 80.3 fl (82-101) L 06/03/24 06:46 MCH 24.3 pg (27-33) L 06/03/24 06:46 MCHC 30.3 g/dL (30-55) 06/03/24 06:46 RDW 16.4 % (12.1-15.1) H 06/03/24 06:46 Plt Count 287 10^3/cmm (157-399) 06/03/24 06:46 MPV 10.0 fL (7.4-10.4) 06/03/24 06:46 Neut % (Auto) 85.6 % 06/03/24 06:46 Lymph % (Auto) 3.2 % 06/03/24 06:46 [place] % (Auto) 9.9 % 06/03/24 06:46 Eos % (Auto) 0.2 % 06/03/24 06:46 Baso % (Auto) 0.2 % 06/03/24 06:46 Neut # (Auto) 14.99 10^3/uL (1.8-7.7) H 06/03/24 06:46 Lymph # (Auto) 0.6 10^3/uL (0.8-4.8) L 06/03/24 06:46 [place] # (Auto) 1.7 10^3/uL (0.2-0.9) H 06/03/24 06:46 Eos # (Auto) 0.0 10^3/uL (0.0-0.8) 06/03/24 06:46 Baso # (Auto) 0.0 10^3/uL (0.0-0.1) 06/03/24 06:46 Nucleated RBC % (auto) 0 % 06/03/24 06:46 Nucleated RBCs # 0.0 /100WBC 06/03/24 06:46 Sodium 135 mmol/L (136-145) L 06/03/24 06:46 Potassium 4.2 mmol/L (3.5-5.1) 06/03/24 06:46 Chloride 96 mmol/L (98-107) L 06/03/24 06:46 Carbon Dioxide 28 mmol/L (22-29) 06/03/24 06:46 Anion Gap 15.2 (5-19) 06/03/24 06:46 BUN 32 mg/dL (8-23) H 06/03/24 06:46 Creatinine 0.9 mg/dL (0.7-1.2) 06/03/24 06:46 GFR Calculation Not Reportable 06/03/24 06:46 Glucose 220 mg/dL (65-115) H 06/03/24 06:46 Calculated Osmolality 294 mOsm/kg (285-295) 06/03/24 06:46 Lactic Acid 1.1 mmol/L (0.5-2.2) 06/03/24 06:46 Calcium 8.8 mg/dL (8.5-10.5) 06/03/24 06:46 Total Bilirubin 0.8 mg/dL (0.15-1.2) 06/03/24 06:46 AST 28 U/L (0-40) 06/03/24 06:46 ALT 44 U/L (0-41) H 06/03/24 06:46 Alkaline Phosphatase 76 U/L (40-130) 06/03/24 06:46 Troponin T Baseline 33 ng/L (0-15) H 06/03/24 06:46 C-Reactive Protein 42.3 mg/L (0.0-4.9) H 06/03/24 06:46 NT-Pro-B Natriuret Pep 598 pg/mL (0-450) H 06/03/24 06:46 Total Protein 6.3 g/dL (6.6-8.7) L 06/03/24 06:46 Albumin 3.2 g/dL (3.5-5.2) L 06/03/24 06:46 Globulin 3.1 g/dL (1.3-4.6) 06/03/24 06:46 Procalcitonin 0.09 ng/mL (0-0.5) 06/03/24 06:46 Urine Color Yellow (Yellow) 06/03/24 07:15 Urine Appearance Clear (CLEAR) 06/03/24 07:15 Urine pH 5.5 (5-7) 06/03/24 07:15 Ur Specific [place] 1.034 (1.005-1.030) H 06/03/24 07:15 Urine Protein 1+ (Negative) A 06/03/24 07:15 Urine Glucose (UA) 3+ (Normal) H 06/03/24 07:15 Urine Ketones Trace (Negative) 06/03/24 07:15 Urine Blood 2+ (Negative) A 06/03/24 07:15 Urine Nitrate Negative (Negative) 06/03/24 07:15 Urine Bilirubin Negative (Negative) 06/03/24 07:15 Urine Urobilinogen 1.0 mg/dL (Negative) 06/03/24 07:15 Ur Leukocyte Esterase Negative (Negative) 06/03/24 07:15 Urine RBC >100 /hpf (0-2) H 06/03/24 07:15 Urine WBC 0-5 /hpf (0-5) 06/03/24 07:15 Ur Squamous Epith Cells 0-5 /hpf (0-5) 06/03/24 07:15 Amorphous Sediment Not Reportable 06/03/24 07:15 Urine Bacteria None seen /hpf (NONE) 06/03/24 07:15 Hyaline Casts 0-4 /lpf H 06/03/24 07:15 Urine Yeast 3+ /hpf H 06/03/24 07:15 2 SARS-CoV-2 Antigen (Rapid) negative (Negative) 09/24/23 03:05 Nasal/Oral Coronavirus 2019 PCR Not detected 12/22/20 10:44 SARS-CoV-2 (PCR) Not detected (NOT DETECT) 09/24/23 12:37 Coronavirus Type 229E (PCR) Not detected (NOT DETECT) 09/24/23 12:37 Coronavirus (PCR) Positive (Negative) A 05/28/24 09:03 XR interpretation done by ED provider, pending radiology final review Discharge Plan Discharge Patient Disposition: Admitted As Inpatient Clinical Impression: Generalized weakness, Pneumonia due to 2019 novel coronavirus, Neutrophilic leukocytosis, CRP elevated, Urinary frequency, Afib Condition: Stable Coding Level of Care Code ED Broadcast Operations Technician for Arlette Whipple
[2024-06-03 07:08] LABS: Lactic Sepsis W/Reflex 1.1 mmol/L (0.5-2.2)
[2024-06-03 07:17] LABS: NT Pro B Type Natriuretic Pept 598 pg/mL (0-450); Procalcitonin 0.09 ng/mL (0-0.5)
--- NOTE | 2024-06-03 07:25 | ECG_ITS ---
[employer] Test Date: 2024-06-03 Pat Name: Haris Sol Department: Room: Gender: Male Leader Tier: : 1935 Requested By: Hima Taylor Order Number: [id number] Yolanda MD: Shailesh Cabrera M.D. Measurements Intervals [place] Rate: 97 P: 0 MD: 0 QRS: 98 QRSD: 119 T: 18 QT: 384 QTc: 489 Interpretive Statements ATRIAL FIBRILLATION WITH ABERRANT CONDUCTION OR VENTRICULAR PREMATURE COMPLEXES BORDERLINE RIGHT AXIS DEVIATION [QRS AXIS > 90] INCOMPLETE RIGHT BUNDLE BRANCH BLOCK [90+ ms QRS DURATION, TERMINAL R IN V1/V2, 40+ ms S IN I/aVL/V4/V5/V6] POSSIBLE ANTERIOR MYOCARDIAL INFARCTION , OF INDETERMINATE AGE [30 ms Q WAVE IN V3/V4, OR R < 0.2 mV IN V4] Compared to ECG 05/28/2024 15:37:07 Ventricular premature complex(es) now present Aberrant conduction of supraventricular beat(s) now present Incomplete right bundle-branch block now present Atrial flutter no longer present Myocardial infarct finding still present Electronically Signed On 06-03-2024 20:12:07 DISTRICT OR DISTRICT OFFICE DIRECTOR by Shailesh Cabrera M.D. [id number]
[2024-06-03 07:29] LABS: Alanine Aminotransferase 44 U/L (0-41); Albumin Level 3.2 g/dL (3.5-5.2); Alkaline Phosphatase 76 U/L (40-130); Anion Gap 15.2 (5-19); Aspartate Amino Transferase 28 U/L (0-40); Blood Urea Nitrogen 32 mg/dL (8-23); C Reactive Protein 42.3 mg/L (0.0-4.9); Calcium 8.8 mg/dL (8.5-10.5); Carbon Dioxide 28 mmol/L (22-29); Chloride 96 mmol/L (98-107); Creatinine Clr Calc Pharmacy 71.1989; Globulin 3.1 g/dL (1.3-4.6); Glucose 220 mg/dL (65-115); Osmolality Calculated 294 mOsm/kg (285-295); Potassium 4.2 mmol/L (3.5-5.1); Sodium 135 mmol/L (136-145); Total Bilirubin 0.8 mg/dL (0.15-1.2); Total Protein 6.3 g/dL (6.6-8.7)
[2024-06-03 08:13] LABS: Bilirubin Urine Negative (Negative); Blood Urine 2+ (Negative); Glucose Urine UA 3+ (Normal); Ketones Urine Trace (Negative); Leukocyte Esterase Urine Negative (Negative); Nitrate Urine Negative (Negative); Protein Urine 1+ (Negative); Urine Appearance Clear (CLEAR); Urine Color Yellow (Yellow); pH Urine 5.5 (5-7)
[2024-06-03 08:16] LABS: Add Urine Microscopic? YES; Bacteria Urine None Seen /hpf; Hyaline Casts Urine 0-4 /lpf; RBC Urine >100 /hpf (0-2); Squamous Epithelial Cell Urine 0-5 /hpf (0-5); WBC Urine 0-5 /hpf (0-5)
[2024-06-03 08:26] LABS: Specific Gravity, Urine 1.034 (1.005-1.030)
[2024-06-03 08:27] LABS: Add Urine Culture? Yes; UA Slide Review UA Slide Review Perf
--- NOTE | 2024-06-03 08:28 | CTR_ITS ---
PROCEDURE INFORMATION: Exam: CTA Chest With Contrast Exam date and time: 06/03/2024 9:00 AM Age: 89 years old Clinical indication: Shortness of breath; Additional info: Shortness of breath, weakness TECHNIQUE: Imaging protocol: Computed tomographic angiography of the chest with contrast. Exam focused on the arteries. 3D rendering (Not supervised by radiologist): MIP and/or 3D reconstructed images were created by the technologist. Radiation optimization: All CT scans at this facility use at least one of these dose optimization techniques: automated exposure control; mA and/or kV adjustment per patient size (includes targeted exams where dose is matched to clinical indication); or iterative reconstruction. Contrast material: OMNIPAQUE 350; Contrast volume: 95 ml; Contrast route: INTRAVENOUS (IV); COMPARISON: CT chest [facility] [id number] 09/24/2023 11:14 AM RADIATION DOSE METRICS: Total DLP (mGy-cm): 474.17 FINDINGS: Pulmonary arteries: No pulmonary embolus is visible. Aorta: Unremarkable. No aortic aneurysm. No aortic dissection. Lungs: Increasing opacity, somewhat rounded in configuration, at the right lung base probably represents increasing atelectasis. Mild atelectatic changes in the right lower lobe. No mediastinal or perihilar mass or adenopathy. Mild hypoventilatory changes in the left lower lobe. Pleural spaces: Unremarkable. No pneumothorax. No pleural effusion. Heart: Unremarkable. No cardiomegaly. No pericardial effusion. Coronary arteries: Coronary artery calcifications. Lymph nodes: Visible central lymph nodes are not pathologically enlarged. Calcified central lymph nodes. Gallbladder and biliary ducts: Cholelithiasis, incompletely imaged. Bones/joints: Unremarkable. No acute fracture. Soft tissues: Unremarkable. CT/CT angio chest PE protcl [id number] IMPRESSION: Progressive opacity in the right lower lobe somewhat masslike. This is probably atelectatic. A follow-up chest CT in 3 months is recommended however.
[2024-06-03] MEDS: cefTRIAXone 2,000 mg SDV 2000 MG IVP (08:43)
[2024-06-03] MEDS: doxycycline 100 MG in sodium chloride 0.9% (plus) 100 ML IV (08:44)
[2024-06-03 08:52] LABS: Troponin(5th) Baseline 33 ng/L (0-15)
--- NOTE | 2024-06-03 08:58 | PC.PHAR ---
called twice for current med list from [facility], will update list GUERRERO when it gets received
[2024-06-03 09:00] LABS: Troponin 5 2HR 29.98 ng/L (0-15); Troponin 5 2HR Delta -3.02 ABS# (0-10)
[2024-06-03] MEDS: iohexol 350 mg/mL 500 mL Btl (per mL) IV (09:10)
[2024-06-03] MEDS: piperacillin-tazobactam 3.375 GM in sodium chloride 0.9% (plus) 50 ML IV ×2 (09:57→17:43)
[2024-06-03] MEDS: pantoprazole 40 mg SDV IVP (09:57)
[2024-06-03 10:24] LABS: ABG PCO2 46.8 mmHg (35-45); ABG PH Result 7.43 (7.35-7.45); Arterial Blood Gas Hematocrit 43.1 % (42-52); Base Excess ABG 5.8 mmol/L (-2.0-2.0); Blood Gas Allen Test Pos; Blood Gas Operator Identificat CAK; Blood Gas Sample Site Radial, left; Blood Gas Sample Type Arterial; HCO3 ABG 31.2 mmol/L (22-26); Oxygen Device ROOM AIR; PO2 ABG 63.2 mmHg (80.0-100.0); PO2 FiO2 Ratio Arterial Blood 300
--- NOTE | 2024-06-03 10:30 | ECG_ITS ---
[facility] Pat Name: Haris Sol Department: Room: 258 Gender: Male Telegraph Mechanic: : [id number] Requested By: Emmanuel Lieberman Order Number: [id number] Yolanda MD: Shailesh Cabrera M.D. Measurements Intervals [place] Rate: 92 P: 0 [place]: 0 QRS: 21 QRSD: 102 T: 41 QT: 328 QTc: 406 Interpretive Statements ATRIAL FIBRILLATION WITH ABERRANT CONDUCTION OR VENTRICULAR PREMATURE COMPLEXES LOW QRS VOLTAGE IN EXTREMITY LEADS [QRS DEFLECTION < 0.5 mV IN LIMB LEADS] POSSIBLE ANTERIOR MYOCARDIAL INFARCTION , PROBABLY OLD [30 ms Q WAVE IN V3/V4, OR R < 0.2 mV IN V4] Compared to ECG 06/03/2024 07:25:11 Low QRS voltage now present Incomplete right bundle-branch block no longer present Myocardial infarct finding still present Electronically Signed On 06-03-2024 20:11:40 MERGERS AND ACQUISITIONS ASSOCIATE by Shailesh Cabrera M.D. [id number]
[2024-06-03 10:31] LABS: Lactic Sepsis W/Reflex 0.9 mmol/L (0.5-2.2)
[2024-06-03] MEDS: vancomycin 1,500 MG/300 ML PIGGYBACK 200 MG IV ×2 (10:39→14:58)
--- NOTE | 2024-06-03 11:04 | USR_ITS ---
PROCEDURE INFORMATION: Exam: US Retroperitoneal, Complete, Kidneys and Bladder Exam date and time: 06/03/2024 5:03 PM Age: 89 years old Clinical indication: Condition or disease; Other: Hematuria TECHNIQUE: Imaging protocol: Real-time ultrasound of the retroperitoneum with image documentation. Complete exam focused on the bilateral kidneys and urinary bladder. COMPARISON: US abdomen limited [id number] 01/23/2020 1:07 PM FINDINGS: Right kidney: No right-sided hydronephrosis. Left kidney: 2.6 x 2.5 x 3.4 cm cyst in the inferior pole of the left kidney. No left-sided hydronephrosis. Urinary bladder: Urinary bladder is unable to be visualized due to decompression around a Jiang catheter. Other findings: No echogenic foci can be seen at this time to suggest nephrolithiasis. No renal contour deforming mass. US/US renal BI* [id number] IMPRESSION: No hydronephrosis.
[2024-06-03] MEDS: amiodarone 200 mg Tablet 400 MG PO (11:57)
[2024-06-03] MEDS: ipratropium-albuterol 3 mL Neb INHALATION ×3 (11:58→20:56)
--- NOTE | 2024-06-03 12:06 | P.HP_ITS ---
Providers/Chief Complaint 2 Admitting Physician: Emmanuel Lieberman MD Primary Care Provider: Melodie Gilmore MD Chief Complaint: SOB History of Present Illness Haris Sol is a 89 year old male with a past medical history atrial fibrillation on also, CHF, recent hospitalization for COVID-19, respiratory failure, who presents to [facility] due to fatigue, malaise, decreased mobility, increased confusion, low-grade fevers, cough, shortness of breath. Currently patient is alert oriented x 3, following all commands, reports that since getting back to [place] [facility] from the hospital he has had fatigue, weakness, has had a cough, felt short of breath, has felt feverish. Review of Systems 2 Const: Reports: fever(s), chills, fatigue and malaise Card: Denies: chest pain Resp: Reports: dyspnea and non-productive cough Medications/Allergies Home Medications Medication Instructions Recorded Confirmed Last Taken Type albuterol sulfate 90 mcg/actuation 2 puff inhalation Q6H PRN 12/11/20 06/03/24 Unknown Rx aerosol inhaler shortness of breath or wheezing #8.5 grams ascorbic acid (vitamin C) 1,000 mg 500 mg PO QAM 12/11/20 06/03/24 05/27/24 History tablet fluticasone propionate 50 2 spray intranasal QAM 12/11/20 06/03/24 05/27/24 History mcg/actuation nasal spray,suspension (Flonase Allergy Relief) garlic 1,000 mg capsule 1,000 mg PO QAM 12/11/20 06/03/24 05/27/24 History latanoprost 0.005 % eye drops 1 drp ophthalmic (eye) DAILY 12/11/20 06/03/24 05/27/24 History multivitamin (One-A-Day Essential 1 tab PO QAM 12/11/20 06/03/24 05/27/24 History tablet) omeprazole 20 mg tablet,delayed 20 mg PO BID 12/11/20 06/03/24 05/27/24 History release polyethylene glycol 3350 17 17 g PO DAILY 12/11/20 06/03/24 05/27/24 History gram/dose oral powder (Miralax) rivaroxaban 20 mg tablet (Xarelto) 20 mg PO QPM 12/11/20 06/03/2405/27/24 History tamsulosin 0.4 mg capsule 0.4 mg PO QAM 12/11/20 06/03/24 05/27/24 History metformin 500 mg tablet 500 mg PO QAM 01/08/21 06/03/24 05/27/24 History budesonide-formoterol HFA 80 2 puff inhalation BID #10.2 grams 08/31/23 06/03/24 05/27/24 Rx mcg-4.5 mcg/actuation aerosol inhaler (Symbicort) acetaminophen 500 mg tablet 500 - 1,000 mg PO Q6H PRN Pain 09/24/23 06/03/24 Unknown History brimonidine 0.2 % eye drops 1 drp ophthalmic (eye) BID 09/24/23 06/03/24 05/27/24 History calcium 333 mg-magnesium 133 mg-D3 3 tab PO QAM 09/24/23 06/03/24 05/27/24 History 1.67 mcg-zinc 5 mg tablet cyanocobalamin (vitamin B-12) 1,000 mcg PO QAM 09/24/23 06/03/24 05/27/24 History 1,000 mcg tablet (Vitamin B-12) doxylamine succinate 25 mg tablet 25 mg PO BEDTIME 09/24/23 06/03/24 05/27/24 History (Unisom (doxylamine)) psyllium husk 3 gram/5.4 gram oral 1 tbsp PO QAM 09/24/23 06/03/24 05/27/24 History powder (Reguloid (psyllium husk)) sod chloride-sod See Rx Instructions .Route 09/24/23 06/03/24 03/15/24 History bicarb-hyaluronate sod-aloe 0.9 % .COMPLEX PRN discomfort nasal gel (Nasogel) venlafaxine 75 mg capsule,extended 75 mg PO QAM 09/24/23 06/03/24 05/27/24 History release 24 hr sennosides 8.6 mg-docusate sodium 1 tab PO BID #60 tabs 09/27/23 06/03/24 05/27/24 Rx 50 mg tablet (Stool Softener-Laxative) dapagliflozin propanediol 10 mg 10 mg PO QAM 09/30/23 06/03/24 05/27/24 History tablet (Farxiga) amiodarone 200 mg tablet (Pacerone) 400 mg (2 x 200 mg) PO DAILY #60 03/19/24 06/03/24 05/27/24 Rx tabs sacubitril 24 mg-valsartan 26 mg 1 tab PO BID #30 tabs 03/19/24 06/03/24 05/27/24 Rx tablet (Entresto) atorvastatin 10 mg tablet 10 mg PO DAILY 05/28/24 06/03/24 05/27/24 History cetirizine 10 mg tablet 10 mg PO QAM 05/28/24 06/03/24 05/27/24 History furosemide 20 mg tablet 40 mg PO QAM 05/28/24 06/03/24 05/27/24 History metoprolol succinate 100 mg 100 mg PO QAM 05/28/24 06/03/24 05/27/24 History tablet,extended release 24 hr montelukast 10 mg tablet 10 mg PO QAM 05/28/24 06/03/24 05/27/24 History (Singulair) potassium chloride 8 mEq 8 meq PO QAM 05/28/24 06/03/24 05/27/24 History capsule,extended release doxycycline monohydrate 100 mg 100 mg PO BID 5 days #10 tabs 06/02/24 06/03/24 Unknown Rx tablet glucometer testing kit #1 ea 06/02/24 06/03/24 Unknown Rx insulin lispro 100 unit/mL See Rx Instructions .Route 06/02/24 06/03/24 Unknown Rx subcutaneous pen (Humalog KwikPen .COMPLEX #15 mL (U-100) Insulin) Allergies Allergy/AdvReac Type Severity Reaction Status Date / Time Sulfa (Sulfonamide Allergy Severe ALGY-Hives Verified 04/02/24 13:24 Antibiotics) bee venom protein (honey bee) Allergy swelling Verified 04/02/24 13:24 and hives PFSH Acute 2 PFSH: Medical History CHF (congestive heart failure) Asthma Stroke GERD (gastroesophageal reflux disease) Cataract Hyperlipemia Glaucoma Afib HTN (hypertension) JENNIFER (obstructive sleep apnea) Asthma Surgical History History of thyroid surgery H/O hernia repair Hx of cataract surgery H/O cardiac radiofrequency ablation History of carpal tunnel surgery Family History Mother Congestive heart failure (CHF) Father Congestive heart failure (CHF) Social History Smoking and tobacco/nicotine status: never used tobacco/nicotine Second hand smoke exposure: No Alcohol intake: never Substance/Drug Use: never Lives independently: Yes Household members: spouse Marital status: Current occupational status: retired Previous occupational history: [employer] Do you think of yourself as: Straight/Heterosexual Current gender identity: Male Vitals/I&O/Wt Last Vital Signs Temp 99.1 F 06/03/24 05:44 Pulse 80 06/03/24 12:01 Resp 16 06/03/24 11:59 BP 128/93 06/03/24 10:30 Pulse Ox 94 06/03/24 11:59 O2 Del Method Room Air 06/03/24 11:59 O2 Flow Rate 3 06/03/24 08:30 06/02/24 06/03/24 06/03/24 22:59 06:59 14:59 Intake Total 100 / 100 Balance 100 / 100 Weight last 48 hrs Weight 108.862 kg Physical Exam 2 Const: COMMON NORMALS: no acute distress and patient oriented x3 GENERAL APPEARANCE: ill appearing and frail appearing Eye: COMMON NORMALS: Equal, round and reactive pupils present Resp: COMMON NORMALS: normal respiratory effort, No retractions and No use of accessory muscles AUSCULTATION: crackles and wheezes Cardio: COMMON NORMALS: regular rate, regular rhythm, S1 normal heart sound present and S2 normal heart sound present RATE: regular rate RHYTHM: r egular rhythm HEART SOUNDS: S1 normal heart sound present and S2 normal heart sound present GI: COMMON NORMALS: Normal to inspection, nondistended, normoactive bowel sounds present, Soft to palpation and non-tender Extremity: COMMON NORMALS: no pedal edema Neuro: COMMON NORMALS: patient oriented x3 Psych: COMMON NORMALS: mental status grossly normal Urinary Catheter Management: Jiang: Cath Placed During This Visit: yes Reason for Continuing Indwelling Catheter: Other Urinary Catheter Date of Insertion: 06/03/24 Urinary Catheter Time of Insertion: 07:18 Data 06/03/24 06:46 06/03/24 06:46 Micro: Microbiology 06/03/24 07:37 Blood Culture - Preliminary Blood SPECIMEN COLLECTED 06/03/24 06:40 Blood Culture - Preliminary Blood SPECIMEN COLLECTED A&P Assessment and plan (1) Nonischemic congestive cardiomyopathy: (2) HTN (hypertension): Qualifiers: Hypertension type: primary hypertension Qualified Code(s): I10 - Essential (primary) hypertension (3) Afib: (4) Generalized weakness: (5) JENNIFER (obstructive sleep apnea): (6) Acute hypoxic respiratory failure: (7) Healthcare-associated pneumonia: (8) Sepsis: Qualifiers: Acute respiratory failure type: with hypoxia Sepsis type: sepsis due to unspecified organism Severe sepsis shock status: without septic shock Plan Acute hypoxic respiratory failure ? Fevers, chills, fatigue, malaise, cough, shortness of breath -Concerns for healthcare associated pneumonia ? With recent hospitalization for COVID-19 pneumonia ? Plan ? CT angiogram the chest ? Sputum cultures ? Blood cultures -Will treat for healthcare associated pneumonia vancomycin, Zosyn ? DuoNeb ?budesonide ? Troponin series, BNP, telemetry monitoring -Will hold off on Lasix for today ? Continue Xarelto for DVT prophylaxis -DNR/DNI, confirmed with patient multiple times -Concern for UTI, await UA, urine culture, renal ultrasound -Sepsis secondary to healthcare associate pneumonia, given tachycardia, subjective fevers, chills elevated CRP elevated white blood cell count Attestations 2 Medical Necessity Statement*: Patient requires hospitalization, inpatient, greater than 2 midnights for acute hypoxic respiratory failure secondary to healthcare associated pneumonia Diagnoses Nonischemic congestive cardiomyopathy I42.0 Primary hypertension I10 Hypertension type: primary hypertension Afib I48.91 Generalized weakness R53.1 JENNIFER (obstructive sleep apnea) G47.33 Acute hypoxic respiratory failure J96.01 Healthcare-associated pneumonia J18.9 Sepsis A41.9 Acute respiratory failure type: with hypoxia Sepsis type: sepsis due to unspecified organism Severe sepsis shock status: without septic shock
[2024-06-03 12:52] LABS: Troponin 5 6HR 35.26 ng/L (0-15); Troponin 5 6HR Delta 2.26 ng/L (0-12)
--- NOTE | 2024-06-03 13:25 | PHA.VACGOAL ---
Vancomycin Goal - Goal Vancomycin Goal:: 15-20 mg/L Vancomycin Indication:: Pneumonia (SEPSIS) - Therapy Current therapy:: Pip/Tazo Day of therpy:: Day [1]of [] . Actual body weight (kg): 108.862 kg - Data Labs: WBC 17.49 10^3/uL (3.29-11.43) H 06/03/24 06:46 RBC 5.88 10^6/uL (3.85-5.65) H 06/03/24 06:46 Hgb 14.30 g/dL (11.27-16.99) 06/03/24 06:46 Hct 47.2 % (37-53) 06/03/24 06:46 MCV 80.3 fl (82-101) L 06/03/24 06:46 MCH 24.3 pg (27-33) L 06/03/24 06:46 MCHC 30.3 g/dL (30-55) 06/03/24 06:46 RDW 16.4 % (12.1-15.1) H 06/03/24 06:46 Sodium 135 mmol/L (136-145) L 06/03/24 06:46 Potassium 4.2 mmol/L (3.5-5.1) 06/03/24 06:46 Chloride 96 mmol/L (98-107) L 06/03/24 06:46 Carbon Dioxide 28 mmol/L (22-29) 06/03/24 06:46 Anion Gap 15.2 (5-19) 06/03/24 06:46 BUN 32 mg/dL (8-23) H 06/03/24 06:46 Creatinine 0.9 mg/dL (0.7-1.2) 06/03/24 06:46 GFR Calculation Not Reportable 06/03/24 06:46 Treatment plan:: new consult Regimen:: New start Vancomycin for Pneumonia/Sepsis. No prior Vancomycin history found. 3000 mg load dose. Started on maintenance dose of 1250 mg q12h based on population based Pharmacokinetic Nomogram. Vancomycin trough with be acquired before 4th maintenance dose or sooner if clinically indicated
[2024-06-03 17:11] LABS: Glucose Point of Care 448 mg/dL (70-110)
[2024-06-03] MEDS: insulin lispro 100 unit/1 mL SUBCUT (17:42)
[2024-06-03] MEDS: rivaroxaban 10 mg Tablet 20 MG PO (17:43)
[2024-06-03] MEDS: sacubitril/valsartan 24-26 mg Tablet 1 EACH PO (17:44)
[2024-06-03 21:01] LABS: Glucose Point of Care 150 mg/dL (70-110)
[2024-06-04] VITALS (17 sets, daily range): BP systolic 114–185; BP diastolic 69–96; PULSE 64–107; RESP 16–22; TEMP 36.3–37.7; O2SAT 91–98
[2024-06-04] MEDS: piperacillin-tazobactam 3.375 GM in sodium chloride 0.9% (plus) 50 ML IV ×3 (00:13→15:45)
[2024-06-04 03:53] LABS: Basophils % 0.3 %; Eosinophils # 0.1 10^3/uL (0.0-0.8); Eosinophils % 0.5 %; Hematocrit 42.9 % (37-53); Lymphocytes # 0.8 10^3/uL (0.8-4.8); Lymphocytes % 5.7 %; Mean Corpuscular HGB Conc 29.8 g/dL (30-55); Mean Corpuscular Hemoglobin 24.5 pg (27-33); Monocytes # 1.6 10^3/uL (0.2-0.9); Monocytes % 10.7 %; Neutrophils # 12.07 10^3/uL (1.8-7.7); Neutrophils % 81.7 %; Nucleated Red Blood Cells % 0 %; Platelet Count 266 10^3/cmm (157-399); Red Blood Count 5.23 10^6/uL (3.85-5.65); Red Cell Distribution Width 16.9 % (12.1-15.1); White Blood Count 14.76 10^3/uL (3.29-11.43)
[2024-06-04 04:22] LABS: Alanine Aminotransferase 36 U/L (0-41); Alkaline Phosphatase 69 U/L (40-130); Anion Gap 12.7 (5-19); Aspartate Amino Transferase 23 U/L (0-40); Blood Urea Nitrogen 20 mg/dL (8-23); Calcium 8.3 mg/dL (8.5-10.5); Carbon Dioxide 30 mmol/L (22-29); Chloride 97 mmol/L (98-107); Creatinine Clr Calc Pharmacy 71.2718; Globulin 2.7 g/dL (1.3-4.6); Glucose 174 mg/dL (65-115); Magnesium 1.6 mg/dL (1.7-2.3); Osmolality Calculated 289 mOsm/kg (285-295); Phosphorus 2.9 mg/dL (2.5-4.5); Potassium 3.7 mmol/L (3.5-5.1); Sodium 136 mmol/L (136-145); Total Bilirubin 0.6 mg/dL (0.15-1.2); Total Protein 5.7 g/dL (6.6-8.7)
[2024-06-04] MEDS: acetaminophen 325 mg Tablet 650 MG PO (04:38)
[2024-06-04] MEDS: vancomycin 1,250 MG/250 ML PIGGYBACK 166.67 MG IV ×2 (04:38→20:08)
[2024-06-04] MEDS: labetalol 5 mg/mL SDV 20mL 10 MG IVP (04:38)
[2024-06-04] MEDS: polyethylene glycol 3350 Pkt 17 gm PO (05:37)
[2024-06-04] MEDS: FUROsemide 20 mg Tablet 40 MG PO (05:37)
[2024-06-04] MEDS: venlafaxine ER (24HR) 75 mg Capsule PO (05:38)
[2024-06-04] MEDS: metoprolol succinate ER (24 HR) 100 mg Tablet PO (05:38)
[2024-06-04] MEDS: tamsulosin 0.4 mg Capsule PO (05:38)
[2024-06-04 06:29] LABS: Glucose Point of Care 189 mg/dL (70-110)
[2024-06-04] MEDS: ipratropium-albuterol 3 mL Neb INHALATION ×4 (08:34→20:29)
[2024-06-04] MEDS: sacubitril/valsartan 24-26 mg Tablet 1 EACH PO ×2 (09:05→18:43)
[2024-06-04] MEDS: amiodarone 200 mg Tablet 400 MG PO (09:05)
[2024-06-04] MEDS: pantoprazole 40 mg SDV IVP (09:05)
[2024-06-04] MEDS: insulin lispro 100 unit/1 mL SUBCUT ×3 (09:06→18:43)
--- NOTE | 2024-06-04 10:30 | PC.CHAP ---
Pastoral Care Encounter/Spiritual Assessment Type of Contact [] Declined fabrication mig welder visit [] Patient/Family/Request visit [] Outpatient visit [] Follow-up visit [] Physician referral [] Code/Alert [x] Routine visit [] Staff referral [] Actively dying [] Patient sleeping [] Family support [] [] Out of room [] Palliative care [] [] Receiving care in room [] Pre-surgical visit [] Trauma [] Long length of stay [] ICU visit [] Other: Relational/Emotional Strength [] Patient feels connected with others/family/visitors/staff [] Distress [] Loneliness/isolation [] Abandonment Spirituality of Patient [] Person of Trisha [] Attends Taoist of their Trisha [] Believes in Prayer [] Reads Bible or Catholic materials [] There are Spiritual issues to be addressed Dock Associate Interventions [x] Prayer [] Active listening [] Non-anxious presence [] Spiritual/emotional support [] Crisis/trauma care [] Spiritual counseling [] Bereavement support [] Provided bereavement packet [] Provided Bible/devotional materials [] Provided toy/stuffed animal, coloring book to patient or family member [] Provided Communion [] Anointing/[place] [] Salvation [] Completed spiritual assessment [] Other: Impact on Illness or Injury [] Angry [] Fearful [] Anxious [] Often cries [] Exhaustion [] Unable to work [] Unable to attend yarsani [] Unable to walk/stand [] Unable to read [] Unable to drive [] Unable to eat/drink [] Unable to sleep [] Unable to be with family [] Patient intubated [] Other: Summary precaution Time spent with patient
[2024-06-04 10:42] LABS: Glucose Point of Care 265 mg/dL (70-110)
[2024-06-04] MEDS: atorvastatin 40 mg Tablet 20 MG PO (11:44)
[2024-06-04 16:41] LABS: Glucose Point of Care 227 mg/dL (70-110)
--- NOTE | 2024-06-04 17:29 | P.PN_ITS ---
Subjective 2 Subjective: Patient was seen this morning, sitting up beside the bed, I was able to speak to patient and his daughter on the phone during my meeting with patient this morning, does report shortness of breath weakness and fatigue, does report chills and fevers during the night Vitals/I&O/Wt Last Vital Signs Temp 99.8 F H 06/04/24 15:39 Pulse 83 06/04/24 15:39 Resp 17 06/04/24 15:39 BP 185/76 06/04/24 15:39 Pulse Ox 96 06/04/24 15:39 O2 Del Method Nasal Cannula 06/04/24 15:39 O2 Flow Rate 2 06/04/24 15:10 06/04/24 06/04/24 06/04/24 06:59 14:59 22:59 Intake Total 600 / 2290 530 / 530 Output Total 300 / 2000 900 / 900 Balance 300 / 290 -370 / -370 Weight last 48 hrs Weight 108.318 kg Weight 109.089 kg Weight 108.862 kg Physical Exam 2 Const: COMMON NORMALS: no acute distress and patient oriented x3 Resp: COMMON NORMALS: normal respiratory effort, No retractions and No use of accessory muscles AUSCULTATION: crackles and wheezes Cardio: COMMON NORMALS: regular rate, regular rhythm, S1 normal heart sound present and S2 normal heart sound present RATE: regular rate RHYTHM: r egular rhythm HEART SOUNDS: S1 normal heart sound present and S2 normal heart sound present GI: COMMON NORMALS: Normal to inspection, nondistended, normoactive bowel sounds present and non-tender Extremity: COMMON NORMALS: no pedal edema Neuro: COMMON NORMALS: patient oriented x3 Psych: COMMON NORMALS: mental status grossly normal Urinary Catheter Management: Jiang: Cath Placed During This Visit: yes Reason for Continuing Indwelling Catheter: Acute Urinary Retention or Obstruction Urinary Catheter Date of Insertion: 06/03/24 Urinary Catheter Time of Insertion: 07:18 Data 06/04/24 03:34 06/04/24 03:34 Micro: Microbiology 06/03/24 07:15 Urine Culture - Preliminary Urine,Clean Catch Yeast species 06/03/24 07:37 Blood Culture - Preliminary Blood NEGATIVE TO DATE 06/03/24 06:40 Blood Culture - Preliminary Blood NEGATIVE TO DATE A&P Assessment and plan (1) Nonischemic congestive cardiomyopathy: (2) HTN (hypertension): Qualifiers: Hypertension type: primary hypertension Qualified Code(s): I10 - Essential (primary) hypertension (3) Afib: (4) Generalized weakness: (5) JENNIFER (obstructive sleep apnea): (6) Acute hypoxic respiratory failure: (7) Healthcare-associated pneumonia: (8) Sepsis: Qualifiers: Acute respiratory failure type: with hypoxia Sepsis type: sepsis due to unspecified organism Severe sepsis shock status: without septic shock Plan Acute hypoxic respiratory failure ? Fevers, chills, fatigue, malaise, cough, shortness of breath -Concerns for healthcare associated pneumonia ? With recent hospitalization for COVID-[address]/CT angio chest PE protcl [id number] IMPRESSION: Progressive opacity in the right lower lobe somewhat masslike. This is probably atelectatic. A follow-up chest CT in 3 months is recommended however. ? Plan ? Sputum cultures ? Blood cultures -Will treat for healthcare associated pneumonia vancomycin, Zosyn ? DuoNeb ?budesonide ? Increase Lasix to 40 twice daily ? Continue Xarelto for DVT prophylaxis -DNR/DNI, confirmed with patient multiple times -Concern for UTI, await UA, urine culture, renal ultrasound -Sepsis secondary to healthcare associate pneumonia, given tachycardia, subjective fevers, chills elevated CRP elevated white blood cell count Attestations 2 Medical Necessity Statement*: Patient requires hospitalization for acute hypoxic respiratory failure, secondary to healthcare associate pneumonia Diagnoses Nonischemic congestive cardiomyopathy I42.0 Primary hypertension I10 Hypertension type: primary hypertension Afib I48.91 Generalized weakness R53.1 JENNIFER (obstructive sleep apnea) G47.33 Acute hypoxic respiratory failure J96.01 Healthcare-associated pneumonia J18.9 Sepsis A41.9 Acute respiratory failure type: with hypoxia Sepsis type: sepsis due to unspecified organism Severe sepsis shock status: without septic shock
[2024-06-04] MEDS: FUROsemide 40 mg Tablet PO (18:43)
[2024-06-04] MEDS: rivaroxaban 10 mg Tablet 20 MG PO (18:43)
[2024-06-04] MEDS: potassium chloride ER 20 mEq Tablet PO (18:43)
[2024-06-04] MEDS: fluconazole 100 mg Tablet PO (20:08)
[2024-06-04 20:47] LABS: Glucose Point of Care 436 mg/dL (70-110)
[2024-06-04] MEDS: insulin regular-human 10 UNIT in SYRINGE 1 EACH IVP (21:44)
[2024-06-04] MEDS: lidocaine 1% 5 ML in potassium chloride premix 100 ML 25 ML IV (21:45)
[2024-06-04] MEDS: FUROsemide 10 mg/mL SDV 2mL 20 MG IVP (21:45)
[2024-06-04 22:28] LABS: Influenza A by IFA Negative (Negative); Influenza B by IFA Negative (Negative)
[2024-06-05] VITALS (10 sets, daily range): BP systolic 117–143; BP diastolic 71–93; PULSE 75–99; RESP 15–20; TEMP 36.7–37; O2SAT 93–99
[2024-06-05] MEDS: piperacillin-tazobactam 3.375 GM in sodium chloride 0.9% (plus) 50 ML IV ×3 (02:14→17:50)
[2024-06-05 04:57] LABS: Basophils % 0.3 %; Eosinophils # 0.1 10^3/uL (0.0-0.8); Eosinophils % 1.1 %; Hematocrit 42.9 % (37-53); Lymphocytes # 0.7 10^3/uL (0.8-4.8); Lymphocytes % 6.7 %; Mean Corpuscular HGB Conc 29.8 g/dL (30-55); Mean Corpuscular Hemoglobin 24.8 pg (27-33); Mean Corpuscular Volume 83.1 fl (82-101); Monocytes # 1.3 10^3/uL (0.2-0.9); Monocytes % 12.2 %; Neutrophils # 8.54 10^3/uL (1.8-7.7); Neutrophils % 78.2 %; Nucleated Red Blood Cells % 0 %; Platelet Count 278 10^3/cmm (157-399); Red Blood Count 5.16 10^6/uL (3.85-5.65); Red Cell Distribution Width 16.9 % (12.1-15.1); White Blood Count 10.91 10^3/uL (3.29-11.43)
[2024-06-05] MEDS: venlafaxine ER (24HR) 75 mg Capsule PO (05:23)
[2024-06-05] MEDS: metoprolol succinate ER (24 HR) 100 mg Tablet PO (05:23)
[2024-06-05] MEDS: tamsulosin 0.4 mg Capsule PO (05:23)
[2024-06-05 05:29] LABS: Alanine Aminotransferase 38 U/L (0-41); Alkaline Phosphatase 69 U/L (40-130); Anion Gap 12.3 (5-19); Aspartate Amino Transferase 26 U/L (0-40); Blood Urea Nitrogen 15 mg/dL (8-23); Calcium 8.2 mg/dL (8.5-10.5); Carbon Dioxide 30 mmol/L (22-29); Chloride 100 mmol/L (98-107); Creatinine Clr Calc Pharmacy 71.0243; Globulin 2.8 g/dL (1.3-4.6); Glucose 182 mg/dL (65-115); Magnesium 1.8 mg/dL (1.7-2.3); Osmolality Calculated 291 mOsm/kg (285-295); Phosphorus 3.2 mg/dL (2.5-4.5); Potassium 4.3 mmol/L (3.5-5.1); Sodium 138 mmol/L (136-145); Total Bilirubin 0.5 mg/dL (0.15-1.2); Total Protein 5.8 g/dL (6.6-8.7)
[2024-06-05 06:37] LABS: Glucose Point of Care 208 mg/dL (70-110)
[2024-06-05] MEDS: ipratropium-albuterol 3 mL Neb INHALATION ×4 (08:06→21:49)
[2024-06-05] MEDS: atorvastatin 40 mg Tablet 20 MG PO (09:00)
[2024-06-05] MEDS: amiodarone 200 mg Tablet 400 MG PO (09:00)
[2024-06-05] MEDS: fluconazole 100 mg Tablet PO (09:00)
[2024-06-05] MEDS: potassium chloride ER 20 mEq Tablet PO ×2 (09:00→17:49)
[2024-06-05] MEDS: FUROsemide 40 mg Tablet PO ×2 (09:00→17:49)
[2024-06-05] MEDS: sacubitril/valsartan 24-26 mg Tablet 1 EACH PO ×2 (09:00→17:49)
[2024-06-05] MEDS: polyethylene glycol 3350 Pkt 17 gm PO (09:01)
[2024-06-05] MEDS: insulin lispro 100 unit/1 mL SUBCUT ×3 (09:01→17:49)
[2024-06-05] MEDS: vancomycin 1,250 MG/250 ML PIGGYBACK 167 MG IV (09:01)
[2024-06-05] MEDS: pantoprazole 40 mg SDV IVP (10:42)
[2024-06-05 11:14] LABS: Glucose Point of Care 274 mg/dL (70-110)
--- NOTE | 2024-06-05 15:35 | P.PN_ITS ---
Subjective 2 Subjective: Patient was seen this morning continues to have a cough, shortness of breath, seen with therapy, short of breath with exertion, did ambulate a few feet, to the bathroom and back Vitals/I&O/Wt Last Vital Signs Temp 98.3 F 06/05/24 11:43 Pulse 90 06/05/24 15:29 Resp 16 06/05/24 15:29 BP 117/71 06/05/24 11:43 Pulse Ox 98 06/05/24 15:29 O2 Del Method Nasal Cannula 06/05/24 15:29 O2 Flow Rate 2 06/05/24 15:29 06/05/24 06/05/24 06/05/24 06:59 14:59 22:59 Intake Total 275 / 1345.1 730 / 730 Output Total 300 / 1500 Balance -25 / -154.9 730 / 730 Weight last 48 hrs Weight 108.182 kg Weight 108.318 kg Physical Exam 2 Const: COMMON NORMALS: no acute distress and patient oriented x3 Resp: COMMON NORMALS: normal respiratory effort, No retractions, No use of accessory muscles and clear to auscultation bilaterally AUSCULTATION: clear to auscultation bilaterally Cardio: COMMON NORMALS: regular rate, regular rhythm, S1 normal heart sound present and S2 normal heart sound present RATE: regular rate RHYTHM: r egular rhythm HEART SOUNDS: S1 normal heart sound present and S2 normal heart sound present GI: COMMON NORMALS: Normal to inspection, nondistended, normoactive bowel sounds present and non-tender Extremity: COMMON NORMALS: no pedal edema Neuro: COMMON NORMALS: patient oriented x3 Psych: COMMON NORMALS: mental status grossly normal Urinary Catheter Management: Jiang: Cath Placed During This Visit: yes Reason for Continuing Indwelling Catheter: Acute Urinary Retention or Obstruction Urinary Catheter Date of Insertion: 06/03/24 Urinary Catheter Time of Insertion: 07:18 Data 06/05/24 04:46 06/05/24 04:46 Micro: Microbiology 06/03/24 07:15 Urine Culture - Preliminary Urine,Clean Catch Yeast species A&P Assessment and plan (1) Nonischemic congestive cardiomyopathy: (2) HTN (hypertension): Qualifiers: Hypertension type: primary hypertension Qualified Code(s): I10 - Essential (primary) hypertension (3) Afib: (4) Generalized weakness: (5) JENNIFER (obstructive sleep apnea): (6) Acute hypoxic respiratory failure: (7) Healthcare-associated pneumonia: (8) Sepsis: Qualifiers: Acute respiratory failure type: with hypoxia Sepsis type: sepsis due to unspecified organism Severe sepsis shock status: without septic shock Plan Acute hypoxic respiratory failure ? Fevers, chills, fatigue, malaise, cough, shortness of breath -Concerns for healthcare associated pneumonia ? With recent hospitalization for COVID-[address]/CT angio chest PE protcl [id number] IMPRESSION: Progressive opacity in the right lower lobe somewhat masslike. This is probably atelectatic. A follow-up chest CT in 3 months is recommended however. ? Plan ? Sputum cultures ? Blood cultures -Will treat for healthcare associated pneumonia vancomycin, Zosyn ? DuoNeb ?budesonide ? Increase Lasix to 40 twice daily ? Continue Xarelto for DVT prophylaxis -DNR/DNI, confirmed with patient multiple times -Concern for UTI, yeast uti, diflucan -Sepsis secondary to healthcare associate pneumonia, given tachycardia, subjective fevers, chills elevated CRP elevated white blood cell count Attestations 2 Medical Necessity Statement*: Acute hypoxic respiratory failure secondaru to pneumonia Diagnoses Nonischemic congestive cardiomyopathy I42.0 Primary hypertension I10 Hypertension type: primary hypertension Afib I48.91 Generalized weakness R53.1 JENNIFER (obstructive sleep apnea) G47.33 Acute hypoxic respiratory failure J96.01 Healthcare-associated pneumonia J18.9 Sepsis A41.9 Acute respiratory failure type: with hypoxia Sepsis type: sepsis due to unspecified organism Severe sepsis shock status: without septic shock
[2024-06-05 17:21] LABS: Glucose Point of Care 178 mg/dL (70-110)
[2024-06-05] MEDS: rivaroxaban 10 mg Tablet 20 MG PO (17:49)
[2024-06-05 19:34] LABS: Vancomycin Trough 15.7 ug/mL (10-15)
[2024-06-05] MEDS: vancomycin 1,250 MG/250 ML PIGGYBACK 166 MG IV (19:44)
[2024-06-05 20:58] LABS: Glucose Point of Care 184 mg/dL (70-110)
[2024-06-06] VITALS (12 sets, daily range): BP systolic 135–152; BP diastolic 71–88; PULSE 70–91; RESP 16–22; TEMP 36.3–37; O2SAT 96–99
[2024-06-06] MEDS: piperacillin-tazobactam 3.375 GM in sodium chloride 0.9% (plus) 50 ML IV ×3 (01:34→18:46)
[2024-06-06 04:49] LABS: Basophils # 0.1 10^3/uL (0.0-0.1); Basophils % 0.5 %; Eosinophils # 0.1 10^3/uL (0.0-0.8); Eosinophils % 1.2 %; Hematocrit 42.1 % (37-53); Lymphocytes # 0.8 10^3/uL (0.8-4.8); Mean Corpuscular HGB Conc 29.2 g/dL (30-55); Mean Corpuscular Hemoglobin 24.8 pg (27-33); Mean Corpuscular Volume 84.9 fl (82-101); Mean Platelet Volume 9.7 fL (7.4-10.4); Monocytes # 1.2 10^3/uL (0.2-0.9); Monocytes % 12.5 %; Neutrophils # 7.58 10^3/uL (1.8-7.7); Neutrophils % 76.6 %; Nucleated Red Blood Cells % 0 %; Platelet Count 277 10^3/cmm (157-399); Red Blood Count 4.96 10^6/uL (3.85-5.65); Red Cell Distribution Width 16.9 % (12.1-15.1)
[2024-06-06 05:13] LABS: Alanine Aminotransferase 35 U/L (0-41); Albumin Level 2.8 g/dL (3.5-5.2); Alkaline Phosphatase 63 U/L (40-130); Anion Gap 12.2 (5-19); Aspartate Amino Transferase 29 U/L (0-40); Blood Urea Nitrogen 14 mg/dL (8-23); Carbon Dioxide 29 mmol/L (22-29); Chloride 99 mmol/L (98-107); Creatinine Clr Calc Pharmacy 79.8532; Globulin 2.8 g/dL (1.3-4.6); Glucose 248 mg/dL (65-115); Magnesium 1.7 mg/dL (1.7-2.3); Osmolality Calculated 291 mOsm/kg (285-295); Phosphorus 2.9 mg/dL (2.5-4.5); Potassium 4.2 mmol/L (3.5-5.1); Sodium 136 mmol/L (136-145); Total Bilirubin 0.4 mg/dL (0.15-1.2); Total Protein 5.6 g/dL (6.6-8.7)
[2024-06-06] MEDS: tamsulosin 0.4 mg Capsule PO (05:59)
[2024-06-06] MEDS: metoprolol succinate ER (24 HR) 100 mg Tablet PO (05:59)
[2024-06-06] MEDS: venlafaxine ER (24HR) 75 mg Capsule PO (05:59)
[2024-06-06 06:39] LABS: Glucose Point of Care 262 mg/dL (70-110)
[2024-06-06] MEDS: ipratropium-albuterol 3 mL Neb INHALATION ×4 (07:20→20:01)
[2024-06-06] MEDS: vancomycin 1,250 MG/250 ML PIGGYBACK 166 MG IV ×2 (08:21→20:29)
[2024-06-06] MEDS: potassium chloride ER 20 mEq Tablet PO ×2 (08:25→18:42)
[2024-06-06] MEDS: insulin lispro 100 unit/1 mL SUBCUT ×2 (08:26→12:14)
[2024-06-06] MEDS: fluconazole 100 mg Tablet PO (08:26)
[2024-06-06] MEDS: sacubitril/valsartan 24-26 mg Tablet 1 EACH PO ×2 (08:26→18:41)
[2024-06-06] MEDS: atorvastatin 40 mg Tablet 20 MG PO (08:26)
[2024-06-06] MEDS: polyethylene glycol 3350 Pkt 17 gm PO (08:26)
[2024-06-06] MEDS: FUROsemide 40 mg Tablet PO ×2 (08:26→18:42)
[2024-06-06] MEDS: amiodarone 200 mg Tablet 400 MG PO (08:26)
[2024-06-06] MEDS: metOLazone 5 MG Tablet PO (08:45)
--- NOTE | 2024-06-06 10:32 | PC.SOCIAL ---
IMM Update Pg. 2 of IMM updated. Initialed, dated, and timed, copy placed in chart. Copy provided at bedside.
[2024-06-06 11:24] LABS: Glucose Point of Care 370 mg/dL (70-110)
[2024-06-06] MEDS: pantoprazole 40 mg SDV IVP (12:11)
--- NOTE | 2024-06-06 14:42 | P.PN_ITS ---
Subjective 2 Subjective: patient does report cough, shortness of breath, nursing report possible aspiration events Vitals/I&O/Wt Last Vital Signs Temp 97.6 F 06/06/24 12:00 Pulse 78 06/06/24 12:00 Resp 16 06/06/24 12:00 BP 151/71 06/06/24 12:00 Pulse Ox 98 06/06/24 12:00 O2 Del Method Nasal Cannula 06/06/24 12:00 O2 Flow Rate 2 06/06/24 11:19 06/05/24 06/06/24 06/06/24 22:59 06:59 14:59 Intake Total 710 / 1440 290 / 1730 480 / 480 Output Total 1999 / 1999 400 / 2400 Balance -1290 / -560 -110 / -670 480 / 480 Weight last 48 hrs Weight 109.452 kg Weight 108.182 kg Physical Exam 2 Const: COMMON NORMALS: no acute distress and patient oriented x3 Resp: COMMON NORMALS: normal respiratory effort, No retractions and No use of accessory muscles AUSCULTATION: wheezes Cardio: COMMON NORMALS: regular rate, regular rhythm, S1 normal heart sound present and S2 normal heart sound present RATE: regular rate RHYTHM: r egular rhythm HEART SOUNDS: S1 normal heart sound present and S2 normal heart sound present GI: COMMON NORMALS: Normal to inspection, nondistended, normoactive bowel sounds present and non-tender Extremity: COMMON NORMALS: no pedal edema Neuro: COMMON NORMALS: patient oriented x3 Psych: COMMON NORMALS: mental status grossly normal Urinary Catheter Management: Jiang: Cath Placed During This Visit: yes Reason for Continuing Indwelling Catheter: Acute Urinary Retention or Obstruction Urinary Catheter Date of Insertion: 06/03/24 Urinary Catheter Time of Insertion: 07:18 Data 06/07/24 05:07 06/07/24 05:07 Micro: Microbiology 06/03/24 07:15 Urine Culture - Final Urine,Clean Catch Nakaseomyces glabrata A&P Assessment and plan (1) Nonischemic congestive cardiomyopathy: (2) HTN (hypertension): Qualifiers: Hypertension type: primary hypertension Qualified Code(s): I10 - Essential (primary) hypertension (3) Afib: (4) Generalized weakness: (5) JENNIFER (obstructive sleep apnea): (6) Acute hypoxic respiratory failure: (7) Healthcare-associated pneumonia: (8) Sepsis: Qualifiers: Acute respiratory failure type: with hypoxia Sepsis type: sepsis due to unspecified organism Severe sepsis shock status: without septic shock Plan Acute hypoxic respiratory failure ? Fevers, chills, fatigue, malaise, cough, shortness of breath -Concerns for healthcare associated pneumonia ? With recent hospitalization for COVID-[address]/CT angio chest PE protcl [id number] IMPRESSION: Progressive opacity in the right lower lobe somewhat masslike. This is probably atelectatic. A follow-up chest CT in 3 months is recommended however. ? Plan ? Sputum cultures ? Blood cultures -Will treat for healthcare associated pneumonia vancomycin, Zosyn ? DuoNeb ?budesonide ? Increase Lasix to 40 twice daily ? Continue Xarelto for DVT prophylaxis -DNR/DNI, confirmed with patient multiple times -Concern for UTI, yeast uti, diflucan -Sepsis secondary to healthcare associate pneumonia, given tachycardia, subjective fevers, chills elevated CRP elevated white blood cell count Attestations 2 Medical Necessity Statement*: Patient requires hospitalization for respiratory failuret his is progress note 06/06/2024 Diagnoses Nonischemic congestive cardiomyopathy I42.0 Primary hypertension I10 Hypertension type: primary hypertension Afib I48.91 Generalized weakness R53.1 JENNIFER (obstructive sleep apnea) G47.33 Acute hypoxic respiratory failure J96.01 Healthcare-associated pneumonia J18.9 Sepsis A41.9 Acute respiratory failure type: with hypoxia Sepsis type: sepsis due to unspecified organism Severe sepsis shock status: without septic shock
[2024-06-06] MEDS: fluconazole 100 mg Tablet 200 MG PO (16:39)
[2024-06-06 16:48] LABS: Glucose Point of Care 106 mg/dL (70-110)
[2024-06-06] MEDS: rivaroxaban 10 mg Tablet 20 MG PO (18:42)
[2024-06-06 21:06] LABS: Glucose Point of Care 245 mg/dL (70-110)
[2024-06-07] VITALS (11 sets, daily range): BP systolic 117–152; BP diastolic 72–85; PULSE 81–91; RESP 16–19; TEMP 36.4–37; O2SAT 95–98
[2024-06-07] MEDS: piperacillin-tazobactam 3.375 GM in sodium chloride 0.9% (plus) 50 ML IV ×2 (02:01→09:52)
[2024-06-07 05:23] LABS: Basophils # 0.1 10^3/uL (0.0-0.1); Basophils % 0.7 %; Eosinophils # 0.2 10^3/uL (0.0-0.8); Eosinophils % 1.7 %; Hematocrit 44.2 % (37-53); Lymphocytes # 0.8 10^3/uL (0.8-4.8); Lymphocytes % 7.6 %; Mean Corpuscular HGB Conc 29.6 g/dL (30-55); Mean Corpuscular Hemoglobin 24.4 pg (27-33); Mean Corpuscular Volume 82.5 fl (82-101); Mean Platelet Volume 9.7 fL (7.4-10.4); Monocytes # 1.1 10^3/uL (0.2-0.9); Monocytes % 10.8 %; Neutrophils # 8.05 10^3/uL (1.8-7.7); Neutrophils % 77.7 %; Nucleated Red Blood Cells % 0 %; Platelet Count 342 10^3/cmm (157-399); Red Blood Count 5.36 10^6/uL (3.85-5.65); Red Cell Distribution Width 16.6 % (12.1-15.1); White Blood Count 10.37 10^3/uL (3.29-11.43)
[2024-06-07 05:43] LABS: Alanine Aminotransferase 41 U/L (0-41); Alkaline Phosphatase 64 U/L (40-130); Anion Gap 10.9 (5-19); Aspartate Amino Transferase 26 U/L (0-40); Blood Urea Nitrogen 12 mg/dL (8-23); Carbon Dioxide 34 mmol/L (22-29); Chloride 93 mmol/L (98-107); Creatinine Clr Calc Pharmacy 80.3118; Globulin 3.4 g/dL (1.3-4.6); Glucose 189 mg/dL (65-115); Osmolality Calculated 283 mOsm/kg (285-295); Potassium 3.9 mmol/L (3.5-5.1); Sodium 134 mmol/L (136-145); Total Bilirubin 0.5 mg/dL (0.15-1.2); Total Protein 6.4 g/dL (6.6-8.7)
[2024-06-07 05:53] LABS: NT Pro B Type Natriuretic Pept 611 pg/mL (0-450)
[2024-06-07] MEDS: tamsulosin 0.4 mg Capsule PO (05:59)
[2024-06-07] MEDS: venlafaxine ER (24HR) 75 mg Capsule PO (05:59)
[2024-06-07] MEDS: metoprolol succinate ER (24 HR) 100 mg Tablet PO (05:59)
[2024-06-07 06:49] LABS: Glucose Point of Care 213 mg/dL (70-110)
[2024-06-07] MEDS: ipratropium-albuterol 3 mL Neb INHALATION ×2 (07:29→12:12)
[2024-06-07] MEDS: sacubitril/valsartan 24-26 mg Tablet 1 EACH PO (08:17)
[2024-06-07] MEDS: atorvastatin 40 mg Tablet 20 MG PO (08:17)
[2024-06-07] MEDS: amiodarone 200 mg Tablet 400 MG PO (08:17)
[2024-06-07] MEDS: FUROsemide 40 mg Tablet PO (08:18)
[2024-06-07] MEDS: vancomycin 1,250 MG/250 ML PIGGYBACK 166 MG IV (08:18)
[2024-06-07] MEDS: fluconazole 100 mg Tablet 200 MG PO (08:18)
[2024-06-07] MEDS: potassium chloride ER 20 mEq Tablet PO (08:18)
[2024-06-07] MEDS: polyethylene glycol 3350 Pkt 17 gm PO (08:18)
[2024-06-07] MEDS: insulin lispro 100 unit/1 mL SUBCUT ×2 (08:19→11:56)
--- NOTE | 2024-06-07 08:44 | PC.OT ---
Pt unable to be seen yesterday 06/06/24 for OT treatment due to nursing placing pt on hold; will attempt again at later time.
[2024-06-07] MEDS: metOLazone 5 MG Tablet PO (09:18)
[2024-06-07] MEDS: pantoprazole 40 mg SDV IVP (09:52)
[2024-06-07 11:14] LABS: Glucose Point of Care 208 mg/dL (70-110)
--- NOTE | 2024-06-07 11:48 | PM.DCS ---
Discharge Providers Date of Admission: 06/03/24 08:51 Date of Discharge: June 07, 2024 Attending Provider at Admission: Emmanuel Lieberman MD Attending Provider at Discharge: Emmanuel Lieberman MD Primary Care Provider: Melodie Gilmore MD Diagnoses at Discharge Discharge Diagnosis (1) Nonischemic congestive cardiomyopathy: Status: Acute (2) HTN (hypertension): Status: Acute Qualifiers: Hypertension type: primary hypertension Qualified Code(s): I10 - Essential (primary) hypertension (3) Afib: Status: Acute (4) Generalized weakness: Status: Acute (5) JENNIFER (obstructive sleep apnea): Status: Acute (6) Acute hypoxic respiratory failure: Status: Acute (7) Healthcare-associated pneumonia: Status: Acute (8) Sepsis: Status: Resolved Qualifiers: Acute respiratory failure type: with hypoxia Sepsis type: sepsis due to unspecified organism Severe sepsis shock status: without septic shock Reason for Visit Reason for Visit: SOB Hospital Course Hospital Course Haris Sol is a 89 year old male with a past medical history atrial fibrillation on also, CHF, recent hospitalization for COVID-19, respiratory failure, who presents to [facility] due to fatigue, malaise, decreased mobility, increased confusion, low-grade fevers, cough, shortness of breath. Currently patient is alert oriented x 3, following all commands, reports that since getting back to [place] from the hospital he has had fatigue, weakness, has had a cough, felt short of breath, has felt feverish. Patient was admitted to [facility] for acute hypoxic respiratory failure, secondary to fluid overload, systolic diastolic CHF, healthcare associated pneumonia, received IV antibiotics, received IV diuresis, monitored as inpatient. Patient overall clinically improved, diuresed 3L, managed on aspiration precautions, dysphagia level 6 diet, due to concerns for aspiration episodes, IV antibiotics, overall clinically improved. Will be discharged with Levaquin therapy, Lasix 40 twice daily, dysphagia level 6 diet with aspiration precautions, speech therapy through longterm, will repeat creatinine function tomorrow. CT of the chest does show progressive opacity right lower lobe somewhat masslike, repeat CT of the chest in 4 to 6 weeks, follow-up with pulmonary as outpatient Patient is deconditioning discharged to intermediate facility Physical Exam Const: COMMON NORMALS: no acute distress and patient oriented x3 Resp: COMMON NORMALS: normal respiratory effort, No retractions, No use of accessory muscles and clear to auscultation bilaterally AUSCULTATION: clear to auscultation bilaterally Cardio: COMMON NORMALS: regular rate, regular rhythm, S1 normal heart sound present and S2 normal heart sound present RATE: regular rate RHYTHM: regular rhythm HEART SOUNDS: S1 normal heart sound present and S2 normal heart sound present GI: COMMON NORMALS: Normal to inspection, nondistended, normoactive bowel sounds present and non-tender Extremity: COMMON NORMALS: no pedal edema Neuro: COMMON NORMALS: patient oriented x3 Psych: COMMON NORMALS: mental status grossly normal Urinary Catheter Management: Jiang: Cath Placed During This Visit: yes Reason for Continuing Indwelling Catheter: Acute Urinary Retention or Obstruction Urinary Catheter Date of Insertion: 06/03/24 Urinary Catheter Time of Insertion: 07:18 Discharge Data Studies Completed and Pending Completed Studies During Hospitalization Category Date Time Status CT angio chest PE protcl [id number] Stat Cat Scan 06/03/24 08:28 Completed XR chest 1V portable [id number] Stat Exams 06/03/24 05:46 Completed US renal BI* [id number] Routine Ultrasound 06/03/24 11:04 Completed Pending at discharge Category Date Time Status Blood Culture Stat Lab 06/03/24 07:37 Results Complete Blood Count w/Auto AM LABS Lab 06/08/24 04:00 Ordered Complete Blood Count w/Auto AM LABS Lab 06/09/24 04:00 Ordered Comprehensive Metabolic Panel AM LABS Lab 06/08/24 04:00 Ordered Comprehensive Metabolic Panel AM LABS Lab 06/09/24 04:00 Ordered NT Pro B Type Natriuretic Pept QAM Lab 06/08/24 06:00 Ordered NT Pro B Type Natriuretic Pept QAM Lab 06/09/24 06:00 Ordered Radiology Impressions Chest X-Ray 06/03/24 05:46 IMPRESSION: Relatively stable bibasilar opacities. Chest CTA 06/03/24 08:28 IMPRESSION: Progressive opacity in the right lower lobe somewhat masslike. This is probably atelectatic. A follow-up chest CT in 3 months is recommended however. Renal Ultrasound 06/03/24 11:04 IMPRESSION: No hydronephrosis. Laboratory Results WBC 10.37 10^3/uL (3.29-11.43) 06/07/24 05:07 RBC 5.36 10^6/uL (3.85-5.65) 06/07/24 05:07 Hgb 13.10 g/dL (11.27-16.99) 06/07/24 05:07 Hct 44.2 % (37-53) 06/07/24 05:07 MCV 82.5 fl (82-101) 06/07/24 05:07 MCH 24.4 pg (27-33) L 06/07/24 05:07 MCHC 29.6 g/dL (30-55) L 06/07/24 05:07 RDW 16.6 % (12.1-15.1) H 06/07/24 05:07 Plt Count 342 10^3/cmm (157-399) 06/07/24 05:07 MPV 9.7 fL (7.4-10.4) 06/07/24 05:07 Neut % (Auto) 77.7 % 06/07/24 05:07 Lymph % (Auto) 7.6 % 06/07/24 05:07 Shannon % (Auto) 10.8 % 06/07/24 05:07 Eos % (Auto) 1.7 % 06/07/24 05:07 Baso % (Auto) 0.7 % 06/07/24 05:07 Neut # (Auto) 8.05 10^3/uL (1.8-7.7) H 06/07/24 05:07 Lymph # (Auto) 0.8 10^3/uL (0.8-4.8) 06/07/24 05:07 Shannon # (Auto) 1.1 10^3/uL (0.2-0.9) H 06/07/24 05:07 Eos # (Auto) 0.2 10^3/uL (0.0-0.8) 06/07/24 05:07 Baso # (Auto) 0.1 10^3/uL (0.0-0.1) 06/07/24 05:07 Nucleated RBC % (auto) 0 % 06/07/24 05:07 Nucleated RBCs # 0.0 /100WBC 06/07/24 05:07 Specimen Type Arterial 06/03/24 10:13 Sample Site Radial, left 06/03/24 10:13 ABG pH 7.43 (7.35-7.45) 06/03/24 10:13 ABG pCO2 46.8 mmHg (35-45) H 06/03/24 10:13 ABG pO2 63.2 mmHg (80.0-100.0) L 06/03/24 10:13 ABG PO2/FiO2 Ratio 300 06/03/24 10:13 ABG HCO3 31.2 mmol/L (22-26) H 06/03/24 10:13 ABG Base Excess 5.8 mmol/L (-2.0-2.0) H 06/03/24 10:13 Lucio Test Pos 06/03/24 10:13 Hematocrit 43.1 % (42-52) 06/03/24 10:13 O2 Delivery Device Room air 06/03/24 10:13 FiO2 21.0 % 06/03/24 10:13 Apron Operator ID Cak 06/03/24 10:13 Sodium 134 mmol/L (136-145) L 06/07/24 05:07 Potassium 3.9 mmol/L (3.5-5.1) 06/07/24 05:07 Chloride 93 mmol/L (98-107) L 06/07/24 05:07 Carbon Dioxide 34 mmol/L (22-29) H 06/07/24 05:07 Anion Gap 10.9 (5-19) 06/07/24 05:07 BUN 12 mg/dL (8-23) 06/07/24 05:07 Creatinine 0.8 mg/dL (0.7-1.2) 06/07/24 05:07 GFR Calculation Not Reportable 06/07/24 05:07 Glucose 189 mg/dL (65-115) H 06/07/24 05:07 POC Glucose 208 mg/dL (70-110) H 06/07/24 10:55 Calculated Osmolality 283 mOsm/kg (285-295) L 06/07/24 05:07 Lactic Acid 0.9 mmol/L (0.5-2.2) 06/03/24 09:56 Calcium 9.0 mg/dL (8.5-10.5) 06/07/24 05:07 Phosphorus 2.9 mg/dL (2.5-4.5) 06/06/24 04:31 Magnesium 1.7 mg/dL (1.7-2.3) 06/06/24 04:31 Total Bilirubin 0.5 mg/dL (0.15-1.2) 06/07/24 05:07 AST 26 U/L (0-40) 06/07/24 05:07 ALT 41 U/L (0-41) 06/07/24 05:07 Alkaline Phosphatase 64 U/L (40-130) 06/07/24 05:07 Troponin T Baseline 33 ng/L (0-15) H 06/03/24 06:46 Troponin T 120 Minute 29.98 ng/L (0-15) H 06/03/24 08:38 Delta Troponin T -3.02 ABS# (0-10) L 06/03/24 08:38 Troponin T Hi Sens 6Hr 35.26 ng/L (0-15) H 06/03/24 12:23 Troponin T Hi Sens 6Hr Delta 2.26 ng/L (0-12) 06/03/24 12:23 C-Reactive Protein 42.3 mg/L (0.0-4.9) H 06/03/24 06:46 NT-Pro-B Natriuret Pep 611 pg/mL (0-450) H 06/07/24 05:07 Total Protein 6.4 g/dL (6.6-8.7) L 06/07/24 05:07 Albumin 3.0 g/dL (3.5-5.2) L 06/07/24 05:07 Globulin 3.4 g/dL (1.3-4.6) 06/07/24 05:07 Procalcitonin 0.09 ng/mL (0-0.5) 06/03/24 06:46 Urine Color Yellow (Yellow) 06/03/24 07:15 Urine Appearance Clear (CLEAR) 06/03/24 07:15 Urine pH 5.5 (5-7) 06/03/24 07:15 Ur Specific Hammond 1.034 (1.005-1.030) H 06/03/24 07:15 Urine Protein 1+ (Negative) A 06/03/24 07:15 Urine Glucose (UA) 3+ (Normal) H 06/03/24 07:15 Urine Ketones Trace (Negative) 06/03/24 07:15 Urine Blood 2+ (Negative) A 06/03/24 07:15 Urine Nitrate Negative (Negative) 06/03/24 07:15 Urine Bilirubin Negative (Negative) 06/03/24 07:15 Urine Urobilinogen 1.0 mg/dL (Negative) 06/03/24 07:15 Ur Leukocyte Esterase Negative (Negative) 06/03/24 07:15 Urine RBC >100 /hpf (0-2) H 06/03/24 07:15 Urine WBC 0-5 /hpf (0-5) 06/03/24 07:15 Ur Squamous Epith Cells 0-5 /hpf (0-5) 06/03/24 07:15 Amorphous Sediment Not Reportable 06/03/24 07:15 Urine Bacteria None seen /hpf (NONE) 06/03/24 07:15 Hyaline Casts 0-4 /lpf H 06/03/24 07:15 Urine Yeast 3+ /hpf H 06/03/24 07:15 Vancomycin Trough 15.7 ug/mL (10-15) H 06/05/24 19:07 Influenza Type A Ag Negative (Negative) 06/04/24 21:58 Influenza Type B Ag Negative (Negative) 06/04/24 21:58 Vitals Last Vital Signs Temp 97.8 F 06/07/24 11:29 Pulse 81 06/07/24 11:29 Resp 18 06/07/24 11:29 BP 117/72 06/07/24 11:29 Pulse Ox 97 06/07/24 11:29 O2 Del Method Nasal Cannula 06/07/24 11:29 O2 Flow Rate 2 06/07/24 08:00 Discharge Plan Discharge Patient Disposition: Xfer SNF Condition: Stable Prescriptions: New furosemide 40 mg Tablet 40 mg PO BID 30 Days Qty: 60 0RF potassium chloride [Klor-Con M20] 20 mEq Tablet,Er Particles/Crystals 20 meq PO BID 30 Days Qty: 60 0RF fluconazole 100 mg Tablet 200 mg PO DAILY 7 Days Qty: 7 0RF levofloxacin 750 mg tablet 750 mg PO DAILY 5 Days Qty: 5 0RF Continued metformin 500 mg tablet 500 mg PO QAM tamsulosin 0.4 mg capsule 0.4 mg PO QAM Xarelto 20 mg tablet 20 mg PO QPM Rx Instructions: must administer with evening meal omeprazole 20 mg tablet,delayed release (DR/EC) 20 mg PO BID latanoprost 0.005 % drops 1 drp ophthalmic (eye) DAILY fluticasone propionate [Flonase Allergy Relief] 50 mcg/actuation spray,suspension 2 spray intranasal QAM polyethylene glycol 3350 [Miralax] 17 gram/dose powder 17 g PO DAILY ascorbic acid (vitamin C) 1,000 mg tablet 500 mg PO QAM garlic 1,000 mg capsule 1,000 mg PO QAM multivitamin [One-A-Day Essential] Tablet 1 tab PO QAM albuterol sulfate 90 mcg/actuation HFA aerosol inhaler 2 puff inhalation Q6H PRN (Reason: shortness of breath or wheezing) Qty: 8.5 3RF budesonide-formoterol [Symbicort] 80-4.5 mcg/actuation HFA aerosol inhaler 2 puff inhalation BID Qty: 10.2 3RF dapagliflozin propanediol [Farxiga] 10 mg tablet 10 mg PO QAM cetirizine 10 mg Tablet 10 mg PO QAM atorvastatin 10 mg tablet 10 mg PO DAILY montelukast [Singulair] 10 mg tablet 10 mg PO QAM metoprolol succinate 100 mg tablet extended release 24 hr 100 mg PO QAM insulin lispro [Humalog KwikPen Insulin] 100 unit/mL insulin pen See Rx Instructions .ROUTE .COMPLEX Qty: 15 0RF Rx Instructions: Inject, subcut, 3 times daily, after meals, based on sliding scale provided ([facility]) glucometer testing kit See Rx Instructions .Route .MEDSUPPLY Qty: 1 0RF Rx Instructions: lancets#100 strips#100 venlafaxine 75 mg capsule,extended release 24hr 75 mg PO QAM cyanocobalamin (vitamin B-12) [Vitamin B-12] 1,000 mcg Tablet 1,000 mcg PO QAM acetaminophen 500 mg Tablet 500 - 1,000 mg PO Q6H PRN (Reason: Pain) brimonidine 0.2 % drops 1 drp ophthalmic (eye) BID Unisom (doxylamine) 25 mg Tablet 25 mg PO BEDTIME Reguloid (psyllium husk) 3 gram/5.4 gram Powder 1 tbsp PO QAM Rx Instructions: mix into at least 8 oz of water or juice before administering calc carb-mag ox-D3-zinc gluc 333 mg-133 mg- 1.67 mcg-5 mg Tablet 3 tab PO QAM Nasogel 0.9 % Gel See Rx Instructions .ROUTE .COMPLEX PRN (Reason: discomfort) Rx Instructions: APPLY AROUND NOSTRILS TO HELP RELIEVE DISCOMFORT NEEDED. sennosides-docusate sodium [Stool Softener-Laxative] 8.6-50 mg Tablet 1 tab PO BID Qty: 60 0RF Rx Instructions: Hold if having more than 1 BM per day sacubitril-valsartan [Entresto] 24-26 mg Tablet 1 tab PO BID Qty: 30 0RF amiodarone [Pacerone] 200 mg Tablet 400 mg PO DAILY Qty: 60 0RF Discontinued potassium chloride 8 mEq capsule, extended release 8 meq PO QAM furosemide 20 mg tablet 40 mg PO QAM doxycycline monohydrate 100 mg Tablet 100 mg PO BID 5 Days Qty: 10 0RF Discharge Orders: Discharge Order (Routine); Ordered 06/07/24 Ordered By: Emmanuel Lieberman Referrals: [facility] [Outside] Melodie Gilmore MD [Primary Care Provider] - Brandin Matias MD, MBBS, MPH [Referring] - 6 Weeks Discharge Diet: As Directed Discharge Activity: Resume usual activity Patient Instructions: Furosemide (By mouth), Potassium Chloride (By mouth), Fluconazole (By mouth), Levofloxacin (By mouth) (Levaquin, Levaquin Leva-naima), Opioid Safety Activity Restrictions/Additional Instructions: - Dysphagia level 6 diet, mildly thickened, please have patient work with speech therapy -Aspiration precautions -Recheck creatinine in 1 week -Please start Lasix 40 twice daily starting tomorrow -Please start antibiotics tomorrow -repeat ct chest in 4 weeks, follow up with pulmonary Discharge Attestations Time Spent in Discharge Care*: greater than 30 min Quality Metrics Clinical Quality Measures [ No reported AMI, CVA or VTE this stay] Coding Level of Care Code 24350 Total time (in minutes) for Discharge: 45 Diagnoses Nonischemic congestive cardiomyopathy I42.0 Primary hypertension I10 Hypertension type: primary hypertension Afib I48.91 Generalized weakness R53.1 JENNIFER (obstructive sleep apnea) G47.33 Acute hypoxic respiratory failure J96.01 Healthcare-associated pneumonia J18.9 Sepsis A41.9 Acute respiratory failure type: with hypoxia Sepsis type: sepsis due to unspecified organism Severe sepsis shock status: without septic shock
--- NOTE | 2024-06-07 15:55 | PC.NURSE ---
Called report to Princess Edouard LPN at [facility] at 1423. Patient ready to go at 1500.
[2024-06-07 16:28] LABS: Glucose Point of Care 263 mg/dL (70-110)
--- NOTE | 2024-06-07 17:28 | PC.NURSE ---
Patient stated there were black slippers. No slippers were found in room. FAMILY AND DIVORCE LEGAL ASSISTANT notified ER which stated no black slipper there either.
== END 2024-06-07 17:00 | disposition skilled nursing facility (03) | DRG 871 ==
LOC: ER 08:26 → MEDSURG 10:17
PROVIDERS: Emergency Medicine; Admitting Provider Family Medicine; Emergency Provider Emergency Medicine; PCP Internal Medicine; Visit Provider Family Medicine
DX: A41.9 Sepsis, unspecified organism (principal); J18.9 Pneumonia, unspecified organism; J96.21 Acute and chronic respiratory failure with hypoxia; B37.49 Other urogenital candidiasis; I50.42 Chronic combined systolic (congestive) and diastolic (congestive) heart failure; I42.8 Other cardiomyopathies; R65.20 Severe sepsis without septic shock; Y95 Nosocomial condition; Z99.81 Dependence on supplemental oxygen; R13.10 Dysphagia, unspecified; R35.0 Frequency of micturition; I11.0 Hypertensive heart disease with heart failure; I48.91 Unspecified atrial fibrillation; G47.33 Obstructive sleep apnea (adult) (pediatric); K21.9 Gastro-esophageal reflux disease without esophagitis; E78.5 Hyperlipidemia, unspecified; J45.909 Unspecified asthma, uncomplicated; H40.9 Unspecified glaucoma; Z66 Do not resuscitate; Z86.16 Personal history of COVID-19; Z79.84 Long term (current) use of oral hypoglycemic drugs; Z79.01 Long term (current) use of anticoagulants; Z79.4 Long term (current) use of insulin; Z79.51 Long term (current) use of inhaled steroids; Z86.73 Personal history of transient ischemic attack (TIA), and cerebral infarction without residual deficits
CPT/HCPCS: 36415; 36416; 36600; 51702; 71045; 71275; 76770; 80053; 80202; 81001; 82803; 82962; 83605; 83735; 83880; 84100; 84145; 84484; 85025; 86140; 87040; 87086; 87106; 87804; 92523; 92526; 92610; 93005; 94640; 94664; 96365; 96367; 96372; 96375; 97110; 97161; 97166; 97530; 97535; 99231; 99239; 99285; J0696; J1815; J1940; J2470; J2543; J3370; J3490

== ENCOUNTER 2024-12-30 12:26 | Emergency (ER) | payer MEDICARE, OTHER, SELFPAY ==
[2024-12-30 12:29] VITALS: BP 159/81; PULSE 63; RESP 22; TEMP 37; O2SAT 91; BMI 33.5
--- OUTSIDE RECORDS SUMMARY | 2024-12-30 12:30 | XMS_ITS | Encounter Summary ---
Author Organization [facility] Address [address] [place] [address] Care Team Providers Care Cyanide Furnace Operator Name Role Phone Duncan Lewis MD Primary Care Provider [phone] Encounter Details Date Type Department Care Team (Latest Contact Info) Description 04/21/2000 Outpatient Historical [facility] Dilip Moss Jr., MD [address] [place] [id number] Urinary tract infection, site not specified (Primary Dx); Pure hypercholesterolem; Encounter for long-term (current) use of other medications; Other nonspecific finding on examination of urine Social History Tobacco Use Types Packs/Day Years Used Date Smoking Tobacco: Never Assessed Sex and Gender Information Value Date Recorded Sex Assigned at Not on file 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
--- OUTSIDE RECORDS SUMMARY | 2024-12-30 12:30 | XMS_ITS | Encounter Summary ---
Author Organization [facility] Address [address] [place] [address] Care Team Providers Care Wood Heel Flap Inserter Name Role Phone Duncan Lewis MD Primary Care Provider Encounter Details Date Type Department Care Team (Late st Contact Info) Description 05/24/2007 Outpatient Historical [facility] Internal Medicine- [place] [address] [place] [phone] Duncan Lewis MD [address] [place] [phone] Social History Tobacco Use Types Packs/Day Years Used Date Smoking Tobacco: Never Assessed Sex and Gender Information Value Date Recorded Sex Assigned at Not on file 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
--- OUTSIDE RECORDS SUMMARY | 2024-12-30 12:30 | XMS_ITS | Encounter Summary ---
Author Organization [facility] Address [address] [place] [address] Care Team Providers Care Income Tax Preparer Name Role Phone Duncan Lewis MD Primary Care Provider [phone] Encounter Details Date Type Department Care Team (Latest Contact Info) Description 02/04/1999 Outpatient Historical [facility] Urology- [place] 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
--- OUTSIDE RECORDS SUMMARY | 2024-12-30 12:30 | XMS_ITS | Encounter Summary ---
Author Organization [facility] Address [address] [place] [address] Care Team Providers Care Position Classification Manager Name Role Phone Duncan Lewis MD Primary Care Provider [phone] Encounter Details Date Type Department Care Team (Latest Contact Info) Description 01/31/2002 Outpatient Historical [facility] Dermatology- [facility] [place] [address] [place] [address] Willie Shaw MD NO ADDRESS ON FILE ACTINIC KERATOSIS (Primary Dx) Social History Tobacco Use Types Packs/Day Years Used Date Smoking Tobacco: Never Assessed Sex and Gender Information Value Date Recorded Sex Assigned at Not on file 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
--- OUTSIDE RECORDS SUMMARY | 2024-12-30 12:30 | XMS_ITS | Encounter Summary ---
Author Organization [facility] Address [address] [place] [address] Care Team Providers Care Clinical Cytogeneticist Scientist Name Role Phone Duncan Lewis MD Primary Care Provider Encounter Details Date Type Department Care Team (Late st Contact Info) Description 02/28/2007 Outpatient Historical [facility] Internal Medicine- [address] [place] [phone] Duncan Lewis MD [address] [place] [phone] Other Malaise and Fatigue (Primary Dx); Unspecified Essential Hypertension; Headache; Inhibited Sex Excitement Social History Tobacco Use Types Packs/Day Years Used Date Smoking Tobacco: Never Assessed Sex and Gender Information Value Date Recorded Sex Assigned at Not on file 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
--- OUTSIDE RECORDS SUMMARY | 2024-12-30 12:30 | XMS_ITS | Clinical Summary ---
Author Organization [facility] Address [address] [place] [address] Phone Care Team Providers Care 7Th Grade Social Studies Teacher Name Role Phone Duncan Lewis MD Primary Care Provider [phone] Allergies No known active allergies Medications aspirin (SANTIAGO) 81 mg Oral Tab Take 81 mg by mouth daily. Active valsartan (DIOVAN) 80 mg Oral TabIndications:H ypertension Take 1 Tab by mouth daily. 90 Tab 4 8 Active trazodone (DESYREL) 50 mg Oral TabIndications:S leep disturbance Take 1 Tab by mouth daily at bedtime. 90 Tab 4 8 Active metoprolol succinate (TOPROL-XL) 50 mg Oral [id number]: Hypertension Take 1 Tab by mouth daily. 90 Tab 4 8 Active budesonide (RHINOCORT AQUA) 32 mcg/Actuation Both Nostril SpryIndications: Allergic rhinitis Administer 2 Sprays in each nostril daily. 4 Bottle 4 8 Active celecoxib (CELEBREX) 200 mg Oral CapIndications:O lecranon bursitis Take 1 Cap by mouth 2 times daily. 45 Cap 0 9 Active Active Problems Problem Noted Date Diagnosed Date Sleep disturbance 03/11/2008 Hypertension Asthma Allergic rhinitis BPH (benign prostatic hypertrophy) Overview (06/30/2010): Updating IMO/ICD9 Code and Description Immunizations Immunization Administration Dates Next Due (TDVAX)(7 YRS UP) TETANUS AN D DIPHTHERIA TOXOIDS, ADSORBED (2 LF OF TETANUS TOXOID AND 2 LF OF DIPHTHERIA TOXOID), 0.5ML (PF), IM 05/27/2005 Family History Medical History Relation Name Comments Heart Disease Father Hypertension Father Heart Disease Mother Hypertension Mother Relation Name Status Comments Father (Age 83) CHF Mother (Age 87) CHF Social History Tobacco Use Types Packs/Day Years Used Date Smoking Tobacco: Never Alcohol Use Standard Drinks/Week Comments No 0 (1 standard drink = 0.6 oz pur e alcohol) Sex and Gender Information Value Date Recorded Sex Assigned at Not on file 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 Gender Identity Not on file Sexual Orientation Not on file Last Filed Vital Signs Vital Sign Reading Time Taken Comments Blood Pressure 140/62 08/12/2008 2:48 PM CDT Pulse 66 08/12/2008 2:48 PM CDT Temperature - - Respiratory Rate 14 08/12/2008 2:48 PM CDT Oxygen Saturation - - Inhaled Oxygen Concentration - - Weight 97.3 kg (214 lb 8 oz) 08/12/2008 2:48 PM CDT Height - - Body Mass Index - - Plan of Treatment Health Maintenance Due Date Last Done Comments PNEUMOCOCCAL VACCINE 50+ YEARS (1 of 2 - PCV) 03/29/19 55 ZOSTER VACCINE (1 of 2) 1986 DTAP/TDAP/TD VACCINES (1 - Tdap) 05/28/2005 05/27/20 05 RSV VACCINE (60+ or ) (1 - 1-dose 75+ series) 2011 INFLUENZA VACCINE (#1) 2025 Insurance MEDICARE PART A AND B [facility] [place] [id number] Care Teams 7Th Grade Social Studies Teacher Relationship Specialty Start Date End Date Duncan Lewis MD PCP - General 07/02/07
--- OUTSIDE RECORDS SUMMARY | 2024-12-30 12:30 | XMS_ITS | Encounter Summary ---
Author Organization [facility] Address [address] [place] [address] Care Team Providers Care Early Morning Name Role Phone Duncan Lewis MD Primary Care Provider [phone] Encounter Details Date Type Department Care Team (Late st Contact Info) Description 02/04/1999 Outpatient Historical [facility]atology- 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
--- OUTSIDE RECORDS SUMMARY | 2024-12-30 12:30 | XMS_ITS | Encounter Summary ---
Author Organization [facility] Address [address] [place] [address] Care Team Providers Care Stave Log Cut Off Saw Operator Name Role Phone Duncan Lewis MD Primary Care Provider [phone] Encounter Details Date Type Department Care Team (Latest Contact Info) Description 01/22/1998 Outpatient Historical [facility]- [place] 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
--- OUTSIDE RECORDS SUMMARY | 2024-12-30 12:30 | XMS_ITS | Encounter Summary ---
Author Organization [employer] [facility] Address [address] [place] [address] Care Team Providers Care Still Operator Whiskey Name Role Phone Duncan Lewis MD Primary Care Provider [phone] Encounter Details Date Type Department Care Team (Latest Contact Info) Description 04/13/1999 Outpatient Historical [facility] Dilip Moss Jr., MD [facility] [place] [phone] Unspecified essential hypertension (Primary Dx) Social History Tobacco Use Types Packs/Day Years Used Date Smoking Tobacco: Never Assessed Sex and Gender Information Value Date Recorded Sex Assigned at Not on file 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
--- OUTSIDE RECORDS SUMMARY | 2024-12-30 12:30 | XMS_ITS | Encounter Summary ---
Author Organization [employer] [facility] [facility] Address [address] [place] [address] Care Team Providers Care Percussion Instrument Tuner Name Role Phone Duncan Lewis MD Primary Care Provider [phone] Encounter Details Date Type Department Care Team (Latest Contact Info) Description 07/30/1998 Outpatient Historical [facility] Dilip Moss Jr., MD [facility] [place] [phone] Unspecified essential hypertension (Primary Dx) Social History Tobacco Use Types Packs/Day Years Used Date Smoking Tobacco: Never Assessed Sex and Gender Information Value Date Recorded Sex Assigned at Not on file 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
--- OUTSIDE RECORDS SUMMARY | 2024-12-30 12:30 | XMS_ITS | Encounter Summary ---
Author Organization [employer] [facility] Address [address] [place] [address] Care Team Providers Care Agronomy Location Manager Name Role Phone Duncan Lewis MD Primary Care Provider Encounter Details Date Type Department Care Team (Latest Contact Info) Description 05/04/2000 Outpatient Historical [facility] Dilip Moss Jr., MD [address] [place] [phone] Personal history of other disorder of urinary system (Primary Dx) Social History Tobacco Use Types Packs/Day Years Used Date Smoking Tobacco: Never Assessed Sex and Gender Information Value Date Recorded Sex Assigned at Not on file 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
--- OUTSIDE RECORDS SUMMARY | 2024-12-30 12:30 | XMS_ITS | Encounter Summary ---
Author Organization [facility] Address [address] [place] [address] Care Team Providers Care Provider Network Analyst Name Role Phone Duncan Lewis MD Primary Care Provider [phone] Encounter Details Date Type Department Care Team (Latest Contact Info) Description 04/10/2001 Outpatient Historical [facility] Dermatology- [facility] [place] [address] [place] [address] Willie Shaw MD NO ADDRESS ON FILE ACTINIC KERATOSIS (Primary Dx) Social History Tobacco Use Types Packs/Day Years Used Date Smoking Tobacco: Never Assessed Sex and Gender Information Value Date Recorded Sex Assigned at Not on file 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
--- NOTE | 2024-12-30 12:40 | CTR_ITS ---
PROCEDURE INFORMATION: Exam: CT Head Without Contrast Exam date and time: 12/30/2024 12:52 PM Age: 89 years old Clinical indication: Injury or trauma; Fall; Blunt trauma (contusions or hematomas); Without loss of consciousness; Additional info: Fall and hit back of his head TECHNIQUE: Imaging protocol: Computed tomography of the head without contrast. Radiation optimization: All CT scans at this facility use at least one of these dose optimization techniques: automated exposure control; mA and/or kV adjustment per patient size (includes targeted exams where dose is matched to clinical indication); or iterative reconstruction. COMPARISON: CT head wo con* [id number] 09/24/2023 3:29 AM RADIATION DOSE METRICS: Total DLP (mGy-cm): 1126.7 FINDINGS: Brain: Cortical atrophy is present. Periventricular hypodensities are nonspecific and likely representing severe small vessel ischemic changes. Cerebral ventricles: No ventriculomegaly. Paranasal sinuses: Visualized sinuses are unremarkable. No fluid levels. Mastoid air cells: Visualized mastoid air cells are well aerated. Bones: Unremarkable. No acute fracture. Soft tissues: Occipital soft tissue swelling. Other findings: Intracranial atherosclerotic changes. CT/CT head wo con* [id number] IMPRESSION: 1. No acute intracranial finding. 2. Occipital soft tissue swelling. 3. Intracranial atherosclerotic changes. 4. Cortical atrophy is present. 5. Likely severe small-vessel ischemic changes.
--- NOTE | 2024-12-30 12:40 | CTR_ITS ---
PROCEDURE INFORMATION: Exam: CT Cervical Spine Without Contrast Exam date and time: 12/30/2024 12:52 PM Age: 89 years old Clinical indication: Injury or trauma; Fall; Blunt trauma; Additional info: Fall and hit his head TECHNIQUE: Imaging protocol: Computed tomography of the cervical spine without contrast. Radiation optimization: All CT scans at this facility use at least one of these dose optimization techniques: automated exposure control; mA and/or kV adjustment per patient size (includes targeted exams where dose is matched to clinical indication); or iterative reconstruction. COMPARISON: CT angio chest PE protcl [id number] 06/03/2024 9:00 AM RADIATION DOSE METRICS: Total DLP (mGy-cm): 300.2 FINDINGS: Bones: No cervical fracture or facet subluxation. Straightening of cervical lordosis. Intervertebral disc narrowing is seen at multiple levels. Lungs: Lung apices are normal. Soft tissues: Unremarkable. CT/CT cervical spin wo con* [id number] IMPRESSION: 1. No fracture. 2. Multilevel spondylotic changes are seen as described. 3. Straightening of cervical lordosis.
--- NOTE | 2024-12-30 13:08 | W.ED.FALL ---
HPI - Fall General: Chief Complaint: Fall Stated Complaint: hematoma to back of head s/p fall Time Seen by Provider: 12/30/24 12:34 History of Present Illness: 89 y/o M who uses a wheelchair, presents to the emergency department after sliding out of their wheelchair and bumping their head on the floor. The patient reports developing a big punk knock on the back of their head following the incident. They deny losing consciousness or experiencing any neck pain. The patient also denies any current head or neck pain when asked about it. The patient does not provide specific details about the onset, duration, or timing of the incident. They do not mention any aggravating or alleviating factors, radiation of pain, or associated symptoms. The impact on daily functioning is not explicitly stated, nor are any recent stressors or life events that may have contributed to the fall. Related Data Home Medications ?Medication ?Instructions ?Recorded ?Confirmed ascorbic acid (vitamin C) 1,000 mg 500 mg PO QAM 12/11/20 06/03/24 tablet fluticasone propionate 50 2 spray intranasal QA 12/11/20 12/30/24 mcg/actuation nasal spray,suspension (Flonase Allergy Relief) garlic 1,000 mg capsule 1,000 mg PO QAM 12/11/20 12/30/24 latanoprost 0.005 % eye drops 1 drp ophthalmic (eye) DAILY 12/11/20 12/30/24 multivitamin (One-A-Day Essential 1 tab PO QAM 12/11/20 12/30/24 tablet) omeprazole 20 mg tablet,delayed 20 mg PO BID 12/11/20 12/30/24 release polyethylene glycol 3350 17 17 g PO DAILY 12/11/20 12/30/24 gram/dose oral powder (Miralax) rivaroxaban 20 mg tablet (Xarelto) 20 mg PO QPM 12/11/20 06/03/24 tamsulosin 0.4 mg capsule 0.4 mg PO QAM 12/11/20 06/03/24 metformin 500 mg tablet 500 mg PO QAM 01/08/21 12/30/24 acetaminophen 500 mg tablet 500 - 1,000 mg PO Q6H PRN Pain 09/24/23 06/03/24 brimonidine 0.2 % eye drops 1 drp ophthalmic (eye) BID 09/24/23 12/30/24 calcium 333 mg-magnesium 133 mg-D3 3 tab PO QAM 09/24/23 12/30/24 1.67 mcg-zinc 5 mg tablet cyanocobalamin (vitamin B-12) 1,000 mcg PO QAM 09/24/23 06/03/24 1,000 mcg tablet (Vitamin B-12) doxylamine succinate 25 mg tablet 25 mg PO BEDTIME 09/24/23 06/03/24 (Unisom (doxylamine)) psyllium husk 3 gram/5.4 gram oral 1 tbsp PO QAM 09/24/23 06/03/24 powder (Reguloid (psyllium husk)) sod chloride-sod See Rx Instructions .Route 09/24/23 06/03/24 bicarb-hyaluronate sod-aloe 0.9 % .COMPLEX PRN discomfort nasal gel (Nasogel) venlafaxine 75 mg capsule,extended 75 mg PO QAM 09/24/23 06/03/24 release 24 hr dapagliflozin propanediol 10 mg 10 mg PO QAM 09/30/23 12/30/24 tablet (Farxiga) atorvastatin 10 mg tablet 10 mg PO DAILY 05/28/24 12/30/24 cetirizine 10 mg tablet 10 mg PO QAM 05/28/24 12/30/24 metoprolol succinate 100 mg 100 mg PO QAM 05/28/24 12/30/24 tablet,extended release 24 hr montelukast 10 mg tablet 10 mg PO QAM 05/28/24 12/30/24 (Singulair) furosemide 20 mg tablet 20 mg PO DAILY 12/30/24 12/30/24 potassium chloride 20 mEq meq PO 12/30/24 tablet,extended release potassium chloride 20 mEq meq PO 12/30/24 tablet,extended release(part/cryst) Previous Rx's ?Medication ?Instructions ?Recorded albuterol sulfate 90 mcg/actuation 2 puff inhalation Q6H PRN 12/11/20 aerosol inhaler shortness of breath or wheezing #8.5 grams budesonide-formoterol HFA 80 2 puff inhalation BID #10.2 grams 08/31/23 mcg-4.5 mcg/actuation aerosol inhaler (Symbicort) sennosides 8.6 mg-docusate sodium 1 tab PO BID #60 tabs 09/27/23 50 mg tablet (Stool Softener-Laxative) amiodarone 200 mg tablet (Pacerone) 400 mg (2 x 200 mg) PO DAILY #60 03/19/24 tabs sacubitril 24 mg-valsartan 26 mg 1 tab PO BID #30 tabs 03/19/24 tablet (Entresto) glucometer testing kit #1 ea 06/02/24 insulin lispro 100 unit/mL See Rx Instructions .Route 06/02/24 subcutaneous pen (Humalog KwikPen .COMPLEX #15 mL (U-100) Insulin) Allergies Allergy/AdvReac Type Severity Reaction Status Date / Time Sulfa (Sulfonamide Allergy Severe ALGY-Hives Verified 04/02/24 13:24 Antibiotics) bee venom protein (honey bee) Allergy swelling Verified 04/02/24 13:24 and hives Review of Systems General: Reports: 10 or more systems reviewed and unremarkable except in HPI and below PFSH ED PFSH: Medical History (Updated 12/30/24 @ 13:59 by Daniel La DO) CHF (congestive heart failure) Asthma Stroke GERD (gastroesophageal reflux disease) Cataract Hyperlipemia Glaucoma Afib HTN (hypertension) JENNIFER (obstructive sleep apnea) Asthma Surgical History History of thyroid surgery H/O hernia repair Hx of cataract surgery H/O cardiac radiofrequency ablation History of carpal tunnel surgery Family History Mother Congestive heart failure (CHF) Father Congestive heart failure (CHF) Social History Smoking and tobacco/nicotine status: never used tobacco/nicotine Second hand smoke exposure: No Alcohol intake: never Substance/Drug Use: never Lives independently: Yes Household members: spouse Marital status: Current occupational status: retired Previous occupational history: [employer] Do you think of yourself as: Straight/Heterosexual Current gender identity: Male Physical Exam Const: COMMON NORMALS: no acute distress, patient oriented x3, healthy appearing, alert and well nourished HENMT: COMMON NORMALS: normocephalic HEAD & SCALP: normocephalic Eye: COMMON NORMALS: EOMs intact bilaterally Neck/C-Spine: COMMON NORMALS: full ROM and supple Resp: COMMON NORMALS: normal respiratory effort, No retractions and clear to auscultation bilaterally AUSCULTATION: clear to auscultation bilaterally Cardio: COMMON NORMALS: regular rate, regular rhythm, No gallops present (Cardio) and No murmurs present (Cardio) RATE: regular rate RHYTHM: regular rhythm GI: COMMON NORMALS: Soft to palpation and non-tender PALPATION: Yes Soft to palpation Extremity: GENERAL: Yes normal exam except as noted Neuro: COMMON NORMALS: patient oriented x3 SENSORIUM/ORIENTATION: Yes alert Skin: COMMON NORMALS: negative for no rashes or lesions noted (Ecchymosis noted over the right side of occiput) GENERAL SKIN EXAM: rashes and/or lesions noted (Ecchymosis noted over the right side of occiput) Course Vital Signs: Vital signs: Vital Signs Temperature 98.6 F 12/30/24 12:29 Pulse Rate 63 12/30/24 12:29 Respiratory Rate 22 H 12/30/24 12:29 Blood Pressure 159/81 12/30/24 12:29 Pulse Oximetry 91 12/30/24 12:29 Oxygen Delivery Me thod Room Air 12/30/24 12:29 MDM - Fall Medical Decision Making 89-year-old male presents to the emergency department for evaluation of a fall after he slid out of his wheelchair and hit his head. There was no loss of consciousness. On physical exam there is a hematoma noted over his occiput. Otherwise no focal neurologic deficit. CT scan of C-spine and brain were negative for acute findings. Return precautions were discussed and the patient was discharged home in good condition. Lab Data Radiology Impressions Cervical Spine CT 12/30/24 12:40 IMPRESSION: 1. No fracture. 2. Multilevel spondylotic changes are seen as described. 3. Straightening of cervical lordosis. Head CT 12/30/24 12:40 IMPRESSION: 1. No acute intracranial finding. 2. Occipital soft tissue swelling. 3. Intracranial atherosclerotic changes. 4. Cortical atrophy is present. 5. Likely severe small-vessel ischemic changes. All radiology interpretation(s) finalized by discharge Discharge Plan Discharge Patient Disposition: Home Clinical Impression: Hematoma Fall Qualifiers: Encounter type: initial encounter Qualified Code(s): W19.XXXA - Unspecified fall, initial encounter Condition: Stable Prescriptions: No Action metformin 500 mg tablet 500 mg PO QAM tamsulosin 0.4 mg capsule 0.4 mg PO QAM Xarelto 20 mg tablet 20 mg PO QPM Rx Instructions: must administer with evening meal omeprazole 20 mg tablet,delayed release (DR/EC) 20 mg PO BID latanoprost 0.005 % drops 1 drp ophthalmic (eye) DAILY fluticasone propionate [Flonase Allergy Relief] 50 mcg/actuation spray,suspension 2 spray intranasal QAM polyethylene glycol 3350 [Miralax] 17 gram/dose powder 17 g PO DAILY ascorbic acid (vitamin C) 1,000 mg tablet 500 mg PO QAM garlic 1,000 mg capsule 1,000 mg PO QAM multivitamin [One-A-Day Essential] Tablet 1 tab PO QAM albuterol sulfate 90 mcg/actuation HFA aerosol inhaler 2 puff inhalation Q6H PRN (Reason: shortness of breath or wheezing) Qty: 8.5 3RF budesonide-formoterol [Symbicort] 80-4.5 mcg/actuation HFA aerosol inhaler 2 puff inhalation BID Qty: 10.2 3RF dapagliflozin propanediol [Farxiga] 10 mg tablet 10 mg PO QAM cetirizine 10 mg Tablet 10 mg PO QAM atorvastatin 10 mg tablet 10 mg PO DAILY montelukast [Singulair] 10 mg tablet 10 mg PO QAM metoprolol succinate 100 mg tablet extended release 24 hr 100 mg PO QAM insulin lispro [Humalog KwikPen Insulin] 100 unit/mL insulin pen See Rx Instructions .ROUTE .COMPLEX Qty: 15 0RF Rx Instructions: Inject, subcut, 3 times daily, after meals, based on sliding scale provided ([facility]) glucometer testing kit See Rx Instructions .Route .MEDSUPPLY Qty: 1 0RF Rx Instructions: lancets#100 strips#100 venlafaxine 75 mg capsule,extended release 24hr 75 mg PO QAM cyanocobalamin (vitamin B-12) [Vitamin B-12] 1,000 mcg Tablet 1,000 mcg PO QAM acetaminophen 500 mg Tablet 500 - 1,000 mg PO Q6H PRN (Reason: Pain) brimonidine 0.2 % drops 1 drp ophthalmic (eye) BID Unisom (doxylamine) 25 mg Tablet 25 mg PO BEDTIME Reguloid (psyllium husk) 3 gram/5.4 gram Powder 1 tbsp PO QAM Rx Instructions: mix into at least 8 oz of water or juice before administering calc carb-mag ox-D3-zinc gluc 333 mg-133 mg- 1.67 mcg-5 mg Tablet 3 tab PO QAM Nasogel 0.9 % Gel See Rx Instructions .ROUTE .COMPLEX PRN (Reason: discomfort) Rx Instructions: APPLY AROUND NOSTRILS TO HELP RELIEVE DISCOMFORT NEEDED. sennosides-docusate sodium [Stool Softener-Laxative] 8.6-50 mg Tablet 1 tab PO BID Qty: 60 0RF Rx Instructions: Hold if having more than 1 BM per day Entresto 24-26 mg Tablet 1 tab PO BID Qty: 30 0RF amiodarone [Pacerone] 200 mg Tablet 400 mg PO DAILY Qty: 60 0RF potassium chloride 20 mEq tablet,ER particles/crystals PO furosemide 20 mg tablet 20 mg PO DAILY potassium chloride 20 mEq tablet extended release PO Discharge Orders: Discharge ED (Routine); Ordered 12/30/24 Ordered By: Daniel La Referrals: Noé Ramon DO [Primary Care Provider, [facility]] Discharge Diet: Advance as tolerated Discharge Activity: Resume usual activity Patient Instructions: Opioid Safety, Pain Management, Patient Portal & Sanket Instructions Activity Restrictions/Additional Instructions: Please follow-up with primary care team for any persistent symptoms. Return the emergency department for any new or worsening symptoms. Print Language: [place] Coding Level of Care Code ED Qa Engineer for Arlette Whipple
--- NOTE | 2024-12-30 13:49 | PC.PHAR ---
Pt is from [facility]
[2024-12-30 14:16] VITALS: BP 154/78; PULSE 66; O2SAT 94
== END 2024-12-30 14:29 | disposition home or self-care (01) ==
PROVIDERS: Emergency Provider General Practice; PCP Family Medicine
DX: S00.93XA Contusion of unspecified part of head, initial encounter (principal); W19.XXXA Unspecified fall, initial encounter; Z79.84 Long term (current) use of oral hypoglycemic drugs; Z79.4 Long term (current) use of insulin; E78.5 Hyperlipidemia, unspecified; I11.0 Hypertensive heart disease with heart failure; I50.9 Heart failure, unspecified
CPT/HCPCS: 70450; 72125; 99284